=== PATIENT | female | born 1965 | race African-American/Black ===

== ENCOUNTER 2016-08-11 10:44 | Inpatient (IN) | payer OTHER ==
[~2016-08-11] VITALS: Ht 167.6 cm; Wt 139.3 kg
[2016-08-11] VITALS (28 sets, daily range): BP systolic 94–160; BP diastolic 53–87
[~2016-08-11 10:44] MED LIST: AMIT-188 PO; ANAS1TAB7 PO; ASPI-1035 PO; CLOP75TA33 PO; FLUO40CA8 PO; GABA-290 PO; HYDR12.54 PO; LOSA100T14 PO; METH-24 PO; ROSU10TA PO
[2016-08-11] MEDS ORDERED: ONDANSETRON HCL 4MG/2ML VIAL IV STA (11:34)
[2016-08-11] MEDS ORDERED: FENTANYL CITRATE/PF 50MCG/ML 2ML VIAL IV ONE (11:45)
[2016-08-11 11:53] LABS: BASOPHILS % 1.2 % (0.0-2.0); HEMATOCRIT. 42.8 % (36.0-48.0); HEMOGLOBIN. 13.9 g/dL (12.0-16.0); LYMPHOCYTES % 34.5 % (20.0-50.0); MEAN CORPUSCULAR HEMOGLOBIN 27.6 pg (28.0-32.0); MEAN CORPUSCULAR HGB CONC 32.6 g/dL (31.0-37.0); MEAN CORPUSCULAR VOLUME 84.6 fL (81.0-99.0); MEAN PLATELET VOLUME 8.6 fl (7.4-10.4); MONOCYTES % 9.1 % (2.0-8.0); NEUTROPHILS % 51.2 % (40.0-76.0); PLATELET 205 x1000/uL (130-400); RED BLOOD CELL COUNT 5.06 mill/uL (4.2-5.4); RED CELL DISTRIBUTION WIDTH 15.9 % (11.6-14.6); WHITE BLOOD COUNT 9.2 x1000/uL (4.5-11.0)
[2016-08-11 12:00] LABS: PROTHROMBIN TIME 10.7 sec
[2016-08-11 12:10] LABS: ALANINE AMINOTRANSFERASE 12 IU/L (13-61); ALBUMIN 3.3 g/dL (3.4-5.0); ANION GAP 13; CALCIUM 9.6 mg/dL (8.5-10.1); CARBON DIOXIDE 26 mEq/L (21-32); CHLORIDE 107 mEq/L (98-107); INDEX HEMOLYSI 1 (1-3); INDEX ICTERIC 1 (1-4); INDEX LIPEMIC 1 (1-3); NT PRO B-TYPE NATRIURETIC PEP 146 pg/mL (5-125); TROPONIN I < 0.02 ng/mL (0.00-0.04); UREA NITROGEN BLOOD 23 mg/dL (7-21); eGFR 25 mL/min (>60)
[2016-08-11] MEDS ORDERED: HYDROMORPHONE HCL/PF 2MG/ML (OR) ONE ×2 (14:30→15:08)
[2016-08-11] MEDS ORDERED: FENTANYL CITRATE/PF 50MCG/ML 2ML VIAL ONE (14:30)
[2016-08-11] MEDS ORDERED: MIDAZOLAM HCL 5 MG/5 ML VIAL ONE (14:31)
[2016-08-11] MEDS ORDERED: IODIXANOL 320MG/ML 100 ML BOTTLE IV ONE (14:31)
[2016-08-11] MEDS ORDERED: LIDOCAINE HCL 1% 20ML VIAL (Pyxis) INJ ONE (14:31)
[2016-08-11] MEDS ORDERED: IOVERSOL 240MG/ML 100ML BOTTLE IV ONE (15:01)
[2016-08-11] MEDS ORDERED: SODIUM BICARBONATE 8.4% 1 MEQ/ML 50ML SYR IV NR (15:15)
[2016-08-11] MEDS ORDERED: INSULIN REGULAR (HUMULIN R) 300UNITS/3ML IV NR (15:15)
[2016-08-11] MEDS ORDERED: DEXTROSE 50% WATER 50ML SYRINGE IV NR (15:15)
[2016-08-11] MEDS ORDERED: ACETAMINOPHEN 325MG TABLET PO PRN ×2 (15:30→21:45)
[2016-08-11] MEDS ORDERED: ATROPINE SULFATE 1MG/10ML SYR IV PRN (15:30)
[2016-08-11] MEDS ORDERED: ASPIRIN 325MG TABLET ONE (15:39)
[2016-08-11] MEDS ORDERED: CLOPIDOGREL 75MG TABLET ONE (15:39)
[2016-08-11] MEDS ORDERED: SODIUM CHLORIDE 0.9% 1,000 ML IV ONE (15:45)
[2016-08-11] MEDS: SODIUM CHLORIDE 0.45% 1,000 ML IV SCH (19:13)
[2016-08-11] MEDS ORDERED: IPRATROPIUM/ALBUTEROL 0.5-3(2.5)MG/3ML NEB INH PRN (21:45)
[2016-08-11] MEDS ORDERED: CLONIDINE 0.1MG TABLET PO PRN (21:45)
[2016-08-11] MEDS ORDERED: HYDROCODONE/ACETAMINOPHEN 5/325MG TABLET PO PRN (21:45)
[2016-08-11] MEDS ORDERED: MAGNESIUM/ALUMINUM HYDROXIDE/SIMETHICONE 30ML UDC PO PRN (21:45)
[2016-08-11] MEDS ORDERED: ONDANSETRON HCL 4MG/2ML VIAL IV PRN (21:45)
[2016-08-11] MEDS: BLOOD SUGAR DIAGNOSTIC STRIP TEST SCH (23:58)
[2016-08-11] MEDS: INSULIN LISPRO 100 UNITS/ML SUBCUT SCH (23:58)
[2016-08-12] VITALS (17 sets, daily range): BP systolic 101–143; BP diastolic 51–89
[2016-08-12] MEDS: HYDROMORPHONE HCL/PF 2MG/ML CPJ IV PRN ×2 (01:02→08:44)
[2016-08-12] MEDS ORDERED: DEXTROSE 50% WATER 50ML SYRINGE IV PRN (02:30)
[2016-08-12 02:51] LABS: CLARITY URINE CLEAR (CLEAR); COLOR URINE YELLOW (YELLOW); GLUCOSE URINE NEGATIVE (NEGATIVE); KETONES URINE NEGATIVE (NEGATIVE); LEUKOCYTE ESTERASE URINE NEGATIVE (NEGATIVE); NITRITE URINE NEGATIVE (NEGATIVE); OCCULT BLOOD URINE TRACE (NEGATIVE); PH URINE 6.5 (4.5-8.0); PROTEIN URINE 1+ (NEGATIVE); SPECIFIC GRAVITY URINE 1.012 (1.005-1.030); UROBILINOGEN URINE 0.2 E.U./dL (0.2-1.0)
[2016-08-12 03:01] LABS: *AMPHETAMINES SCREEN URINE NEGATIVE (NEGATIVE); *BARBITURATES SCREEN URINE NEGATIVE (NEGATIVE); *COCAINE SCREEN URINE NEGATIVE (NEGATIVE); CANNABINOID URINE SCREEN NEGATIVE (NEGATIVE); ECSTASY MDMA SCREEN URINE NEGATIVE (NEGATIVE); METHADONE URINE SCREEN NEGATIVE (NEGATIVE); PHENCYCLIDINE URINE SCREEN NEGATIVE (NEGATIVE)
[2016-08-12 03:19] LABS: BACTERIA URINE TRACE; RBC URINE 0-2 /hpf (0-2); SQUAMOUS EPITHELIAL CELL URINE RARE /lpf (RARE/1+); WBC URINE 0-2 /hpf (0-2)
[2016-08-12 03:42] LABS: *BENZODIAZEPINES SCREEN URINE PRESUMTIVE POSITIVE (NEGATIVE); OPIATES URINE SCREEN PRESUMTIVE POSITIVE (NEGATIVE)
[2016-08-12] MEDS: SODIUM CHLORIDE 0.45% 1,000 ML IV SCH (04:36)
[2016-08-12] MEDS: BLOOD SUGAR DIAGNOSTIC STRIP TEST SCH (06:02)
[2016-08-12 06:38] LABS: BASOPHILS % 0.6 % (0.0-2.0); EOSINOPHILS % 2.6 % (0.0-5.0); HEMATOCRIT. 38.8 % (36.0-48.0); HEMOGLOBIN. 12.8 g/dL (12.0-16.0); LYMPHOCYTES % 27.8 % (20.0-50.0); MEAN CORPUSCULAR HGB CONC 33.1 g/dL (31.0-37.0); MEAN CORPUSCULAR VOLUME 84.6 fL (81.0-99.0); MEAN PLATELET VOLUME 9.2 fl (7.4-10.4); MONOCYTES % 8.4 % (2.0-8.0); NEUTROPHILS % 60.6 % (40.0-76.0); PLATELET 183 x1000/uL (130-400); RED BLOOD CELL COUNT 4.58 mill/uL (4.2-5.4); RED CELL DISTRIBUTION WIDTH 15.7 % (11.6-14.6); WHITE BLOOD COUNT 8.9 x1000/uL (4.5-11.0)
[2016-08-12] MEDS: INSULIN LISPRO 100 UNITS/ML SUBCUT SCH (07:20)
[2016-08-12 08:13] LABS: CALCIUM 9.1 mg/dL (8.5-10.1)
[2016-08-12] MEDS ORDERED: ASPIRIN 81MG TABLET PO SCH (09:00)
[2016-08-12] MEDS ORDERED: CLOPIDOGREL 75MG TABLET PO SCH (09:00)
[2016-08-12] MEDS ORDERED: HEPARIN SODIUM 1,000 UNIT/1ML VIAL IV ONE (13:40)
== END 2016-08-12 12:48 | disposition home or self-care (01) | DRG 173 ==
LOC: ER 10:56 → 3WST 15:26
PROVIDERS: ADMIT Internal Medicine; ATTEND Internal Medicine
PROC: 047K3Z1 Dilation of Right Femoral Artery using Drug-Coated Balloon, Percutaneous Approach (ICD-10-PCS; principal; 2016-08-11)
PROC: B41F1ZZ Fluoroscopy of Right Lower Extremity Arteries using Low Osmolar Contrast (ICD-10-PCS; 2016-08-11)
DX: I70.201 Unspecified atherosclerosis of native arteries of extremities, right leg (principal); E11.22 Type 2 diabetes mellitus with diabetic chronic kidney disease; E11.51 Type 2 diabetes mellitus with diabetic peripheral angiopathy without gangrene; E87.5 Hyperkalemia; D63.8 Anemia in other chronic diseases classified elsewhere; E66.09 Other obesity due to excess calories; E78.5 Hyperlipidemia, unspecified; F17.210 Nicotine dependence, cigarettes, uncomplicated; F41.9 Anxiety disorder, unspecified; I25.10 Atherosclerotic heart disease of native coronary artery without angina pectoris; J45.909 Unspecified asthma, uncomplicated; I12.9 Hypertensive chronic kidney disease with stage 1 through stage 4 chronic kidney disease, or unspecified chronic kidney disease; I99.8 Other disorder of circulatory system; N18.9 Chronic kidney disease, unspecified; W19.XXXA Unspecified fall, initial encounter; Y92.009 Unspecified place in unspecified non-institutional (private) residence as the place of occurrence of the external cause; Z79.02 Long term (current) use of antithrombotics/antiplatelets; Z79.82 Long term (current) use of aspirin; Z85.3 Personal history of malignant neoplasm of breast; Z68.42 Body mass index [BMI] 45.0-49.9, adult; Z89.429 Acquired absence of other toe(s), unspecified side; Z92.3 Personal history of irradiation; Z99.3 Dependence on wheelchair; Z88.6 Allergy status to analgesic agent; Z88.2 Allergy status to sulfonamides
CPT/HCPCS: 36415; 37224; 75710; 80048; 80053; 80061; 80305; 81001; 82962; 83880; 84484; 85025; 85347; 85610; 85730; 93005; 93923; 93970; 96374; 96375; 99291; C1726; C1769; C1887; C1893; C1894; C2623; J1170; J1644; J2250; J2405; J3010; J3490; J7030; J7620; Q9967; A4315

== ENCOUNTER 2016-09-15 07:20 | Inpatient (IN) | payer OTHER ==
[~2016-09-15] VITALS: Ht 172.7 cm; Wt 136.1 kg
[2016-09-15] MEDS ORDERED: MORPHINE SULFATE 4 MG/ML CPJ (NOT FOR IM USE) IV STA (08:19)
[2016-09-15] MEDS ORDERED: SODIUM CHLORIDE 0.9% 1,000 ML IV ONE (08:19)
[2016-09-15] MEDS ORDERED: ONDANSETRON HCL 4MG/2ML VIAL IV STA (08:19)
[2016-09-15 08:37] LABS: BASOPHILS % 1.3 % (0.0-2.0); EOSINOPHILS % 3.1 % (0.0-5.0); HEMATOCRIT. 41.5 % (36.0-48.0); HEMOGLOBIN. 13.9 g/dL (12.0-16.0); LYMPHOCYTES % 29.1 % (20.0-50.0); MEAN CORPUSCULAR HEMOGLOBIN 27.9 pg (28.0-32.0); MEAN CORPUSCULAR VOLUME 83.5 fL (81.0-99.0); MEAN PLATELET VOLUME 8.6 fl (7.4-10.4); MONOCYTES % 8.6 % (2.0-8.0); NEUTROPHILS % 57.9 % (40.0-76.0); PLATELET 224 x1000/uL (130-400); RED BLOOD CELL COUNT 4.97 mill/uL (4.2-5.4); RED CELL DISTRIBUTION WIDTH 16.4 % (11.6-14.6)
[2016-09-15 08:40] LABS: CHLORIDE 106 mEq/L (98-107)
[2016-09-15 08:49] LABS: CARBON DIOXIDE 25 mEq/L (21-32)
[2016-09-15 08:53] LABS: HCG SCREEN NEGATIVE
[2016-09-15 11:28] LABS: CLARITY URINE CLEAR (CLEAR); COLOR URINE YELLOW (YELLOW); GLUCOSE URINE NEGATIVE (NEGATIVE); KETONES URINE NEGATIVE (NEGATIVE); LEUKOCYTE ESTERASE URINE NEGATIVE (NEGATIVE); NITRITE URINE NEGATIVE (NEGATIVE); OCCULT BLOOD URINE NEGATIVE (NEGATIVE); PH URINE 6.5 (4.5-8.0); PROTEIN URINE 3+ (NEGATIVE); SPECIFIC GRAVITY URINE 1.013 (1.005-1.030); UROBILINOGEN URINE 0.2 E.U./dL (0.2-1.0)
[2016-09-15] MEDS ORDERED: LEVOFLOXACIN 750MG PREMIX 150 ML IV ONE (12:00)
[2016-09-15] MEDS ORDERED: METRONIDAZOLE 500 MG PREMIX 100 ML IV ONE (12:00)
[2016-09-15] MEDS ORDERED: ACETAMINOPHEN 325MG TABLET PO PRN (12:15)
[2016-09-15] MEDS ORDERED: DOCUSATE SODIUM 100MG CAPSULE PO PRN (12:15)
[2016-09-15] MEDS ORDERED: DIPHENHYDRAMINE 50MG/ML VIAL IV PRN (12:15)
[2016-09-15] MEDS ORDERED: HYDROCODONE/ACETAMINOPHEN 5/325MG TABLET PO PRN (12:15)
[2016-09-15] MEDS ORDERED: IPRATROPIUM/ALBUTEROL 0.5-3(2.5)MG/3ML NEB INH PRN (12:15)
[2016-09-15] MEDS ORDERED: MAGNESIUM/ALUMINUM HYDROXIDE/SIMETHICONE 30ML UDC PO PRN (12:15)
[2016-09-15] MEDS ORDERED: ONDANSETRON HCL 4MG/2ML VIAL IV PRN (12:15)
[2016-09-15] MEDS ORDERED: NA PHOS,M-B/NA PHOS,DI-BA ENEMA 118ML PR PRN (12:15)
[2016-09-15] MEDS ORDERED: LORAZEPAM 2MG/ML CPJ IV PRN (12:15)
[2016-09-15] MEDS: METRONIDAZOLE 500 MG PREMIX 100 ML IV SCH ×2 (14:04→23:38)
[2016-09-15 16:00] VITALS: BP_SYST 136; BP_SYST 138; BP_DIAS 86
[2016-09-15] MEDS ORDERED: MUPI22OI2 TP (16:39)
[2016-09-15] MEDS ORDERED: LEVOFLOXACIN 500MG PREMIX 100 ML IV SCH ×2 (18:00→21:00)
[2016-09-15] MEDS ORDERED: METHOCARBAMOL 750MG TABLET PO PRN (18:30)
[2016-09-15] MEDS: HYDROMORPHONE HCL/PF 2MG/ML CPJ IV PRN (20:18)
[2016-09-15 21:00] VITALS: BP 110/78
[2016-09-15] MEDS ORDERED: AMITRIPTYLINE 50MG TABLET PO SCH (21:00)
[2016-09-15] MEDS ORDERED: FLUOXETINE HCL 20MG CAPSULE PO SCH (21:00)
[2016-09-15] MEDS ORDERED: ANASTROZOLE 1 MG TABLET PO SCH (21:00)
[2016-09-15] MEDS ORDERED: MEDICATION NOT ON FORMULARY EA (Fluoxetine Hcl (Prozac) 40 MG) PO SCH (21:00)
[2016-09-15] MEDS: ENOXAPARIN 40MG/0.4ML SYR SUBCUT SCH (21:44)
[2016-09-15] MEDS: SODIUM CHLORIDE 0.45% 1,000 ML IV SCH (23:42)
[2016-09-16] MEDS ORDERED: DEXTROSE 50% WATER 50ML SYRINGE IV PRN
[2016-09-16 00:39] VITALS: BP 108/66
[2016-09-16] MEDS: HYDROMORPHONE HCL/PF 2MG/ML CPJ IV PRN ×3 (02:58→13:17)
[2016-09-16 04:00] VITALS: BP 122/68
[2016-09-16] MEDS: METRONIDAZOLE 500 MG PREMIX 100 ML IV SCH ×2 (05:21→13:18)
[2016-09-16 06:25] LABS: CARBON DIOXIDE 27 mEq/L (21-32); CHLORIDE 104 mEq/L (98-107); LDL CHOLESTEROL 100 mg/dL (5-100)
[2016-09-16 06:28] LABS: HDL CHOLESTEROL 38 mg/dL (40-59)
[2016-09-16] MEDS: BLOOD SUGAR DIAGNOSTIC STRIP TEST SCH ×2 (07:01→12:55)
[2016-09-16 07:21] LABS: BASOPHILS % 1.1 % (0.0-2.0); EOSINOPHILS % 4.9 % (0.0-5.0); HEMOGLOBIN. 13.2 g/dL (12.0-16.0); LYMPHOCYTES % 29.7 % (20.0-50.0); MEAN CORPUSCULAR HEMOGLOBIN 28.1 pg (28.0-32.0); MEAN CORPUSCULAR VOLUME 85.6 fL (81.0-99.0); MEAN PLATELET VOLUME 9.6 fl (7.4-10.4); MONOCYTES % 10.9 % (2.0-8.0); NEUTROPHILS % 53.4 % (40.0-76.0); PLATELET 191 x1000/uL (130-400); RED BLOOD CELL COUNT 4.68 mill/uL (4.2-5.4); RED CELL DISTRIBUTION WIDTH 16.4 % (11.6-14.6)
[2016-09-16] MEDS: INSULIN LISPRO 100 UNITS/ML SUBCUT SCH ×2 (07:50→12:50)
[2016-09-16 08:30] VITALS: BP 133/59
[2016-09-16] MEDS: ENOXAPARIN 40MG/0.4ML SYR SUBCUT SCH (08:52)
[2016-09-16] MEDS ORDERED: GABAPENTIN 300MG CAPSULE PO SCH (09:00)
[2016-09-16] MEDS ORDERED: CLOPIDOGREL 75MG TABLET PO SCH (09:00)
[2016-09-16] MEDS ORDERED: MUPIROCIN 2% OINT 22GM TOP SCH (09:00)
[2016-09-16] MEDS ORDERED: ASPIRIN 81MG EC TABLET PO SCH (09:00)
[2016-09-16] MEDS ORDERED: MEDICATION NOT ON FORMULARY EA (Gabapentin 600 MG) PO SCH (09:00)
[2016-09-16] MEDS ORDERED: LOSARTAN POTASSIUM 100 MG TABLET PO SCH (09:00)
[2016-09-16] MEDS: SODIUM CHLORIDE 0.45% 1,000 ML IV SCH (13:11)
[2016-09-16 15:58] VITALS: BP 128/66
[2016-09-16] MEDS ORDERED: METRONIDAZOLE 500 MG PREMIX 100 ML IV SCH (22:00)
[2016-09-17] MEDS ORDERED: LEVOFLOXACIN 500MG TABLET PO SCH (11:00)
== END 2016-09-16 17:05 | disposition home or self-care (01) | DRG 244 ==
LOC: ER 07:25 → 6EST 12:09 → ENRESERV 12:17 → 6WST 20:58
PROVIDERS: ADMIT Internal Medicine; ATTEND Internal Medicine
DX: K57.32 Diverticulitis of large intestine without perforation or abscess without bleeding (principal); N17.9 Acute kidney failure, unspecified; I31.3 Pericardial effusion (noninflammatory); E11.22 Type 2 diabetes mellitus with diabetic chronic kidney disease; Z68.42 Body mass index [BMI] 45.0-49.9, adult; E11.51 Type 2 diabetes mellitus with diabetic peripheral angiopathy without gangrene; J43.9 Emphysema, unspecified; E86.0 Dehydration; E78.5 Hyperlipidemia, unspecified; T45.1X5A Adverse effect of antineoplastic and immunosuppressive drugs, initial encounter; I25.10 Atherosclerotic heart disease of native coronary artery without angina pectoris; J45.909 Unspecified asthma, uncomplicated; I12.9 Hypertensive chronic kidney disease with stage 1 through stage 4 chronic kidney disease, or unspecified chronic kidney disease; E66.01 Morbid (severe) obesity due to excess calories; C50.912 Malignant neoplasm of unspecified site of left female breast; E87.8 Other disorders of electrolyte and fluid balance, not elsewhere classified; N18.9 Chronic kidney disease, unspecified; Z82.49 Family history of ischemic heart disease and other diseases of the circulatory system; Z83.3 Family history of diabetes mellitus; Z95.5 Presence of coronary angioplasty implant and graft; Z88.6 Allergy status to analgesic agent; Z88.2 Allergy status to sulfonamides
CPT/HCPCS: 36415; 71010; 74176; 76770; 80048; 80053; 80061; 81001; 82962; 83690; 84703; 85025; 93005; 96374; 96375; 99285; C1893; J1170; J1650; J1956; J2270; J2405; J3490; J7030

== ENCOUNTER 2017-01-24 05:37 | Inpatient (IN) | payer OTHER ==
[~2017-01-24] VITALS: Ht 172.7 cm; Wt 135.6 kg
[~2017-01-24 05:37] MED LIST changes: -ASPI-1035 PO; +ASPI-1159 PO; -METH-24 PO; +METH-375 PO; +MUPI22OI2 TP
[2017-01-24] MEDS ORDERED: HYDROCODONE/ACETAMINOPHEN 10/325MG TABLET PO ONE (08:00)
[2017-01-24] MEDS ORDERED: LIDOCAINE HCL 1% 20ML VIAL (Pyxis) INJ INFIL ONE (11:00)
[2017-01-24] MEDS ORDERED: CLOPIDOGREL 75MG TABLET PO NR (12:15)
[2017-01-24] MEDS ORDERED: HYDROCODONE/ACETAMINOPHEN 5/325MG TABLET PO PRN (12:30)
[2017-01-24 12:56] LABS: BASOPHILS % 1.2 % (0.0-2.0); EOSINOPHILS % 3.1 % (0.0-5.0); HEMATOCRIT. 39.4 % (36.0-48.0); HEMOGLOBIN. 13.3 g/dL (12.0-16.0); LYMPHOCYTES % 36.6 % (20.0-50.0); MEAN PLATELET VOLUME 8.9 fl (7.4-10.4); MONOCYTES % 8.8 % (2.0-8.0); NEUTROPHILS % 50.3 % (40.0-76.0); PLATELET 187 x1000/uL (130-400); RED BLOOD CELL COUNT 4.58 mill/uL (4.2-5.4); RED CELL DISTRIBUTION WIDTH 15.7 % (11.6-14.6)
[2017-01-24 13:08] LABS: PARTIAL THROMBOPLASTIN TIME 26.4 sec (23.4-31.0); PROTHROMBIN TIME 10.7 sec (9.4-11.6)
[2017-01-24] MEDS: AMLODIPINE 5MG TABLET PO SCH ×2 (14:48→21:15)
[2017-01-24] MEDS ORDERED: DEXTROSE 50% WATER 50ML SYRINGE IV PRN (15:15)
[2017-01-24 17:00] VITALS: BP 145/83
[2017-01-24] MEDS: BLOOD SUGAR DIAGNOSTIC STRIP TEST SCH ×2 (17:00→22:18)
[2017-01-24] MEDS ORDERED: DIAZ10TA PO (17:37)
[2017-01-24] MEDS: INSULIN LISPRO 100 UNITS/ML SUBCUT SCH ×2 (17:50→22:19)
[2017-01-24] MEDS ORDERED: METHOCARBAMOL 750MG TABLET PO PRN (18:00)
[2017-01-24] MEDS ORDERED: NICOTINE 21MG PATCH TD NR (18:00)
[2017-01-24] MEDS: HYDROCODONE/ACETAMINOPHEN 10/325MG TABLET PO PRN (19:03)
[2017-01-24] MEDS: NITROGLYCERIN OINT 1GM/INCH UDPKT TD SCH ×2 (19:04→21:15)
[2017-01-24] MEDS: ENOXAPARIN 150MG/ML SYR SUBCUT SCH (19:33)
[2017-01-24 20:00] VITALS: BP 120/82
[2017-01-24] MEDS ORDERED: FLUOXETINE HCL 20MG CAPSULE PO SCH (21:00)
[2017-01-24] MEDS ORDERED: DIAZEPAM 5 MG TABLET PO SCH (21:00)
[2017-01-24] MEDS ORDERED: ANASTROZOLE 1 MG TABLET PO SCH (21:00)
[2017-01-25] MEDS: HYDROCODONE/ACETAMINOPHEN 10/325MG TABLET PO PRN ×4 (00:07→17:15)
[2017-01-25 00:36] VITALS: BP 108/55
[2017-01-25] MEDS: NITROGLYCERIN OINT 1GM/INCH UDPKT TD SCH ×5 (00:56→17:16)
[2017-01-25 04:00] VITALS: BP 131/81
[2017-01-25] MEDS: ENOXAPARIN 150MG/ML SYR SUBCUT SCH (06:23)
[2017-01-25] MEDS: BLOOD SUGAR DIAGNOSTIC STRIP TEST SCH ×3 (06:40→17:35)
[2017-01-25 06:47] LABS: BASOPHILS % 0.5 % (0.0-2.0); EOSINOPHILS % 2.7 % (0.0-5.0); HEMATOCRIT. 37.8 % (36.0-48.0); HEMOGLOBIN. 12.6 g/dL (12.0-16.0); LYMPHOCYTES % 38.5 % (20.0-50.0); MEAN CORPUSCULAR HEMOGLOBIN 28.7 pg (28.0-32.0); MEAN CORPUSCULAR VOLUME 85.8 fL (81.0-99.0); MEAN PLATELET VOLUME 9.1 fl (7.4-10.4); MONOCYTES % 8.9 % (2.0-8.0); NEUTROPHILS % 49.4 % (40.0-76.0); PLATELET 168 x1000/uL (130-400); RED BLOOD CELL COUNT 4.41 mill/uL (4.2-5.4); RED CELL DISTRIBUTION WIDTH 15.9 % (11.6-14.6)
[2017-01-25 07:38] VITALS: BP 123/70
[2017-01-25] MEDS: INSULIN LISPRO 100 UNITS/ML SUBCUT SCH ×2 (07:39→13:28)
[2017-01-25] MEDS: AMLODIPINE 5MG TABLET PO SCH (08:52)
[2017-01-25] MEDS: GABAPENTIN 300MG CAPSULE PO SCH ×3 (08:53→17:14)
[2017-01-25] MEDS ORDERED: AMITRIPTYLINE 50MG TABLET PO SCH (09:00)
[2017-01-25] MEDS ORDERED: MUPIROCIN 2% OINT 22GM TOP SCH (09:00)
[2017-01-25] MEDS ORDERED: NICOTINE 21MG PATCH TD SCH (09:00)
[2017-01-25] MEDS ORDERED: CLOPIDOGREL 75MG TABLET PO SCH (09:00)
[2017-01-25] MEDS ORDERED: ASPIRIN 81MG EC TABLET PO SCH (09:00)
[2017-01-25] MEDS ORDERED: SODIUM CHLORIDE 0.45% 1,000 ML IV SCH (11:15)
[2017-01-25] MEDS ORDERED: SODIUM POLYSTYRENE SULFONATE 15 G/60 ML BOT PO SCH (11:15)
[2017-01-25 12:17] VITALS: BP 109/62
[2017-01-25 17:19] VITALS: BP 112/61
[2017-01-25] MEDS ORDERED: ENOXAPARIN 80MG/0.8ML SYR SUBCUT SCH (18:00)
== END 2017-01-25 18:50 | disposition short-term general hospital (02) | DRG 197 ==
LOC: ER 05:37 → 6WST 11:54 → EDBEDREQSVC 13:41 → ENRESERV 14:22 → UNDODISIN 01-25 13:10
PROVIDERS: ADMIT Internal Medicine Critical Care Medicine; ATTEND Internal Medicine Critical Care Medicine
DX: I74.5 Embolism and thrombosis of iliac artery (principal); E11.22 Type 2 diabetes mellitus with diabetic chronic kidney disease; I13.10 Hypertensive heart and chronic kidney disease without heart failure, with stage 1 through stage 4 chronic kidney disease, or unspecified chronic kidney disease; E11.51 Type 2 diabetes mellitus with diabetic peripheral angiopathy without gangrene; K57.92 Diverticulitis of intestine, part unspecified, without perforation or abscess without bleeding; Z68.42 Body mass index [BMI] 45.0-49.9, adult; E66.9 Obesity, unspecified; E78.5 Hyperlipidemia, unspecified; F17.210 Nicotine dependence, cigarettes, uncomplicated; F32.9 Major depressive disorder, single episode, unspecified; F41.9 Anxiety disorder, unspecified; G89.4 Chronic pain syndrome; I25.10 Atherosclerotic heart disease of native coronary artery without angina pectoris; J45.909 Unspecified asthma, uncomplicated; I99.8 Other disorder of circulatory system; J44.9 Chronic obstructive pulmonary disease, unspecified; N18.9 Chronic kidney disease, unspecified; Z79.82 Long term (current) use of aspirin; Z79.84 Long term (current) use of oral hypoglycemic drugs; Z85.3 Personal history of malignant neoplasm of breast; Z88.2 Allergy status to sulfonamides; Z92.21 Personal history of antineoplastic chemotherapy; Z92.3 Personal history of irradiation; Z88.6 Allergy status to analgesic agent; Z79.899 Other long term (current) drug therapy; Z89.422 Acquired absence of other left toe(s); Z71.6 Tobacco abuse counseling
CPT/HCPCS: 36415; 73630; 80048; 82962; 83735; 85025; 85610; 85730; 93005; 93923; 93970; 99285; J1650; J1815; J3490; A4315

== ENCOUNTER 2017-02-05 18:21 | Inpatient (IN) | payer OTHER ==
[~2017-02-05] VITALS: Ht 172.7 cm; Wt 150.6 kg
[~2017-02-05 18:21] MED LIST changes: +DIAZ10TA PO
[2017-02-05] MEDS ORDERED: ONDANSETRON HCL 4MG/2ML VIAL IV STA (18:56)
[2017-02-05] MEDS ORDERED: MORPHINE SULFATE 4 MG/ML CPJ (NOT FOR IM USE) IV STA (18:56)
[2017-02-05 19:26] LABS: BASOPHILS % 1.2 % (0.0-2.0); EOSINOPHILS % 4.9 % (0.0-5.0); HEMATOCRIT. 26.4 % (36.0-48.0); HEMOGLOBIN. 8.7 g/dL (12.0-16.0); LYMPHOCYTES % 30.2 % (20.0-50.0); MEAN CORPUSCULAR HEMOGLOBIN 28.8 pg (28.0-32.0); MEAN CORPUSCULAR VOLUME 87.8 fL (81.0-99.0); MEAN PLATELET VOLUME 8.7 fl (7.4-10.4); MONOCYTES % 9.4 % (2.0-8.0); NEUTROPHILS % 54.3 % (40.0-76.0); PLATELET 289 x1000/uL (130-400); RED BLOOD CELL COUNT 3.01 mill/uL (4.2-5.4); RED CELL DISTRIBUTION WIDTH 15.9 % (11.6-14.6)
[2017-02-05 19:31] LABS: CHLORIDE 109 mEq/L (98-107); PROTHROMBIN TIME 10.7 sec (9.4-11.6)
[2017-02-05 19:37] LABS: CARBON DIOXIDE 24 mEq/L (21-32)
[2017-02-05 19:42] LABS: TROPONIN I < 0.02 ng/mL (0.00-0.04)
[2017-02-05] MEDS ORDERED: MORPHINE SULFATE 10 MG/ML CPJ IV SCH (19:46)
[2017-02-05] MEDS ORDERED: HEPARIN 25,000 UNITS PREMIX 500 ML IV ONE (20:15)
[2017-02-05] MEDS ORDERED: HEPARIN 5000 UNITS/ML VIAL IV ONE (20:15)
[2017-02-05 21:34] LABS: CLARITY URINE CLEAR (CLEAR); COLOR URINE YELLOW (YELLOW); GLUCOSE URINE NEGATIVE (NEGATIVE); KETONES URINE NEGATIVE (NEGATIVE); LEUKOCYTE ESTERASE URINE NEGATIVE (NEGATIVE); NITRITE URINE NEGATIVE (NEGATIVE); OCCULT BLOOD URINE NEGATIVE (NEGATIVE); PROTEIN URINE 2+ (NEGATIVE); SPECIFIC GRAVITY URINE 1.016 (1.005-1.030)
[2017-02-05 23:15] VITALS: BP 138/79
[2017-02-05 23:16] VITALS: BP 138/79
[2017-02-05 23:52] VITALS: BP 143/76
[2017-02-06] VITALS (9 sets, daily range): BP systolic 111–147; BP diastolic 56–83
[2017-02-06] MEDS: HYDROCODONE/ACETAMINOPHEN 5/325MG TABLET PO PRN ×4 (01:20→23:51)
[2017-02-06] MEDS ORDERED: DIATR MEGLU/DIATRIZOATE SOLN 30ML PO NR (03:45)
[2017-02-06] MEDS ORDERED: DEXTROSE 50% WATER 50ML SYRINGE IV PRN (06:30)
[2017-02-06 06:42] LABS: BASOPHILS % 0.8 % (0.0-2.0); EOSINOPHILS % 4.9 % (0.0-5.0); HEMATOCRIT. 26.1 % (36.0-48.0); HEMOGLOBIN. 8.6 g/dL (12.0-16.0); LYMPHOCYTES % 30.4 % (20.0-50.0); MEAN CORPUSCULAR HEMOGLOBIN 28.7 pg (28.0-32.0); MEAN CORPUSCULAR VOLUME 87.3 fL (81.0-99.0); MEAN PLATELET VOLUME 9.2 fl (7.4-10.4); NEUTROPHILS % 54.9 % (40.0-76.0); PLATELET 283 x1000/uL (130-400); RED BLOOD CELL COUNT 2.99 mill/uL (4.2-5.4); RED CELL DISTRIBUTION WIDTH 16.1 % (11.6-14.6)
[2017-02-06] MEDS ORDERED: HEPARIN 5000 UNITS/ML VIAL IV PRN ×3 (06:45→06:47)
[2017-02-06] MEDS ORDERED: HEPARIN 25,000 UNITS PREMIX 500 ML IV PRN (06:45)
[2017-02-06 06:54] LABS: CARBON DIOXIDE 25 mEq/L (21-32); CHLORIDE 110 mEq/L (98-107); TOTAL IRON BINDING CAPACITY 289 ug/dL (250-450); TROPONIN I < 0.02 ng/mL (0.00-0.04)
[2017-02-06] MEDS: INSULIN LISPRO 100 UNITS/ML SUBCUT SCH ×4 (06:57→21:00)
[2017-02-06] MEDS: BLOOD SUGAR DIAGNOSTIC STRIP TEST SCH ×4 (06:57→21:27)
[2017-02-06 07:14] LABS: VITAMIN B12 SERUM 186 pg/mL (211-911)
[2017-02-06] MEDS: ASPIRIN 81MG EC TABLET PO SCH (08:45)
[2017-02-06] MEDS: CLOPIDOGREL 75MG TABLET PO SCH (08:45)
[2017-02-06] MEDS ORDERED: BARIUM SULFATE 450ML ORAL SUSP PO SCH (10:00)
[2017-02-06] MEDS ORDERED: CYANOCOBALAMIN 1000MCG/ML VIAL IM NR (13:30)
[2017-02-06] MEDS ORDERED: HYDROMORPHONE HCL/PF 2MG/ML CPJ IM PRN (13:30)
[2017-02-06] MEDS ORDERED: SODIUM POLYSTYRENE SULFONATE 15 G/60 ML BOT PO NR (14:15)
[2017-02-06] MEDS: SODIUM CHLORIDE 0.9% 1,000 ML IV SCH (16:14)
[2017-02-06] MEDS: HEPARIN 5000 UNITS/ML VIAL IV PRN (20:07)
[2017-02-06] MEDS: AMLODIPINE 5MG TABLET PO SCH (21:00)
[2017-02-06] MEDS: HYDROMORPHONE HCL/PF 2MG/ML CPJ IV PRN (21:30)
[2017-02-07] VITALS (12 sets, daily range): BP systolic 103–167; BP diastolic 37–101
[2017-02-07] MEDS: HEPARIN 5000 UNITS/ML VIAL IV PRN (02:54)
[2017-02-07] MEDS: HYDROMORPHONE HCL/PF 2MG/ML CPJ IV PRN ×3 (03:22→17:54)
[2017-02-07] MEDS: ACETYLCYSTEINE 200MG/ML 20% VIAL 4ML PO SCH ×2 (05:12→15:43)
[2017-02-07] MEDS: HYDROCODONE/ACETAMINOPHEN 5/325MG TABLET PO PRN ×3 (05:24→21:09)
[2017-02-07 05:57] LABS: BASOPHILS % 1.3 % (0.0-2.0); HEMATOCRIT. 27.1 % (36.0-48.0); HEMOGLOBIN. 8.8 g/dL (12.0-16.0); LYMPHOCYTES % 30.7 % (20.0-50.0); MEAN CORPUSCULAR HEMOGLOBIN 28.7 pg (28.0-32.0); MEAN CORPUSCULAR VOLUME 88.1 fL (81.0-99.0); MONOCYTES % 9.9 % (2.0-8.0); NEUTROPHILS % 53.1 % (40.0-76.0); PLATELET 268 x1000/uL (130-400); RED BLOOD CELL COUNT 3.08 mill/uL (4.2-5.4); RED CELL DISTRIBUTION WIDTH 16.2 % (11.6-14.6)
[2017-02-07] MEDS: INSULIN LISPRO 100 UNITS/ML SUBCUT SCH ×4 (06:24→21:00)
[2017-02-07] MEDS: BLOOD SUGAR DIAGNOSTIC STRIP TEST SCH ×4 (06:24→21:08)
[2017-02-07] MEDS: SODIUM CHLORIDE 0.9% 1,000 ML IV SCH ×2 (06:30→16:24)
[2017-02-07 06:40] LABS: CARBON DIOXIDE 25 mEq/L (21-32); CHLORIDE 108 mEq/L (98-107)
[2017-02-07 06:55] LABS: CREATINE KINASE 1452 IU/L (26-192); TROPONIN I < 0.02 ng/mL (0.00-0.04)
[2017-02-07] MEDS ORDERED: SODIUM POLYSTYRENE SULFONATE 15 G/60 ML BOT PO SCH (08:30)
[2017-02-07] MEDS: AMLODIPINE 5MG TABLET PO SCH ×2 (09:00→21:00)
[2017-02-07] MEDS: ASPIRIN 81MG EC TABLET PO SCH (09:35)
[2017-02-07] MEDS: CLOPIDOGREL 75MG TABLET PO SCH (09:36)
[2017-02-07] MEDS ORDERED: HEPARIN 25,000 UNITS PREMIX 500 ML IV PRN (10:00)
[2017-02-07] MEDS ORDERED: MAGNESIUM 2 G PREMIX 50 ML IV SCH (10:00)
[2017-02-07] MEDS ORDERED: ENOXAPARIN 150MG/ML SYR SUBCUT SCH (15:30)
[2017-02-08] VITALS (9 sets, daily range): BP systolic 112–140; BP diastolic 39–79
[2017-02-08] MEDS: HYDROMORPHONE HCL/PF 2MG/ML CPJ IV PRN ×4 (00:10→21:16)
[2017-02-08] MEDS: SODIUM CHLORIDE 0.9% 1,000 ML IV SCH ×2 (03:50→19:25)
[2017-02-08 06:05] LABS: BASOPHILS % 0.7 % (0.0-2.0); EOSINOPHILS % 3.9 % (0.0-5.0); HEMATOCRIT. 26.2 % (36.0-48.0); HEMOGLOBIN. 8.6 g/dL (12.0-16.0); LYMPHOCYTES % 34.1 % (20.0-50.0); MEAN CORPUSCULAR HEMOGLOBIN 29.1 pg (28.0-32.0); MEAN CORPUSCULAR VOLUME 88.9 fL (81.0-99.0); MEAN PLATELET VOLUME 8.5 fl (7.4-10.4); NEUTROPHILS % 52.3 % (40.0-76.0); PLATELET 294 x1000/uL (130-400); RED BLOOD CELL COUNT 2.94 mill/uL (4.2-5.4); RED CELL DISTRIBUTION WIDTH 16.5 % (11.6-14.6)
[2017-02-08] MEDS: ACETYLCYSTEINE 200MG/ML 20% VIAL 4ML PO SCH (06:26)
[2017-02-08] MEDS: INSULIN LISPRO 100 UNITS/ML SUBCUT SCH ×4 (06:27→21:00)
[2017-02-08] MEDS: BLOOD SUGAR DIAGNOSTIC STRIP TEST SCH ×4 (06:27→21:19)
[2017-02-08 06:42] LABS: PHOSPHORUS 4.5 mg/dL (2.5-4.9)
[2017-02-08] MEDS: CLOPIDOGREL 75MG TABLET PO SCH (08:51)
[2017-02-08] MEDS: ASPIRIN 81MG EC TABLET PO SCH (08:51)
[2017-02-08] MEDS: AMLODIPINE 5MG TABLET PO SCH ×2 (08:52→21:15)
[2017-02-08] MEDS: ENOXAPARIN 120MG/0.8ML SYR SUBCUT SCH ×2 (08:53→21:18)
[2017-02-08 10:49] LABS: INR 1.1; PARTIAL THROMBOPLASTIN TIME 38.7 sec (23.4-31.0); PROTHROMBIN TIME 10.9 sec (9.4-11.6)
[2017-02-08] MEDS: HYDROCODONE/ACETAMINOPHEN 5/325MG TABLET PO PRN (11:17)
[2017-02-08] MEDS: NITROGLYCERIN OINT 1GM/INCH UDPKT TD SCH ×2 (17:55→21:16)
[2017-02-09] VITALS (15 sets, daily range): BP systolic 109–188; BP diastolic 50–90
[2017-02-09] MEDS: HYDROCODONE/ACETAMINOPHEN 5/325MG TABLET PO PRN ×3 (01:57→21:12)
[2017-02-09] MEDS: INSULIN LISPRO 100 UNITS/ML SUBCUT SCH ×4 (06:35→21:00)
[2017-02-09] MEDS: BLOOD SUGAR DIAGNOSTIC STRIP TEST SCH ×4 (06:35→21:13)
[2017-02-09] MEDS: SODIUM CHLORIDE 0.9% 1,000 ML IV SCH ×2 (06:35→23:27)
[2017-02-09 06:57] LABS: BASOPHILS % 1.1 % (0.0-2.0); EOSINOPHILS % 3.8 % (0.0-5.0); HEMATOCRIT. 25.1 % (36.0-48.0); HEMOGLOBIN. 8.4 g/dL (12.0-16.0); LYMPHOCYTES % 26.5 % (20.0-50.0); MEAN CORPUSCULAR HEMOGLOBIN 29.2 pg (28.0-32.0); MEAN CORPUSCULAR VOLUME 87.7 fL (81.0-99.0); MEAN PLATELET VOLUME 8.8 fl (7.4-10.4); MONOCYTES % 10.2 % (2.0-8.0); NEUTROPHILS % 58.4 % (40.0-76.0); PLATELET 283 x1000/uL (130-400); RED BLOOD CELL COUNT 2.87 mill/uL (4.2-5.4); RED CELL DISTRIBUTION WIDTH 16.1 % (11.6-14.6)
[2017-02-09 07:29] LABS: CARBON DIOXIDE 26 mEq/L (21-32); CHLORIDE 111 mEq/L (98-107); PHOSPHORUS 4.1 mg/dL (2.5-4.9)
[2017-02-09] MEDS: AMLODIPINE 5MG TABLET PO SCH ×2 (08:36→21:12)
[2017-02-09] MEDS: ASPIRIN 81MG EC TABLET PO SCH (08:54)
[2017-02-09] MEDS: ENOXAPARIN 120MG/0.8ML SYR SUBCUT SCH (08:54)
[2017-02-09] MEDS: CLOPIDOGREL 75MG TABLET PO SCH (08:54)
[2017-02-09] MEDS: NITROGLYCERIN OINT 1GM/INCH UDPKT TD SCH ×4 (08:55→21:13)
[2017-02-09] MEDS: HYDROMORPHONE HCL/PF 2MG/ML CPJ IV PRN ×2 (09:00→17:54)
[2017-02-10] VITALS (26 sets, daily range): BP systolic 114–194; BP diastolic 38–101
[2017-02-10] MEDS: HYDROMORPHONE HCL/PF 2MG/ML CPJ IV PRN ×2 (00:02→20:48)
[2017-02-10] MEDS: INSULIN LISPRO 100 UNITS/ML SUBCUT SCH ×4 (06:55→20:39)
[2017-02-10] MEDS: BLOOD SUGAR DIAGNOSTIC STRIP TEST SCH ×4 (06:55→20:38)
[2017-02-10 07:57] LABS: BASOPHILS % 1.3 % (0.0-2.0); EOSINOPHILS % 4.2 % (0.0-5.0); HEMOGLOBIN. 8.8 g/dL (12.0-16.0); LYMPHOCYTES % 30.1 % (20.0-50.0); MEAN CORPUSCULAR HEMOGLOBIN 28.6 pg (28.0-32.0); MEAN PLATELET VOLUME 9.1 fl (7.4-10.4); MONOCYTES % 10.7 % (2.0-8.0); NEUTROPHILS % 53.7 % (40.0-76.0); PLATELET 309 x1000/uL (130-400); RED BLOOD CELL COUNT 3.07 mill/uL (4.2-5.4); RED CELL DISTRIBUTION WIDTH 16.3 % (11.6-14.6)
[2017-02-10] MEDS ORDERED: IODIXANOL 320MG/ML 100 ML BOTTLE IV ONE ×2 (08:25→10:57)
[2017-02-10] MEDS ORDERED: LIDOCAINE HCL 1% 20ML VIAL (Pyxis) INJ ONE (08:26)
[2017-02-10] MEDS: ASPIRIN 81MG EC TABLET PO SCH (08:40)
[2017-02-10] MEDS: CLOPIDOGREL 75MG TABLET PO SCH (08:40)
[2017-02-10] MEDS: AMLODIPINE 5MG TABLET PO SCH ×2 (08:42→20:47)
[2017-02-10] MEDS: NITROGLYCERIN OINT 1GM/INCH UDPKT TD SCH ×4 (08:49→20:57)
[2017-02-10] MEDS ORDERED: FENTANYL CITRATE/PF 50MCG/ML 2ML VIAL ONE ×3 (09:32→11:41)
[2017-02-10] MEDS ORDERED: MIDAZOLAM HCL 5 MG/5 ML VIAL ONE (09:32)
[2017-02-10] MEDS ORDERED: HYDROMORPHONE HCL/PF 2MG/ML (OR) ONE (09:58)
[2017-02-10] MEDS ORDERED: IOVERSOL 240MG/ML 100ML BOTTLE IV ONE (10:28)
[2017-02-10] MEDS ORDERED: MIDAZOLAM HCL 2 MG/2 ML VIAL ONE (10:42)
[2017-02-10] MEDS ORDERED: CLOPIDOGREL 75MG TABLET ONE (11:25)
[2017-02-10] MEDS ORDERED: HEPARIN SODIUM 1,000 UNIT/1ML VIAL IV ONE (11:30)
[2017-02-10] MEDS ORDERED: ATROPINE SULFATE 1MG/10ML SYR IV PRN (11:45)
[2017-02-10] MEDS ORDERED: CLOPIDOGREL 75MG TABLET PO ONE (11:45)
[2017-02-10] MEDS: SODIUM CHLORIDE 0.45% 1,000 ML IV SCH ×2 (12:43→20:00)
[2017-02-10] MEDS ORDERED: ZOLPIDEM TARTRATE 5MG TABLET PO PRN (14:45)
[2017-02-11] VITALS (10 sets, daily range): BP systolic 135–165; BP diastolic 66–99
[2017-02-11] MEDS: INSULIN LISPRO 100 UNITS/ML SUBCUT SCH ×2 (05:53→11:59)
[2017-02-11] MEDS: BLOOD SUGAR DIAGNOSTIC STRIP TEST SCH ×2 (05:53→11:07)
[2017-02-11 06:55] LABS: BASOPHILS % 0.8 % (0.0-2.0); EOSINOPHILS % 3.8 % (0.0-5.0); HEMATOCRIT. 29.5 % (36.0-48.0); HEMOGLOBIN. 9.8 g/dL (12.0-16.0); LYMPHOCYTES % 26.1 % (20.0-50.0); MEAN CORPUSCULAR VOLUME 87.7 fL (81.0-99.0); MEAN PLATELET VOLUME 8.5 fl (7.4-10.4); MONOCYTES % 11.4 % (2.0-8.0); NEUTROPHILS % 57.9 % (40.0-76.0); PLATELET 297 x1000/uL (130-400); RED BLOOD CELL COUNT 3.36 mill/uL (4.2-5.4); RED CELL DISTRIBUTION WIDTH 16.5 % (11.6-14.6)
[2017-02-11] MEDS: AMLODIPINE 5MG TABLET PO SCH (08:10)
[2017-02-11] MEDS: NITROGLYCERIN OINT 1GM/INCH UDPKT TD SCH ×2 (08:10→11:59)
[2017-02-11] MEDS: CLOPIDOGREL 75MG TABLET PO SCH (08:10)
[2017-02-11] MEDS: ASPIRIN 81MG EC TABLET PO SCH (08:10)
[2017-02-11] MEDS: HYDROMORPHONE HCL/PF 2MG/ML CPJ IV PRN (08:34)
== END 2017-02-11 13:10 | disposition home or self-care (01) | DRG 181 ==
LOC: EDBEDREQ 18:50 → ER 19:15 → 3WST 20:28 → EDBEDREQSVC 20:30 → EDBEDREQTM 20:30 → EDBEDREQ 20:30 → ENRESERV 21:46 → 3WST 02-10 12:51
PROVIDERS: ADMIT Internal Medicine; ATTEND Internal Medicine
PROC: B548ZZA Ultrasonography of Superior Vena Cava, Guidance (ICD-10-PCS; 2017-02-08)
PROC: 02HV33Z Insertion of Infusion Device into Superior Vena Cava, Percutaneous Approach (ICD-10-PCS; 2017-02-08)
PROC: 047 Lower Arteries, Dilation (ICD-10-PCS; principal; 2017-02-10)
PROC: 047L3D1 Dilation of Left Femoral Artery with Intraluminal Device, using Drug-Coated Balloon, Percutaneous Approach (ICD-10-PCS; 2017-02-10)
PROC: B41G1ZZ Fluoroscopy of Left Lower Extremity Arteries using Low Osmolar Contrast (ICD-10-PCS; 2017-02-10)
DX: T82.856A Stenosis of peripheral vascular stent, initial encounter (principal); N17.0 Acute kidney failure with tubular necrosis; E43 Unspecified severe protein-calorie malnutrition; Z68.41 Body mass index [BMI] 40.0-44.9, adult; I31.3 Pericardial effusion (noninflammatory); E11.22 Type 2 diabetes mellitus with diabetic chronic kidney disease; E11.42 Type 2 diabetes mellitus with diabetic polyneuropathy; Z68.43 Body mass index [BMI] 50.0-59.9, adult; E87.5 Hyperkalemia; E11.51 Type 2 diabetes mellitus with diabetic peripheral angiopathy without gangrene; I13.10 Hypertensive heart and chronic kidney disease without heart failure, with stage 1 through stage 4 chronic kidney disease, or unspecified chronic kidney disease; N18.3 Chronic kidney disease, stage 3 (moderate); E66.01 Morbid (severe) obesity due to excess calories; K57.90 Diverticulosis of intestine, part unspecified, without perforation or abscess without bleeding; D63.8 Anemia in other chronic diseases classified elsewhere; G89.4 Chronic pain syndrome; E78.00 Pure hypercholesterolemia, unspecified; G47.33 Obstructive sleep apnea (adult) (pediatric); F17.200 Nicotine dependence, unspecified, uncomplicated; I25.10 Atherosclerotic heart disease of native coronary artery without angina pectoris; E78.5 Hyperlipidemia, unspecified; F32.9 Major depressive disorder, single episode, unspecified; F41.9 Anxiety disorder, unspecified; I70.8 Atherosclerosis of other arteries; J44.9 Chronic obstructive pulmonary disease, unspecified; Y83.8 Other surgical procedures as the cause of abnormal reaction of the patient, or of later complication, without mention of misadventure at the time of the procedure; S40.022A Contusion of left upper arm, initial encounter; Z79.82 Long term (current) use of aspirin; Z79.899 Other long term (current) drug therapy; Z85.3 Personal history of malignant neoplasm of breast; Z88.6 Allergy status to analgesic agent; Z88.2 Allergy status to sulfonamides
CPT/HCPCS: 36415; 36569; 37221; 51702; 71010; 73630; 74176; 75710; 76937; 80048; 80053; 81001; 82270; 82550; 82607; 82962; 83540; 83550; 83605; 83735; 83880; 84100; 84484; 85025; 85347; 85610; 85651; 85730; 86140; 86850; 86900; 87040; 93005; 93306; 93923; 93971; 96374; 96375; 99291; A6261; C1725; C1726; C1769; C1893; C1894; C2623; J1170; J1644; J1650; J2250; J2270; J2405; J3010; J3420; J3475; J3490; J7030; J7608; Q9963; Q9967; A4315

== ENCOUNTER 2017-09-25 18:41 | Inpatient (IN) | payer MEDICAID ==
[~2017-09-25] VITALS: Ht 172.7 cm; Wt 134.7 kg
[2017-09-25 11:25] VITALS: BP 112/67
[~2017-09-25 18:41] MED LIST changes: +ACET-2178 PO; -ANAS1TAB7 PO; +CYCL10TA7 PO; -FLUO40CA8 PO; -LOSA100T14 PO; -METH-375 PO; +SERT50TA PO
[2017-09-25 19:38] LABS: BASOPHILS % 1.1 % (0.0-2.0); EOSINOPHILS % 3.5 % (0.0-5.0); HEMATOCRIT. 34.1 % (36.0-48.0); HEMOGLOBIN. 10.8 g/dL (12.0-16.0); LYMPHOCYTES % 32.2 % (20.0-50.0); MEAN CORPUSCULAR HEMOGLOBIN 26.1 pg (28.0-32.0); MEAN CORPUSCULAR VOLUME 82.1 fL (81.0-99.0); MEAN PLATELET VOLUME 9.7 fl (7.4-10.4); MONOCYTES % 9.2 % (2.0-8.0); PLATELET 251 x1000/uL (130-400); RED BLOOD CELL COUNT 4.16 mill/uL (4.2-5.4); RED CELL DISTRIBUTION WIDTH 16.3 % (11.6-14.6)
[2017-09-25 19:41] LABS: CHLORIDE 110 mEq/L (98-107)
[2017-09-25 19:45] LABS: ETHANOL BLOOD < 10 mg/dL
[2017-09-25 19:47] LABS: C REACTIVE PROTEIN QUANT 9.3 mg/L (0.0-3.0)
[2017-09-25 19:50] LABS: AMMONIA 23 uMol/L (<32)
[2017-09-25] MEDS ORDERED: ACETAMINOPHEN 325MG TABLET PO ONE (20:15)
[2017-09-25] MEDS ORDERED: MORPHINE SULFATE 4 MG/ML CPJ (NOT FOR IM USE) IV STA (21:04)
[2017-09-25] MEDS ORDERED: ONDANSETRON HCL 4MG/2ML VIAL IV STA (21:04)
[2017-09-25 23:25] VITALS: BP 112/67
[2017-09-26] VITALS: BP 112/67
[2017-09-26] MEDS ORDERED: ACETAMINOPHEN 325MG TABLET PO PRN ×2 (00:45→02:30)
[2017-09-26] MEDS: HYDROCODONE/ACETAMINOPHEN 10/325MG TABLET PO PRN ×2 (02:36→08:45)
[2017-09-26 04:00] VITALS: BP_SYST 125; BP_SYST 126; BP_DIAS 72; BP_DIAS 75
[2017-09-26 08:00] VITALS: BP 123/65
[2017-09-26] MEDS: GABAPENTIN 300MG CAPSULE PO SCH ×3 (08:41→17:01)
[2017-09-26] MEDS: ASPIRIN 81MG EC TABLET PO SCH (08:42)
[2017-09-26] MEDS: CLOPIDOGREL 75MG TABLET PO SCH (08:42)
[2017-09-26] MEDS: HYDROCHLOROTHIAZIDE 12.5MG CAPSULE PO SCH (08:42)
[2017-09-26] MEDS: ALLOPURINOL 100 MG TABLET PO SCH (08:43)
[2017-09-26] MEDS: CYCLOBENZAPRINE 10MG TABLET PO SCH ×2 (08:43→17:01)
[2017-09-26] MEDS ORDERED: MEDICATION NOT ON FORMULARY EA (Gabapentin 600 MG) PO SCH (09:00)
[2017-09-26] MEDS ORDERED: NON FORMULARY PATIENT HOME MED EA XX SCH (09:00)
[2017-09-26] MEDS ORDERED: MEDICATION NOT ON FORMULARY EA (Hydrochlorothiazide 12.5 MG) PO SCH (09:00)
[2017-09-26] MEDS ORDERED: SODIUM POLYSTYRENE SULFONATE 15 G/60 ML BOT PO NR (10:30)
[2017-09-26] MEDS: MORPHINE SULFATE 4 MG/ML CPJ (NOT FOR IM USE) IV PRN ×3 (11:51→20:20)
[2017-09-26 16:00] VITALS: BP 110/57
[2017-09-26 20:00] VITALS: BP 111/61
[2017-09-26] MEDS ORDERED: SERTRALINE HCL 50MG TABLET PO SCH (21:00)
[2017-09-26] MEDS ORDERED: ATORVASTATIN CALCIUM 10MG TABLET PO SCH (21:00)
[2017-09-26] MEDS ORDERED: ENOXAPARIN 40MG/0.4ML SYR SUBCUT SCH (21:00)
[2017-09-27] VITALS: BP 103/61
[2017-09-27] MEDS: MORPHINE SULFATE 4 MG/ML CPJ (NOT FOR IM USE) IV PRN ×2 (01:53→06:41)
[2017-09-27 04:00] VITALS: BP 123/60
[2017-09-27 07:17] LABS: EOSINOPHILS % 5.5 % (0.0-5.0); HEMATOCRIT. 31.6 % (36.0-48.0); HEMOGLOBIN. 10.3 g/dL (12.0-16.0); LYMPHOCYTES % 35.9 % (20.0-50.0); MEAN CORPUSCULAR HEMOGLOBIN 26.9 pg (28.0-32.0); MEAN CORPUSCULAR VOLUME 82.6 fL (81.0-99.0); MEAN PLATELET VOLUME 9.4 fl (7.4-10.4); MONOCYTES % 12.2 % (2.0-8.0); NEUTROPHILS % 45.4 % (40.0-76.0); PLATELET 193 x1000/uL (130-400); RED BLOOD CELL COUNT 3.82 mill/uL (4.2-5.4); RED CELL DISTRIBUTION WIDTH 16.7 % (11.6-14.6)
[2017-09-27 08:00] VITALS: BP 126/62
[2017-09-27] MEDS: HYDROCHLOROTHIAZIDE 12.5MG CAPSULE PO SCH (09:10)
[2017-09-27] MEDS: GABAPENTIN 300MG CAPSULE PO SCH ×2 (09:10→13:04)
[2017-09-27] MEDS: CYCLOBENZAPRINE 10MG TABLET PO SCH (09:10)
[2017-09-27] MEDS: CLOPIDOGREL 75MG TABLET PO SCH (09:10)
[2017-09-27] MEDS: ALLOPURINOL 100 MG TABLET PO SCH (09:10)
[2017-09-27] MEDS: ASPIRIN 81MG EC TABLET PO SCH (09:10)
[2017-09-27 12:00] VITALS: BP 120/65
[2017-09-27 12:50] VITALS: BP 120/65
[2017-09-27 16:00] VITALS: BP 135/65
== END 2017-09-27 18:00 | disposition home or self-care (01) | DRG 469 ==
LOC: EDBEDREQ 20:11 → EDBEDREQTM 20:11 → ENRESERV 22:31 → ER 22:54 → 8WST 23:00
PROVIDERS: ADMIT Internal Medicine; ATTEND Internal Medicine
DX: N17.9 Acute kidney failure, unspecified (principal); G93.40 Encephalopathy, unspecified; I13.10 Hypertensive heart and chronic kidney disease without heart failure, with stage 1 through stage 4 chronic kidney disease, or unspecified chronic kidney disease; F03.90 Unspecified dementia, unspecified severity, without behavioral disturbance, psychotic disturbance, mood disturbance, and anxiety; E11.22 Type 2 diabetes mellitus with diabetic chronic kidney disease; E11.51 Type 2 diabetes mellitus with diabetic peripheral angiopathy without gangrene; N18.4 Chronic kidney disease, stage 4 (severe); M10.072 Idiopathic gout, left ankle and foot; E87.5 Hyperkalemia; E66.01 Morbid (severe) obesity due to excess calories; J44.9 Chronic obstructive pulmonary disease, unspecified; E44.1 Mild protein-calorie malnutrition; F32.9 Major depressive disorder, single episode, unspecified; F41.9 Anxiety disorder, unspecified; K57.90 Diverticulosis of intestine, part unspecified, without perforation or abscess without bleeding; D64.9 Anemia, unspecified; E86.0 Dehydration; E78.00 Pure hypercholesterolemia, unspecified; E78.5 Hyperlipidemia, unspecified; F17.210 Nicotine dependence, cigarettes, uncomplicated; G89.29 Other chronic pain; Z85.3 Personal history of malignant neoplasm of breast; Z98.84 Bariatric surgery status; Z88.2 Allergy status to sulfonamides; Z79.82 Long term (current) use of aspirin; Z79.899 Other long term (current) drug therapy; Z71.6 Tobacco abuse counseling; Z68.42 Body mass index [BMI] 45.0-49.9, adult; Z89.422 Acquired absence of other left toe(s); Z88.8 Allergy status to other drugs, medicaments and biological substances
CPT/HCPCS: 36415; 71045; 73630; 80048; 80053; 82140; 83605; 84484; 84550; 85025; 85651; 86140; 93005; 96374; 96375; 99285; G0482; J1650; J2270; J2405

== ENCOUNTER 2018-01-05 08:23 | Inpatient (IN) | payer OTHER ==
[~2018-01-05] VITALS: Ht 170.2 cm; Wt 138.1 kg
[2018-01-05] VITALS (7 sets, daily range): BP systolic 93–138; BP diastolic 45–89
[~2018-01-05 08:23] MED LIST changes: -HYDR12.54 PO
[2018-01-05] MEDS ORDERED: MORPHINE SULFATE 4 MG/ML CPJ (NOT FOR IM USE) IV STA (09:48)
[2018-01-05 10:27] LABS: BASOPHILS % 1.2 % (0.0-2.0); EOSINOPHILS % 3.7 % (0.0-5.0); HEMATOCRIT. 39.5 % (36.0-48.0); HEMOGLOBIN. 13.1 g/dL (12.0-16.0); LYMPHOCYTES % 38.4 % (20.0-50.0); MEAN CORPUSCULAR HEMOGLOBIN 29.2 pg (28.0-32.0); MEAN CORPUSCULAR VOLUME 88.3 fL (81.0-99.0); MEAN PLATELET VOLUME 8.5 fl (7.4-10.4); MONOCYTES % 11.7 % (2.0-8.0); PLATELET 203 x1000/uL (130-400); RED BLOOD CELL COUNT 4.47 mill/uL (4.2-5.4); RED CELL DISTRIBUTION WIDTH 25.2 % (11.6-14.6)
[2018-01-05 10:30] LABS: CHLORIDE 98 mEq/L (98-107)
[2018-01-05] MEDS ORDERED: MORPHINE SULFATE 2 MG/ML CPJ (NOT FOR IM USE) IV PRN ×2 (11:15→12:00)
[2018-01-05 11:20] LABS: PLATELET ESTIMATE NORMAL
[2018-01-05] MEDS ORDERED: DOCUSATE SODIUM 100MG CAPSULE PO PRN (12:00)
[2018-01-05] MEDS ORDERED: ACETAMINOPHEN 325MG TABLET PO PRN ×2 (12:00→14:45)
[2018-01-05] MEDS ORDERED: MAGNESIUM/ALUMINUM HYDROXIDE/SIMETHICONE 30ML UDC PO PRN (12:00)
[2018-01-05] MEDS ORDERED: ONDANSETRON HCL 4MG/2ML INJ IV PRN (12:00)
[2018-01-05] MEDS ORDERED: GUAIFENESIN 200MG/10ML SUGAR FREE UDC PO PRN (12:00)
[2018-01-05] MEDS ORDERED: LORAZEPAM 2MG/ML CPJ IV PRN (12:00)
[2018-01-05] MEDS ORDERED: HYDROCODONE/ACETAMINOPHEN 10/325MG TABLET PO PRN (12:00)
[2018-01-05] MEDS ORDERED: IPRATROPIUM/ALBUTEROL 0.5-3(2.5)MG/3ML NEB INH PRN (12:00)
[2018-01-05] MEDS ORDERED: NA PHOS,M-B/NA PHOS,DI-BA ENEMA 118ML PR PRN (12:00)
[2018-01-05] MEDS ORDERED: DIPHENHYDRAMINE 50MG/ML VIAL IV PRN (12:00)
[2018-01-05 12:53] LABS: PROTHROMBIN TIME 10.4 sec (9.1-11.1)
[2018-01-05] MEDS ORDERED: MIDAZOLAM HCL 2 MG/2 ML VIAL ONE ×2 (13:11→14:09)
[2018-01-05] MEDS ORDERED: IODIXANOL 320MG/ML 100 ML BOTTLE IV ONE (13:11)
[2018-01-05] MEDS ORDERED: FENTANYL CITRATE/PF 50MCG/ML 2ML VIAL ONE (13:11)
[2018-01-05] MEDS ORDERED: LIDOCAINE HCL 1% 10 MG/ML 10ML VIAL ONE (13:12)
[2018-01-05] MEDS: ASPIRIN 81MG EC TABLET PO SCH (13:30)
[2018-01-05] MEDS ORDERED: HEPARIN SODIUM 1,000 UNIT/1ML VIAL IV ONE ×2 (14:22→15:15)
[2018-01-05] MEDS ORDERED: CLOPIDOGREL 75MG TABLET ONE (14:30)
[2018-01-05] MEDS ORDERED: ASPIRIN 325MG TABLET ONE (14:30)
[2018-01-05] MEDS ORDERED: ATROPINE SULFATE 1MG/10ML SYR IV PRN (14:45)
[2018-01-05] MEDS: ASPIRIN 325MG TABLET PO SCH (15:00)
[2018-01-05] MEDS: CLOPIDOGREL 75MG TABLET PO SCH (15:00)
[2018-01-05 16:21] LABS: CHLORIDE 99 mEq/L (98-107)
[2018-01-06] VITALS (12 sets, daily range): BP systolic 100–135; BP diastolic 58–81
[2018-01-06] MEDS: MORPHINE SULFATE 4 MG/ML CPJ (NOT FOR IM USE) IV PRN ×4 (00:30→12:51)
[2018-01-06 06:45] LABS: BASOPHILS % 0.9 % (0.0-2.0); EOSINOPHILS % 4.4 % (0.0-5.0); HEMATOCRIT. 41.3 % (36.0-48.0); HEMOGLOBIN. 13.5 g/dL (12.0-16.0); LYMPHOCYTES % 30.6 % (20.0-50.0); MEAN CORPUSCULAR HEMOGLOBIN 29.4 pg (28.0-32.0); MEAN PLATELET VOLUME 8.8 fl (7.4-10.4); MONOCYTES % 10.8 % (2.0-8.0); NEUTROPHILS % 53.3 % (40.0-76.0); PLATELET 178 x1000/uL (130-400); RED BLOOD CELL COUNT 4.59 mill/uL (4.2-5.4); RED CELL DISTRIBUTION WIDTH 25.2 % (11.6-14.6)
[2018-01-06 07:06] LABS: CHLORIDE 99 mEq/L (98-107)
[2018-01-06 07:13] LABS: LDL CHOLESTEROL 138 mg/dL (5-100)
[2018-01-06 07:15] LABS: HDL CHOLESTEROL 46 mg/dL (40-59); T4 FREE 0.67 ng/dL (0.76-1.46)
[2018-01-06] MEDS: ASPIRIN 325MG TABLET PO SCH (08:23)
[2018-01-06] MEDS: ASPIRIN 81MG EC TABLET PO SCH (08:25)
[2018-01-06] MEDS: CLOPIDOGREL 75MG TABLET PO SCH (08:28)
[2018-01-06] MEDS ORDERED: NYSTATIN POWDER 15GM TOP SCH (17:00)
== END 2018-01-06 20:20 | disposition home or self-care (01) | DRG 181 ==
LOC: ER 08:31 → EDBEDREQ 11:26 → 3WST 11:32 → ENRESERV 12:11
PROVIDERS: ADMIT Internal Medicine; ATTEND Internal Medicine
PROC: 047D3ZZ Dilation of Left Common Iliac Artery, Percutaneous Approach (ICD-10-PCS; principal; 2018-01-05)
PROC: B41C1ZZ Fluoroscopy of Pelvic Arteries using Low Osmolar Contrast (ICD-10-PCS; 2018-01-05)
PROC: 5A1D70Z Performance of Urinary Filtration, Intermittent, Less than 6 Hours Per Day (ICD-10-PCS; 2018-01-06)
DX: T82.856A Stenosis of peripheral vascular stent, initial encounter (principal); I13.2 Hypertensive heart and chronic kidney disease with heart failure and with stage 5 chronic kidney disease, or end stage renal disease; E11.22 Type 2 diabetes mellitus with diabetic chronic kidney disease; E11.40 Type 2 diabetes mellitus with diabetic neuropathy, unspecified; D63.8 Anemia in other chronic diseases classified elsewhere; E11.51 Type 2 diabetes mellitus with diabetic peripheral angiopathy without gangrene; E27.8 Other specified disorders of adrenal gland; E66.9 Obesity, unspecified; E87.5 Hyperkalemia; N25.81 Secondary hyperparathyroidism of renal origin; L84 Corns and callosities; I25.10 Atherosclerotic heart disease of native coronary artery without angina pectoris; I50.9 Heart failure, unspecified; T81.89XA Other complications of procedures, not elsewhere classified, initial encounter; N18.6 End stage renal disease; Z82.49 Family history of ischemic heart disease and other diseases of the circulatory system; Z83.3 Family history of diabetes mellitus; Z87.442 Personal history of urinary calculi; Z98.84 Bariatric surgery status; Z99.2 Dependence on renal dialysis; Z95.820 Peripheral vascular angioplasty status with implants and grafts; Z68.42 Body mass index [BMI] 45.0-49.9, adult; Z92.3 Personal history of irradiation; Z92.21 Personal history of antineoplastic chemotherapy; Z89.422 Acquired absence of other left toe(s); Z87.891 Personal history of nicotine dependence; Z95.1 Presence of aortocoronary bypass graft; Z85.3 Personal history of malignant neoplasm of breast; Z88.2 Allergy status to sulfonamides; Z88.6 Allergy status to analgesic agent; Z79.82 Long term (current) use of aspirin; Z79.899 Other long term (current) drug therapy; Y83.8 Other surgical procedures as the cause of abnormal reaction of the patient, or of later complication, without mention of misadventure at the time of the procedure; Y92.89 Other specified places as the place of occurrence of the external cause
CPT/HCPCS: 36415; 37220; 71045; 80048; 80053; 80061; 83880; 84439; 84443; 84484; 85025; 85347; 85610; 93005; 96374; 96376; 99285; A6261; C1725; C1769; C1893; C1894; J1200; J1644; J2250; J2270; J2405; J3010; J3490; J7030; Q9967

== ENCOUNTER 2018-02-09 09:06 | Inpatient (IN) | payer MEDICAID, OTHER ==
[~2018-02-09] VITALS: Ht 172.7 cm; Wt 127.9 kg
[2018-02-09] MEDS ORDERED: SODIUM CHLORIDE 0.9% 1,000 ML IV ONE (09:23)
[2018-02-09 10:02] LABS: BASOPHILS % 0.9 % (0.0-2.0); EOSINOPHILS % 3.6 % (0.0-5.0); HEMATOCRIT. 39.7 % (36.0-48.0); HEMOGLOBIN. 13.5 g/dL (12.0-16.0); LYMPHOCYTES % 33.1 % (20.0-50.0); MEAN CORPUSCULAR HEMOGLOBIN 31.1 pg (28.0-32.0); MEAN CORPUSCULAR VOLUME 91.6 fL (81.0-99.0); MONOCYTES % 9.4 % (2.0-8.0); PLATELET 208 x1000/uL (130-400); RED BLOOD CELL COUNT 4.33 mill/uL (4.2-5.4); RED CELL DISTRIBUTION WIDTH 21.2 % (11.6-14.6)
[2018-02-09 10:14] LABS: CHLORIDE 95 mEq/L (98-107)
[2018-02-09] MEDS ORDERED: MORPHINE SULFATE 4 MG/ML CPJ (NOT FOR IM USE) IV ONE (10:15)
[2018-02-09] MEDS ORDERED: PIPERACILLIN/TAZ 3.375G PREMIX 50 ML IV ONE (11:45)
[2018-02-09] MEDS ORDERED: VANCOMYCIN 1 G PREMIX 200 ML IV ONE (11:45)
[2018-02-09] MEDS ORDERED: PIPERACILLIN/TAZ 3.375G PREMIX 50 ML IV SCH (13:15)
[2018-02-09] MEDS ORDERED: CLONIDINE 0.1MG TABLET PO PRN (13:15)
[2018-02-09] MEDS: MORPHINE SULFATE 4 MG/ML CPJ (NOT FOR IM USE) IV PRN (15:00)
[2018-02-09 16:00] VITALS: BP 125/63
[2018-02-09 16:07] VITALS: BP 119/69
[2018-02-09 16:43] LABS: CREATINE KINASE 120 IU/L (26-192)
[2018-02-09 18:00] VITALS: BP 96/57
[2018-02-09] MEDS ORDERED: ENOXAPARIN 30MG/0.3ML SYR SUBCUT SCH (18:30)
[2018-02-09] MEDS: PIPERACILLIN/TAZ 2.25G PREMIX 50 ML IV SCH (18:51)
[2018-02-09] MEDS ORDERED: VANCOMYCIN 2,000 MG in DEXT 5% WATER 500 ML IV NR (19:30)
[2018-02-09 20:00] VITALS: BP 130/63
[2018-02-09] MEDS ORDERED: ATORVASTATIN CALCIUM 40MG TABLET PO SCH (21:00)
[2018-02-09] MEDS: AMLODIPINE 5MG TABLET PO SCH (21:00)
[2018-02-09] MEDS: SERTRALINE HCL 50MG TABLET PO SCH (21:15)
[2018-02-09] MEDS: GABAPENTIN 300MG CAPSULE PO SCH (21:15)
[2018-02-09 22:00] VITALS: BP 102/54
[2018-02-10] VITALS (26 sets, daily range): BP systolic 96–147; BP diastolic 51–95
[2018-02-10] MEDS: PIPERACILLIN/TAZ 2.25G PREMIX 50 ML IV SCH ×2 (03:10→14:06)
[2018-02-10] MEDS: MORPHINE SULFATE 4 MG/ML CPJ (NOT FOR IM USE) IV PRN ×2 (03:10→23:41)
[2018-02-10] MEDS: GABAPENTIN 300MG CAPSULE PO SCH ×3 (07:00→21:26)
[2018-02-10 07:25] LABS: BASOPHILS % 0.8 % (0.0-2.0); EOSINOPHILS % 4.8 % (0.0-5.0); HEMATOCRIT. 40.6 % (36.0-48.0); HEMOGLOBIN. 13.5 g/dL (12.0-16.0); LYMPHOCYTES % 24.8 % (20.0-50.0); MEAN CORPUSCULAR HEMOGLOBIN 31.1 pg (28.0-32.0); MEAN CORPUSCULAR VOLUME 93.4 fL (81.0-99.0); MEAN PLATELET VOLUME 9.4 fl (7.4-10.4); MONOCYTES % 10.8 % (2.0-8.0); NEUTROPHILS % 58.8 % (40.0-76.0); PLATELET 176 x1000/uL (130-400); RED BLOOD CELL COUNT 4.35 mill/uL (4.2-5.4); RED CELL DISTRIBUTION WIDTH 20.7 % (11.6-14.6)
[2018-02-10] MEDS: ASPIRIN 81MG TABLET PO SCH (09:02)
[2018-02-10] MEDS: CLOPIDOGREL 75MG TABLET PO SCH (09:02)
[2018-02-10] MEDS: AMLODIPINE 5MG TABLET PO SCH ×2 (09:02→21:00)
[2018-02-10 09:36] LABS: PHOSPHORUS 6.9 mg/dL (2.5-4.9)
[2018-02-10] MEDS ORDERED: SODIUM BICARBONATE 4% (2.4MEQ) 5ML VIAL IV ONE (10:32)
[2018-02-10] MEDS ORDERED: LIDOCAINE HCL 1% 20ML VIAL (Pyxis) INJ ONE (10:33)
[2018-02-10] MEDS ORDERED: IPRATROPIUM/ALBUTEROL 0.5-3(2.5)MG/3ML NEB HHN PRN (10:45)
[2018-02-10] MEDS ORDERED: FENTANYL CITRATE/PF 50MCG/ML 2ML VIAL ONE (11:21)
[2018-02-10] MEDS ORDERED: FENTANYL CITRATE/PF 50MCG/ML 2ML VIAL IV NR (11:38)
[2018-02-10] MEDS ORDERED: HEPARIN 1000 UNITS/ML 10ML ONE (11:43)
[2018-02-10] MEDS ORDERED: HEPARIN SODIUM 1,000 UNIT/1ML VIAL IV NR (17:15)
[2018-02-10] MEDS: ENOXAPARIN 40MG/0.4ML SYR SUBCUT SCH (18:20)
[2018-02-10] MEDS: SERTRALINE HCL 50MG TABLET PO SCH (21:26)
[2018-02-10] MEDS: DIPHENHYDRAMINE 50MG CAPSULE PO PRN (21:26)
[2018-02-11] VITALS (14 sets, daily range): BP systolic 94–148; BP diastolic 29–82
[2018-02-11] MEDS: GABAPENTIN 300MG CAPSULE PO SCH ×3 (05:36→21:44)
[2018-02-11 06:27] LABS: BASOPHILS % 0.6 % (0.0-2.0); EOSINOPHILS % 4.5 % (0.0-5.0); HEMATOCRIT. 38.1 % (36.0-48.0); HEMOGLOBIN. 12.6 g/dL (12.0-16.0); MEAN CORPUSCULAR HEMOGLOBIN 30.5 pg (28.0-32.0); MEAN CORPUSCULAR VOLUME 92.6 fL (81.0-99.0); MEAN PLATELET VOLUME 9.2 fl (7.4-10.4); MONOCYTES % 11.6 % (2.0-8.0); NEUTROPHILS % 49.3 % (40.0-76.0); PLATELET 187 x1000/uL (130-400); RED BLOOD CELL COUNT 4.12 mill/uL (4.2-5.4); RED CELL DISTRIBUTION WIDTH 20.7 % (11.6-14.6)
[2018-02-11] MEDS: MORPHINE SULFATE 4 MG/ML CPJ (NOT FOR IM USE) IV PRN ×3 (07:26→21:45)
[2018-02-11 08:37] LABS: PHOSPHORUS 5.2 mg/dL (2.5-4.9)
[2018-02-11] MEDS: ASPIRIN 81MG TABLET PO SCH (08:53)
[2018-02-11] MEDS: CLOPIDOGREL 75MG TABLET PO SCH (08:53)
[2018-02-11] MEDS: AMLODIPINE 5MG TABLET PO SCH ×2 (08:53→21:00)
[2018-02-11] MEDS: DIPHENHYDRAMINE 50MG CAPSULE PO PRN ×2 (09:06→18:00)
[2018-02-11] MEDS: ENOXAPARIN 40MG/0.4ML SYR SUBCUT SCH (18:00)
[2018-02-11] MEDS ORDERED: SODIUM POLYSTYRENE SULFONATE 15 G/60 ML BOT PO SCH (18:45)
[2018-02-11] MEDS: SERTRALINE HCL 50MG TABLET PO SCH (21:44)
[2018-02-12] VITALS (7 sets, daily range): BP systolic 102–137; BP diastolic 45–85
[2018-02-12] MEDS: MORPHINE SULFATE 4 MG/ML CPJ (NOT FOR IM USE) IV PRN ×2 (04:21→09:32)
[2018-02-12] MEDS: GABAPENTIN 300MG CAPSULE PO SCH (05:42)
[2018-02-12 07:07] LABS: BASOPHILS % 0.8 % (0.0-2.0); EOSINOPHILS % 4.6 % (0.0-5.0); HEMATOCRIT. 42.4 % (36.0-48.0); HEMOGLOBIN. 13.7 g/dL (12.0-16.0); LYMPHOCYTES % 34.6 % (20.0-50.0); MEAN CORPUSCULAR HEMOGLOBIN 30.2 pg (28.0-32.0); MEAN CORPUSCULAR VOLUME 93.6 fL (81.0-99.0); MEAN PLATELET VOLUME 8.9 fl (7.4-10.4); MONOCYTES % 9.3 % (2.0-8.0); NEUTROPHILS % 50.7 % (40.0-76.0); PLATELET 191 x1000/uL (130-400); RED BLOOD CELL COUNT 4.54 mill/uL (4.2-5.4); RED CELL DISTRIBUTION WIDTH 21.3 % (11.6-14.6)
[2018-02-12] MEDS: CLOPIDOGREL 75MG TABLET PO SCH (09:22)
[2018-02-12] MEDS: AMLODIPINE 5MG TABLET PO SCH (09:22)
[2018-02-12] MEDS: ASPIRIN 81MG TABLET PO SCH (09:23)
== END 2018-02-12 12:45 | disposition home or self-care (01) | DRG 192 ==
LOC: ER 09:18 → 3WST 11:49 → EDBEDREQ 11:51 → EDBEDREQTM 11:51 → ENRESERV 14:13 → CANBEDREQ 16:11
PROVIDERS: ADMIT Internal Medicine; ATTEND Internal Medicine
PROC: 5A1D70Z Performance of Urinary Filtration, Intermittent, Less than 6 Hours Per Day (ICD-10-PCS; 2018-02-09)
PROC: 0JH63XZ Insertion of Tunneled Vascular Access Device into Chest Subcutaneous Tissue and Fascia, Percutaneous Approach (ICD-10-PCS; principal; 2018-02-10)
PROC: B2141ZZ Fluoroscopy of Right Heart using Low Osmolar Contrast (ICD-10-PCS; 2018-02-10)
PROC: 02H633Z Insertion of Infusion Device into Right Atrium, Percutaneous Approach (ICD-10-PCS; 2018-02-10)
DX: T82.848A Pain due to vascular prosthetic devices, implants and grafts, initial encounter (principal); E11.22 Type 2 diabetes mellitus with diabetic chronic kidney disease; E11.51 Type 2 diabetes mellitus with diabetic peripheral angiopathy without gangrene; I95.9 Hypotension, unspecified; E87.2 Acidosis; E66.01 Morbid (severe) obesity due to excess calories; I13.11 Hypertensive heart and chronic kidney disease without heart failure, with stage 5 chronic kidney disease, or end stage renal disease; E87.8 Other disorders of electrolyte and fluid balance, not elsewhere classified; N18.6 End stage renal disease; E78.5 Hyperlipidemia, unspecified; E87.1 Hypo-osmolality and hyponatremia; F32.9 Major depressive disorder, single episode, unspecified; I25.10 Atherosclerotic heart disease of native coronary artery without angina pectoris; Z99.2 Dependence on renal dialysis; J44.9 Chronic obstructive pulmonary disease, unspecified; M47.812 Spondylosis without myelopathy or radiculopathy, cervical region; F17.200 Nicotine dependence, unspecified, uncomplicated; E87.5 Hyperkalemia; Z85.3 Personal history of malignant neoplasm of breast; E78.00 Pure hypercholesterolemia, unspecified; F41.9 Anxiety disorder, unspecified; G89.29 Other chronic pain; L29.9 Pruritus, unspecified; Z82.49 Family history of ischemic heart disease and other diseases of the circulatory system; Z83.3 Family history of diabetes mellitus; Z88.2 Allergy status to sulfonamides; Z95.1 Presence of aortocoronary bypass graft; Z98.84 Bariatric surgery status; Z71.6 Tobacco abuse counseling; Z79.82 Long term (current) use of aspirin; Z79.899 Other long term (current) drug therapy; M20.62 Acquired deformities of toe(s), unspecified, left foot; Y83.2 Surgical operation with anastomosis, bypass or graft as the cause of abnormal reaction of the patient, or of later complication, without mention of misadventure at the time of the procedure; Y92.89 Other specified places as the place of occurrence of the external cause; Z68.41 Body mass index [BMI] 40.0-44.9, adult; R53.1 Weakness
CPT/HCPCS: 36415; 36558; 71045; 76937; 77001; 80048; 80202; 82550; 82962; 83605; 83735; 84100; 84134; 84145; 84484; 93005; 96365; 96375; 99152; 99153; 99285; A6261; C1750; C1769; C1893; J1642; J1644; J1650; J2270; J2543; J3010; J3370; J3490; J7030; J7050; J7060; Q0163

== ENCOUNTER 2018-02-17 14:12 | Emergency (ER) | payer OTHER ==
[~2018-02-17] VITALS: Ht 172.7 cm; Wt 136.5 kg
[2018-02-17] MEDS ORDERED: KETOROLAC 60MG/2ML VIAL IM ONE (15:15)
[2018-02-17 15:36] LABS: BASOPHILS % 1.3 % (0.0-2.0); EOSINOPHILS % 3.4 % (0.0-5.0); HEMATOCRIT. 36.6 % (36.0-48.0); HEMOGLOBIN. 12.4 g/dL (12.0-16.0); LYMPHOCYTES % 31.3 % (20.0-50.0); MEAN CORPUSCULAR HEMOGLOBIN 31.1 pg (28.0-32.0); MEAN CORPUSCULAR VOLUME 92.2 fL (81.0-99.0); PLATELET 214 x1000/uL (130-400); RED BLOOD CELL COUNT 3.97 mill/uL (4.2-5.4); RED CELL DISTRIBUTION WIDTH 19.7 % (11.6-14.6)
[2018-02-17 15:38] LABS: CHLORIDE 100 mEq/L (98-107); PROTHROMBIN TIME 10.2 sec (9.1-11.1)
[2018-02-17 20:53] VITALS: BP 140/76
== END 2018-02-17 20:56 | disposition home or self-care (01) ==
LOC: ER 14:12 → EDBEDREQ 18:49 → CANRESERV 20:11 → ENRESERV 20:11 → ER 20:56 → CANBEDREQ 21:15
DX: L89.90 Pressure ulcer of unspecified site, unspecified stage (principal); M79.605 Pain in left leg; M79.604 Pain in right leg; R51 Headache; E11.9 Type 2 diabetes mellitus without complications; I10 Essential (primary) hypertension; N28.9 Disorder of kidney and ureter, unspecified; J45.909 Unspecified asthma, uncomplicated; F17.200 Nicotine dependence, unspecified, uncomplicated; Z85.3 Personal history of malignant neoplasm of breast; Z88.6 Allergy status to analgesic agent; Z88.2 Allergy status to sulfonamides; Z79.82 Long term (current) use of aspirin; Z79.899 Other long term (current) drug therapy
CPT/HCPCS: 36415; 70450; 80053; 82962; 83605; 85025; 85610; 86140; 93971; 96372; 99285; J1885

== ENCOUNTER 2018-02-19 06:22 | Emergency (ER) | payer MEDICAID, OTHER ==
[~2018-02-19] VITALS: Ht 172.7 cm; Wt 136.0 kg
[2018-02-19 07:54] LABS: EOSINOPHILS % 4.5 % (0.0-5.0); HEMATOCRIT. 39.8 % (36.0-48.0); HEMOGLOBIN. 13.2 g/dL (12.0-16.0); LYMPHOCYTES % 27.1 % (20.0-50.0); MEAN CORPUSCULAR HEMOGLOBIN 30.5 pg (28.0-32.0); MEAN CORPUSCULAR VOLUME 91.9 fL (81.0-99.0); MEAN PLATELET VOLUME 8.9 fl (7.4-10.4); MONOCYTES % 9.7 % (2.0-8.0); NEUTROPHILS % 57.7 % (40.0-76.0); PLATELET 229 x1000/uL (130-400); RED BLOOD CELL COUNT 4.33 mill/uL (4.2-5.4); RED CELL DISTRIBUTION WIDTH 19.6 % (11.6-14.6)
[2018-02-19 09:51] VITALS: BP 128/67
== END 2018-02-19 09:58 | disposition home or self-care (01) ==
LOC: ER 06:42
DX: L98.418 Non-pressure chronic ulcer of buttock with other specified severity (principal); I12.9 Hypertensive chronic kidney disease with stage 1 through stage 4 chronic kidney disease, or unspecified chronic kidney disease; N18.9 Chronic kidney disease, unspecified; E11.9 Type 2 diabetes mellitus without complications; F17.200 Nicotine dependence, unspecified, uncomplicated; Z98.890 Other specified postprocedural states; Z88.2 Allergy status to sulfonamides; Z88.6 Allergy status to analgesic agent; Z79.82 Long term (current) use of aspirin; Z79.899 Other long term (current) drug therapy; Z99.2 Dependence on renal dialysis
CPT/HCPCS: 36415; 80048; 84145; 99284

== ENCOUNTER 2018-04-21 13:09 | Inpatient (IN) | payer MEDICAID ==
[2018-04-21] VITALS (11 sets, daily range): BP systolic 103–123; BP diastolic 55–68
[~2018-04-21] VITALS: Ht 350.5 cm; Wt 136.1 kg
[~2018-04-21 13:09] MED LIST changes: -MUPI22OI2 TP
[2018-04-21] MEDS ORDERED: ACETAMINOPHEN 325MG TABLET PO STA (14:04)
[2018-04-21] MEDS ORDERED: SODIUM BICARBONATE 4% (2.4MEQ) 5ML VIAL IV ONE (14:39)
[2018-04-21] MEDS ORDERED: LIDOCAINE HCL 1% 20ML VIAL (Pyxis) INJ ONE (14:39)
[2018-04-21] MEDS ORDERED: FENTANYL CITRATE/PF 50MCG/ML 2ML VIAL ONE (14:56)
[2018-04-21] MEDS ORDERED: CEFAZOLIN 1000MG PREMIX 50 ML IV ONE ×2 (14:56→15:00)
[2018-04-21] MEDS ORDERED: CEFAZOLIN 1000MG PREMIX 50 ML IV NR (15:15)
[2018-04-21] MEDS ORDERED: FENTANYL CITRATE/PF 50MCG/ML 2ML VIAL IV NR (15:15)
[2018-04-21 16:33] LABS: BASOPHILS % 1.5 % (0.0-2.0); EOSINOPHILS % 2.7 % (0.0-5.0); HEMATOCRIT. 34.4 % (36.0-48.0); HEMOGLOBIN. 11.6 g/dL (12.0-16.0); LYMPHOCYTES % 28.2 % (20.0-50.0); MEAN CORPUSCULAR HEMOGLOBIN 32.2 pg (28.0-32.0); MEAN CORPUSCULAR VOLUME 95.7 fL (81.0-99.0); MEAN PLATELET VOLUME 9.5 fl (7.4-10.4); MONOCYTES % 6.6 % (2.0-8.0); PLATELET 195 x1000/uL (130-400); RED CELL DISTRIBUTION WIDTH 15.9 % (11.6-14.6)
[2018-04-21 16:41] LABS: PROTHROMBIN TIME 10.2 sec (9.1-11.1)
[2018-04-21 17:05] LABS: PHOSPHORUS 8.3 mg/dL (2.5-4.9)
[2018-04-21] MEDS ORDERED: SODIUM POLYSTYRENE SULFONATE 15 G/60 ML BOT PO ONE (17:45)
[2018-04-22] VITALS: BP 92/54
[2018-04-22] MEDS ORDERED: CLONIDINE 0.1MG TABLET PO PRN
[2018-04-22] MEDS ORDERED: IPRATROPIUM/ALBUTEROL 0.5-3(2.5)MG/3ML NEB HHN PRN
[2018-04-22] MEDS ORDERED: DEXTROSE 50% WATER 50ML SYRINGE IV PRN
[2018-04-22] MEDS: HYDROCODONE/ACETAMINOPHEN 5/325MG TABLET PO PRN ×2 (00:57→09:26)
[2018-04-22 04:00] VITALS: BP 108/55
[2018-04-22] MEDS: INSULIN LISPRO 100 UNITS/ML SUBCUT SCH ×3 (06:07→16:42)
[2018-04-22] MEDS: BLOOD SUGAR DIAGNOSTIC STRIP TEST SCH ×3 (06:07→16:42)
[2018-04-22 08:00] VITALS: BP 93/48
[2018-04-22 08:03] LABS: BASOPHILS % 0.4 % (0.0-2.0); EOSINOPHILS % 3.5 % (0.0-5.0); HEMATOCRIT. 33.7 % (36.0-48.0); HEMOGLOBIN. 11.2 g/dL (12.0-16.0); MEAN CORPUSCULAR HEMOGLOBIN 32.3 pg (28.0-32.0); MONOCYTES % 8.8 % (2.0-8.0); NEUTROPHILS % 62.3 % (40.0-76.0); PLATELET 175 x1000/uL (130-400); RED BLOOD CELL COUNT 3.48 mill/uL (4.2-5.4); RED CELL DISTRIBUTION WIDTH 16.5 % (11.6-14.6)
[2018-04-22 08:37] LABS: PHOSPHORUS 6.7 mg/dL (2.5-4.9)
[2018-04-22 12:00] VITALS: BP 103/67
[2018-04-22] MEDS: HYDROCODONE/ACETAMINOPHEN 10/325MG TABLET PO PRN ×2 (12:04→15:34)
[2018-04-22] MEDS ORDERED: HEPARIN 5000 UNITS/ML VIAL SUBCUT SCH (12:30)
[2018-04-22 16:00] VITALS: BP 93/44
[2018-04-22 17:05] VITALS: BP 93/44
[2018-04-22] MEDS ORDERED: CALCIUM ACETATE 667MG CAPSULE PO SCH (17:40)
== END 2018-04-22 18:00 | disposition home or self-care (01) | DRG 466 ==
LOC: ER 13:09 → 8WST 17:39 → ENRESERV 21:53
PROVIDERS: ADMIT Internal Medicine; ATTEND Internal Medicine
PROC: B5181ZA Fluoroscopy of Superior Vena Cava using Low Osmolar Contrast, Guidance (ICD-10-PCS; principal; 2018-04-21)
PROC: 02HV33Z Insertion of Infusion Device into Superior Vena Cava, Percutaneous Approach (ICD-10-PCS; 2018-04-21)
PROC: B548ZZA Ultrasonography of Superior Vena Cava, Guidance (ICD-10-PCS; 2018-04-21)
PROC: 0JH63XZ Insertion of Tunneled Vascular Access Device into Chest Subcutaneous Tissue and Fascia, Percutaneous Approach (ICD-10-PCS; 2018-04-21)
DX: T82.41XA Breakdown (mechanical) of vascular dialysis catheter, initial encounter (principal); N18.6 End stage renal disease; I13.2 Hypertensive heart and chronic kidney disease with heart failure and with stage 5 chronic kidney disease, or end stage renal disease; E11.51 Type 2 diabetes mellitus with diabetic peripheral angiopathy without gangrene; E11.22 Type 2 diabetes mellitus with diabetic chronic kidney disease; Y71.2 Prosthetic and other implants, materials and accessory cardiovascular devices associated with adverse incidents; E87.5 Hyperkalemia; F17.200 Nicotine dependence, unspecified, uncomplicated; I25.10 Atherosclerotic heart disease of native coronary artery without angina pectoris; Y83.8 Other surgical procedures as the cause of abnormal reaction of the patient, or of later complication, without mention of misadventure at the time of the procedure; G89.29 Other chronic pain; I50.32 Chronic diastolic (congestive) heart failure; J44.9 Chronic obstructive pulmonary disease, unspecified; L29.9 Pruritus, unspecified; Z83.3 Family history of diabetes mellitus; Z92.21 Personal history of antineoplastic chemotherapy; Y92.89 Other specified places as the place of occurrence of the external cause; Z92.3 Personal history of irradiation; Z85.3 Personal history of malignant neoplasm of breast; Z98.84 Bariatric surgery status; Z99.2 Dependence on renal dialysis; Z82.49 Family history of ischemic heart disease and other diseases of the circulatory system; Z88.5 Allergy status to narcotic agent; Z88.2 Allergy status to sulfonamides; Z88.6 Allergy status to analgesic agent; Z79.1 Long term (current) use of non-steroidal anti-inflammatories (NSAID); Z79.899 Other long term (current) drug therapy; Z79.82 Long term (current) use of aspirin; E66.9 Obesity, unspecified
CPT/HCPCS: 36415; 36558; 71045; 76937; 77001; 80048; 82962; 83605; 83735; 84100; 93005; 96365; 96375; 97162; 99152; 99153; 99285; A6261; C1725; C1750; C1769; J0690; J1642; J1644; J3010; J3490; J7050; G0500

== ENCOUNTER 2018-05-16 13:29 | Emergency (ER) | payer MEDICAID ==
[~2018-05-16] VITALS: Ht 170.2 cm; Wt 109.0 kg
[2018-05-16] MEDS ORDERED: HYDROCODONE/ACETAMINOPHEN 5/325MG TABLET PO ONE (16:45)
[2018-05-16] MEDS ORDERED: MORPHINE SULFATE 10 MG/ML CPJ IM ONE (17:15)
[2018-05-16 20:26] VITALS: BP 115/72
== END 2018-05-16 21:02 | disposition home or self-care (01) ==
LOC: ER 13:46
DX: I73.9 Peripheral vascular disease, unspecified (principal); L97.529 Non-pressure chronic ulcer of other part of left foot with unspecified severity; G89.29 Other chronic pain; Z89.9 Acquired absence of limb, unspecified; E66.01 Morbid (severe) obesity due to excess calories; Z68.37 Body mass index [BMI] 37.0-37.9, adult; Z99.2 Dependence on renal dialysis; I13.10 Hypertensive heart and chronic kidney disease without heart failure, with stage 1 through stage 4 chronic kidney disease, or unspecified chronic kidney disease; E11.22 Type 2 diabetes mellitus with diabetic chronic kidney disease; N18.9 Chronic kidney disease, unspecified; Z88.2 Allergy status to sulfonamides; Z88.6 Allergy status to analgesic agent; Z79.899 Other long term (current) drug therapy
CPT/HCPCS: 96372; 99283; J2270; Z7610

== ENCOUNTER 2018-05-22 12:13 | Emergency (ER) | payer MEDICAID ==
[~2018-05-22] VITALS: Ht 172.7 cm; Wt 135.0 kg
[2018-05-22] MEDS ORDERED: TRAMADOL 50MG TABLET PO ONE (15:15)
[2018-05-22] MEDS ORDERED: DIPHENHYDRAMINE 25MG CAPSULE PO ONE (15:15)
[2018-05-22 16:53] VITALS: BP 112/61
== END 2018-05-22 16:53 | disposition home or self-care (01) ==
LOC: ER 12:25
DX: I73.9 Peripheral vascular disease, unspecified (principal); L29.9 Pruritus, unspecified; E11.22 Type 2 diabetes mellitus with diabetic chronic kidney disease; I12.0 Hypertensive chronic kidney disease with stage 5 chronic kidney disease or end stage renal disease; N18.6 End stage renal disease; Z79.82 Long term (current) use of aspirin; Z89.421 Acquired absence of other right toe(s); Z99.2 Dependence on renal dialysis; Z88.6 Allergy status to analgesic agent; Z88.5 Allergy status to narcotic agent; Z88.2 Allergy status to sulfonamides; Z98.62 Peripheral vascular angioplasty status; Z85.3 Personal history of malignant neoplasm of breast; T36.4X5A Adverse effect of tetracyclines, initial encounter; Y92.018 Other place in single-family (private) house as the place of occurrence of the external cause
CPT/HCPCS: 99283; Q0163

== ENCOUNTER 2018-06-08 15:32 | Inpatient (IN) | payer MEDICAID ==
[~2018-06-08] VITALS: Ht 172.7 cm; Wt 130.2 kg
[2018-06-08 18:02] LABS: BASOPHILS % 1.2 % (0.0-2.0); EOSINOPHILS % 6.5 % (0.0-5.0); HEMATOCRIT. 38.1 % (36.0-48.0); HEMOGLOBIN. 12.9 g/dL (12.0-16.0); LYMPHOCYTES % 33.6 % (20.0-50.0); MEAN CORPUSCULAR HEMOGLOBIN 34.3 pg (28.0-32.0); MEAN CORPUSCULAR VOLUME 101.4 fL (81.0-99.0); MEAN PLATELET VOLUME 9.7 fl (7.4-10.4); MONOCYTES % 9.5 % (2.0-8.0); NEUTROPHILS % 49.2 % (40.0-76.0); PLATELET 204 x1000/uL (130-400); RED BLOOD CELL COUNT 3.76 mill/uL (4.2-5.4); RED CELL DISTRIBUTION WIDTH 16.8 % (11.6-14.6)
[2018-06-08 18:08] LABS: CHLORIDE 98 mEq/L (98-107)
[2018-06-08 18:10] LABS: PROTHROMBIN TIME 9.6 sec (9.1-11.1)
[2018-06-08] MEDS ORDERED: MORPHINE SULFATE 4 MG/ML CPJ (NOT FOR IM USE) IV ONE (18:15)
[2018-06-08] MEDS ORDERED: ONDANSETRON HCL 4MG/2ML INJ IV ONE (18:15)
[2018-06-08] MEDS: DIPHENHYDRAMINE 50MG/ML VIAL IV PRN (20:13)
[2018-06-09] VITALS (17 sets, daily range): BP systolic 102–167; BP diastolic 53–83
[2018-06-09] MEDS: DIPHENHYDRAMINE 50MG/ML VIAL IV PRN (04:34)
[2018-06-09] MEDS ORDERED: ACETAMINOPHEN 325MG TABLET PO PRN (05:15)
[2018-06-09] MEDS: HYDROCODONE/ACETAMINOPHEN 10/325MG TABLET PO PRN ×2 (05:28→09:13)
[2018-06-09] MEDS ORDERED: DIAZEPAM 5 MG TABLET PO PRN (05:30)
[2018-06-09] MEDS ORDERED: CEFAZOLIN 1000MG PREMIX 50 ML IV ONE ×2 (07:00→07:27)
[2018-06-09] MEDS ORDERED: SODIUM BICARBONATE 4% (2.4MEQ) 5ML VIAL IV ONE (07:27)
[2018-06-09] MEDS ORDERED: LIDOCAINE HCL 1% 20ML VIAL (Pyxis) INJ ONE (07:27)
[2018-06-09] MEDS ORDERED: FENTANYL CITRATE/PF 50MCG/ML 2ML VIAL ONE (07:27)
[2018-06-09] MEDS ORDERED: FENTANYL CITRATE/PF 50MCG/ML 2ML VIAL IV ONE (08:15)
[2018-06-09] MEDS ORDERED: GABAPENTIN 100MG CAPSULE PO SCH (09:00)
[2018-06-09] MEDS ORDERED: ASPIRIN 81MG TABLET PO SCH (09:00)
[2018-06-09] MEDS ORDERED: CYCLOBENZAPRINE 10MG TABLET PO SCH (09:00)
[2018-06-09] MEDS ORDERED: CLOPIDOGREL 75MG TABLET PO SCH (09:00)
[2018-06-09] MEDS ORDERED: MEDICATION NOT ON FORMULARY EA (Gabapentin 600 MG) PO SCH (09:00)
[2018-06-09] MEDS ORDERED: FOLIC ACID/VITAMIN B COMP W-C TABLET PO SCH (09:00)
[2018-06-09] MEDS ORDERED: AMITRIPTYLINE 50MG TABLET PO SCH (09:00)
[2018-06-09] MEDS ORDERED: FENTANYL CITRATE/PF 50MCG/ML 2ML VIAL IV SCH (09:30)
[2018-06-09] MEDS ORDERED: DIPHENHYDRAMINE 50MG/ML VIAL IV PRN (09:30)
[2018-06-09 10:09] LABS: BASOPHILS % 0.8 % (0.0-2.0); EOSINOPHILS % 6.9 % (0.0-5.0); HEMATOCRIT. 37.6 % (36.0-48.0); HEMOGLOBIN. 12.5 g/dL (12.0-16.0); LYMPHOCYTES % 26.5 % (20.0-50.0); MEAN CORPUSCULAR VOLUME 101.9 fL (81.0-99.0); MEAN PLATELET VOLUME 9.7 fl (7.4-10.4); MONOCYTES % 10.6 % (2.0-8.0); NEUTROPHILS % 55.2 % (40.0-76.0); PLATELET 176 x1000/uL (130-400); RED BLOOD CELL COUNT 3.68 mill/uL (4.2-5.4)
[2018-06-09 10:24] LABS: PHOSPHORUS 6.7 mg/dL (2.5-4.9)
[2018-06-09] MEDS ORDERED: SEVELAMER CARBONATE 800 MG TABLET PO SCH (12:50)
[2018-06-09] MEDS ORDERED: CALCIUM ACETATE 667MG CAPSULE PO SCH (12:50)
[2018-06-09] MEDS ORDERED: HEPARIN SODIUM 1,000 UNIT/1ML VIAL IV NR (14:30)
[2018-06-09] MEDS ORDERED: MEDICATION NOT ON FORMULARY EA (Rosuvastatin Calcium (Crestor) 10 MG) PO SCH (21:00)
[2018-06-09] MEDS ORDERED: ATORVASTATIN CALCIUM 10MG TABLET PO SCH (21:00)
[2018-06-09] MEDS ORDERED: SERTRALINE HCL 50MG TABLET PO SCH (21:00)
== END 2018-06-09 16:38 | disposition home or self-care (01) | DRG 466 ==
LOC: ER 15:32 → 6WST 17:59 → ENRESERV 06-09 02:40
PROVIDERS: ADMIT Internal Medicine; ATTEND Internal Medicine
PROC: 5A1D70Z Performance of Urinary Filtration, Intermittent, Less than 6 Hours Per Day (ICD-10-PCS; 2018-06-08)
PROC: 0JH63XZ Insertion of Tunneled Vascular Access Device into Chest Subcutaneous Tissue and Fascia, Percutaneous Approach (ICD-10-PCS; principal; 2018-06-09)
PROC: 02HV33Z Insertion of Infusion Device into Superior Vena Cava, Percutaneous Approach (ICD-10-PCS; 2018-06-09)
PROC: B5181ZA Fluoroscopy of Superior Vena Cava using Low Osmolar Contrast, Guidance (ICD-10-PCS; 2018-06-09)
PROC: B548ZZA Ultrasonography of Superior Vena Cava, Guidance (ICD-10-PCS; 2018-06-09)
DX: T82.42XA Displacement of vascular dialysis catheter, initial encounter (principal); N18.6 End stage renal disease; I13.2 Hypertensive heart and chronic kidney disease with heart failure and with stage 5 chronic kidney disease, or end stage renal disease; E11.22 Type 2 diabetes mellitus with diabetic chronic kidney disease; E11.42 Type 2 diabetes mellitus with diabetic polyneuropathy; T82.41XA Breakdown (mechanical) of vascular dialysis catheter, initial encounter; Y71.2 Prosthetic and other implants, materials and accessory cardiovascular devices associated with adverse incidents; E11.51 Type 2 diabetes mellitus with diabetic peripheral angiopathy without gangrene; E78.5 Hyperlipidemia, unspecified; F17.200 Nicotine dependence, unspecified, uncomplicated; F32.9 Major depressive disorder, single episode, unspecified; G89.29 Other chronic pain; I25.10 Atherosclerotic heart disease of native coronary artery without angina pectoris; I50.32 Chronic diastolic (congestive) heart failure; Y84.1 Kidney dialysis as the cause of abnormal reaction of the patient, or of later complication, without mention of misadventure at the time of the procedure; J44.9 Chronic obstructive pulmonary disease, unspecified; Z82.49 Family history of ischemic heart disease and other diseases of the circulatory system; Z83.3 Family history of diabetes mellitus; Z85.3 Personal history of malignant neoplasm of breast; Z89.422 Acquired absence of other left toe(s); Z92.3 Personal history of irradiation; Z98.84 Bariatric surgery status; Z99.2 Dependence on renal dialysis; Y92.89 Other specified places as the place of occurrence of the external cause; Z88.2 Allergy status to sulfonamides; Z88.6 Allergy status to analgesic agent; Z88.8 Allergy status to other drugs, medicaments and biological substances; Z71.6 Tobacco abuse counseling
CPT/HCPCS: 36415; 36558; 76937; 77001; 80048; 82962; 84100; 96374; 96375; 99152; 99153; 99285; C1750; C1769; J0690; J1200; J1642; J1644; J2270; J2405; J3010; J3490; J7050; G0500

== ENCOUNTER 2018-06-15 10:13 | Inpatient (IN) | payer MEDICAID ==
[2018-06-15] VITALS (17 sets, daily range): BP systolic 93–139; BP diastolic 43–87
[~2018-06-15] VITALS: Ht 172.7 cm; Wt 132.4 kg
[2018-06-15] MEDS ORDERED: MORPHINE SULFATE 4 MG/ML CPJ (NOT FOR IM USE) IV STA (11:30)
[2018-06-15] MEDS ORDERED: ONDANSETRON HCL 4MG/2ML INJ IV STA (11:30)
[2018-06-15] MEDS ORDERED: IOHEXOL-300 100 ML BOTTLE ONE (12:30)
[2018-06-15] MEDS ORDERED: LIDOCAINE HCL 1% 20ML VIAL (Pyxis) INJ ONE (12:30)
[2018-06-15] MEDS ORDERED: IODIXANOL 320MG/ML 100 ML BOTTLE IV ONE (12:30)
[2018-06-15] MEDS ORDERED: MIDAZOLAM HCL 2 MG/2 ML VIAL ONE (12:37)
[2018-06-15] MEDS ORDERED: FENTANYL CITRATE/PF 50MCG/ML 2ML VIAL ONE (12:38)
[2018-06-15] MEDS ORDERED: ONDANSETRON HCL 4MG/2ML INJ IV PRN (13:45)
[2018-06-15] MEDS ORDERED: ATROPINE SULFATE 1MG/10ML SYR IV PRN (13:45)
[2018-06-15] MEDS ORDERED: ACETAMINOPHEN 325MG TABLET PO PRN (13:45)
[2018-06-15] MEDS ORDERED: HEPARIN SODIUM 1,000 UNIT/1ML VIAL IV ONE (14:33)
[2018-06-15] MEDS ORDERED: NITROGLYCERIN 50MCG/ML 10ML VIAL (CATH LAB) IV ONE (14:33)
[2018-06-15] MEDS ORDERED: NICARDIPINE 100MCG/ML 10ML VIAL (CATH LAB) IV ONE (14:33)
[2018-06-15] MEDS ORDERED: HYDROCODONE/ACETAMINOPHEN 10/325MG TABLET PO PRN (15:30)
[2018-06-15] MEDS: SEVELAMER CARBONATE 800 MG TABLET PO SCH (16:46)
[2018-06-15] MEDS: CALCIUM ACETATE 667MG CAPSULE PO SCH (16:46)
[2018-06-15 16:59] LABS: BASOPHILS % 0.6 % (0.0-2.0); EOSINOPHILS % 6.8 % (0.0-5.0); HEMATOCRIT. 32.2 % (36.0-48.0); HEMOGLOBIN. 10.8 g/dL (12.0-16.0); LYMPHOCYTES % 30.9 % (20.0-50.0); MEAN CORPUSCULAR HEMOGLOBIN 34.3 pg (28.0-32.0); MEAN CORPUSCULAR VOLUME 102.2 fL (81.0-99.0); MEAN PLATELET VOLUME 9.5 fl (7.4-10.4); MONOCYTES % 11.2 % (2.0-8.0); NEUTROPHILS % 50.5 % (40.0-76.0); PLATELET 150 x1000/uL (130-400); RED BLOOD CELL COUNT 3.16 mill/uL (4.2-5.4); RED CELL DISTRIBUTION WIDTH 16.5 % (11.6-14.6)
[2018-06-15] MEDS: MORPHINE SULFATE 4 MG/ML CPJ (NOT FOR IM USE) IV PRN ×2 (16:59→20:45)
[2018-06-15 17:06] LABS: CHLORIDE 104 mEq/L (98-107)
[2018-06-15] MEDS: DIPHENHYDRAMINE 50MG/ML VIAL IV PRN (18:05)
[2018-06-15] MEDS ORDERED: LORAZEPAM 1MG TABLET PO PRN (23:00)
[2018-06-16] VITALS (16 sets, daily range): BP systolic 74–153; BP diastolic 32–95
[2018-06-16] MEDS: ATORVASTATIN CALCIUM 20MG TABLET PO SCH ×2 (00:21→20:35)
[2018-06-16] MEDS: SERTRALINE HCL 50MG TABLET PO SCH ×2 (00:21→20:35)
[2018-06-16] MEDS: MORPHINE SULFATE 4 MG/ML CPJ (NOT FOR IM USE) IV PRN ×4 (01:38→22:50)
[2018-06-16] MEDS: DIPHENHYDRAMINE 50MG/ML VIAL IV PRN ×3 (04:58→22:04)
[2018-06-16] MEDS: GABAPENTIN 300MG CAPSULE PO SCH ×3 (05:01→22:03)
[2018-06-16 08:00] LABS: BASOPHILS % 0.6 % (0.0-2.0); EOSINOPHILS % 7.2 % (0.0-5.0); HEMATOCRIT. 32.6 % (36.0-48.0); HEMOGLOBIN. 10.8 g/dL (12.0-16.0); LYMPHOCYTES % 22.5 % (20.0-50.0); MEAN CORPUSCULAR HEMOGLOBIN 34.1 pg (28.0-32.0); MEAN PLATELET VOLUME 9.6 fl (7.4-10.4); MONOCYTES % 10.2 % (2.0-8.0); NEUTROPHILS % 59.5 % (40.0-76.0); PLATELET 158 x1000/uL (130-400); RED BLOOD CELL COUNT 3.16 mill/uL (4.2-5.4); RED CELL DISTRIBUTION WIDTH 16.6 % (11.6-14.6)
[2018-06-16 08:18] LABS: PHOSPHORUS 5.9 mg/dL (2.5-4.9)
[2018-06-16] MEDS: CLOPIDOGREL 75MG TABLET PO SCH (08:26)
[2018-06-16] MEDS: AMITRIPTYLINE 50MG TABLET PO SCH ×2 (08:27→17:05)
[2018-06-16] MEDS: ASPIRIN 325MG TABLET PO SCH (08:27)
[2018-06-16] MEDS: CALCIUM ACETATE 667MG CAPSULE PO SCH ×3 (08:27→17:05)
[2018-06-16] MEDS: FOLIC ACID/VITAMIN B COMP W-C TABLET PO SCH (08:27)
[2018-06-16] MEDS: SEVELAMER CARBONATE 800 MG TABLET PO SCH ×3 (08:32→17:05)
[2018-06-16] MEDS ORDERED: ENOXAPARIN 40MG/0.4ML SYR SUBCUT SCH (16:00)
[2018-06-17] VITALS (9 sets, daily range): BP systolic 93–118; BP diastolic 51–93
[2018-06-17] MEDS: MORPHINE SULFATE 4 MG/ML CPJ (NOT FOR IM USE) IV PRN ×2 (03:40→09:06)
[2018-06-17] MEDS: GABAPENTIN 300MG CAPSULE PO SCH (06:12)
[2018-06-17] MEDS: DIPHENHYDRAMINE 50MG/ML VIAL IV PRN (06:21)
[2018-06-17 06:51] LABS: BASOPHILS % 0.5 % (0.0-2.0); EOSINOPHILS % 5.4 % (0.0-5.0); HEMOGLOBIN. 10.1 g/dL (12.0-16.0); LYMPHOCYTES % 23.2 % (20.0-50.0); MEAN CORPUSCULAR HEMOGLOBIN 33.9 pg (28.0-32.0); MEAN CORPUSCULAR VOLUME 103.7 fL (81.0-99.0); MEAN PLATELET VOLUME 9.4 fl (7.4-10.4); MONOCYTES % 13.2 % (2.0-8.0); NEUTROPHILS % 57.7 % (40.0-76.0); PLATELET 131 x1000/uL (130-400); RED BLOOD CELL COUNT 2.98 mill/uL (4.2-5.4); RED CELL DISTRIBUTION WIDTH 16.5 % (11.6-14.6)
[2018-06-17] MEDS: SEVELAMER CARBONATE 800 MG TABLET PO SCH ×2 (08:17→12:20)
[2018-06-17] MEDS: ASPIRIN 325MG TABLET PO SCH (08:18)
[2018-06-17] MEDS: CLOPIDOGREL 75MG TABLET PO SCH (08:18)
[2018-06-17] MEDS: AMITRIPTYLINE 50MG TABLET PO SCH (08:18)
[2018-06-17] MEDS: FOLIC ACID/VITAMIN B COMP W-C TABLET PO SCH (08:18)
[2018-06-17] MEDS: CALCIUM ACETATE 667MG CAPSULE PO SCH ×2 (08:18→12:20)
== END 2018-06-17 13:00 | disposition home or self-care (01) | DRG 197 ==
LOC: ER 10:34 → ORIP 12:14 → EDBEDREQ 12:17 → 3WST 14:47
PROVIDERS: ADMIT Internal Medicine; ATTEND Internal Medicine
PROC: B41G1ZZ Fluoroscopy of Left Lower Extremity Arteries using Low Osmolar Contrast (ICD-10-PCS; principal; 2018-06-15)
PROC: 5A1D70Z Performance of Urinary Filtration, Intermittent, Less than 6 Hours Per Day (ICD-10-PCS; 2018-06-16)
DX: E11.51 Type 2 diabetes mellitus with diabetic peripheral angiopathy without gangrene (principal); I13.2 Hypertensive heart and chronic kidney disease with heart failure and with stage 5 chronic kidney disease, or end stage renal disease; E11.22 Type 2 diabetes mellitus with diabetic chronic kidney disease; E11.40 Type 2 diabetes mellitus with diabetic neuropathy, unspecified; E11.621 Type 2 diabetes mellitus with foot ulcer; D63.8 Anemia in other chronic diseases classified elsewhere; E03.9 Hypothyroidism, unspecified; E44.1 Mild protein-calorie malnutrition; E66.01 Morbid (severe) obesity due to excess calories; E78.5 Hyperlipidemia, unspecified; F17.200 Nicotine dependence, unspecified, uncomplicated; F41.8 Other specified anxiety disorders; I25.10 Atherosclerotic heart disease of native coronary artery without angina pectoris; I50.32 Chronic diastolic (congestive) heart failure; L97.529 Non-pressure chronic ulcer of other part of left foot with unspecified severity; J44.9 Chronic obstructive pulmonary disease, unspecified; L25.9 Unspecified contact dermatitis, unspecified cause; I99.8 Other disorder of circulatory system; N18.6 End stage renal disease; N25.81 Secondary hyperparathyroidism of renal origin; Z68.41 Body mass index [BMI] 40.0-44.9, adult; Z82.49 Family history of ischemic heart disease and other diseases of the circulatory system; Z83.3 Family history of diabetes mellitus; Z85.3 Personal history of malignant neoplasm of breast; Z89.422 Acquired absence of other left toe(s); Z91.5 Personal history of self-harm; Z92.3 Personal history of irradiation; Z98.84 Bariatric surgery status; Z99.2 Dependence on renal dialysis; Z88.2 Allergy status to sulfonamides; Z88.8 Allergy status to other drugs, medicaments and biological substances; Z79.82 Long term (current) use of aspirin; Z79.899 Other long term (current) drug therapy; Z71.3 Dietary counseling and surveillance; Z71.6 Tobacco abuse counseling
CPT/HCPCS: 36246; 36415; 75710; 80048; 84100; 96374; 96375; 99285; C1769; C1887; C1893; J1200; J1644; J2250; J2270; J2405; J3010; J3490; Q9967

== ENCOUNTER 2018-06-19 09:15 | Inpatient (IN) | payer MEDICAID ==
[~2018-06-19] VITALS: Ht 172.7 cm; Wt 133.4 kg
[2018-06-19 10:45] LABS: BASOPHILS % 0.5 % (0.0-2.0); CHLORIDE 102 mEq/L (98-107); EOSINOPHILS % 2.8 % (0.0-5.0); HEMATOCRIT. 29.1 % (36.0-48.0); HEMOGLOBIN. 9.8 g/dL (12.0-16.0); LYMPHOCYTES % 15.3 % (20.0-50.0); MEAN CORPUSCULAR HEMOGLOBIN 34.3 pg (28.0-32.0); MEAN CORPUSCULAR VOLUME 101.8 fL (81.0-99.0); MEAN PLATELET VOLUME 9.5 fl (7.4-10.4); MONOCYTES % 10.8 % (2.0-8.0); NEUTROPHILS % 70.6 % (40.0-76.0); PLATELET 153 x1000/uL (130-400); RED BLOOD CELL COUNT 2.86 mill/uL (4.2-5.4)
[2018-06-19] MEDS ORDERED: FUROSEMIDE 100MG/10ML VIAL IV STA (10:56)
[2018-06-19] MEDS ORDERED: SODIUM BICARBONATE 8.4% 1 MEQ/ML 50ML SYR IV ONE (11:00)
[2018-06-19] MEDS ORDERED: CALCIUM CHLORIDE 1GM/10ML SYR IV ONE (11:00)
[2018-06-19] MEDS ORDERED: ALBUTEROL (0.083%) 2.5MG/3ML NEB HHN ONE (11:00)
[2018-06-19] MEDS ORDERED: DEXTROSE 50% WATER 50ML SYRINGE IV ONE (11:00)
[2018-06-19] MEDS ORDERED: INSULIN REGULAR (HUMULIN R) 300UNITS/3ML IV ONE (11:00)
[2018-06-19] MEDS ORDERED: MORPHINE SULFATE 4 MG/ML CPJ (NOT FOR IM USE) IV ONE (11:15)
[2018-06-19] MEDS ORDERED: GUAIFENESIN 200MG/10ML SUGAR FREE UDC PO PRN (12:45)
[2018-06-19] MEDS ORDERED: LORAZEPAM 2MG/ML CPJ IV PRN (12:45)
[2018-06-19] MEDS ORDERED: DEXTROSE 50% WATER 50ML SYRINGE IV PRN (12:45)
[2018-06-19] MEDS ORDERED: IPRATROPIUM/ALBUTEROL 0.5-3(2.5)MG/3ML NEB INH PRN (12:45)
[2018-06-19] MEDS ORDERED: CLONIDINE 0.1MG TABLET PO PRN (12:45)
[2018-06-19] MEDS ORDERED: DOCUSATE SODIUM 100MG CAPSULE PO PRN (12:45)
[2018-06-19] MEDS ORDERED: MAGNESIUM/ALUMINUM HYDROXIDE/SIMETHICONE 30ML UDC PO PRN (12:45)
[2018-06-19] MEDS ORDERED: HYDRALAZINE 20MG/ML VIAL IV PRN (12:45)
[2018-06-19] MEDS ORDERED: DIPHENHYDRAMINE 50MG/ML VIAL IV PRN (12:45)
[2018-06-19] MEDS ORDERED: BLOOD SUGAR DIAGNOSTIC STRIP TEST SCH (13:00)
[2018-06-19 13:03] LABS: CLARITY URINE CLEAR (CLEAR); COLOR URINE YELLOW (YELLOW); KETONES URINE NEGATIVE (NEGATIVE); LEUKOCYTE ESTERASE URINE NEGATIVE (NEGATIVE); NITRITE URINE NEGATIVE (NEGATIVE); OCCULT BLOOD URINE 1+ (NEGATIVE); PROTEIN URINE 2+ (NEGATIVE); UROBILINOGEN URINE 0.2 E.U./dL (0.2-1.0)
[2018-06-19] MEDS ORDERED: INSULIN LISPRO 100 UNITS/ML SUBCUT SCH (13:20)
[2018-06-19 14:33] LABS: CREATINE KINASE 378 IU/L (26-192)
[2018-06-19 14:34] LABS: CREATINE KINASE MB FRACTION 2.8 ng/mL (0.5-3.6)
[2018-06-19] MEDS ORDERED: SODIUM CHLORIDE 0.9% 500 ML IV ONE (19:34)
[2018-06-19 22:20] VITALS: BP 87/36
[2018-06-19 23:00] VITALS: BP_SYST 86; BP_SYST 95; BP_DIAS 38; BP_DIAS 48
[2018-06-19 23:55] LABS: CREATINE KINASE 402 IU/L (26-192)
[2018-06-19 23:56] LABS: CREATINE KINASE MB FRACTION 1.3 ng/mL (0.5-3.6)
[2018-06-20] VITALS: BP 95/39
[2018-06-20] MEDS: ACETAMINOPHEN 325MG TABLET PO PRN ×2 (00:26→09:33)
[2018-06-20 04:00] VITALS: BP 108/49
[2018-06-20] MEDS: INSULIN LISPRO 100 UNITS/ML SUBCUT SCH ×4 (06:38→21:00)
[2018-06-20] MEDS: BLOOD SUGAR DIAGNOSTIC STRIP TEST SCH ×4 (06:38→21:00)
[2018-06-20] MEDS: SODIUM CHLORIDE 0.9% INJ 3ML FLUSH IVF SCH ×3 (06:38→21:36)
[2018-06-20 07:03] LABS: BASOPHILS % 0.4 % (0.0-2.0); EOSINOPHILS % 1.6 % (0.0-5.0); HEMATOCRIT. 29.9 % (36.0-48.0); HEMOGLOBIN. 9.9 g/dL (12.0-16.0); LYMPHOCYTES % 13.4 % (20.0-50.0); MEAN CORPUSCULAR VOLUME 102.1 fL (81.0-99.0); MEAN PLATELET VOLUME 9.9 fl (7.4-10.4); MONOCYTES % 6.9 % (2.0-8.0); NEUTROPHILS % 77.7 % (40.0-76.0); PLATELET 164 x1000/uL (130-400); RED BLOOD CELL COUNT 2.93 mill/uL (4.2-5.4); RED CELL DISTRIBUTION WIDTH 16.5 % (11.6-14.6)
[2018-06-20 07:28] LABS: CHLORIDE 102 mEq/L (98-107)
[2018-06-20 07:37] LABS: LDL CHOLESTEROL 60 mg/dL (5-100)
[2018-06-20 07:38] LABS: HDL CHOLESTEROL 52 mg/dL (40-59)
[2018-06-20 08:00] VITALS: BP 100/50
[2018-06-20] MEDS: ASPIRIN 81MG EC TABLET PO SCH (09:07)
[2018-06-20] MEDS: ENOXAPARIN 40MG/0.4ML SYR SUBCUT SCH (09:08)
[2018-06-20] MEDS ORDERED: PIPERACILLIN/TAZ 3.375G PREMIX 50 ML IV SCH (10:45)
[2018-06-20 12:00] VITALS: BP 100/50
[2018-06-20] MEDS: PIPERACILLIN/TAZ 2.25G PREMIX 50 ML IV SCH (14:13)
[2018-06-20] MEDS ORDERED: VANCOMYCIN 2,000 MG in DEXT 5% WATER 500 ML IV SCH (15:00)
[2018-06-20 16:00] VITALS: BP 96/45
[2018-06-20] MEDS ORDERED: SODIUM POLYSTYRENE SULFONATE 15 G/60 ML BOT PO NR (16:00)
[2018-06-20] MEDS ORDERED: METRONIDAZOLE 500 MG PREMIX 250 MG in BAG 0 EACH IV SCH (17:30)
[2018-06-20] MEDS ORDERED: GENTAMICIN SULFATE 140 MG in SODIUM CHLORIDE 0.9% 100 ML IV NR (19:00)
[2018-06-20 20:00] VITALS: BP 102/46
[2018-06-20] MEDS ORDERED: METRONIDAZOLE 500 MG PREMIX 100 ML IV SCH (20:00)
[2018-06-20] MEDS: NYSTATIN POWDER 15GM TOP SCH (21:36)
[2018-06-21] VITALS: BP 101/48
[2018-06-21] MEDS: PIPERACILLIN/TAZ 2.25G PREMIX 50 ML IV SCH ×2 (01:11→15:08)
[2018-06-21] MEDS: HYDROMORPHONE HCL/PF 2MG/ML CPJ IV PRN ×3 (01:11→12:10)
[2018-06-21] MEDS ORDERED: GENTAMICIN SULFATE 140 MG in SODIUM CHLORIDE 0.9% 100 ML IV NR (02:00)
[2018-06-21 04:00] VITALS: BP 96/44
[2018-06-21] MEDS: SODIUM CHLORIDE 0.9% INJ 3ML FLUSH IVF SCH ×3 (05:56→21:33)
[2018-06-21] MEDS: INSULIN LISPRO 100 UNITS/ML SUBCUT SCH ×3 (06:16→17:24)
[2018-06-21] MEDS: BLOOD SUGAR DIAGNOSTIC STRIP TEST SCH ×3 (06:16→17:24)
[2018-06-21 06:54] LABS: BASOPHILS % 0.3 % (0.0-2.0); EOSINOPHILS % 1.3 % (0.0-5.0); HEMATOCRIT. 27.1 % (36.0-48.0); HEMOGLOBIN. 9.2 g/dL (12.0-16.0); LYMPHOCYTES % 13.4 % (20.0-50.0); MEAN CORPUSCULAR HEMOGLOBIN 34.1 pg (28.0-32.0); MEAN CORPUSCULAR VOLUME 100.8 fL (81.0-99.0); MEAN PLATELET VOLUME 9.5 fl (7.4-10.4); MONOCYTES % 10.1 % (2.0-8.0); NEUTROPHILS % 74.9 % (40.0-76.0); PLATELET 168 x1000/uL (130-400); RED BLOOD CELL COUNT 2.69 mill/uL (4.2-5.4); RED CELL DISTRIBUTION WIDTH 16.1 % (11.6-14.6)
[2018-06-21 07:04] LABS: INR 1.1; PARTIAL THROMBOPLASTIN TIME 37.3 sec (23.4-31.0); PROTHROMBIN TIME 10.6 sec (9.1-11.1)
[2018-06-21 07:23] LABS: CHLORIDE 101 mEq/L (98-107)
[2018-06-21 07:38] LABS: PHOSPHORUS 4.4 mg/dL (2.5-4.9)
[2018-06-21 07:40] LABS: CREATINE KINASE 676 IU/L (26-192)
[2018-06-21 08:15] VITALS: BP 118/61
[2018-06-21] MEDS: ASPIRIN 81MG EC TABLET PO SCH (09:21)
[2018-06-21] MEDS: ENOXAPARIN 40MG/0.4ML SYR SUBCUT SCH (09:21)
[2018-06-21] MEDS: FOLIC ACID/VITAMIN B COMP W-C TABLET PO SCH (09:21)
[2018-06-21] MEDS: NYSTATIN POWDER 15GM TOP SCH ×3 (09:21→17:24)
[2018-06-21] MEDS ORDERED: METRONIDAZOLE 500 MG PREMIX 100 ML IV SCH (09:30)
[2018-06-21] MEDS: METRONIDAZOLE 500 MG PREMIX 100 ML IV SCH ×2 (10:49→20:46)
[2018-06-21 12:00] VITALS: BP_SYST 102; BP_SYST 95; BP_DIAS 51; BP_DIAS 57
[2018-06-21 15:23] LABS: GENTAMICIN RANDOM 4.7 ug/mL
[2018-06-21] MEDS: ONDANSETRON HCL 4MG/2ML INJ IV PRN (17:21)
[2018-06-21 20:00] VITALS: BP 91/47
[2018-06-21] MEDS: ACETAMINOPHEN 325MG TABLET PO PRN (20:47)
[2018-06-21] MEDS: EPOETIN ALFA 4000UNITS/ML VIAL SUBCUT SCH (21:34)
[2018-06-22] VITALS: BP 81/42
[2018-06-22] MEDS: BLOOD SUGAR DIAGNOSTIC STRIP TEST SCH ×4 (00:11→17:28)
[2018-06-22] MEDS: IPRATROPIUM/ALBUTEROL 0.5-3(2.5)MG/3ML NEB HHN SCH ×4 (01:17→22:18)
[2018-06-22] MEDS: PIPERACILLIN/TAZ 2.25G PREMIX 50 ML IV SCH ×2 (01:31→21:27)
[2018-06-22] MEDS: HYDROMORPHONE HCL/PF 2MG/ML CPJ IV PRN (03:36)
[2018-06-22 04:00] VITALS: BP 88/44
[2018-06-22] MEDS: SODIUM CHLORIDE 0.9% INJ 3ML FLUSH IVF SCH ×3 (05:17→21:27)
[2018-06-22] MEDS: INSULIN LISPRO 100 UNITS/ML SUBCUT SCH ×4 (05:18→17:28)
[2018-06-22 06:52] LABS: BASOPHILS % 0.2 % (0.0-2.0); HEMATOCRIT. 25.9 % (36.0-48.0); HEMOGLOBIN. 8.7 g/dL (12.0-16.0); LYMPHOCYTES % 7.7 % (20.0-50.0); MEAN CORPUSCULAR HEMOGLOBIN 33.8 pg (28.0-32.0); MEAN CORPUSCULAR VOLUME 101.2 fL (81.0-99.0); MEAN PLATELET VOLUME 9.4 fl (7.4-10.4); MONOCYTES % 9.5 % (2.0-8.0); NEUTROPHILS % 80.6 % (40.0-76.0); PLATELET 184 x1000/uL (130-400); RED BLOOD CELL COUNT 2.56 mill/uL (4.2-5.4); RED CELL DISTRIBUTION WIDTH 16.1 % (11.6-14.6)
[2018-06-22] MEDS: METOCLOPRAMIDE HCL 10MG/2ML VIAL IV PRN ×2 (07:38→13:58)
[2018-06-22 08:00] VITALS: BP 89/54
[2018-06-22] MEDS: FOLIC ACID/VITAMIN B COMP W-C TABLET PO SCH (09:00)
[2018-06-22] MEDS: ASPIRIN 81MG EC TABLET PO SCH (09:00)
[2018-06-22] MEDS ORDERED: LEVOFLOXACIN 250MG PREMIX 50 ML IV SCH (09:00)
[2018-06-22] MEDS: ENOXAPARIN 40MG/0.4ML SYR SUBCUT SCH (09:44)
[2018-06-22] MEDS: NYSTATIN POWDER 15GM TOP SCH ×3 (09:44→16:01)
[2018-06-22] MEDS: ONDANSETRON HCL 4MG/2ML INJ IV PRN ×3 (09:44→22:08)
[2018-06-22] MEDS: PANTOPRAZOLE SODIUM 40 MG/VIAL IV SCH (09:44)
[2018-06-22] MEDS: METRONIDAZOLE 500 MG PREMIX 100 ML IV SCH ×2 (09:45→22:09)
[2018-06-22] MEDS ORDERED: PIPERACILLIN/TAZ 2.25G PREMIX 50 ML IV SCH ×2 (11:00)
[2018-06-22] MEDS ORDERED: SODIUM CHLORIDE 0.9% 1000ML BAG (SEPSIS BOLUS) IV NR (11:15)
[2018-06-22] MEDS ORDERED: SODIUM CHLORIDE 0.9% 250ML IV SOLN IV NR (11:45)
[2018-06-22 12:00] VITALS: BP 85/49
[2018-06-22] MEDS: HYDROCODONE/ACETAMINOPHEN 10/325MG TABLET PO PRN (14:31)
[2018-06-22] MEDS ORDERED: VANCOMYCIN 750 MG PREMIX 150 ML IV SCH (15:00)
[2018-06-22 16:00] VITALS: BP 89/46
[2018-06-22] MEDS ORDERED: LIDOCAINE 5% PATCH TOP PRN ×2 (19:15→19:30)
[2018-06-22 20:00] VITALS: BP 93/54
[2018-06-22] MEDS ORDERED: EPOETIN ALFA 4000UNITS/ML VIAL SUBCUT SCH (21:00)
[2018-06-22] MEDS: ASCORBIC ACID 250 MG TABLET PO SCH (21:26)
[2018-06-23] VITALS (7 sets, daily range): BP systolic 79–123; BP diastolic 39–68
[2018-06-23] MEDS: BLOOD SUGAR DIAGNOSTIC STRIP TEST SCH ×5 (00:17→20:46)
[2018-06-23] MEDS: IPRATROPIUM/ALBUTEROL 0.5-3(2.5)MG/3ML NEB HHN SCH ×4 (01:36→22:21)
[2018-06-23] MEDS: METOCLOPRAMIDE HCL 10MG/2ML VIAL IV PRN (02:46)
[2018-06-23] MEDS: SODIUM CHLORIDE 0.9% INJ 3ML FLUSH IVF SCH ×3 (05:44→21:32)
[2018-06-23] MEDS: INSULIN LISPRO 100 UNITS/ML SUBCUT SCH ×5 (05:45→20:46)
[2018-06-23] MEDS: ONDANSETRON HCL 4MG/2ML INJ IV PRN (05:51)
[2018-06-23 06:27] LABS: BASOPHILS % 0.3 % (0.0-2.0); EOSINOPHILS % 2.5 % (0.0-5.0); HEMATOCRIT. 27.5 % (36.0-48.0); HEMOGLOBIN. 9.2 g/dL (12.0-16.0); MEAN CORPUSCULAR HEMOGLOBIN 33.7 pg (28.0-32.0); MEAN CORPUSCULAR VOLUME 101.3 fL (81.0-99.0); MEAN PLATELET VOLUME 9.2 fl (7.4-10.4); MONOCYTES % 11.4 % (2.0-8.0); NEUTROPHILS % 73.8 % (40.0-76.0); PLATELET 201 x1000/uL (130-400); RED BLOOD CELL COUNT 2.72 mill/uL (4.2-5.4); RED CELL DISTRIBUTION WIDTH 16.1 % (11.6-14.6)
[2018-06-23] MEDS: ASPIRIN 81MG EC TABLET PO SCH (09:00)
[2018-06-23] MEDS: ASCORBIC ACID 250 MG TABLET PO SCH (09:00)
[2018-06-23] MEDS: NYSTATIN POWDER 15GM TOP SCH ×3 (09:00→17:07)
[2018-06-23] MEDS: ZINC SULFATE 220 MG ( 50 ) CAPSULE PO SCH (09:00)
[2018-06-23] MEDS: METRONIDAZOLE 500 MG PREMIX 100 ML IV SCH ×2 (09:00→21:31)
[2018-06-23] MEDS: FOLIC ACID/VITAMIN B COMP W-C TABLET PO SCH (09:00)
[2018-06-23] MEDS: PANTOPRAZOLE SODIUM 40 MG/VIAL IV SCH (09:00)
[2018-06-23] MEDS: ENOXAPARIN 40MG/0.4ML SYR SUBCUT SCH (09:00)
[2018-06-23] MEDS: PIPERACILLIN/TAZ 2.25G PREMIX 50 ML IV SCH ×2 (09:00→20:16)
[2018-06-23 09:04] LABS: CREATINE KINASE 203 IU/L (26-192)
[2018-06-23] MEDS ORDERED: GABA-531 PO (12:04)
[2018-06-23] MEDS ORDERED: HYDROMORPHONE HCL 4MG TABLET PO SCH (12:15)
[2018-06-23] MEDS ORDERED: SODIUM CHLORIDE 0.9% 1,000 ML IV SCH (12:30)
[2018-06-23] MEDS ORDERED: GABAPENTIN 300MG CAPSULE PO SCH (14:00)
[2018-06-23] MEDS: HYDROMORPHONE HCL/PF 2MG/ML CPJ IV PRN ×3 (18:03→23:11)
[2018-06-23] MEDS ORDERED: METOCLOPRAMIDE HCL 10MG/2ML VIAL IV PRN (19:30)
[2018-06-23] MEDS: GABAPENTIN 300MG CAPSULE PO SCH (20:16)
[2018-06-23] MEDS: EPOETIN ALFA 4000UNITS/ML VIAL SUBCUT SCH (21:29)
[2018-06-24] VITALS (7 sets, daily range): BP systolic 85–124; BP diastolic 50–103
[2018-06-24] MEDS: IPRATROPIUM/ALBUTEROL 0.5-3(2.5)MG/3ML NEB HHN SCH ×4 (02:36→22:00)
[2018-06-24] MEDS: INSULIN LISPRO 100 UNITS/ML SUBCUT SCH ×4 (06:00→23:24)
[2018-06-24] MEDS: BLOOD SUGAR DIAGNOSTIC STRIP TEST SCH ×4 (06:34→23:24)
[2018-06-24] MEDS: SODIUM CHLORIDE 0.9% INJ 3ML FLUSH IVF SCH ×3 (06:34→22:09)
[2018-06-24] MEDS: HYDROMORPHONE HCL/PF 2MG/ML CPJ IV PRN ×3 (06:45→23:33)
[2018-06-24] MEDS: FOLIC ACID/VITAMIN B COMP W-C TABLET PO SCH (08:28)
[2018-06-24] MEDS: ZINC SULFATE 220 MG ( 50 ) CAPSULE PO SCH (08:28)
[2018-06-24] MEDS: ASPIRIN 81MG EC TABLET PO SCH (08:28)
[2018-06-24] MEDS: PANTOPRAZOLE SODIUM 40 MG/VIAL IV SCH (08:29)
[2018-06-24] MEDS: METRONIDAZOLE 500 MG PREMIX 100 ML IV SCH ×2 (08:29→20:47)
[2018-06-24] MEDS: NYSTATIN POWDER 15GM TOP SCH ×3 (08:30→16:41)
[2018-06-24] MEDS: ENOXAPARIN 40MG/0.4ML SYR SUBCUT SCH (08:30)
[2018-06-24] MEDS: PIPERACILLIN/TAZ 2.25G PREMIX 50 ML IV SCH ×2 (09:40→22:06)
[2018-06-24] MEDS: HYDROCODONE/ACETAMINOPHEN 10/325MG TABLET PO PRN ×2 (09:40→16:13)
[2018-06-24 12:48] LABS: PHOSPHORUS 4.3 mg/dL (2.5-4.9)
[2018-06-24] MEDS ORDERED: VANCOMYCIN 750 MG PREMIX 150 ML IV SCH (14:00)
[2018-06-24] MEDS: GABAPENTIN 300MG CAPSULE PO SCH (20:47)
[2018-06-25] VITALS (8 sets, daily range): BP systolic 95–160; BP diastolic 48–90
[2018-06-25] MEDS: IPRATROPIUM/ALBUTEROL 0.5-3(2.5)MG/3ML NEB HHN SCH ×5 (03:27→21:26)
[2018-06-25] MEDS: HYDROCODONE/ACETAMINOPHEN 10/325MG TABLET PO PRN ×3 (04:16→12:55)
[2018-06-25] MEDS: SODIUM CHLORIDE 0.9% INJ 3ML FLUSH IVF SCH ×3 (04:22→21:50)
[2018-06-25] MEDS: INSULIN LISPRO 100 UNITS/ML SUBCUT SCH ×3 (05:58→17:52)
[2018-06-25] MEDS: BLOOD SUGAR DIAGNOSTIC STRIP TEST SCH ×3 (05:58→17:50)
[2018-06-25 06:45] LABS: BASOPHILS % 0.7 % (0.0-2.0); HEMATOCRIT. 28.5 % (36.0-48.0); HEMOGLOBIN. 9.5 g/dL (12.0-16.0); LYMPHOCYTES % 17.2 % (20.0-50.0); MEAN CORPUSCULAR HEMOGLOBIN 33.7 pg (28.0-32.0); MEAN CORPUSCULAR VOLUME 101.7 fL (81.0-99.0); MEAN PLATELET VOLUME 9.4 fl (7.4-10.4); MONOCYTES % 14.1 % (2.0-8.0); PLATELET 238 x1000/uL (130-400); RED CELL DISTRIBUTION WIDTH 16.2 % (11.6-14.6)
[2018-06-25] MEDS: ZINC SULFATE 220 MG ( 50 ) CAPSULE PO SCH (09:00)
[2018-06-25] MEDS: NYSTATIN POWDER 15GM TOP SCH ×3 (09:00→17:48)
[2018-06-25] MEDS: ASPIRIN 81MG EC TABLET PO SCH (09:00)
[2018-06-25] MEDS: FOLIC ACID/VITAMIN B COMP W-C TABLET PO SCH (09:30)
[2018-06-25] MEDS: FAMOTIDINE 20MG/2ML VIAL IV SCH (09:30)
[2018-06-25] MEDS: ENOXAPARIN 40MG/0.4ML SYR SUBCUT SCH (09:30)
[2018-06-25] MEDS: METRONIDAZOLE 500 MG PREMIX 100 ML IV SCH ×2 (09:30→20:47)
[2018-06-25] MEDS: PIPERACILLIN/TAZ 2.25G PREMIX 50 ML IV SCH ×2 (10:00→21:50)
[2018-06-25] MEDS: HYDROMORPHONE HCL/PF 2MG/ML CPJ IV PRN ×3 (14:42→21:19)
[2018-06-25] MEDS: GABAPENTIN 300MG CAPSULE PO SCH (21:50)
[2018-06-26] VITALS: BP 105/53
[2018-06-26] MEDS: HYDROMORPHONE HCL/PF 2MG/ML CPJ IV PRN ×4 (03:23→18:55)
[2018-06-26 04:00] VITALS: BP 108/48
[2018-06-26] MEDS: INSULIN LISPRO 100 UNITS/ML SUBCUT SCH ×4 (05:47→18:00)
[2018-06-26] MEDS: BLOOD SUGAR DIAGNOSTIC STRIP TEST SCH ×4 (05:47→18:02)
[2018-06-26] MEDS: SODIUM CHLORIDE 0.9% INJ 3ML FLUSH IVF SCH ×2 (05:47→15:29)
[2018-06-26 06:24] LABS: BASOPHILS % 0.5 % (0.0-2.0); EOSINOPHILS % 4.8 % (0.0-5.0); HEMATOCRIT. 26.1 % (36.0-48.0); HEMOGLOBIN. 8.7 g/dL (12.0-16.0); MEAN CORPUSCULAR HEMOGLOBIN 33.4 pg (28.0-32.0); MEAN CORPUSCULAR VOLUME 100.4 fL (81.0-99.0); MEAN PLATELET VOLUME 9.2 fl (7.4-10.4); MONOCYTES % 12.8 % (2.0-8.0); NEUTROPHILS % 66.9 % (40.0-76.0); PLATELET 261 x1000/uL (130-400); RED CELL DISTRIBUTION WIDTH 16.3 % (11.6-14.6)
[2018-06-26 08:00] VITALS: BP 115/63
[2018-06-26] MEDS: IPRATROPIUM/ALBUTEROL 0.5-3(2.5)MG/3ML NEB HHN SCH ×2 (08:35→15:26)
[2018-06-26] MEDS: PIPERACILLIN/TAZ 2.25G PREMIX 50 ML IV SCH ×2 (09:00→10:17)
[2018-06-26] MEDS: ENOXAPARIN 40MG/0.4ML SYR SUBCUT SCH (10:14)
[2018-06-26] MEDS: FAMOTIDINE 20MG/2ML VIAL IV SCH (10:14)
[2018-06-26] MEDS: ZINC SULFATE 220 MG ( 50 ) CAPSULE PO SCH (10:15)
[2018-06-26] MEDS: FOLIC ACID/VITAMIN B COMP W-C TABLET PO SCH (10:15)
[2018-06-26] MEDS: NYSTATIN POWDER 15GM TOP SCH ×3 (10:15→18:00)
[2018-06-26] MEDS: ASPIRIN 81MG EC TABLET PO SCH (10:15)
[2018-06-26] MEDS: METRONIDAZOLE 500 MG PREMIX 100 ML IV SCH (10:17)
[2018-06-26 16:00] VITALS: BP 140/72
[2018-06-26 18:08] VITALS: BP 140/74
[2018-06-26] MEDS: HEPARIN SODIUM 1,000 UNIT/1ML VIAL IV NR ×2 (18:17→18:18)
[2018-06-26 20:00] VITALS: BP 128/66
[2018-06-26] MEDS ORDERED: VANCOMYCIN 750 MG PREMIX 150 ML IV NR (21:00)
== END 2018-06-26 20:45 | disposition home health service (06) | DRG 720 ==
LOC: ER 09:27 → 8WST 11:34 → EDBEDREQ 11:37 → ENRESERV 20:52
PROVIDERS: ADMIT Internal Medicine; ATTEND Internal Medicine
PROC: 5A1D70Z Performance of Urinary Filtration, Intermittent, Less than 6 Hours Per Day (ICD-10-PCS; 2018-06-20)
PROC: 5A09357 Assistance with Respiratory Ventilation, Less than 24 Consecutive Hours, Continuous Positive Airway Pressure (ICD-10-PCS; principal; 2018-06-21)
PROC: 5A1D70Z Performance of Urinary Filtration, Intermittent, Less than 6 Hours Per Day (ICD-10-PCS; 2018-06-22)
PROC: 5A1D70Z Performance of Urinary Filtration, Intermittent, Less than 6 Hours Per Day (ICD-10-PCS; 2018-06-23)
PROC: 5A1D70Z Performance of Urinary Filtration, Intermittent, Less than 6 Hours Per Day (ICD-10-PCS; 2018-06-24)
PROC: 5A1D70Z Performance of Urinary Filtration, Intermittent, Less than 6 Hours Per Day (ICD-10-PCS; 2018-06-26)
DX: A41.9 Sepsis, unspecified organism (principal); J96.01 Acute respiratory failure with hypoxia; I13.2 Hypertensive heart and chronic kidney disease with heart failure and with stage 5 chronic kidney disease, or end stage renal disease; E46 Unspecified protein-calorie malnutrition; E11.51 Type 2 diabetes mellitus with diabetic peripheral angiopathy without gangrene; E11.22 Type 2 diabetes mellitus with diabetic chronic kidney disease; E87.5 Hyperkalemia; K57.32 Diverticulitis of large intestine without perforation or abscess without bleeding; E87.70 Fluid overload, unspecified; N18.6 End stage renal disease; T82.41XA Breakdown (mechanical) of vascular dialysis catheter, initial encounter; F32.9 Major depressive disorder, single episode, unspecified; I50.32 Chronic diastolic (congestive) heart failure; J44.9 Chronic obstructive pulmonary disease, unspecified; F17.210 Nicotine dependence, cigarettes, uncomplicated; D64.9 Anemia, unspecified; N25.81 Secondary hyperparathyroidism of renal origin; E66.2 Morbid (severe) obesity with alveolar hypoventilation; E78.5 Hyperlipidemia, unspecified; K80.20 Calculus of gallbladder without cholecystitis without obstruction; Z60.2 Problems related to living alone; L97.529 Non-pressure chronic ulcer of other part of left foot with unspecified severity; E11.621 Type 2 diabetes mellitus with foot ulcer; Y84.1 Kidney dialysis as the cause of abnormal reaction of the patient, or of later complication, without mention of misadventure at the time of the procedure; K52.9 Noninfective gastroenteritis and colitis, unspecified; E03.9 Hypothyroidism, unspecified; G89.29 Other chronic pain; K42.9 Umbilical hernia without obstruction or gangrene; Z82.49 Family history of ischemic heart disease and other diseases of the circulatory system; Z83.3 Family history of diabetes mellitus; Z89.422 Acquired absence of other left toe(s); Z99.2 Dependence on renal dialysis; Z92.21 Personal history of antineoplastic chemotherapy; Y92.89 Other specified places as the place of occurrence of the external cause; Z92.3 Personal history of irradiation; Z85.3 Personal history of malignant neoplasm of breast; Z71.3 Dietary counseling and surveillance; Z98.84 Bariatric surgery status; Z68.41 Body mass index [BMI] 40.0-44.9, adult; Z88.2 Allergy status to sulfonamides; Z88.8 Allergy status to other drugs, medicaments and biological substances; Z79.82 Long term (current) use of aspirin; Z79.899 Other long term (current) drug therapy
CPT/HCPCS: 36415; 71045; 74018; 74176; 80048; 80061; 80170; 80202; 80355; 82550; 82553; 82962; 83605; 84100; 84132; 84134; 84439; 84443; 84484; 87076; 93005; 93306; 93970; 94640; 94660; 96374; 96375; 99285; C1893; C9113; J0885; J1170; J1200; J1580; J1644; J1650; J1815; J1940; J2060; J2270; J2405; J2543; J2765; J3370; J3490; J7030; J7040; J7050; J7060; J7611; J7620

== ENCOUNTER 2018-08-16 13:53 | Emergency (ER) | payer MEDICAID, OTHER ==
[~2018-08-16] VITALS: Ht 172.7 cm; Wt 118.0 kg
[~2018-08-16 13:53] MED LIST changes: -GABA-290 PO; +GABA-531 PO
[2018-08-16] MEDS ORDERED: HYDROCODONE/ACETAMINOPHEN 5/325MG TABLET PO STA (14:48)
[2018-08-16 14:59] LABS: BASOPHILS % 2.6 % (0.0-2.0); EOSINOPHILS % 5.3 % (0.0-5.0); HEMATOCRIT. 38.7 % (36.0-48.0); HEMOGLOBIN. 12.9 g/dL (12.0-16.0); LYMPHOCYTES % 40.8 % (20.0-50.0); MEAN CORPUSCULAR HEMOGLOBIN 31.8 pg (28.0-32.0); MEAN CORPUSCULAR VOLUME 95.6 fL (81.0-99.0); MEAN PLATELET VOLUME 9.8 fl (7.4-10.4); MONOCYTES % 8.9 % (2.0-8.0); NEUTROPHILS % 42.4 % (40.0-76.0); PLATELET 223 x1000/uL (130-400); RED BLOOD CELL COUNT 4.05 mill/uL (4.2-5.4)
[2018-08-16 15:08] LABS: CHLORIDE 101 mEq/L (98-107)
[2018-08-16] MEDS ORDERED: LIDOCAINE HCL 4% CREAM 76GM TUBE TP STA (17:33)
[2018-08-16] MEDS ORDERED: LIDOCAINE HCL 2% JELLY 5ML MM ONE (17:45)
[2018-08-16] MEDS ORDERED: VISCOUS LIDOCAINE 2% 15 ML UDC MM PRN (17:45)
[2018-08-16 18:37] VITALS: BP 141/88
== END 2018-08-16 19:24 | disposition home or self-care (01) ==
LOC: ER 13:53
DX: T87.89 Other complications of amputation stump (principal); N18.6 End stage renal disease; Z99.2 Dependence on renal dialysis; E11.9 Type 2 diabetes mellitus without complications; Z98.890 Other specified postprocedural states; Z88.2 Allergy status to sulfonamides; Z79.82 Long term (current) use of aspirin; Z79.899 Other long term (current) drug therapy
CPT/HCPCS: 36415; 80053; 83605; 85025; 87040; 99283; Z7610

== ENCOUNTER 2018-08-26 11:08 | Inpatient (IN) | payer MEDICAID, OTHER ==
[~2018-08-26] VITALS: Ht 172.7 cm; Wt 112.9 kg
[2018-08-26] MEDS ORDERED: MORPHINE SULFATE 4 MG/ML CPJ (NOT FOR IM USE) IV ONE ×2 (11:30→13:45)
[2018-08-26 11:51] LABS: BASOPHILS % 0.8 % (0.0-2.0); EOSINOPHILS % 1.9 % (0.0-5.0); HEMATOCRIT. 46.2 % (36.0-48.0); HEMOGLOBIN. 15.3 g/dL (12.0-16.0); MEAN CORPUSCULAR HEMOGLOBIN 31.3 pg (28.0-32.0); MEAN CORPUSCULAR VOLUME 94.1 fL (81.0-99.0); MEAN PLATELET VOLUME 9.5 fl (7.4-10.4); MONOCYTES % 10.2 % (2.0-8.0); NEUTROPHILS % 66.1 % (40.0-76.0); PLATELET 137 x1000/uL (130-400); RED BLOOD CELL COUNT 4.91 mill/uL (4.2-5.4); RED CELL DISTRIBUTION WIDTH 15.4 % (11.6-14.6)
[2018-08-26 11:56] LABS: CHLORIDE 100 mEq/L (98-107)
[2018-08-26] MEDS ORDERED: CLONIDINE 0.1MG TABLET PO PRN (15:00)
[2018-08-26] MEDS ORDERED: MORPHINE SULFATE 2 MG/ML CPJ (NOT FOR IM USE) IV PRN (15:00)
[2018-08-26] MEDS ORDERED: ACETAMINOPHEN 325MG TABLET PO PRN (15:00)
[2018-08-26] MEDS ORDERED: HYDROCODONE/ACETAMINOPHEN 5/325MG TABLET PO PRN (15:00)
[2018-08-26] MEDS ORDERED: ONDANSETRON HCL 4MG/2ML INJ IV PRN (15:00)
[2018-08-26 17:15] VITALS: BP 107/52
[2018-08-26] MEDS ORDERED: ENOXAPARIN 40MG/0.4ML SYR SUBCUT SCH (18:00)
[2018-08-26 19:30] VITALS: BP 91/47
[2018-08-26] MEDS ORDERED: ZOLPIDEM TARTRATE 5MG TABLET PO PRN (21:00)
[2018-08-26] MEDS ORDERED: SODIUM CHLORIDE 0.9% 1,000 ML IV NR (22:44)
[2018-08-27] MEDS ORDERED: CALC667C PO (00:31)
[2018-08-27] MEDS ORDERED: SERT25TA PO (00:31)
[2018-08-27] MEDS ORDERED: DIAZ10TA MT (00:31)
[2018-08-27] MEDS ORDERED: GABA800T97 PO (00:31)
[2018-08-27] MEDS ORDERED: ASPI-1159 PO (00:31)
[2018-08-27] MEDS ORDERED: AMIT-188 PO (00:31)
[2018-08-27 04:00] VITALS: BP 97/56
[2018-08-27 07:52] LABS: BASOPHILS % 0.8 % (0.0-2.0); EOSINOPHILS % 1.1 % (0.0-5.0); HEMATOCRIT. 40.3 % (36.0-48.0); HEMOGLOBIN. 13.2 g/dL (12.0-16.0); LYMPHOCYTES % 23.4 % (20.0-50.0); MEAN CORPUSCULAR HEMOGLOBIN 30.7 pg (28.0-32.0); MEAN CORPUSCULAR VOLUME 94.1 fL (81.0-99.0); MEAN PLATELET VOLUME 9.6 fl (7.4-10.4); MONOCYTES % 12.7 % (2.0-8.0); PLATELET 115 x1000/uL (130-400); RED BLOOD CELL COUNT 4.29 mill/uL (4.2-5.4); RED CELL DISTRIBUTION WIDTH 15.3 % (11.6-14.6)
[2018-08-27 08:00] VITALS: BP 93/48
[2018-08-27] MEDS ORDERED: FOLIC ACID/VITAMIN B COMP W-C TABLET PO SCH (11:15)
[2018-08-27 12:00] VITALS: BP 117/49
[2018-08-27] MEDS ORDERED: CALCIUM ACETATE 667MG CAPSULE PO SCH (12:50)
[2018-08-27] MEDS ORDERED: GABAPENTIN 100MG CAPSULE PO SCH (14:00)
== END 2018-08-27 16:04 | disposition home or self-care (01) | DRG 197 ==
LOC: ER 11:34 → 6WST 14:37 → EDBEDREQ 14:40 → ENRESERV 14:52
PROVIDERS: ADMIT Internal Medicine; ATTEND Internal Medicine
DX: I96 Gangrene, not elsewhere classified (principal); I13.2 Hypertensive heart and chronic kidney disease with heart failure and with stage 5 chronic kidney disease, or end stage renal disease; E11.22 Type 2 diabetes mellitus with diabetic chronic kidney disease; E11.42 Type 2 diabetes mellitus with diabetic polyneuropathy; N18.6 End stage renal disease; I50.32 Chronic diastolic (congestive) heart failure; E11.52 Type 2 diabetes mellitus with diabetic peripheral angiopathy with gangrene; E03.9 Hypothyroidism, unspecified; E66.01 Morbid (severe) obesity due to excess calories; E78.5 Hyperlipidemia, unspecified; F17.210 Nicotine dependence, cigarettes, uncomplicated; F32.9 Major depressive disorder, single episode, unspecified; M54.30 Sciatica, unspecified side; F41.9 Anxiety disorder, unspecified; J44.9 Chronic obstructive pulmonary disease, unspecified; M85.80 Other specified disorders of bone density and structure, unspecified site; N25.81 Secondary hyperparathyroidism of renal origin; Z82.49 Family history of ischemic heart disease and other diseases of the circulatory system; Z83.3 Family history of diabetes mellitus; Z85.3 Personal history of malignant neoplasm of breast; Z89.422 Acquired absence of other left toe(s); Z79.82 Long term (current) use of aspirin; Z92.3 Personal history of irradiation; Z98.84 Bariatric surgery status; Z99.2 Dependence on renal dialysis; Z68.37 Body mass index [BMI] 37.0-37.9, adult; Z88.2 Allergy status to sulfonamides; Z88.6 Allergy status to analgesic agent; Z88.8 Allergy status to other drugs, medicaments and biological substances; Z71.3 Dietary counseling and surveillance
CPT/HCPCS: 36415; 71045; 73620; 80048; 83880; 84484; 93005; 96372; 96374; 96376; 99285; J1650; J2270

== ENCOUNTER 2018-09-27 18:27 | Inpatient (IN) | payer MEDICAID ==
[~2018-09-27] VITALS: Ht 167.6 cm; Wt 99.8 kg
[~2018-09-27 18:27] MED LIST changes: -ASPI-1159 PO; +ASPI-1393 PO; +CALC667C PO; +CRES10 PO; +DIAZ10TA MT; -DIAZ10TA PO; -ROSU10TA PO
[2018-09-27] MEDS ORDERED: TRAMADOL 50MG TABLET PO ONE (21:15)
[2018-09-27] MEDS ORDERED: MORPHINE SULFATE 4 MG/ML CPJ (NOT FOR IM USE) IV STA (23:27)
[2018-09-28 00:16] LABS: CHLORIDE 100 mEq/L (98-107)
[2018-09-28 00:18] LABS: BASOPHILS % 0.8 % (0.0-2.0); EOSINOPHILS % 2.6 % (0.0-5.0); HEMATOCRIT. 32.6 % (36.0-48.0); HEMOGLOBIN. 11.1 g/dL (12.0-16.0); MEAN CORPUSCULAR HEMOGLOBIN 30.7 pg (28.0-32.0); MEAN CORPUSCULAR VOLUME 90.5 fL (81.0-99.0); MEAN PLATELET VOLUME 9.5 fl (7.4-10.4); MONOCYTES % 9.6 % (2.0-8.0); PLATELET 265 x1000/uL (130-400); RED CELL DISTRIBUTION WIDTH 15.5 % (11.6-14.6)
[2018-09-28 04:00] VITALS: BP 146/98
[2018-09-28 04:10] VITALS: BP 146/98
[2018-09-28] MEDS ORDERED: DEXTROSE 50% WATER 50ML SYRINGE IV PRN (06:30)
[2018-09-28] MEDS ORDERED: ACETAMINOPHEN 325MG TABLET PO PRN (06:30)
[2018-09-28] MEDS ORDERED: DIAZEPAM 5 MG TABLET PO PRN (06:30)
[2018-09-28] MEDS: INSULIN LISPRO 100 UNITS/ML SUBCUT SCH ×4 (07:13→20:43)
[2018-09-28 08:00] VITALS: BP 102/65
[2018-09-28] MEDS: BLOOD SUGAR DIAGNOSTIC STRIP TEST SCH ×4 (08:04→20:36)
[2018-09-28] MEDS: ASPIRIN 81MG TABLET PO SCH (09:08)
[2018-09-28] MEDS: CLOPIDOGREL 75MG TABLET PO SCH (09:08)
[2018-09-28] MEDS: CYCLOBENZAPRINE 10MG TABLET PO SCH ×2 (09:08→17:32)
[2018-09-28] MEDS: CALCIUM ACETATE 667MG CAPSULE PO SCH ×3 (09:08→17:32)
[2018-09-28] MEDS: HYDROCODONE/ACETAMINOPHEN 5/325MG TABLET PO PRN ×2 (09:57→21:11)
[2018-09-28 12:00] VITALS: BP 156/63
[2018-09-28] MEDS: GABAPENTIN 300MG CAPSULE PO SCH ×2 (13:25→23:29)
[2018-09-28] MEDS: MORPHINE SULFATE 2 MG/ML CPJ (NOT FOR IM USE) IV PRN ×2 (14:49→18:59)
[2018-09-28 16:00] VITALS: BP 137/78
[2018-09-28] MEDS: ENOXAPARIN 40MG/0.4ML SYR SUBCUT SCH (17:33)
[2018-09-28] MEDS: DEXT 5%/0.45% NACL 1000ML 1,000 ML IV SCH (18:10)
[2018-09-28 20:00] VITALS: BP 126/79
[2018-09-28] MEDS: SERTRALINE HCL 50MG TABLET PO SCH (20:36)
[2018-09-28] MEDS: ATORVASTATIN CALCIUM 40MG TABLET PO SCH (20:36)
[2018-09-28] MEDS: AMITRIPTYLINE 50MG TABLET PO SCH (20:36)
[2018-09-29] VITALS (7 sets, daily range): BP systolic 106–141; BP diastolic 73–81
[2018-09-29] MEDS: MORPHINE SULFATE 2 MG/ML CPJ (NOT FOR IM USE) IV PRN ×5 (00:38→21:53)
[2018-09-29] MEDS: BLOOD SUGAR DIAGNOSTIC STRIP TEST SCH ×4 (06:04→20:28)
[2018-09-29] MEDS: GABAPENTIN 300MG CAPSULE PO SCH ×3 (06:04→21:52)
[2018-09-29 06:36] LABS: BASOPHILS % 0.9 % (0.0-2.0); EOSINOPHILS % 2.6 % (0.0-5.0); HEMATOCRIT. 35.9 % (36.0-48.0); HEMOGLOBIN. 11.9 g/dL (12.0-16.0); LYMPHOCYTES % 28.4 % (20.0-50.0); MEAN CORPUSCULAR VOLUME 90.7 fL (81.0-99.0); MEAN PLATELET VOLUME 9.9 fl (7.4-10.4); MONOCYTES % 8.3 % (2.0-8.0); NEUTROPHILS % 59.8 % (40.0-76.0); PLATELET 301 x1000/uL (130-400); RED BLOOD CELL COUNT 3.96 mill/uL (4.2-5.4); RED CELL DISTRIBUTION WIDTH 15.8 % (11.6-14.6)
[2018-09-29] MEDS: INSULIN LISPRO 100 UNITS/ML SUBCUT SCH ×4 (07:50→21:00)
[2018-09-29] MEDS: CALCIUM ACETATE 667MG CAPSULE PO SCH ×3 (09:59→17:52)
[2018-09-29] MEDS: CLOPIDOGREL 75MG TABLET PO SCH (09:59)
[2018-09-29] MEDS: ASPIRIN 81MG TABLET PO SCH (09:59)
[2018-09-29] MEDS: CYCLOBENZAPRINE 10MG TABLET PO SCH ×2 (10:00→17:52)
[2018-09-29] MEDS: HYDROCODONE/ACETAMINOPHEN 5/325MG TABLET PO PRN (12:04)
[2018-09-29] MEDS: NYSTATIN POWDER 15GM TOP SCH ×3 (14:08→17:52)
[2018-09-29] MEDS: DEXT 5%/0.45% NACL 1000ML 1,000 ML IV SCH (17:53)
[2018-09-29] MEDS: ENOXAPARIN 40MG/0.4ML SYR SUBCUT SCH (17:53)
[2018-09-29] MEDS: ATORVASTATIN CALCIUM 40MG TABLET PO SCH (20:27)
[2018-09-29] MEDS: SERTRALINE HCL 50MG TABLET PO SCH (20:27)
[2018-09-29] MEDS: AMITRIPTYLINE 50MG TABLET PO SCH (20:27)
[2018-09-30] MEDS: HYDROCODONE/ACETAMINOPHEN 5/325MG TABLET PO PRN (00:36)
[2018-09-30] MEDS: MORPHINE SULFATE 2 MG/ML CPJ (NOT FOR IM USE) IV PRN ×5 (03:33→21:59)
[2018-09-30 04:07] VITALS: BP 128/86
[2018-09-30] MEDS: GABAPENTIN 300MG CAPSULE PO SCH ×3 (06:00→21:00)
[2018-09-30] MEDS: BLOOD SUGAR DIAGNOSTIC STRIP TEST SCH ×4 (07:48→20:26)
[2018-09-30] MEDS: INSULIN LISPRO 100 UNITS/ML SUBCUT SCH ×4 (07:48→20:30)
[2018-09-30 08:00] VITALS: BP 145/80
[2018-09-30] MEDS: NYSTATIN POWDER 15GM TOP SCH ×3 (08:13→17:22)
[2018-09-30] MEDS: CLOPIDOGREL 75MG TABLET PO SCH (08:13)
[2018-09-30] MEDS: ASPIRIN 81MG TABLET PO SCH (08:13)
[2018-09-30] MEDS: CYCLOBENZAPRINE 10MG TABLET PO SCH ×2 (08:13→17:20)
[2018-09-30] MEDS: CALCIUM ACETATE 667MG CAPSULE PO SCH ×3 (10:08→17:20)
[2018-09-30 16:00] VITALS: BP 147/88
[2018-09-30 17:00] LABS: HEMATOCRIT 36.5 % (36.0-48.0); HEMOGLOBIN 12.4 g/dL (12.0-16.0); MEAN CORPUSCULAR HEMOGLOBIN 30.6 pg (28.0-32.0); MEAN CORPUSCULAR VOLUME 90.1 fL (81.0-99.0); PLATELET 328 x1000/uL (130-400); RED BLOOD CELL COUNT 4.05 mill/uL (4.2-5.4); RED CELL DISTRIBUTION WIDTH 15.6 % (11.6-14.6)
[2018-09-30] MEDS: ENOXAPARIN 40MG/0.4ML SYR SUBCUT SCH (17:21)
[2018-09-30 17:46] LABS: CHLORIDE 100 mEq/L (98-107)
[2018-09-30 20:00] VITALS: BP 134/89
[2018-09-30] MEDS: SERTRALINE HCL 50MG TABLET PO SCH (20:25)
[2018-09-30] MEDS: ATORVASTATIN CALCIUM 40MG TABLET PO SCH (20:25)
[2018-09-30] MEDS: AMITRIPTYLINE 50MG TABLET PO SCH (20:26)
[2018-10-01] VITALS: BP 134/83
[2018-10-01 04:00] VITALS: BP 133/75
[2018-10-01] MEDS: GABAPENTIN 300MG CAPSULE PO SCH ×3 (05:39→22:37)
[2018-10-01] MEDS: BLOOD SUGAR DIAGNOSTIC STRIP TEST SCH ×2 (06:21→12:50)
[2018-10-01] MEDS: INSULIN LISPRO 100 UNITS/ML SUBCUT SCH ×4 (06:21→21:00)
[2018-10-01] MEDS: MORPHINE SULFATE 2 MG/ML CPJ (NOT FOR IM USE) IV PRN ×4 (06:30→20:51)
[2018-10-01 08:00] VITALS: BP 144/81
[2018-10-01] MEDS: CYCLOBENZAPRINE 10MG TABLET PO SCH ×2 (10:15→16:58)
[2018-10-01] MEDS: CALCIUM ACETATE 667MG CAPSULE PO SCH ×3 (10:15→16:58)
[2018-10-01] MEDS: NYSTATIN POWDER 15GM TOP SCH ×3 (10:15→17:01)
[2018-10-01] MEDS: ASPIRIN 81MG TABLET PO SCH (10:15)
[2018-10-01] MEDS: CLOPIDOGREL 75MG TABLET PO SCH (10:15)
[2018-10-01 11:42] VITALS: BP 128/98
[2018-10-01 16:00] VITALS: BP 151/97
[2018-10-01] MEDS: ENOXAPARIN 40MG/0.4ML SYR SUBCUT SCH (16:57)
[2018-10-01 20:00] VITALS: BP 132/61
[2018-10-01] MEDS: AMITRIPTYLINE 50MG TABLET PO SCH (20:50)
[2018-10-01] MEDS: ATORVASTATIN CALCIUM 40MG TABLET PO SCH (20:50)
[2018-10-01] MEDS: SERTRALINE HCL 50MG TABLET PO SCH (20:50)
[2018-10-02] VITALS: BP 135/70
[2018-10-02] MEDS: HYDROCODONE/ACETAMINOPHEN 5/325MG TABLET PO PRN ×3 (00:24→18:55)
[2018-10-02 04:00] VITALS: BP 145/91
[2018-10-02] MEDS: GABAPENTIN 300MG CAPSULE PO SCH ×2 (06:11→13:10)
[2018-10-02] MEDS: INSULIN LISPRO 100 UNITS/ML SUBCUT SCH ×4 (07:38→21:00)
[2018-10-02 08:00] VITALS: BP 123/70
[2018-10-02] MEDS: CYCLOBENZAPRINE 10MG TABLET PO SCH ×2 (08:27→17:00)
[2018-10-02] MEDS: CLOPIDOGREL 75MG TABLET PO SCH (08:27)
[2018-10-02] MEDS: ASPIRIN 81MG TABLET PO SCH (08:28)
[2018-10-02] MEDS: NYSTATIN POWDER 15GM TOP SCH ×3 (08:28→17:01)
[2018-10-02] MEDS: CALCIUM ACETATE 667MG CAPSULE PO SCH ×2 (09:34→13:10)
[2018-10-02 12:00] VITALS: BP 118/76
[2018-10-02 16:00] VITALS: BP 133/87
[2018-10-02] MEDS: ENOXAPARIN 40MG/0.4ML SYR SUBCUT SCH (17:01)
[2018-10-02 20:00] VITALS: BP 153/106
[2018-10-02] MEDS ORDERED: HEPARIN SODIUM 1,000 UNIT/1ML VIAL IV NR (20:15)
[2018-10-02] MEDS: MORPHINE SULFATE 2 MG/ML CPJ (NOT FOR IM USE) IV PRN (22:03)
[2018-10-02] MEDS: AMITRIPTYLINE 50MG TABLET PO SCH (22:04)
[2018-10-02] MEDS: GABAPENTIN 100MG CAPSULE PO SCH (22:04)
[2018-10-02] MEDS: ATORVASTATIN CALCIUM 40MG TABLET PO SCH (22:04)
[2018-10-02] MEDS: SERTRALINE HCL 50MG TABLET PO SCH (22:04)
[2018-10-03] VITALS: BP 102/71
[2018-10-03 04:00] VITALS: BP 130/68
[2018-10-03] MEDS: GABAPENTIN 100MG CAPSULE PO SCH ×3 (06:12→22:50)
[2018-10-03] MEDS: INSULIN LISPRO 100 UNITS/ML SUBCUT SCH ×4 (07:32→21:00)
[2018-10-03 07:56] VITALS: BP 119/76
[2018-10-03] MEDS: CLOPIDOGREL 75MG TABLET PO SCH (08:47)
[2018-10-03] MEDS: NYSTATIN POWDER 15GM TOP SCH ×3 (08:47→17:32)
[2018-10-03] MEDS: CYCLOBENZAPRINE 10MG TABLET PO SCH ×2 (08:47→17:31)
[2018-10-03] MEDS: ASPIRIN 81MG TABLET PO SCH (08:47)
[2018-10-03] MEDS: FOLIC ACID/VITAMIN B COMP W-C TABLET PO SCH (08:47)
[2018-10-03] MEDS: HYDROCODONE/ACETAMINOPHEN 5/325MG TABLET PO PRN (09:52)
[2018-10-03 12:00] VITALS: BP 114/70
[2018-10-03 16:00] VITALS: BP 114/71
[2018-10-03] MEDS: ENOXAPARIN 40MG/0.4ML SYR SUBCUT SCH (17:31)
[2018-10-03 20:00] VITALS: BP 117/62
[2018-10-03] MEDS: AMITRIPTYLINE 50MG TABLET PO SCH (22:50)
[2018-10-03] MEDS: ATORVASTATIN CALCIUM 40MG TABLET PO SCH (22:51)
[2018-10-03] MEDS: SERTRALINE HCL 50MG TABLET PO SCH (22:51)
[2018-10-04] VITALS: BP 119/55
[2018-10-04 04:00] VITALS: BP 105/66
[2018-10-04] MEDS: GABAPENTIN 100MG CAPSULE PO SCH ×2 (06:25→14:00)
[2018-10-04] MEDS ORDERED: HYDROCODONE/ACETAMINOPHEN 5/325MG TABLET PO PRN (07:15)
[2018-10-04] MEDS: INSULIN LISPRO 100 UNITS/ML SUBCUT SCH ×3 (07:50→17:50)
[2018-10-04 08:00] VITALS: BP 142/74
[2018-10-04] MEDS: NYSTATIN POWDER 15GM TOP SCH ×3 (09:00→17:00)
[2018-10-04 09:12] LABS: BASOPHILS % 0.4 % (0.0-2.0); EOSINOPHILS % 1.3 % (0.0-5.0); HEMATOCRIT. 30.9 % (36.0-48.0); MEAN CORPUSCULAR HEMOGLOBIN 29.3 pg (28.0-32.0); MEAN CORPUSCULAR VOLUME 90.7 fL (81.0-99.0); MONOCYTES % 8.4 % (2.0-8.0); NEUTROPHILS % 70.9 % (40.0-76.0); PLATELET 290 x1000/uL (130-400); RED BLOOD CELL COUNT 3.41 mill/uL (4.2-5.4); RED CELL DISTRIBUTION WIDTH 15.2 % (11.6-14.6)
[2018-10-04] MEDS ORDERED: HEPARIN SODIUM 1,000 UNIT/1ML VIAL IV NR (09:45)
[2018-10-04 12:00] VITALS: BP 128/52
[2018-10-04] MEDS: ASPIRIN 81MG TABLET PO SCH (12:07)
[2018-10-04] MEDS: CYCLOBENZAPRINE 10MG TABLET PO SCH ×2 (12:08→17:00)
[2018-10-04] MEDS: CLOPIDOGREL 75MG TABLET PO SCH (12:08)
[2018-10-04] MEDS: FOLIC ACID/VITAMIN B COMP W-C TABLET PO SCH (12:08)
[2018-10-04] MEDS: MORPHINE SULFATE 4 MG/ML CPJ (NOT FOR IM USE) IV PRN ×2 (13:41→15:48)
[2018-10-04 14:45] VITALS: BP 128/52
[2018-10-04 16:00] VITALS: BP 121/70
[2018-10-04] MEDS: ENOXAPARIN 40MG/0.4ML SYR SUBCUT SCH (17:00)
== END 2018-10-04 21:15 | disposition home or self-care (01) | DRG 197 ==
LOC: ER 18:27 → ENRESERV 09-28 02:28 → 6EST 09-28 03:57
PROVIDERS: ADMIT Internal Medicine; ATTEND Emergency Medicine
PROC: 5A1D70Z Performance of Urinary Filtration, Intermittent, Less than 6 Hours Per Day (ICD-10-PCS; 2018-09-28)
PROC: 5A1D70Z Performance of Urinary Filtration, Intermittent, Less than 6 Hours Per Day (ICD-10-PCS; 2018-10-02)
PROC: 5A1D70Z Performance of Urinary Filtration, Intermittent, Less than 6 Hours Per Day (ICD-10-PCS; principal; 2018-10-03)
DX: E11.51 Type 2 diabetes mellitus with diabetic peripheral angiopathy without gangrene (principal); E11.22 Type 2 diabetes mellitus with diabetic chronic kidney disease; E11.40 Type 2 diabetes mellitus with diabetic neuropathy, unspecified; M79.605 Pain in left leg; E11.649 Type 2 diabetes mellitus with hypoglycemia without coma; I12.0 Hypertensive chronic kidney disease with stage 5 chronic kidney disease or end stage renal disease; E44.1 Mild protein-calorie malnutrition; N18.6 End stage renal disease; E66.9 Obesity, unspecified; I25.10 Atherosclerotic heart disease of native coronary artery without angina pectoris; D63.8 Anemia in other chronic diseases classified elsewhere; E78.5 Hyperlipidemia, unspecified; L30.4 Erythema intertrigo; M54.30 Sciatica, unspecified side; W01.198A Fall on same level from slipping, tripping and stumbling with subsequent striking against other object, initial encounter; E03.9 Hypothyroidism, unspecified; E83.52 Hypercalcemia; F17.210 Nicotine dependence, cigarettes, uncomplicated; J44.9 Chronic obstructive pulmonary disease, unspecified; N25.81 Secondary hyperparathyroidism of renal origin; Z85.3 Personal history of malignant neoplasm of breast; Z98.84 Bariatric surgery status; Z68.35 Body mass index [BMI] 35.0-35.9, adult; Z88.2 Allergy status to sulfonamides; Z89.512 Acquired absence of left leg below knee; Z99.2 Dependence on renal dialysis; Z88.6 Allergy status to analgesic agent; Z79.84 Long term (current) use of oral hypoglycemic drugs; Z71.3 Dietary counseling and surveillance; Y93.89 Activity, other specified; Y92.89 Other specified places as the place of occurrence of the external cause; Y99.8 Other external cause status
CPT/HCPCS: 36415; 71045; 73590; 80048; 82962; 84134; 85027; 96374; 97162; 97530; 99285; A6261; J1644; J1650; J2270

== ENCOUNTER 2018-10-12 12:06 | Inpatient (IN) | payer MEDICAID ==
[~2018-10-12] VITALS: Ht 172.7 cm; Wt 110.2 kg
[2018-10-12] MEDS ORDERED: ONDANSETRON HCL 4MG/2ML INJ IV STA (12:51)
[2018-10-12] MEDS ORDERED: MORPHINE SULFATE 4 MG/ML CPJ (NOT FOR IM USE) IV STA (12:51)
[2018-10-12] MEDS ORDERED: VANCOMYCIN 1 G PREMIX 200 ML IV ONE (13:00)
[2018-10-12] MEDS ORDERED: SODIUM CHLORIDE 0.9% 1000ML BAG (SEPSIS BOLUS) IV ONE (13:00)
[2018-10-12] MEDS ORDERED: PIPERACILLIN/TAZ 3.375G PREMIX 50 ML IV ONE (13:00)
[2018-10-12 13:33] LABS: HEMATOCRIT. 30.6 % (36.0-48.0); HEMOGLOBIN. 10.2 g/dL (12.0-16.0); MEAN CORPUSCULAR VOLUME 89.8 fL (81.0-99.0); MEAN PLATELET VOLUME 9.2 fl (7.4-10.4); MONOCYTES % 9.2 % (2.0-8.0); NEUTROPHILS % 67.8 % (40.0-76.0); PLATELET 390 x1000/uL (130-400); RED BLOOD CELL COUNT 3.41 mill/uL (4.2-5.4); RED CELL DISTRIBUTION WIDTH 16.3 % (11.6-14.6)
[2018-10-12 14:11] LABS: CHLORIDE 101 mEq/L (98-107)
[2018-10-12 14:14] LABS: PARTIAL THROMBOPLASTIN TIME 30.1 sec (23.4-31.0); PROTHROMBIN TIME 10.3 sec (9.6-11.0)
[2018-10-12] MEDS ORDERED: MORPHINE SULFATE 4 MG/ML CPJ (NOT FOR IM USE) IV ONE (15:45)
[2018-10-12] MEDS ORDERED: DOCUSATE SODIUM 100MG CAPSULE PO PRN (16:00)
[2018-10-12] MEDS ORDERED: GUAIFENESIN 200MG/10ML SUGAR FREE UDC PO PRN (16:00)
[2018-10-12] MEDS ORDERED: HYDRALAZINE 20MG/ML VIAL IV PRN (16:00)
[2018-10-12] MEDS ORDERED: CLONIDINE 0.1MG TABLET PO PRN (16:00)
[2018-10-12] MEDS ORDERED: PIPERACILLIN/TAZ 3.375G PREMIX 50 ML IV SCH (16:00)
[2018-10-12] MEDS ORDERED: MAGNESIUM/ALUMINUM HYDROXIDE/SIMETHICONE 30ML UDC PO PRN (16:00)
[2018-10-12] MEDS ORDERED: IPRATROPIUM/ALBUTEROL 0.5-3(2.5)MG/3ML NEB INH PRN (16:00)
[2018-10-12] MEDS: HYDROCODONE/ACETAMINOPHEN 10/325MG TABLET PO PRN (19:58)
[2018-10-12 20:00] VITALS: BP_SYST 122; BP_DIAS 67; BP_DIAS 74
[2018-10-12] MEDS: BLOOD SUGAR DIAGNOSTIC STRIP TEST SCH (20:46)
[2018-10-12] MEDS: INSULIN LISPRO 100 UNITS/ML SUBCUT SCH (20:47)
[2018-10-12] MEDS ORDERED: VANCOMYCIN 500 MG PREMIX 100 ML IV SCH (21:00)
[2018-10-12] MEDS: DIPHENHYDRAMINE 50MG/ML VIAL IV PRN (21:22)
[2018-10-12] MEDS: SODIUM CHLORIDE 0.9% INJ 3ML FLUSH IVF SCH (21:22)
[2018-10-12] MEDS: HYDROMORPHONE HCL/PF 2MG/ML CPJ IV PRN (22:35)
[2018-10-12 23:54] LABS: CREATINE KINASE 239 IU/L (26-192)
[2018-10-13] VITALS (7 sets, daily range): BP systolic 102–147; BP diastolic 59–81
[2018-10-13] MEDS: PIPERACILLIN/TAZ 2.25G PREMIX 50 ML IV SCH ×2 (01:18→13:05)
[2018-10-13] MEDS: HYDROMORPHONE HCL/PF 2MG/ML CPJ IV PRN ×3 (01:18→13:04)
[2018-10-13] MEDS: DIPHENHYDRAMINE 50MG/ML VIAL IV PRN ×2 (01:18→22:00)
[2018-10-13] MEDS: SODIUM CHLORIDE 0.9% INJ 3ML FLUSH IVF SCH ×2 (05:36→21:29)
[2018-10-13] MEDS: BLOOD SUGAR DIAGNOSTIC STRIP TEST SCH ×4 (06:18→21:29)
[2018-10-13] MEDS: INSULIN LISPRO 100 UNITS/ML SUBCUT SCH ×4 (06:18→21:00)
[2018-10-13 06:35] LABS: BASOPHILS % 0.6 % (0.0-2.0); EOSINOPHILS % 1.6 % (0.0-5.0); HEMATOCRIT. 27.7 % (36.0-48.0); HEMOGLOBIN. 9.1 g/dL (12.0-16.0); LYMPHOCYTES % 18.8 % (20.0-50.0); MEAN CORPUSCULAR HEMOGLOBIN 29.6 pg (28.0-32.0); MEAN CORPUSCULAR VOLUME 90.5 fL (81.0-99.0); MONOCYTES % 10.2 % (2.0-8.0); NEUTROPHILS % 68.8 % (40.0-76.0); PLATELET 315 x1000/uL (130-400); RED BLOOD CELL COUNT 3.06 mill/uL (4.2-5.4)
[2018-10-13 07:11] LABS: CHLORIDE 103 mEq/L (98-107)
[2018-10-13 07:21] LABS: LDL CHOLESTEROL 53 mg/dL (5-100)
[2018-10-13 07:22] LABS: CREATINE KINASE 212 IU/L (26-192); CREATINE KINASE MB FRACTION 1.8 ng/mL (0.5-3.6); HDL CHOLESTEROL 48 mg/dL (40-59); PHOSPHORUS 5.4 mg/dL (2.5-4.9)
[2018-10-13] MEDS: FOLIC ACID/VITAMIN B COMP W-C TABLET PO SCH (08:08)
[2018-10-13] MEDS: ENOXAPARIN 40MG/0.4ML SYR SUBCUT SCH (08:09)
[2018-10-13] MEDS: HYDROCODONE/ACETAMINOPHEN 10/325MG TABLET PO PRN ×3 (09:41→21:52)
[2018-10-13] MEDS ORDERED: HEPARIN SODIUM 1,000 UNIT/1ML VIAL IV ONE (16:00)
[2018-10-13] MEDS: EPOETIN ALFA 10000UNITS/ML VIAL SUBCUT SCH (21:29)
[2018-10-14] VITALS: BP 110/64
[2018-10-14] MEDS: ACETAMINOPHEN 325MG TABLET PO PRN (01:20)
[2018-10-14] MEDS: PIPERACILLIN/TAZ 2.25G PREMIX 50 ML IV SCH ×2 (02:04→13:47)
[2018-10-14] MEDS: HYDROCODONE/ACETAMINOPHEN 10/325MG TABLET PO PRN ×5 (03:16→22:52)
[2018-10-14 04:00] VITALS: BP 123/80
[2018-10-14] MEDS: SODIUM CHLORIDE 0.9% INJ 3ML FLUSH IVF SCH ×2 (05:42→21:24)
[2018-10-14] MEDS: BLOOD SUGAR DIAGNOSTIC STRIP TEST SCH ×4 (05:42→21:25)
[2018-10-14] MEDS: INSULIN LISPRO 100 UNITS/ML SUBCUT SCH ×4 (05:46→21:00)
[2018-10-14 08:00] VITALS: BP 99/57
[2018-10-14] MEDS: FOLIC ACID/VITAMIN B COMP W-C TABLET PO SCH (08:55)
[2018-10-14] MEDS: ENOXAPARIN 40MG/0.4ML SYR SUBCUT SCH (08:57)
[2018-10-14] MEDS: LORAZEPAM 2MG/ML CPJ IV PRN (10:53)
[2018-10-14 12:00] VITALS: BP 120/70
[2018-10-14] MEDS ORDERED: VANCOMYCIN 1 G PREMIX 200 ML IV SCH (15:00)
[2018-10-14 16:00] VITALS: BP 107/62
[2018-10-14] MEDS: DIPHENHYDRAMINE 50MG/ML VIAL IV PRN (17:01)
[2018-10-14] MEDS: HYDROMORPHONE HCL/PF 2MG/ML CPJ IV PRN (19:57)
[2018-10-14 20:00] VITALS: BP 101/70
[2018-10-15] VITALS: BP 114/66
[2018-10-15] MEDS: HYDROMORPHONE HCL/PF 2MG/ML CPJ IV PRN ×4 (00:19→17:28)
[2018-10-15] MEDS: PIPERACILLIN/TAZ 2.25G PREMIX 50 ML IV SCH ×2 (02:08→13:25)
[2018-10-15 04:00] VITALS: BP 122/78
[2018-10-15] MEDS: SODIUM CHLORIDE 0.9% INJ 3ML FLUSH IVF SCH ×2 (06:24→22:00)
[2018-10-15 06:46] LABS: BASOPHILS % 0.4 % (0.0-2.0); EOSINOPHILS % 1.7 % (0.0-5.0); HEMOGLOBIN. 8.3 g/dL (12.0-16.0); LYMPHOCYTES % 17.9 % (20.0-50.0); MEAN CORPUSCULAR HEMOGLOBIN 29.5 pg (28.0-32.0); MEAN CORPUSCULAR VOLUME 92.4 fL (81.0-99.0); MEAN PLATELET VOLUME 9.1 fl (7.4-10.4); MONOCYTES % 10.2 % (2.0-8.0); NEUTROPHILS % 69.8 % (40.0-76.0); PLATELET 275 x1000/uL (130-400); RED BLOOD CELL COUNT 2.81 mill/uL (4.2-5.4); RED CELL DISTRIBUTION WIDTH 16.2 % (11.6-14.6)
[2018-10-15] MEDS: INSULIN LISPRO 100 UNITS/ML SUBCUT SCH ×4 (07:27→20:36)
[2018-10-15] MEDS: BLOOD SUGAR DIAGNOSTIC STRIP TEST SCH ×4 (07:27→20:36)
[2018-10-15 08:00] VITALS: BP 130/71
[2018-10-15] MEDS: ENOXAPARIN 40MG/0.4ML SYR SUBCUT SCH (08:33)
[2018-10-15] MEDS: FOLIC ACID/VITAMIN B COMP W-C TABLET PO SCH (08:33)
[2018-10-15 12:00] VITALS: BP 112/76
[2018-10-15] MEDS: DIPHENHYDRAMINE 50MG/ML VIAL IV PRN ×2 (15:22→20:35)
[2018-10-15 16:00] VITALS: BP 110/69
[2018-10-15 20:00] VITALS: BP 115/58
[2018-10-15] MEDS: LORAZEPAM 2MG/ML CPJ IV PRN (20:35)
[2018-10-16] VITALS (7 sets, daily range): BP systolic 110–154; BP diastolic 58–81
[2018-10-16] MEDS: PIPERACILLIN/TAZ 2.25G PREMIX 50 ML IV SCH ×2 (01:58→17:26)
[2018-10-16] MEDS: HYDROMORPHONE HCL/PF 2MG/ML CPJ IV PRN ×4 (03:21→20:46)
[2018-10-16] MEDS: SODIUM CHLORIDE 0.9% INJ 3ML FLUSH IVF SCH ×4 (06:00→20:50)
[2018-10-16] MEDS: BLOOD SUGAR DIAGNOSTIC STRIP TEST SCH ×4 (06:44→20:45)
[2018-10-16] MEDS: INSULIN LISPRO 100 UNITS/ML SUBCUT SCH ×4 (07:34→20:45)
[2018-10-16] MEDS: FOLIC ACID/VITAMIN B COMP W-C TABLET PO SCH (08:36)
[2018-10-16] MEDS: ENOXAPARIN 40MG/0.4ML SYR SUBCUT SCH (08:36)
[2018-10-16] MEDS: LORAZEPAM 2MG/ML CPJ IV PRN (08:40)
[2018-10-16] MEDS ORDERED: HYDROMORPHONE HCL/PF 2MG/ML CPJ IV NR (20:14)
[2018-10-16] MEDS: ACETAMINOPHEN 325MG TABLET PO PRN (20:49)
[2018-10-16] MEDS: EPOETIN ALFA 10000UNITS/ML VIAL SUBCUT SCH (20:50)
[2018-10-16 21:59] LABS: BASOPHILS % 0.4 % (0.0-2.0); EOSINOPHILS % 1.5 % (0.0-5.0); HEMATOCRIT. 26.3 % (36.0-48.0); HEMOGLOBIN. 8.5 g/dL (12.0-16.0); LYMPHOCYTES % 16.9 % (20.0-50.0); MEAN CORPUSCULAR HEMOGLOBIN 29.1 pg (28.0-32.0); MEAN PLATELET VOLUME 8.9 fl (7.4-10.4); MONOCYTES % 13.3 % (2.0-8.0); NEUTROPHILS % 67.9 % (40.0-76.0); PLATELET 277 x1000/uL (130-400); RED BLOOD CELL COUNT 2.93 mill/uL (4.2-5.4); RED CELL DISTRIBUTION WIDTH 15.9 % (11.6-14.6)
[2018-10-17] VITALS (14 sets, daily range): BP systolic 107–131; BP diastolic 57–94
[2018-10-17] MEDS: HYDROMORPHONE HCL/PF 2MG/ML CPJ IV PRN ×3 (00:37→12:05)
[2018-10-17] MEDS: PIPERACILLIN/TAZ 2.25G PREMIX 50 ML IV SCH ×2 (02:10→13:07)
[2018-10-17] MEDS: BLOOD SUGAR DIAGNOSTIC STRIP TEST SCH ×4 (05:23→21:00)
[2018-10-17] MEDS: SODIUM CHLORIDE 0.9% INJ 3ML FLUSH IVF SCH ×3 (05:23→21:06)
[2018-10-17] MEDS: SODIUM CHLORIDE 0.45% 1,000 ML IV SCH ×2 (07:03→19:40)
[2018-10-17] MEDS: DEXTROSE 50% WATER 50ML SYRINGE IV PRN (07:42)
[2018-10-17] MEDS: INSULIN LISPRO 100 UNITS/ML SUBCUT SCH ×4 (07:50→21:00)
[2018-10-17] MEDS: FOLIC ACID/VITAMIN B COMP W-C TABLET PO SCH (09:00)
[2018-10-17 09:34] LABS: BASOPHILS % 0.5 % (0.0-2.0); EOSINOPHILS % 1.2 % (0.0-5.0); HEMATOCRIT. 26.1 % (36.0-48.0); HEMOGLOBIN. 8.5 g/dL (12.0-16.0); LYMPHOCYTES % 12.1 % (20.0-50.0); MEAN CORPUSCULAR VOLUME 88.9 fL (81.0-99.0); MEAN PLATELET VOLUME 8.8 fl (7.4-10.4); MONOCYTES % 11.4 % (2.0-8.0); NEUTROPHILS % 74.8 % (40.0-76.0); PLATELET 292 x1000/uL (130-400); RED BLOOD CELL COUNT 2.94 mill/uL (4.2-5.4); RED CELL DISTRIBUTION WIDTH 16.1 % (11.6-14.6)
[2018-10-17 09:40] LABS: PARTIAL THROMBOPLASTIN TIME 34.8 sec (23.4-31.0); PROTHROMBIN TIME 10.7 sec (9.6-11.0)
[2018-10-17 09:51] LABS: PHOSPHORUS 5.8 mg/dL (2.5-4.9)
[2018-10-17] MEDS ORDERED: LIDOCAINE HCL 1% 20ML VIAL (Pyxis) INJ ONE ×2 (14:09→17:49)
[2018-10-17] MEDS ORDERED: SODIUM BICARBONATE 4% (2.4MEQ) 5ML VIAL IV ONE (14:09)
[2018-10-17] MEDS ORDERED: BUPIVACAINE HCL/PF 0.5% (5MG/ML) 10ML ONE (17:49)
[2018-10-17] MEDS ORDERED: BACITRACIN 50,000 UNITS/VIAL ONE (17:49)
[2018-10-17] MEDS: SEVELAMER CARBONATE 800 MG TABLET PO SCH (18:10)
[2018-10-17] MEDS ORDERED: ALBUMIN HUMAN 12.5G/250ML (5%) IV ONE (18:28)
[2018-10-17] MEDS ORDERED: MIDAZOLAM HCL 2 MG/2 ML VIAL ONE (19:05)
[2018-10-17] MEDS ORDERED: FENTANYL CITRATE/PF 50MCG/ML 2ML VIAL ONE ×2 (19:05→19:30)
[2018-10-17] MEDS ORDERED: PROPOFOL 200MG/20ML VIAL IV ONE (19:05)
[2018-10-17] MEDS ORDERED: SUCCINYLCHOLINE CHLORIDE 200MG/10ML IV ONE (19:05)
[2018-10-17] MEDS ORDERED: ONDANSETRON HCL 4MG/2ML INJ ONE (19:05)
[2018-10-17] MEDS ORDERED: CEFAZOLIN SODIUM 1000MG/VIAL ONE (19:05)
[2018-10-17] MEDS ORDERED: METOCLOPRAMIDE HCL 10MG/2ML VIAL ONE (19:05)
[2018-10-17] MEDS ORDERED: HYDROMORPHONE HCL/PF 2MG/ML (OR) ONE (19:49)
[2018-10-17] MEDS ORDERED: DOBUTAMINE 250MG PREMIX 250 ML IV SCH (20:15)
[2018-10-17] MEDS ORDERED: PHENYLEPHRINE 10 MG in DEXTROSE 5% WATER 250 ML IV PRN (20:45)
[2018-10-17] MEDS ORDERED: HYDROMORPHONE HCL/PF 2MG/ML CPJ IV PRN (21:00)
[2018-10-17] MEDS ORDERED: SODIUM CHLORIDE 0.9% 1,000 ML IV ONE (21:00)
[2018-10-17] MEDS ORDERED: MEPERIDINE HCL/PF 25MG/ML CPJ IV PRN (21:00)
[2018-10-17] MEDS ORDERED: ONDANSETRON HCL 4MG/2ML INJ IV PRN (21:00)
[2018-10-17 21:30] LABS: MEAN CORPUSCULAR HEMOGLOBIN 29.5 pg (28.0-32.0); MEAN CORPUSCULAR VOLUME 88.7 fL (81.0-99.0); PLATELET 239 x1000/uL (130-400); RED BLOOD CELL COUNT 2.32 mill/uL (4.2-5.4)
[2018-10-17 21:38] LABS: HEMATOCRIT 20.6 % (36.0-48.0); HEMOGLOBIN 6.9 g/dL (12.0-16.0)
[2018-10-18] VITALS (49 sets, daily range): BP systolic 74–155; BP diastolic 37–117
[2018-10-18] MEDS: HYDROMORPHONE HCL/PF 2MG/ML CPJ IV PRN ×6 (00:08→23:06)
[2018-10-18] MEDS: PIPERACILLIN/TAZ 2.25G PREMIX 50 ML IV SCH ×2 (01:06→15:45)
[2018-10-18 05:26] LABS: BASOPHILS % 0.5 % (0.0-2.0); EOSINOPHILS % 1.5 % (0.0-5.0); HEMATOCRIT. 25.8 % (36.0-48.0); HEMOGLOBIN. 8.6 g/dL (12.0-16.0); LYMPHOCYTES % 18.3 % (20.0-50.0); MEAN CORPUSCULAR HEMOGLOBIN 29.5 pg (28.0-32.0); MEAN CORPUSCULAR VOLUME 88.9 fL (81.0-99.0); MEAN PLATELET VOLUME 9.1 fl (7.4-10.4); MONOCYTES % 11.7 % (2.0-8.0); PLATELET 258 x1000/uL (130-400); RED CELL DISTRIBUTION WIDTH 15.4 % (11.6-14.6)
[2018-10-18] MEDS: SODIUM CHLORIDE 0.9% INJ 3ML FLUSH IVF SCH ×3 (05:34→21:30)
[2018-10-18] MEDS: BLOOD SUGAR DIAGNOSTIC STRIP TEST SCH ×4 (05:35→21:30)
[2018-10-18] MEDS: INSULIN LISPRO 100 UNITS/ML SUBCUT SCH ×4 (06:53→21:00)
[2018-10-18] MEDS: SEVELAMER CARBONATE 800 MG TABLET PO SCH ×3 (07:00→17:21)
[2018-10-18] MEDS: FOLIC ACID/VITAMIN B COMP W-C TABLET PO SCH (09:00)
[2018-10-18] MEDS ORDERED: HEPARIN SODIUM 1,000 UNIT/1ML VIAL IV NR (10:15)
[2018-10-18] MEDS: DEXTROSE 50% WATER 50ML SYRINGE IV PRN (18:05)
[2018-10-18] MEDS: HYDROCODONE/ACETAMINOPHEN 10/325MG TABLET PO PRN (19:55)
[2018-10-18] MEDS: EPOETIN ALFA 10000UNITS/ML VIAL SUBCUT SCH (21:34)
[2018-10-19] VITALS (17 sets, daily range): BP systolic 90–147; BP diastolic 50–101
[2018-10-19] MEDS: HYDROMORPHONE HCL/PF 2MG/ML CPJ IV PRN ×3 (02:20→16:26)
[2018-10-19] MEDS: PIPERACILLIN/TAZ 2.25G PREMIX 50 ML IV SCH ×2 (02:41→16:26)
[2018-10-19] MEDS: HYDROCODONE/ACETAMINOPHEN 10/325MG TABLET PO PRN ×3 (03:30→22:29)
[2018-10-19 05:41] LABS: BASOPHILS % 0.3 % (0.0-2.0); EOSINOPHILS % 1.2 % (0.0-5.0); HEMOGLOBIN. 7.9 g/dL (12.0-16.0); LYMPHOCYTES % 19.6 % (20.0-50.0); MEAN CORPUSCULAR HEMOGLOBIN 29.1 pg (28.0-32.0); MEAN CORPUSCULAR VOLUME 88.6 fL (81.0-99.0); MEAN PLATELET VOLUME 9.2 fl (7.4-10.4); MONOCYTES % 14.1 % (2.0-8.0); NEUTROPHILS % 64.8 % (40.0-76.0); PLATELET 246 x1000/uL (130-400); RED BLOOD CELL COUNT 2.71 mill/uL (4.2-5.4); RED CELL DISTRIBUTION WIDTH 15.8 % (11.6-14.6)
[2018-10-19] MEDS: SODIUM CHLORIDE 0.9% INJ 3ML FLUSH IVF SCH ×3 (06:38→20:46)
[2018-10-19] MEDS: BLOOD SUGAR DIAGNOSTIC STRIP TEST SCH ×4 (06:38→20:44)
[2018-10-19] MEDS: INSULIN LISPRO 100 UNITS/ML SUBCUT SCH ×5 (06:39→20:46)
[2018-10-19] MEDS: SEVELAMER CARBONATE 800 MG TABLET PO SCH ×4 (10:09→17:40)
[2018-10-19] MEDS: FOLIC ACID/VITAMIN B COMP W-C TABLET PO SCH (10:09)
[2018-10-19] MEDS ORDERED: VANCOMYCIN 500 MG PREMIX 100 ML IV SCH (12:30)
[2018-10-19] MEDS: ONDANSETRON HCL 4MG/2ML INJ IV PRN (22:08)
[2018-10-20] VITALS (9 sets, daily range): BP systolic 86–160; BP diastolic 46–86
[2018-10-20] MEDS: PIPERACILLIN/TAZ 2.25G PREMIX 50 ML IV SCH ×2 (02:42→13:28)
[2018-10-20] MEDS: SODIUM CHLORIDE 0.9% INJ 3ML FLUSH IVF SCH ×3 (06:00→21:10)
[2018-10-20] MEDS: BLOOD SUGAR DIAGNOSTIC STRIP TEST SCH ×4 (06:10→20:02)
[2018-10-20] MEDS: INSULIN LISPRO 100 UNITS/ML SUBCUT SCH ×4 (06:30→21:00)
[2018-10-20] MEDS: FOLIC ACID/VITAMIN B COMP W-C TABLET PO SCH (08:34)
[2018-10-20] MEDS: SEVELAMER CARBONATE 800 MG TABLET PO SCH ×3 (08:34→17:39)
[2018-10-20] MEDS: HYDROMORPHONE HCL/PF 2MG/ML CPJ IV PRN ×4 (08:34→22:19)
[2018-10-20] MEDS: ONDANSETRON HCL 4MG/2ML INJ IV PRN ×2 (08:34→14:54)
[2018-10-20 10:33] LABS: BASOPHILS % 0.3 % (0.0-2.0); EOSINOPHILS % 0.5 % (0.0-5.0); HEMATOCRIT. 23.4 % (36.0-48.0); HEMOGLOBIN. 7.9 g/dL (12.0-16.0); LYMPHOCYTES % 13.5 % (20.0-50.0); MEAN CORPUSCULAR HEMOGLOBIN 29.9 pg (28.0-32.0); MEAN CORPUSCULAR VOLUME 88.5 fL (81.0-99.0); MONOCYTES % 8.9 % (2.0-8.0); NEUTROPHILS % 76.8 % (40.0-76.0); PLATELET 243 x1000/uL (130-400); RED BLOOD CELL COUNT 2.65 mill/uL (4.2-5.4); RED CELL DISTRIBUTION WIDTH 15.6 % (11.6-14.6)
[2018-10-20] MEDS ORDERED: VANCOMYCIN 1500MG in DEXTROSE 5% WATER 250ML IV SCH (14:00)
[2018-10-20] MEDS: HYDROCODONE/ACETAMINOPHEN 10/325MG TABLET PO PRN (17:41)
[2018-10-20] MEDS ORDERED: GABAPENTIN 300MG CAPSULE PO SCH (21:00)
[2018-10-20] MEDS: EPOETIN ALFA 10000UNITS/ML VIAL SUBCUT SCH (21:09)
[2018-10-20] MEDS: EPOETIN ALFA 4000UNITS/ML VIAL SUBCUT SCH (21:10)
[2018-10-21] MEDS: PIPERACILLIN/TAZ 2.25G PREMIX 50 ML IV SCH ×2 (02:03→13:24)
[2018-10-21 04:00] VITALS: BP 104/53
[2018-10-21] MEDS: HYDROMORPHONE HCL/PF 2MG/ML CPJ IV PRN ×4 (05:49→20:37)
[2018-10-21] MEDS: SODIUM CHLORIDE 0.9% INJ 3ML FLUSH IVF SCH ×3 (06:00→22:00)
[2018-10-21] MEDS: BLOOD SUGAR DIAGNOSTIC STRIP TEST SCH ×4 (06:04→20:38)
[2018-10-21] MEDS: INSULIN LISPRO 100 UNITS/ML SUBCUT SCH ×4 (06:04→21:00)
[2018-10-21 08:00] VITALS: BP 128/77
[2018-10-21 08:34] LABS: BASOPHILS % 0.6 % (0.0-2.0); EOSINOPHILS % 2.4 % (0.0-5.0); LYMPHOCYTES % 22.5 % (20.0-50.0); MEAN CORPUSCULAR HEMOGLOBIN 29.4 pg (28.0-32.0); MEAN PLATELET VOLUME 9.3 fl (7.4-10.4); MONOCYTES % 10.3 % (2.0-8.0); NEUTROPHILS % 64.2 % (40.0-76.0); PLATELET 319 x1000/uL (130-400)
[2018-10-21] MEDS ORDERED: GABAPENTIN 300MG CAPSULE PO SCH (09:00)
[2018-10-21 09:03] LABS: HEMATOCRIT. 27.6 % (36.0-48.0); HEMOGLOBIN. 9.1 g/dL (12.0-16.0)
[2018-10-21] MEDS: FOLIC ACID/VITAMIN B COMP W-C TABLET PO SCH (09:37)
[2018-10-21] MEDS: SEVELAMER CARBONATE 800 MG TABLET PO SCH ×3 (09:38→18:29)
[2018-10-21] MEDS: ONDANSETRON HCL 4MG/2ML INJ IV PRN (09:39)
[2018-10-21 12:00] VITALS: BP 119/79
[2018-10-21 16:00] VITALS: BP 113/60
[2018-10-21] MEDS: DEXTROSE 50% WATER 50ML SYRINGE IV PRN (17:21)
[2018-10-21 20:30] VITALS: BP 114/76
[2018-10-21] MEDS: GABAPENTIN 400MG CAPSULE PO SCH (20:38)
[2018-10-22] VITALS (7 sets, daily range): BP systolic 99–132; BP diastolic 48–73
[2018-10-22] MEDS: HYDROMORPHONE HCL/PF 2MG/ML CPJ IV PRN ×5 (00:28→20:07)
[2018-10-22] MEDS: PIPERACILLIN/TAZ 2.25G PREMIX 50 ML IV SCH ×2 (04:22→13:38)
[2018-10-22] MEDS: INSULIN LISPRO 100 UNITS/ML SUBCUT SCH ×4 (05:46→19:58)
[2018-10-22] MEDS: BLOOD SUGAR DIAGNOSTIC STRIP TEST SCH ×4 (05:46→19:59)
[2018-10-22] MEDS: SODIUM CHLORIDE 0.9% INJ 3ML FLUSH IVF SCH ×3 (05:48→21:59)
[2018-10-22 05:59] LABS: BASOPHILS % 0.5 % (0.0-2.0); EOSINOPHILS % 3.5 % (0.0-5.0); HEMATOCRIT. 25.3 % (36.0-48.0); HEMOGLOBIN. 8.5 g/dL (12.0-16.0); LYMPHOCYTES % 24.7 % (20.0-50.0); MEAN CORPUSCULAR HEMOGLOBIN 29.5 pg (28.0-32.0); MONOCYTES % 10.8 % (2.0-8.0); NEUTROPHILS % 60.5 % (40.0-76.0); PLATELET 305 x1000/uL (130-400); RED BLOOD CELL COUNT 2.87 mill/uL (4.2-5.4); RED CELL DISTRIBUTION WIDTH 15.6 % (11.6-14.6)
[2018-10-22] MEDS ORDERED: GABAPENTIN 300MG CAPSULE PO SCH (06:00)
[2018-10-22] MEDS: SEVELAMER CARBONATE 800 MG TABLET PO SCH ×3 (09:21→18:20)
[2018-10-22] MEDS: FOLIC ACID/VITAMIN B COMP W-C TABLET PO SCH (09:21)
[2018-10-22] MEDS: GABAPENTIN 400MG CAPSULE PO SCH (20:07)
[2018-10-23] VITALS (22 sets, daily range): BP systolic 91–127; BP diastolic 47–106
[2018-10-23] MEDS ORDERED: HYDROMORPHONE HCL/PF 2MG/ML CPJ IV PRN (03:15)
[2018-10-23] MEDS: BLOOD SUGAR DIAGNOSTIC STRIP TEST SCH ×4 (06:12→21:24)
[2018-10-23] MEDS: SODIUM CHLORIDE 0.9% INJ 3ML FLUSH IVF SCH ×3 (06:13→22:42)
[2018-10-23] MEDS: INSULIN LISPRO 100 UNITS/ML SUBCUT SCH ×4 (06:21→21:00)
[2018-10-23] MEDS: SEVELAMER CARBONATE 800 MG TABLET PO SCH ×3 (07:20→17:35)
[2018-10-23] MEDS ORDERED: SODIUM BICARBONATE 4% (2.4MEQ) 5ML VIAL IV ONE (07:59)
[2018-10-23] MEDS ORDERED: LIDOCAINE HCL 1% 20ML VIAL (Pyxis) INJ ONE (07:59)
[2018-10-23] MEDS ORDERED: IOHEXOL-300 100 ML BOTTLE ONE (08:02)
[2018-10-23] MEDS: PIPERACILLIN/TAZ 2.25G PREMIX 50 ML IV SCH ×2 (08:48→21:32)
[2018-10-23] MEDS: FOLIC ACID/VITAMIN B COMP W-C TABLET PO SCH (08:48)
[2018-10-23 08:50] LABS: BASOPHILS % 0.6 % (0.0-2.0); EOSINOPHILS % 2.6 % (0.0-5.0); HEMATOCRIT. 24.6 % (36.0-48.0); HEMOGLOBIN. 8.3 g/dL (12.0-16.0); LYMPHOCYTES % 24.9 % (20.0-50.0); MEAN CORPUSCULAR HEMOGLOBIN 29.5 pg (28.0-32.0); MEAN CORPUSCULAR VOLUME 87.7 fL (81.0-99.0); MEAN PLATELET VOLUME 8.9 fl (7.4-10.4); MONOCYTES % 10.3 % (2.0-8.0); NEUTROPHILS % 61.6 % (40.0-76.0); PLATELET 298 x1000/uL (130-400); RED CELL DISTRIBUTION WIDTH 15.6 % (11.6-14.6)
[2018-10-23] MEDS ORDERED: FENTANYL CITRATE/PF 50MCG/ML 2ML VIAL ONE (08:51)
[2018-10-23] MEDS ORDERED: NITROGLYCERIN 50MG PREMIX 250 ML IV ONE ×2 (09:24→09:45)
[2018-10-23] MEDS ORDERED: FENTANYL CITRATE/PF 50MCG/ML 2ML VIAL IV ONE (09:45)
[2018-10-23] MEDS ORDERED: HYDROMORPHONE HCL/PF 2MG/ML CPJ IV NR (13:00)
[2018-10-23] MEDS ORDERED: VANCOMYCIN 1 G PREMIX 200 ML IV SCH (16:00)
[2018-10-23] MEDS: HYDROMORPHONE HCL/PF 2MG/ML CPJ IV PRN ×2 (18:37→22:41)
[2018-10-23] MEDS: EPOETIN ALFA 4000UNITS/ML VIAL SUBCUT SCH (21:30)
[2018-10-23] MEDS: EPOETIN ALFA 10000UNITS/ML VIAL SUBCUT SCH (21:30)
[2018-10-23] MEDS: GABAPENTIN 400MG CAPSULE PO SCH (21:32)
[2018-10-24] VITALS: BP 94/58
[2018-10-24] MEDS: DIPHENHYDRAMINE 50MG/ML VIAL IV PRN ×2 (00:57→17:43)
[2018-10-24 04:00] VITALS: BP 122/70
[2018-10-24] MEDS: HYDROMORPHONE HCL/PF 2MG/ML CPJ IV PRN ×5 (06:36→20:14)
[2018-10-24] MEDS: INSULIN LISPRO 100 UNITS/ML SUBCUT SCH ×4 (07:20→20:57)
[2018-10-24] MEDS: BLOOD SUGAR DIAGNOSTIC STRIP TEST SCH ×4 (07:20→20:15)
[2018-10-24] MEDS: SODIUM CHLORIDE 0.9% INJ 3ML FLUSH IVF SCH ×3 (07:43→20:15)
[2018-10-24] MEDS ORDERED: THROMBIN (BOVINE) 5000 UNITS/VIAL TOP ONE (08:04)
[2018-10-24] MEDS ORDERED: BACITRACIN 15GM TUBE TOP ONE (08:04)
[2018-10-24] MEDS ORDERED: NORMAL SALINE 0.9% 10 ML SYR ONE (08:04)
[2018-10-24] MEDS ORDERED: BUPIVACAINE HCL/PF 0.5% (5MG/ML) 10ML ONE (08:04)
[2018-10-24] MEDS ORDERED: HEPARIN SODIUM 1,000 UNIT/1ML VIAL IV ONE (08:04)
[2018-10-24] MEDS ORDERED: LIDOCAINE HCL 1% 20ML VIAL (Pyxis) INJ ONE (08:04)
[2018-10-24] MEDS ORDERED: BACITRACIN 50,000 UNITS/VIAL ONE (08:04)
[2018-10-24] MEDS ORDERED: PROPOFOL 200MG/20ML VIAL IV ONE (08:46)
[2018-10-24] MEDS ORDERED: FENTANYL CITRATE/PF 50MCG/ML 2ML VIAL ONE (08:47)
[2018-10-24] MEDS ORDERED: MIDAZOLAM HCL 2 MG/2 ML VIAL ONE (08:47)
[2018-10-24] MEDS ORDERED: SODIUM CHLORIDE 0.9% 1,000 ML IV NR (09:14)
[2018-10-24] MEDS ORDERED: ONDANSETRON HCL 4MG/2ML INJ IV PRN (09:15)
[2018-10-24] MEDS ORDERED: MORPHINE SULFATE 2 MG/ML CPJ (NOT FOR IM USE) IV PRN (09:15)
[2018-10-24] MEDS: DEXTROSE 50% WATER 50ML SYRINGE IV PRN (10:30)
[2018-10-24] MEDS: PIPERACILLIN/TAZ 2.25G PREMIX 50 ML IV SCH ×2 (11:51→20:15)
[2018-10-24] MEDS: FOLIC ACID/VITAMIN B COMP W-C TABLET PO SCH (11:51)
[2018-10-24 12:00] VITALS: BP 129/77
[2018-10-24] MEDS: SEVELAMER CARBONATE 800 MG TABLET PO SCH ×3 (12:54→16:54)
[2018-10-24 16:00] VITALS: BP 103/52
[2018-10-24 20:00] VITALS: BP 147/74
[2018-10-24] MEDS: GABAPENTIN 400MG CAPSULE PO SCH (20:14)
[2018-10-25] VITALS: BP 118/59
[2018-10-25 04:00] VITALS: BP_SYST 110; BP_SYST 118; BP_DIAS 62; BP_DIAS 63
[2018-10-25] MEDS: HYDROMORPHONE HCL/PF 2MG/ML CPJ IV PRN ×2 (04:20→08:48)
[2018-10-25 06:04] LABS: BASOPHILS % 0.5 % (0.0-2.0); EOSINOPHILS % 2.4 % (0.0-5.0); HEMATOCRIT. 25.1 % (36.0-48.0); HEMOGLOBIN. 8.4 g/dL (12.0-16.0); LYMPHOCYTES % 26.6 % (20.0-50.0); MEAN CORPUSCULAR HEMOGLOBIN 29.6 pg (28.0-32.0); MEAN CORPUSCULAR VOLUME 88.9 fL (81.0-99.0); MEAN PLATELET VOLUME 9.2 fl (7.4-10.4); MONOCYTES % 10.8 % (2.0-8.0); NEUTROPHILS % 59.7 % (40.0-76.0); PLATELET 253 x1000/uL (130-400); RED BLOOD CELL COUNT 2.82 mill/uL (4.2-5.4); RED CELL DISTRIBUTION WIDTH 16.1 % (11.6-14.6)
[2018-10-25] MEDS: BLOOD SUGAR DIAGNOSTIC STRIP TEST SCH (06:24)
[2018-10-25] MEDS: INSULIN LISPRO 100 UNITS/ML SUBCUT SCH (06:24)
[2018-10-25] MEDS: SEVELAMER CARBONATE 800 MG TABLET PO SCH (06:42)
[2018-10-25] MEDS: SODIUM CHLORIDE 0.9% INJ 3ML FLUSH IVF SCH (06:44)
[2018-10-25 07:30] VITALS: BP 101/50
[2018-10-25 08:48] VITALS: BP 101/50
[2018-10-25] MEDS: PIPERACILLIN/TAZ 2.25G PREMIX 50 ML IV SCH (08:48)
[2018-10-25] MEDS: FOLIC ACID/VITAMIN B COMP W-C TABLET PO SCH (08:48)
[2018-10-25] MEDS ORDERED: NYSTATIN POWDER 15GM TOP SCH (18:45)
== END 2018-10-25 12:05 | disposition home or self-care (01) | DRG 305 ==
LOC: ER 12:06 → 7WST 15:34 → EDBEDREQ 15:41 → ENRESERV 16:41 → MICUSO 10-17 22:25 → 8WST 10-19 11:35
PROVIDERS: ADMIT Internal Medicine; ATTEND Internal Medicine
PROC: 5A1D70Z Performance of Urinary Filtration, Intermittent, Less than 6 Hours Per Day (ICD-10-PCS; 2018-10-12)
PROC: 5A1D70Z Performance of Urinary Filtration, Intermittent, Less than 6 Hours Per Day (ICD-10-PCS; 2018-10-15)
PROC: 0Y6D0Z1 Detachment at Left Upper Leg, High, Open Approach (ICD-10-PCS; principal; 2018-10-17)
PROC: 02HV33Z Insertion of Infusion Device into Superior Vena Cava, Percutaneous Approach (ICD-10-PCS; 2018-10-17)
PROC: B5181ZA Fluoroscopy of Superior Vena Cava using Low Osmolar Contrast, Guidance (ICD-10-PCS; 2018-10-17)
PROC: B548ZZA Ultrasonography of Superior Vena Cava, Guidance (ICD-10-PCS; 2018-10-17)
PROC: 5A1D70Z Performance of Urinary Filtration, Intermittent, Less than 6 Hours Per Day (ICD-10-PCS; 2018-10-17)
PROC: 30233N1 Transfusion of Nonautologous Red Blood Cells into Peripheral Vein, Percutaneous Approach (ICD-10-PCS; 2018-10-17)
PROC: 5A1D70Z Performance of Urinary Filtration, Intermittent, Less than 6 Hours Per Day (ICD-10-PCS; 2018-10-19)
PROC: 5A1D70Z Performance of Urinary Filtration, Intermittent, Less than 6 Hours Per Day (ICD-10-PCS; 2018-10-22)
PROC: B31H1ZZ Fluoroscopy of Right Upper Extremity Arteries using Low Osmolar Contrast (ICD-10-PCS; 2018-10-23)
PROC: 05LF0ZZ Occlusion of Left Cephalic Vein, Open Approach (ICD-10-PCS; 2018-10-24)
PROC: 5A1D70Z Performance of Urinary Filtration, Intermittent, Less than 6 Hours Per Day (ICD-10-PCS; 2018-10-25)
DX: T87.44 Infection of amputation stump, left lower extremity (principal); A41.9 Sepsis, unspecified organism; I13.2 Hypertensive heart and chronic kidney disease with heart failure and with stage 5 chronic kidney disease, or end stage renal disease; E46 Unspecified protein-calorie malnutrition; E11.22 Type 2 diabetes mellitus with diabetic chronic kidney disease; E11.40 Type 2 diabetes mellitus with diabetic neuropathy, unspecified; T82.898A Other specified complication of vascular prosthetic devices, implants and grafts, initial encounter; E11.52 Type 2 diabetes mellitus with diabetic peripheral angiopathy with gangrene; N18.6 End stage renal disease; G54.6 Phantom limb syndrome with pain; D63.8 Anemia in other chronic diseases classified elsewhere; J44.9 Chronic obstructive pulmonary disease, unspecified; N25.81 Secondary hyperparathyroidism of renal origin; I50.32 Chronic diastolic (congestive) heart failure; E83.52 Hypercalcemia; F32.9 Major depressive disorder, single episode, unspecified; F41.9 Anxiety disorder, unspecified; Y83.2 Surgical operation with anastomosis, bypass or graft as the cause of abnormal reaction of the patient, or of later complication, without mention of misadventure at the time of the procedure; E03.9 Hypothyroidism, unspecified; L03.116 Cellulitis of left lower limb; Y83.5 Amputation of limb(s) as the cause of abnormal reaction of the patient, or of later complication, without mention of misadventure at the time of the procedure; M79.645 Pain in left finger(s); M54.30 Sciatica, unspecified side; E66.9 Obesity, unspecified; E78.5 Hyperlipidemia, unspecified; Z79.02 Long term (current) use of antithrombotics/antiplatelets; Z79.899 Other long term (current) drug therapy; Z82.49 Family history of ischemic heart disease and other diseases of the circulatory system; Z83.3 Family history of diabetes mellitus; Z98.84 Bariatric surgery status; Z99.2 Dependence on renal dialysis; Z68.36 Body mass index [BMI] 36.0-36.9, adult; Z89.512 Acquired absence of left leg below knee; Z88.2 Allergy status to sulfonamides; Z88.6 Allergy status to analgesic agent; Z88.8 Allergy status to other drugs, medicaments and biological substances; Y92.89 Other specified places as the place of occurrence of the external cause; Z85.3 Personal history of malignant neoplasm of breast; Z92.21 Personal history of antineoplastic chemotherapy; Z92.3 Personal history of irradiation; Z91.018 Allergy to other foods
CPT/HCPCS: 36415; 36573; 36901; 71045; 73130; 73560; 76937; 80048; 80061; 80202; 82550; 82553; 82962; 83605; 83880; 83970; 84100; 84145; 84484; 85027; 86850; 86900; 86920; 88307; 88311; 93005; 93970; 96365; 96375; 99152; 99153; 99285; A6261; C1725; C1769; C1887; C1893; J0330; J0690; J0885; J1170; J1200; J1250; J1644; J1650; J2060; J2250; J2270; J2405; J2543; J2704; J2765; J3010; J3370; J3490; J7030; J7040; J7050; J7060; P9016; P9041; Q9967; G0500

== ENCOUNTER 2018-10-31 12:10 | Inpatient (IN) | payer MEDICAID, OTHER ==
[~2018-10-31] VITALS: Ht 172.7 cm; Wt 98.9 kg
[2018-10-31] MEDS ORDERED: MORPHINE SULFATE 4 MG/ML CPJ (NOT FOR IM USE) IV STA (12:39)
[2018-10-31] MEDS ORDERED: METOCLOPRAMIDE HCL 10MG/2ML VIAL IV ONE (12:45)
[2018-10-31] MEDS ORDERED: CEFTRIAXONE 1 G PREMIX 50 ML IV ONE (12:45)
[2018-10-31] MEDS ORDERED: SODIUM CHLORIDE 0.9% 1000ML BAG (SEPSIS BOLUS) IV ONE (12:45)
[2018-10-31 15:20] LABS: BASOPHILS % 0.6 % (0.0-2.0); HEMATOCRIT. 29.8 % (36.0-48.0); HEMOGLOBIN. 9.7 g/dL (12.0-16.0); LYMPHOCYTES % 20.1 % (20.0-50.0); MEAN CORPUSCULAR HEMOGLOBIN 29.8 pg (28.0-32.0); MEAN CORPUSCULAR VOLUME 91.8 fL (81.0-99.0); MEAN PLATELET VOLUME 9.1 fl (7.4-10.4); MONOCYTES % 7.4 % (2.0-8.0); NEUTROPHILS % 70.9 % (40.0-76.0); PLATELET 369 x1000/uL (130-400); RED BLOOD CELL COUNT 3.24 mill/uL (4.2-5.4); RED CELL DISTRIBUTION WIDTH 17.8 % (11.6-14.6)
[2018-10-31 15:22] LABS: CHLORIDE 103 mEq/L (98-107)
[2018-10-31 15:28] LABS: PROTHROMBIN TIME 10.6 sec (9.6-11.0)
[2018-10-31] MEDS ORDERED: ONDANSETRON HCL 4MG/2ML INJ IV ONE (17:00)
[2018-10-31] MEDS ORDERED: MORPHINE SULFATE 4 MG/ML CPJ (NOT FOR IM USE) IV ONE (17:00)
[2018-10-31] MEDS ORDERED: METRONIDAZOLE 500 MG PREMIX 100 ML IV ONE ×2 (17:00→19:30)
[2018-10-31] MEDS ORDERED: CLONIDINE 0.1MG TABLET PO PRN (18:00)
[2018-10-31] MEDS ORDERED: HYDROCODONE/ACETAMINOPHEN 5/325MG TABLET PO PRN (18:00)
[2018-10-31] MEDS ORDERED: DOCUSATE SODIUM 100MG CAPSULE PO PRN (18:00)
[2018-10-31] MEDS ORDERED: GUAIFENESIN 200MG/10ML SUGAR FREE UDC PO PRN (18:00)
[2018-10-31] MEDS ORDERED: ACETAMINOPHEN 325MG TABLET PO PRN (18:00)
[2018-10-31] MEDS ORDERED: ONDANSETRON HCL 4MG/2ML INJ IV PRN (18:00)
[2018-10-31] MEDS ORDERED: MAGNESIUM/ALUMINUM HYDROXIDE/SIMETHICONE 30ML UDC PO PRN (18:00)
[2018-10-31] MEDS ORDERED: IPRATROPIUM/ALBUTEROL 0.5-3(2.5)MG/3ML NEB INH PRN (18:00)
[2018-10-31 18:47] LABS: PHOSPHORUS 2.2 mg/dL (2.5-4.9)
[2018-10-31] MEDS: DIPHENHYDRAMINE 50MG/ML VIAL IV PRN (18:54)
[2018-11-01 03:10] VITALS: BP 102/57
[2018-11-01 04:00] VITALS: BP 102/57
[2018-11-01] MEDS: MORPHINE SULFATE 2 MG/ML CPJ (NOT FOR IM USE) IV PRN ×4 (04:29→21:06)
[2018-11-01 07:38] LABS: CHLORIDE 110 mEq/L (98-107)
[2018-11-01 07:50] LABS: LDL CHOLESTEROL 74 mg/dL (5-100)
[2018-11-01 07:54] LABS: HDL CHOLESTEROL 32 mg/dL (40-59)
[2018-11-01 07:55] LABS: EOSINOPHILS % 2.7 % (0.0-5.0); HEMATOCRIT. 27.9 % (36.0-48.0); HEMOGLOBIN. 8.7 g/dL (12.0-16.0); LYMPHOCYTES % 30.8 % (20.0-50.0); MEAN CORPUSCULAR HEMOGLOBIN 29.2 pg (28.0-32.0); MEAN CORPUSCULAR VOLUME 93.3 fL (81.0-99.0); MEAN PLATELET VOLUME 9.6 fl (7.4-10.4); MONOCYTES % 11.1 % (2.0-8.0); NEUTROPHILS % 54.4 % (40.0-76.0); PLATELET 189 x1000/uL (130-400); RED BLOOD CELL COUNT 2.99 mill/uL (4.2-5.4); RED CELL DISTRIBUTION WIDTH 18.2 % (11.6-14.6)
[2018-11-01 11:58] VITALS: BP 110/57
[2018-11-01] MEDS ORDERED: SODIUM PHOS,M-BASIC-D-BASIC 10 MM in DEXT 5% WATER 246.6667 ML IV NR (12:00)
[2018-11-01] MEDS ORDERED: VANCOMYCIN 2,000 MG in DEXT 5% WATER 500 ML IV NR ×2 (13:00→20:00)
[2018-11-01] MEDS: FOLIC ACID/VITAMIN B COMP W-C TABLET PO SCH (14:52)
[2018-11-01 16:00] VITALS: BP 101/52
[2018-11-01 20:00] VITALS: BP 121/58
[2018-11-01] MEDS ORDERED: EPOETIN ALFA 10000UNITS/ML VIAL SUBCUT SCH (21:00)
[2018-11-01] MEDS: DIPHENHYDRAMINE 50MG/ML VIAL IV PRN (21:54)
[2018-11-02] VITALS: BP 100/58
[2018-11-02] MEDS: MORPHINE SULFATE 2 MG/ML CPJ (NOT FOR IM USE) IV PRN ×4 (04:36→21:46)
[2018-11-02 05:00] VITALS: BP 100/58
[2018-11-02 07:16] LABS: BASOPHILS % 0.8 % (0.0-2.0); HEMATOCRIT. 27.9 % (36.0-48.0); HEMOGLOBIN. 9.2 g/dL (12.0-16.0); LYMPHOCYTES % 29.6 % (20.0-50.0); MEAN CORPUSCULAR HEMOGLOBIN 29.5 pg (28.0-32.0); MEAN CORPUSCULAR VOLUME 89.9 fL (81.0-99.0); MEAN PLATELET VOLUME 8.7 fl (7.4-10.4); MONOCYTES % 12.3 % (2.0-8.0); NEUTROPHILS % 54.3 % (40.0-76.0); PLATELET 245 x1000/uL (130-400); RED BLOOD CELL COUNT 3.11 mill/uL (4.2-5.4); RED CELL DISTRIBUTION WIDTH 17.6 % (11.6-14.6)
[2018-11-02 08:00] VITALS: BP 136/38
[2018-11-02] MEDS: FOLIC ACID/VITAMIN B COMP W-C TABLET PO SCH (10:08)
[2018-11-02] MEDS: DIPHENHYDRAMINE 50MG/ML VIAL IV PRN ×2 (10:09→22:36)
[2018-11-02 12:00] VITALS: BP_SYST 109; BP_SYST 134; BP_DIAS 67; BP_DIAS 77
[2018-11-02 16:00] VITALS: BP 109/57
[2018-11-02 20:00] VITALS: BP 103/50
[2018-11-03] VITALS (7 sets, daily range): BP systolic 101–133; BP diastolic 55–83
[2018-11-03] MEDS: DIPHENHYDRAMINE 50MG/ML VIAL IV PRN ×3 (02:47→16:04)
[2018-11-03] MEDS: MORPHINE SULFATE 2 MG/ML CPJ (NOT FOR IM USE) IV PRN ×3 (07:03→17:09)
[2018-11-03 07:47] LABS: BASOPHILS % 0.6 % (0.0-2.0); EOSINOPHILS % 3.1 % (0.0-5.0); HEMATOCRIT. 25.8 % (36.0-48.0); HEMOGLOBIN. 8.6 g/dL (12.0-16.0); LYMPHOCYTES % 30.4 % (20.0-50.0); MEAN CORPUSCULAR HEMOGLOBIN 29.7 pg (28.0-32.0); MEAN CORPUSCULAR VOLUME 89.7 fL (81.0-99.0); MEAN PLATELET VOLUME 9.4 fl (7.4-10.4); MONOCYTES % 11.7 % (2.0-8.0); NEUTROPHILS % 54.2 % (40.0-76.0); PLATELET 225 x1000/uL (130-400); RED BLOOD CELL COUNT 2.88 mill/uL (4.2-5.4); RED CELL DISTRIBUTION WIDTH 16.4 % (11.6-14.6)
[2018-11-03] MEDS: FOLIC ACID/VITAMIN B COMP W-C TABLET PO SCH (09:23)
== END 2018-11-03 18:46 | disposition home or self-care (01) ==
LOC: ER 12:10 → 6EST 17:07 → EDBEDREQSVC 19:00 → EDBEDREQ 19:00 → ENRESERV 21:38 → CANBEDREQ 23:24 → 8WST 11-01 04:08
PROVIDERS: ADMIT Internal Medicine; ATTEND Internal Medicine
PROC: 5A1D70Z Performance of Urinary Filtration, Intermittent, Less than 6 Hours Per Day (ICD-10-PCS; 2018-11-01)
PROC: 5A1D70Z Performance of Urinary Filtration, Intermittent, Less than 6 Hours Per Day (ICD-10-PCS; principal; 2018-11-02)
DX: K80.00 Calculus of gallbladder with acute cholecystitis without obstruction (principal); I13.2 Hypertensive heart and chronic kidney disease with heart failure and with stage 5 chronic kidney disease, or end stage renal disease; E46 Unspecified protein-calorie malnutrition; E11.22 Type 2 diabetes mellitus with diabetic chronic kidney disease; E11.40 Type 2 diabetes mellitus with diabetic neuropathy, unspecified; E83.39 Other disorders of phosphorus metabolism; N18.6 End stage renal disease; E11.51 Type 2 diabetes mellitus with diabetic peripheral angiopathy without gangrene; R74.0 Nonspecific elevation of levels of transaminase and lactic acid dehydrogenase [LDH]; E66.9 Obesity, unspecified; D64.9 Anemia, unspecified; Z99.2 Dependence on renal dialysis; I50.32 Chronic diastolic (congestive) heart failure; J44.9 Chronic obstructive pulmonary disease, unspecified; N25.81 Secondary hyperparathyroidism of renal origin; F17.210 Nicotine dependence, cigarettes, uncomplicated; F32.9 Major depressive disorder, single episode, unspecified; E78.5 Hyperlipidemia, unspecified; F41.9 Anxiety disorder, unspecified; Z82.49 Family history of ischemic heart disease and other diseases of the circulatory system; Z85.3 Personal history of malignant neoplasm of breast; Z92.21 Personal history of antineoplastic chemotherapy; Z92.3 Personal history of irradiation; Z89.612 Acquired absence of left leg above knee; Z79.02 Long term (current) use of antithrombotics/antiplatelets; Z79.899 Other long term (current) drug therapy; Z83.3 Family history of diabetes mellitus; Z98.84 Bariatric surgery status; Z88.2 Allergy status to sulfonamides; Z88.6 Allergy status to analgesic agent; Z91.018 Allergy to other foods; Z79.82 Long term (current) use of aspirin; Z68.33 Body mass index [BMI] 33.0-33.9, adult
CPT/HCPCS: 36415; 71045; 74176; 80048; 80061; 80202; 83605; 83735; 83880; 84100; 84145; 84484; 93005; 93970; 96374; 96375; 99285; A6261; J0696; J0885; J1200; J2270; J2405; J2765; J3370; J3490; J7030; J7060

== ENCOUNTER 2018-11-05 09:59 | Inpatient (IN) | payer MEDICAID ==
[~2018-11-05] VITALS: Ht 172.7 cm; Wt 92.1 kg
[2018-11-05] MEDS ORDERED: MORPHINE SULFATE 4 MG/ML CPJ (NOT FOR IM USE) IV STA (10:47)
[2018-11-05] MEDS ORDERED: ONDANSETRON HCL 4MG/2ML INJ IV STA (10:47)
[2018-11-05] MEDS ORDERED: PIPERACILLIN/TAZ 2.25G PREMIX 50 ML IV ONE (11:00)
[2018-11-05 12:15] LABS: CHLORIDE 106 mEq/L (98-107)
[2018-11-05 12:16] LABS: INR 1.1
[2018-11-05 12:17] LABS: BASOPHILS % 0.9 % (0.0-2.0); EOSINOPHILS % 2.6 % (0.0-5.0); HEMATOCRIT. 31.9 % (36.0-48.0); HEMOGLOBIN. 10.6 g/dL (12.0-16.0); LYMPHOCYTES % 28.4 % (20.0-50.0); MEAN CORPUSCULAR HEMOGLOBIN 29.7 pg (28.0-32.0); MEAN CORPUSCULAR VOLUME 89.7 fL (81.0-99.0); MEAN PLATELET VOLUME 9.5 fl (7.4-10.4); MONOCYTES % 9.2 % (2.0-8.0); NEUTROPHILS % 58.9 % (40.0-76.0); PLATELET 241 x1000/uL (130-400); RED BLOOD CELL COUNT 3.55 mill/uL (4.2-5.4); RED CELL DISTRIBUTION WIDTH 17.2 % (11.6-14.6)
[2018-11-05] MEDS ORDERED: MORPHINE SULFATE 4 MG/ML CPJ (NOT FOR IM USE) IV ONE (13:15)
[2018-11-05 14:34] LABS: CLARITY URINE CLEAR (CLEAR); COLOR URINE YELLOW (YELLOW); KETONES URINE NEGATIVE (NEGATIVE); LEUKOCYTE ESTERASE URINE NEGATIVE (NEGATIVE); NITRITE URINE NEGATIVE (NEGATIVE); OCCULT BLOOD URINE NEGATIVE (NEGATIVE); PH URINE 8.5 (4.5-8.0); PROTEIN URINE 2+ (NEGATIVE); SPECIFIC GRAVITY URINE 1.012 (1.005-1.030); UROBILINOGEN URINE 0.2 E.U./dL (0.2-1.0)
[2018-11-05] MEDS ORDERED: DOCUSATE SODIUM 100MG CAPSULE PO PRN (15:45)
[2018-11-05] MEDS ORDERED: IPRATROPIUM/ALBUTEROL 0.5-3(2.5)MG/3ML NEB INH PRN (15:45)
[2018-11-05] MEDS ORDERED: HYDROCODONE/ACETAMINOPHEN 5/325MG TABLET PO PRN (15:45)
[2018-11-05] MEDS ORDERED: ACETAMINOPHEN 325MG TABLET PO PRN (15:45)
[2018-11-05 16:00] VITALS: BP 119/74
[2018-11-05] MEDS ORDERED: CYCLOBENZAPRINE 10MG TABLET PO PRN (16:16)
[2018-11-05] MEDS: SODIUM CHLORIDE 0.9% 1,000 ML IV SCH (16:30)
[2018-11-05] MEDS ORDERED: ASPI-1393 PO (16:32)
[2018-11-05] MEDS ORDERED: GABA-290 PO (16:32)
[2018-11-05] MEDS ORDERED: CLOP75TA4 PO (16:32)
[2018-11-05] MEDS: CALCIUM ACETATE 667MG CAPSULE PO SCH (18:15)
[2018-11-05] MEDS: MORPHINE SULFATE 2 MG/ML CPJ (NOT FOR IM USE) IV PRN ×2 (18:15→23:32)
[2018-11-05 20:00] VITALS: BP 125/63
[2018-11-05] MEDS ORDERED: DIAZEPAM 5 MG TABLET PO PRN (20:00)
[2018-11-05] MEDS: ATORVASTATIN CALCIUM 10MG TABLET PO SCH (20:58)
[2018-11-05] MEDS: AMITRIPTYLINE 25MG TABLET PO SCH (20:58)
[2018-11-05] MEDS: SERTRALINE HCL 50MG TABLET PO SCH (20:59)
[2018-11-05] MEDS: AMLODIPINE 2.5MG TABLET PO SCH (21:00)
[2018-11-06] VITALS: BP 133/89
[2018-11-06 04:00] VITALS: BP 143/77
[2018-11-06] MEDS: SODIUM CHLORIDE 0.9% 1,000 ML IV SCH ×2 (04:18→17:51)
[2018-11-06] MEDS: MORPHINE SULFATE 2 MG/ML CPJ (NOT FOR IM USE) IV PRN ×4 (05:52→23:44)
[2018-11-06] MEDS ORDERED: DEXTROSE 50% WATER 50ML SYRINGE IV PRN (06:15)
[2018-11-06 06:58] LABS: BASOPHILS % 0.9 % (0.0-2.0); EOSINOPHILS % 3.4 % (0.0-5.0); HEMATOCRIT. 31.7 % (36.0-48.0); HEMOGLOBIN. 10.5 g/dL (12.0-16.0); LYMPHOCYTES % 31.4 % (20.0-50.0); MEAN CORPUSCULAR HEMOGLOBIN 29.8 pg (28.0-32.0); MEAN CORPUSCULAR VOLUME 90.1 fL (81.0-99.0); MEAN PLATELET VOLUME 9.2 fl (7.4-10.4); MONOCYTES % 10.5 % (2.0-8.0); NEUTROPHILS % 53.8 % (40.0-76.0); PLATELET 238 x1000/uL (130-400); RED BLOOD CELL COUNT 3.52 mill/uL (4.2-5.4); RED CELL DISTRIBUTION WIDTH 17.3 % (11.6-14.6)
[2018-11-06] MEDS: BLOOD SUGAR DIAGNOSTIC STRIP TEST SCH ×4 (07:24→21:00)
[2018-11-06] MEDS: INSULIN LISPRO 100 UNITS/ML SUBCUT SCH ×4 (07:50→22:00)
[2018-11-06 08:00] VITALS: BP 141/71
[2018-11-06] MEDS: CALCIUM ACETATE 667MG CAPSULE PO SCH ×3 (08:25→17:17)
[2018-11-06] MEDS: AMLODIPINE 2.5MG TABLET PO SCH ×3 (08:29→22:11)
[2018-11-06] MEDS: ONDANSETRON HCL 4MG/2ML INJ IV PRN (08:33)
[2018-11-06 12:07] VITALS: BP 138/71
[2018-11-06 15:41] VITALS: BP 120/35
[2018-11-06] MEDS: DIPHENHYDRAMINE 50MG/ML VIAL IV PRN (15:51)
[2018-11-06] MEDS ORDERED: VANCOMYCIN 1 G PREMIX 200 ML IV SCH (18:00)
[2018-11-06] MEDS ORDERED: VANCOMYCIN 1,750 MG in DEXT 5% WATER 250 ML IV NR (18:00)
[2018-11-06 20:00] VITALS: BP 120/66
[2018-11-06] MEDS: EPOETIN ALFA 10000UNITS/ML VIAL SUBCUT SCH (21:00)
[2018-11-06] MEDS: AMITRIPTYLINE 25MG TABLET PO SCH (22:03)
[2018-11-06] MEDS: ATORVASTATIN CALCIUM 10MG TABLET PO SCH ×2 (22:03→22:10)
[2018-11-06] MEDS: SERTRALINE HCL 50MG TABLET PO SCH (22:05)
[2018-11-07] VITALS: BP 132/74
[2018-11-07] MEDS: DIPHENHYDRAMINE 50MG/ML VIAL IV PRN (00:19)
[2018-11-07 04:00] VITALS: BP_SYST 136; BP_SYST 138; BP_DIAS 69; BP_DIAS 77
[2018-11-07] MEDS: MORPHINE SULFATE 2 MG/ML CPJ (NOT FOR IM USE) IV PRN ×3 (05:15→23:30)
[2018-11-07] MEDS ORDERED: INDOCYANINE GREEN 25 MG VIAL IV ONE (06:03)
[2018-11-07] MEDS ORDERED: BUPIVACAINE HCL/PF 0.5% (5MG/ML) 10ML ONE (06:04)
[2018-11-07] MEDS ORDERED: NORMAL SALINE 0.9% 10 ML SYR ONE (06:04)
[2018-11-07] MEDS ORDERED: LIDOCAINE HCL 1% 20ML VIAL (Pyxis) INJ ONE ×2 (06:04→12:44)
[2018-11-07] MEDS ORDERED: SKIN ADHESIVE 0.7 GM EA TOP ONE (06:04)
[2018-11-07] MEDS ORDERED: BACITRACIN 50,000 UNITS/VIAL ONE (06:05)
[2018-11-07 07:01] LABS: BASOPHILS % 0.6 % (0.0-2.0); EOSINOPHILS % 3.2 % (0.0-5.0); HEMOGLOBIN. 9.8 g/dL (12.0-16.0); LYMPHOCYTES % 31.7 % (20.0-50.0); MEAN CORPUSCULAR HEMOGLOBIN 29.9 pg (28.0-32.0); MEAN CORPUSCULAR VOLUME 91.7 fL (81.0-99.0); MEAN PLATELET VOLUME 9.5 fl (7.4-10.4); MONOCYTES % 12.7 % (2.0-8.0); NEUTROPHILS % 51.8 % (40.0-76.0); PLATELET 216 x1000/uL (130-400); RED BLOOD CELL COUNT 3.27 mill/uL (4.2-5.4); RED CELL DISTRIBUTION WIDTH 17.1 % (11.6-14.6)
[2018-11-07] MEDS: INSULIN LISPRO 100 UNITS/ML SUBCUT SCH ×4 (07:02→20:48)
[2018-11-07] MEDS: BLOOD SUGAR DIAGNOSTIC STRIP TEST SCH ×4 (07:02→20:48)
[2018-11-07] MEDS: CALCIUM ACETATE 667MG CAPSULE PO SCH ×3 (07:02→17:31)
[2018-11-07] MEDS ORDERED: CEFOXITIN SODIUM 2 G in DEXT 5% WATER 100 ML IV NR (07:30)
[2018-11-07] MEDS ORDERED: PROPOFOL 200MG/20ML VIAL IV ONE (07:32)
[2018-11-07] MEDS ORDERED: SUCCINYLCHOLINE CHLORIDE 200MG/10ML IV ONE (07:32)
[2018-11-07] MEDS ORDERED: SODIUM CHLORIDE 0.9% 10ML VIAL ONE (07:32)
[2018-11-07] MEDS ORDERED: NEOSTIGMINE METHYLSULFATE 1MG/ML 10 ML VIAL ONE (07:32)
[2018-11-07] MEDS ORDERED: ROCURONIUM BROMIDE 10MG/ML VIAL 5ML IV ONE ×2 (07:32→08:25)
[2018-11-07] MEDS ORDERED: GLYCOPYRROLATE 0.2 MG/ML 2ML VIAL ONE (07:32)
[2018-11-07] MEDS ORDERED: LIDOCAINE HCL/PF 1% 10 MG/ML 5ML VIAL ONE (07:32)
[2018-11-07] MEDS ORDERED: MIDAZOLAM HCL 2 MG/2 ML VIAL ONE (07:32)
[2018-11-07] MEDS ORDERED: EPHEDRINE SULFATE 50MG/ML VIAL ONE (07:32)
[2018-11-07] MEDS ORDERED: FENTANYL CITRATE/PF 50MCG/ML 2ML VIAL ONE ×3 (07:32→09:36)
[2018-11-07] MEDS ORDERED: ONDANSETRON HCL 4MG/2ML INJ ONE (07:33)
[2018-11-07] MEDS ORDERED: METOCLOPRAMIDE HCL 10MG/2ML VIAL ONE (07:33)
[2018-11-07] MEDS ORDERED: PHENYLEPHRINE HCL 10 MG/ML 1ML (IV VIAL) IV ONE (07:33)
[2018-11-07] MEDS ORDERED: ETOMIDATE 2MG/ML 10ML VIAL IV ONE (07:44)
[2018-11-07] MEDS: FOLIC ACID/VITAMIN B COMP W-C TABLET PO SCH (08:16)
[2018-11-07] MEDS ORDERED: ALBUMIN HUMAN 12.5GM/50ML (25%) IV ONE (08:19)
[2018-11-07] MEDS ORDERED: ALBUMIN HUMAN 12.5G/250ML (5%) IV ONE (08:21)
[2018-11-07] MEDS ORDERED: SODIUM CHLORIDE 0.9% 1,000 ML IV ONE (10:01)
[2018-11-07] MEDS ORDERED: HYDROMORPHONE HCL/PF 2MG/ML CPJ IV PRN (10:15)
[2018-11-07] MEDS ORDERED: MEPERIDINE HCL/PF 25MG/ML CPJ IV PRN ×2 (10:15)
[2018-11-07] MEDS ORDERED: MORPHINE SULFATE 2 MG/ML CPJ (NOT FOR IM USE) IV PRN (10:15)
[2018-11-07] MEDS ORDERED: ONDANSETRON HCL 4MG/2ML INJ IV PRN (10:15)
[2018-11-07] MEDS ORDERED: SODIUM BICARBONATE 4% (2.4MEQ) 5ML VIAL IV ONE (12:44)
[2018-11-07 15:32] VITALS: BP 138/74
[2018-11-07] MEDS: ONDANSETRON HCL 4MG/2ML INJ IV PRN (17:24)
[2018-11-07 20:00] VITALS: BP 158/77
[2018-11-07] MEDS: SERTRALINE HCL 50MG TABLET PO SCH (20:24)
[2018-11-07] MEDS: AMITRIPTYLINE 25MG TABLET PO SCH (20:24)
[2018-11-07] MEDS: AMLODIPINE 2.5MG TABLET PO SCH (20:47)
[2018-11-07] MEDS: SODIUM CHLORIDE 0.9% 1,000 ML IV SCH (20:58)
[2018-11-08] VITALS: BP_SYST 114; BP_SYST 128; BP_DIAS 62; BP_DIAS 68
[2018-11-08] MEDS: ONDANSETRON HCL 4MG/2ML INJ IV PRN (00:08)
[2018-11-08] MEDS: DIPHENHYDRAMINE 50MG/ML VIAL IV PRN (02:17)
[2018-11-08 04:00] VITALS: BP 162/95
[2018-11-08] MEDS: MORPHINE SULFATE 2 MG/ML CPJ (NOT FOR IM USE) IV PRN (04:08)
[2018-11-08] MEDS ORDERED: HYDRALAZINE 20MG/ML VIAL IV PRN (05:15)
[2018-11-08] MEDS ORDERED: HYDRALAZINE 5 MG in SODIUM CHLORIDE 0.9% 50 ML IV PRN (05:30)
[2018-11-08] MEDS ORDERED: SODIUM CHLORIDE 0.9% 250 ML IV ONE (06:30)
[2018-11-08] MEDS ORDERED: HYDROMORPHONE HCL/PF 2MG/ML CPJ IV PRN (06:30)
[2018-11-08] MEDS ORDERED: METOCLOPRAMIDE HCL 10MG/2ML VIAL IV ONE (06:30)
[2018-11-08] MEDS ORDERED: METOCLOPRAMIDE HCL 10MG/2ML VIAL IV SCH (06:30)
[2018-11-08] MEDS ORDERED: METOCLOPRAMIDE HCL 10MG/2ML VIAL IV PRN (06:30)
[2018-11-08] MEDS: BLOOD SUGAR DIAGNOSTIC STRIP TEST SCH ×4 (06:54→21:00)
[2018-11-08] MEDS: HYDROMORPHONE HCL/PF 2MG/ML CPJ IV PRN ×4 (06:58→22:19)
[2018-11-08 07:39] LABS: BASOPHILS % 0.7 % (0.0-2.0); EOSINOPHILS % 0.1 % (0.0-5.0); HEMATOCRIT. 29.8 % (36.0-48.0); HEMOGLOBIN. 9.7 g/dL (12.0-16.0); MEAN CORPUSCULAR HEMOGLOBIN 29.2 pg (28.0-32.0); MEAN CORPUSCULAR VOLUME 89.4 fL (81.0-99.0); MEAN PLATELET VOLUME 10.2 fl (7.4-10.4); MONOCYTES % 12.9 % (2.0-8.0); NEUTROPHILS % 68.3 % (40.0-76.0); PLATELET 203 x1000/uL (130-400); RED BLOOD CELL COUNT 3.33 mill/uL (4.2-5.4); RED CELL DISTRIBUTION WIDTH 16.6 % (11.6-14.6)
[2018-11-08] MEDS: INSULIN LISPRO 100 UNITS/ML SUBCUT SCH ×4 (07:43→21:00)
[2018-11-08] MEDS: CALCIUM ACETATE 667MG CAPSULE PO SCH ×4 (07:50→16:39)
[2018-11-08 08:00] VITALS: BP 117/68
[2018-11-08] MEDS: FOLIC ACID/VITAMIN B COMP W-C TABLET PO SCH ×2 (08:39→08:47)
[2018-11-08] MEDS: AMLODIPINE 2.5MG TABLET PO SCH ×2 (08:39→08:47)
[2018-11-08] MEDS ORDERED: AMLODIPINE 5MG TABLET PO SCH (11:30)
[2018-11-08] MEDS ORDERED: LABETALOL 5MG/ML SYR 20 MG/4 ML SYRINGE IV PRN (11:45)
[2018-11-08] MEDS ORDERED: ONDANSETRON HCL 4MG/2ML INJ IV PRN (11:45)
[2018-11-08 12:00] VITALS: BP 147/77
[2018-11-08] MEDS: METOCLOPRAMIDE HCL 10MG/2ML VIAL IV SCH ×2 (12:30→17:32)
[2018-11-08 16:00] VITALS: BP 103/66
[2018-11-08 20:00] VITALS: BP 105/54
[2018-11-08] MEDS: ATORVASTATIN CALCIUM 10MG TABLET PO SCH (21:00)
[2018-11-08] MEDS: AMITRIPTYLINE 25MG TABLET PO SCH (21:20)
[2018-11-08] MEDS: SERTRALINE HCL 50MG TABLET PO SCH (21:21)
[2018-11-08] MEDS: EPOETIN ALFA 10000UNITS/ML VIAL SUBCUT SCH (21:23)
[2018-11-09] VITALS: BP 98/49
[2018-11-09] MEDS: METOCLOPRAMIDE HCL 10MG/2ML VIAL IV SCH ×4 (00:29→16:55)
[2018-11-09] MEDS: DIPHENHYDRAMINE 50MG/ML VIAL IV PRN (00:30)
[2018-11-09] MEDS: SODIUM CHLORIDE 0.9% 1,000 ML IV SCH ×2 (01:07→08:10)
[2018-11-09 04:00] VITALS: BP 122/74
[2018-11-09] MEDS: HYDROMORPHONE HCL/PF 2MG/ML CPJ IV PRN ×5 (04:35→23:40)
[2018-11-09] MEDS: BLOOD SUGAR DIAGNOSTIC STRIP TEST SCH ×4 (07:33→21:00)
[2018-11-09] MEDS: INSULIN LISPRO 100 UNITS/ML SUBCUT SCH ×4 (07:50→21:00)
[2018-11-09 08:00] VITALS: BP 106/62
[2018-11-09] MEDS: CALCIUM ACETATE 667MG CAPSULE PO SCH ×3 (08:09→16:35)
[2018-11-09] MEDS: FOLIC ACID/VITAMIN B COMP W-C TABLET PO SCH (08:09)
[2018-11-09 08:34] LABS: BASOPHILS % 0.6 % (0.0-2.0); EOSINOPHILS % 2.1 % (0.0-5.0); HEMATOCRIT. 24.5 % (36.0-48.0); MEAN CORPUSCULAR HEMOGLOBIN 29.6 pg (28.0-32.0); MEAN PLATELET VOLUME 9.3 fl (7.4-10.4); MONOCYTES % 12.4 % (2.0-8.0); NEUTROPHILS % 57.9 % (40.0-76.0); PLATELET 168 x1000/uL (130-400); RED CELL DISTRIBUTION WIDTH 16.8 % (11.6-14.6)
[2018-11-09 09:02] LABS: PHOSPHORUS 2.8 mg/dL (2.5-4.9)
[2018-11-09 12:00] VITALS: BP 114/57
[2018-11-09] MEDS ORDERED: VANCOMYCIN 1250MG in DEXTROSE 5% WATER 250ML IV NR (15:00)
[2018-11-09 16:00] VITALS: BP 125/66
[2018-11-09] MEDS ORDERED: LIDOCAINE HCL 1% 20ML VIAL (Pyxis) INJ ONE (16:08)
[2018-11-09] MEDS ORDERED: BUPIVACAINE HCL/PF 0.5% (5MG/ML) 10ML ONE (16:08)
[2018-11-09] MEDS ORDERED: BACITRACIN 50,000 UNITS/VIAL ONE (16:08)
[2018-11-09] MEDS ORDERED: NORMAL SALINE 0.9% 10 ML SYR ONE (16:08)
[2018-11-09] MEDS: PIPERACILLIN/TAZ 2.25G PREMIX 50 ML IV SCH (16:55)
[2018-11-09] MEDS ORDERED: MIDAZOLAM HCL 2 MG/2 ML VIAL ONE (18:03)
[2018-11-09] MEDS ORDERED: FENTANYL CITRATE/PF 50MCG/ML 2ML VIAL ONE (18:03)
[2018-11-09] MEDS ORDERED: LIDOCAINE HCL/PF 1% 10 MG/ML 5ML VIAL ONE (18:03)
[2018-11-09] MEDS ORDERED: PROPOFOL 200MG/20ML VIAL IV ONE ×2 (18:03→19:24)
[2018-11-09] MEDS ORDERED: CEFAZOLIN SODIUM 1000MG/VIAL ONE (19:04)
[2018-11-09] MEDS ORDERED: SODIUM CHLORIDE 0.9% 10ML VIAL ONE (19:17)
[2018-11-09] MEDS ORDERED: ONDANSETRON HCL 4MG/2ML INJ ONE (19:48)
[2018-11-09] MEDS ORDERED: HYDROMORPHONE HCL/PF 2MG/ML CPJ IV PRN (20:15)
[2018-11-09] MEDS ORDERED: FENTANYL CITRATE/PF 50MCG/ML 2ML VIAL IV PRN (20:15)
[2018-11-09] MEDS ORDERED: ONDANSETRON HCL 4MG/2ML INJ IV PRN (20:15)
[2018-11-09] MEDS: ATORVASTATIN CALCIUM 10MG TABLET PO SCH (21:00)
[2018-11-09] MEDS: AMITRIPTYLINE 25MG TABLET PO SCH (21:00)
[2018-11-09] MEDS: SERTRALINE HCL 50MG TABLET PO SCH (21:00)
[2018-11-09 21:45] VITALS: BP 121/61
[2018-11-10] VITALS: BP 126/57
[2018-11-10] MEDS: METOCLOPRAMIDE HCL 10MG/2ML VIAL IV SCH ×4 (00:54→17:35)
[2018-11-10] MEDS: PIPERACILLIN/TAZ 2.25G PREMIX 50 ML IV SCH ×3 (02:13→17:35)
[2018-11-10] MEDS: HYDROMORPHONE HCL/PF 2MG/ML CPJ IV PRN ×6 (02:49→21:06)
[2018-11-10 04:00] VITALS: BP 102/57
[2018-11-10 07:31] LABS: BASOPHILS % 0.5 % (0.0-2.0); EOSINOPHILS % 2.5 % (0.0-5.0); HEMATOCRIT. 26.6 % (36.0-48.0); HEMOGLOBIN. 8.7 g/dL (12.0-16.0); LYMPHOCYTES % 24.5 % (20.0-50.0); MEAN CORPUSCULAR HEMOGLOBIN 29.4 pg (28.0-32.0); MEAN CORPUSCULAR VOLUME 90.3 fL (81.0-99.0); MEAN PLATELET VOLUME 9.5 fl (7.4-10.4); MONOCYTES % 11.6 % (2.0-8.0); NEUTROPHILS % 60.9 % (40.0-76.0); PLATELET 181 x1000/uL (130-400); RED BLOOD CELL COUNT 2.95 mill/uL (4.2-5.4); RED CELL DISTRIBUTION WIDTH 16.6 % (11.6-14.6)
[2018-11-10] MEDS: INSULIN LISPRO 100 UNITS/ML SUBCUT SCH ×4 (07:45→21:00)
[2018-11-10] MEDS: BLOOD SUGAR DIAGNOSTIC STRIP TEST SCH ×4 (07:45→21:16)
[2018-11-10 08:00] VITALS: BP 98/53
[2018-11-10] MEDS: CALCIUM ACETATE 667MG CAPSULE PO SCH ×3 (08:35→17:35)
[2018-11-10] MEDS: FOLIC ACID/VITAMIN B COMP W-C TABLET PO SCH (08:35)
[2018-11-10] MEDS: SODIUM CHLORIDE 0.9% 1,000 ML IV SCH ×2 (09:00→21:31)
[2018-11-10 12:00] VITALS: BP 103/46
[2018-11-10] MEDS: NYSTATIN POWDER 15GM TOP SCH ×2 (14:10→21:31)
[2018-11-10 16:00] VITALS: BP 121/64
[2018-11-10 20:00] VITALS: BP 118/66
[2018-11-10] MEDS: ATORVASTATIN CALCIUM 10MG TABLET PO SCH (20:59)
[2018-11-10] MEDS: SERTRALINE HCL 50MG TABLET PO SCH (20:59)
[2018-11-10] MEDS: AMITRIPTYLINE 25MG TABLET PO SCH (20:59)
[2018-11-10] MEDS: EPOETIN ALFA 10000UNITS/ML VIAL SUBCUT SCH (21:31)
[2018-11-11] VITALS: BP 116/66
[2018-11-11] MEDS: METOCLOPRAMIDE HCL 10MG/2ML VIAL IV SCH ×5 (00:13→23:32)
[2018-11-11] MEDS: PIPERACILLIN/TAZ 2.25G PREMIX 50 ML IV SCH ×3 (02:13→17:23)
[2018-11-11] MEDS: HYDROMORPHONE HCL/PF 2MG/ML CPJ IV PRN ×5 (03:39→21:01)
[2018-11-11 04:00] VITALS: BP 115/69
[2018-11-11] MEDS: NYSTATIN POWDER 15GM TOP SCH ×3 (05:36→22:00)
[2018-11-11] MEDS: SODIUM CHLORIDE 0.9% 1,000 ML IV SCH ×2 (06:00→10:35)
[2018-11-11] MEDS: BLOOD SUGAR DIAGNOSTIC STRIP TEST SCH ×4 (06:31→23:00)
[2018-11-11] MEDS: INSULIN LISPRO 100 UNITS/ML SUBCUT SCH ×4 (06:32→23:00)
[2018-11-11 07:36] LABS: BASOPHILS % 0.8 % (0.0-2.0); EOSINOPHILS % 3.8 % (0.0-5.0); HEMATOCRIT. 25.9 % (36.0-48.0); HEMOGLOBIN. 8.6 g/dL (12.0-16.0); LYMPHOCYTES % 28.5 % (20.0-50.0); MEAN CORPUSCULAR HEMOGLOBIN 29.4 pg (28.0-32.0); MEAN CORPUSCULAR VOLUME 88.6 fL (81.0-99.0); MEAN PLATELET VOLUME 9.5 fl (7.4-10.4); MONOCYTES % 10.9 % (2.0-8.0); PLATELET 168 x1000/uL (130-400); RED BLOOD CELL COUNT 2.92 mill/uL (4.2-5.4); RED CELL DISTRIBUTION WIDTH 16.1 % (11.6-14.6)
[2018-11-11 08:00] VITALS: BP 127/73
[2018-11-11] MEDS: CALCIUM ACETATE 667MG CAPSULE PO SCH ×3 (08:19→18:12)
[2018-11-11] MEDS: FOLIC ACID/VITAMIN B COMP W-C TABLET PO SCH (08:19)
[2018-11-11] MEDS: DIPHENHYDRAMINE 50MG/ML VIAL IV PRN (10:40)
[2018-11-11 12:00] VITALS: BP 102/66
[2018-11-11 16:00] VITALS: BP 146/83
[2018-11-11 20:00] VITALS: BP 147/75
[2018-11-11] MEDS: ATORVASTATIN CALCIUM 10MG TABLET PO SCH ×2 (20:30→20:55)
[2018-11-11] MEDS: AMITRIPTYLINE 25MG TABLET PO SCH (20:55)
[2018-11-11] MEDS: SERTRALINE HCL 50MG TABLET PO SCH (20:55)
[2018-11-12] VITALS: BP 127/77
[2018-11-12] MEDS: PIPERACILLIN/TAZ 2.25G PREMIX 50 ML IV SCH ×3 (02:13→17:35)
[2018-11-12] MEDS: HYDROMORPHONE HCL/PF 2MG/ML CPJ IV PRN ×6 (02:22→20:30)
[2018-11-12 04:00] VITALS: BP 128/76
[2018-11-12] MEDS: METOCLOPRAMIDE HCL 10MG/2ML VIAL IV SCH ×3 (06:04→17:35)
[2018-11-12] MEDS: NYSTATIN POWDER 15GM TOP SCH ×3 (06:05→22:00)
[2018-11-12] MEDS: BLOOD SUGAR DIAGNOSTIC STRIP TEST SCH ×4 (07:20→21:31)
[2018-11-12] MEDS: INSULIN LISPRO 100 UNITS/ML SUBCUT SCH ×4 (07:50→21:00)
[2018-11-12 08:07] VITALS: BP 144/86
[2018-11-12] MEDS: FOLIC ACID/VITAMIN B COMP W-C TABLET PO SCH (08:24)
[2018-11-12] MEDS: CALCIUM ACETATE 667MG CAPSULE PO SCH ×3 (08:24→17:35)
[2018-11-12] MEDS: DIPHENHYDRAMINE 50MG/ML VIAL IV PRN ×2 (08:29→21:25)
[2018-11-12] MEDS: SODIUM CHLORIDE 0.9% 1,000 ML IV SCH ×2 (11:04→23:52)
[2018-11-12 11:44] LABS: BASOPHILS % 0.3 % (0.0-2.0); EOSINOPHILS % 3.6 % (0.0-5.0); HEMATOCRIT. 28.1 % (36.0-48.0); HEMOGLOBIN. 9.3 g/dL (12.0-16.0); LYMPHOCYTES % 26.5 % (20.0-50.0); MEAN CORPUSCULAR HEMOGLOBIN 29.2 pg (28.0-32.0); MEAN CORPUSCULAR VOLUME 87.9 fL (81.0-99.0); MEAN PLATELET VOLUME 9.2 fl (7.4-10.4); MONOCYTES % 11.9 % (2.0-8.0); NEUTROPHILS % 57.7 % (40.0-76.0); PLATELET 200 x1000/uL (130-400); RED CELL DISTRIBUTION WIDTH 16.4 % (11.6-14.6)
[2018-11-12 11:53] VITALS: BP 165/82
[2018-11-12] MEDS: CLONIDINE 0.1MG TABLET PO PRN (11:56)
[2018-11-12] MEDS ORDERED: VANCOMYCIN 1 G PREMIX 200 ML IV SCH (14:00)
[2018-11-12 16:03] VITALS: BP 140/71
[2018-11-12 20:00] VITALS: BP 140/82
[2018-11-12] MEDS: AMITRIPTYLINE 25MG TABLET PO SCH (20:32)
[2018-11-12] MEDS: SERTRALINE HCL 50MG TABLET PO SCH (20:32)
[2018-11-12] MEDS: ATORVASTATIN CALCIUM 10MG TABLET PO SCH (20:33)
[2018-11-12] MEDS: ONDANSETRON HCL 4MG/2ML INJ IV PRN (21:26)
[2018-11-13] VITALS: BP 136/77
[2018-11-13] MEDS: METOCLOPRAMIDE HCL 10MG/2ML VIAL IV SCH ×4 (01:07→18:31)
[2018-11-13] MEDS: PIPERACILLIN/TAZ 2.25G PREMIX 50 ML IV SCH ×3 (01:07→18:31)
[2018-11-13 04:00] VITALS: BP 178/90
[2018-11-13] MEDS: CLONIDINE 0.1MG TABLET PO PRN (04:36)
[2018-11-13] MEDS: HYDROMORPHONE HCL/PF 2MG/ML CPJ IV PRN ×4 (04:37→21:02)
[2018-11-13] MEDS: NYSTATIN POWDER 15GM TOP SCH ×2 (06:21→16:22)
[2018-11-13] MEDS: BLOOD SUGAR DIAGNOSTIC STRIP TEST SCH ×4 (06:21→21:00)
[2018-11-13] MEDS: DIPHENHYDRAMINE 50MG/ML VIAL IV PRN ×2 (06:21→13:00)
[2018-11-13] MEDS: INSULIN LISPRO 100 UNITS/ML SUBCUT SCH ×4 (06:22→21:00)
[2018-11-13 07:02] LABS: PHOSPHORUS 2.3 mg/dL (2.5-4.9)
[2018-11-13 07:18] LABS: BASOPHILS % 0.8 % (0.0-2.0); HEMATOCRIT. 28.6 % (36.0-48.0); HEMOGLOBIN. 9.4 g/dL (12.0-16.0); LYMPHOCYTES % 21.9 % (20.0-50.0); MEAN CORPUSCULAR HEMOGLOBIN 29.2 pg (28.0-32.0); MEAN CORPUSCULAR VOLUME 88.8 fL (81.0-99.0); MEAN PLATELET VOLUME 9.8 fl (7.4-10.4); MONOCYTES % 11.1 % (2.0-8.0); NEUTROPHILS % 62.2 % (40.0-76.0); PLATELET 200 x1000/uL (130-400); RED BLOOD CELL COUNT 3.21 mill/uL (4.2-5.4); RED CELL DISTRIBUTION WIDTH 16.6 % (11.6-14.6)
[2018-11-13 08:00] VITALS: BP 137/79
[2018-11-13] MEDS ORDERED: NALOXONE HCL 0.4 MG/ML 1ML VIAL IV PRN (09:30)
[2018-11-13] MEDS ORDERED: HYDROCODONE/ACETAMINOPHEN 5/325MG TABLET PO PRN (09:30)
[2018-11-13] MEDS: FOLIC ACID/VITAMIN B COMP W-C TABLET PO SCH (09:33)
[2018-11-13 12:00] VITALS: BP 131/71
[2018-11-13 16:00] VITALS: BP 132/77
[2018-11-13 20:00] VITALS: BP 147/77
[2018-11-13] MEDS: ATORVASTATIN CALCIUM 10MG TABLET PO SCH (20:42)
[2018-11-13] MEDS: SERTRALINE HCL 50MG TABLET PO SCH (20:43)
[2018-11-13] MEDS: AMITRIPTYLINE 25MG TABLET PO SCH (20:43)
[2018-11-13] MEDS: EPOETIN ALFA 10000UNITS/ML VIAL SUBCUT SCH (20:46)
[2018-11-13] MEDS ORDERED: VANCOMYCIN 1 G PREMIX 200 ML IV SCH (21:00)
[2018-11-13] MEDS: SODIUM CHLORIDE 0.9% 1,000 ML IV SCH (21:04)
[2018-11-14] VITALS: BP 115/68
[2018-11-14] MEDS: METOCLOPRAMIDE HCL 10MG/2ML VIAL IV SCH ×4 (00:17→17:31)
[2018-11-14] MEDS: NYSTATIN POWDER 15GM TOP SCH ×4 (00:25→21:49)
[2018-11-14] MEDS: DIPHENHYDRAMINE 50MG/ML VIAL IV PRN ×2 (00:44→21:45)
[2018-11-14] MEDS: PIPERACILLIN/TAZ 2.25G PREMIX 50 ML IV SCH ×2 (02:21→09:26)
[2018-11-14] MEDS: HYDROMORPHONE HCL/PF 2MG/ML CPJ IV PRN ×4 (03:05→19:24)
[2018-11-14 04:00] VITALS: BP 138/65
[2018-11-14] MEDS: BLOOD SUGAR DIAGNOSTIC STRIP TEST SCH ×4 (07:03→21:00)
[2018-11-14] MEDS: INSULIN LISPRO 100 UNITS/ML SUBCUT SCH ×4 (07:50→21:00)
[2018-11-14 08:00] VITALS: BP 144/75
[2018-11-14] MEDS: FOLIC ACID/VITAMIN B COMP W-C TABLET PO SCH (09:26)
[2018-11-14 16:00] VITALS: BP 160/78
[2018-11-14] MEDS: PIPERACILLIN/TAZOBACTAM 2.25 G in DEXTROSE 5% WATER 50 ML IV SCH (17:31)
[2018-11-14 20:00] VITALS: BP 115/67
[2018-11-14] MEDS: AMITRIPTYLINE 25MG TABLET PO SCH (21:44)
[2018-11-14] MEDS: SERTRALINE HCL 50MG TABLET PO SCH (21:44)
[2018-11-14] MEDS: ATORVASTATIN CALCIUM 10MG TABLET PO SCH (21:44)
[2018-11-15] VITALS: BP 141/88
[2018-11-15] MEDS: METOCLOPRAMIDE HCL 10MG/2ML VIAL IV SCH ×4 (01:26→17:47)
[2018-11-15] MEDS: PIPERACILLIN/TAZOBACTAM 2.25 G in DEXTROSE 5% WATER 50 ML IV SCH ×3 (01:26→20:03)
[2018-11-15] MEDS: HYDROMORPHONE HCL/PF 2MG/ML CPJ IV PRN ×6 (01:27→22:38)
[2018-11-15] MEDS: SODIUM CHLORIDE 0.9% 1,000 ML IV SCH (01:28)
[2018-11-15 04:00] VITALS: BP 158/79
[2018-11-15] MEDS: NYSTATIN POWDER 15GM TOP SCH ×3 (05:47→22:56)
[2018-11-15 06:27] LABS: BASOPHILS % 0.7 % (0.0-2.0); EOSINOPHILS % 3.7 % (0.0-5.0); HEMATOCRIT. 29.1 % (36.0-48.0); HEMOGLOBIN. 9.4 g/dL (12.0-16.0); MEAN CORPUSCULAR HEMOGLOBIN 28.7 pg (28.0-32.0); MEAN CORPUSCULAR VOLUME 88.5 fL (81.0-99.0); MEAN PLATELET VOLUME 9.3 fl (7.4-10.4); MONOCYTES % 11.9 % (2.0-8.0); NEUTROPHILS % 52.7 % (40.0-76.0); PLATELET 196 x1000/uL (130-400); RED BLOOD CELL COUNT 3.29 mill/uL (4.2-5.4); RED CELL DISTRIBUTION WIDTH 16.8 % (11.6-14.6)
[2018-11-15 07:16] LABS: PHOSPHORUS 2.7 mg/dL (2.5-4.9)
[2018-11-15] MEDS: BLOOD SUGAR DIAGNOSTIC STRIP TEST SCH ×4 (07:20→20:21)
[2018-11-15] MEDS: INSULIN LISPRO 100 UNITS/ML SUBCUT SCH ×4 (07:50→20:21)
[2018-11-15 08:00] VITALS: BP 159/86
[2018-11-15] MEDS: FOLIC ACID/VITAMIN B COMP W-C TABLET PO SCH (09:34)
[2018-11-15 11:59] VITALS: BP 150/75
[2018-11-15] MEDS: DIPHENHYDRAMINE 50MG/ML VIAL IV PRN (12:10)
[2018-11-15] MEDS ORDERED: AMLODIPINE 10MG TABLET PO NR (16:00)
[2018-11-15] MEDS ORDERED: AMLO10TA80 PO (16:35)
[2018-11-15] MEDS ORDERED: NEPVIT PO (16:35)
[2018-11-15] MEDS ORDERED: VANCOMYCIN 1 G PREMIX 200 ML IV SCH (17:00)
[2018-11-15 20:00] VITALS: BP 127/65
[2018-11-15] MEDS: SERTRALINE HCL 50MG TABLET PO SCH (20:26)
[2018-11-15] MEDS: AMITRIPTYLINE 25MG TABLET PO SCH (20:26)
[2018-11-15] MEDS: ATORVASTATIN CALCIUM 10MG TABLET PO SCH (20:30)
[2018-11-15] MEDS: EPOETIN ALFA 10000UNITS/ML VIAL SUBCUT SCH (22:52)
[2018-11-16] VITALS: BP 131/65
[2018-11-16] MEDS: METOCLOPRAMIDE HCL 10MG/2ML VIAL IV SCH ×2 (00:17→06:45)
[2018-11-16] MEDS: PIPERACILLIN/TAZOBACTAM 2.25 G in DEXTROSE 5% WATER 50 ML IV SCH ×2 (03:30→09:10)
[2018-11-16] MEDS: HYDROMORPHONE HCL/PF 2MG/ML CPJ IV PRN ×2 (03:31→09:11)
[2018-11-16 04:00] VITALS: BP 139/53
[2018-11-16] MEDS: DIPHENHYDRAMINE 50MG/ML VIAL IV PRN (06:42)
[2018-11-16] MEDS: NYSTATIN POWDER 15GM TOP SCH (06:45)
[2018-11-16] MEDS: BLOOD SUGAR DIAGNOSTIC STRIP TEST SCH (07:20)
[2018-11-16] MEDS: INSULIN LISPRO 100 UNITS/ML SUBCUT SCH (07:50)
[2018-11-16 08:00] VITALS: BP 157/78
[2018-11-16] MEDS ORDERED: AMLODIPINE 10MG TABLET PO SCH (09:00)
[2018-11-16] MEDS: FOLIC ACID/VITAMIN B COMP W-C TABLET PO SCH (09:10)
[2018-11-16 12:00] VITALS: BP 127/74
== END 2018-11-16 12:33 | DRG 317 ==
LOC: ER 09:59 → 6EST 13:53 → EDBEDREQ 14:07 → EDBEDREQSVC 14:07 → ENRESERV 15:16
PROVIDERS: ADMIT Internal Medicine; ATTEND Internal Medicine
PROC: 0WQF0ZZ Repair Abdominal Wall, Open Approach (ICD-10-PCS; 2018-11-07)
PROC: 0FT44ZZ Resection of Gallbladder, Percutaneous Endoscopic Approach (ICD-10-PCS; 2018-11-07)
PROC: 05HY33Z Insertion of Infusion Device into Upper Vein, Percutaneous Approach (ICD-10-PCS; 2018-11-07)
PROC: B54MZZA Ultrasonography of Right Upper Extremity Veins, Guidance (ICD-10-PCS; 2018-11-07)
PROC: 5A1D70Z Performance of Urinary Filtration, Intermittent, Less than 6 Hours Per Day (ICD-10-PCS; 2018-11-07)
PROC: 8E0W4CZ Robotic Assisted Procedure of Trunk Region, Percutaneous Endoscopic Approach (ICD-10-PCS; 2018-11-07)
PROC: 0KBT0ZZ Excision of Left Lower Leg Muscle, Open Approach (ICD-10-PCS; principal; 2018-11-09)
PROC: 5A1D70Z Performance of Urinary Filtration, Intermittent, Less than 6 Hours Per Day (ICD-10-PCS; 2018-11-09)
PROC: 5A1D70Z Performance of Urinary Filtration, Intermittent, Less than 6 Hours Per Day (ICD-10-PCS; 2018-11-13)
PROC: 5A1D70Z Performance of Urinary Filtration, Intermittent, Less than 6 Hours Per Day (ICD-10-PCS; 2018-11-14)
DX: T87.81 Dehiscence of amputation stump (principal); I13.2 Hypertensive heart and chronic kidney disease with heart failure and with stage 5 chronic kidney disease, or end stage renal disease; E11.22 Type 2 diabetes mellitus with diabetic chronic kidney disease; K80.00 Calculus of gallbladder with acute cholecystitis without obstruction; E46 Unspecified protein-calorie malnutrition; E11.40 Type 2 diabetes mellitus with diabetic neuropathy, unspecified; K42.0 Umbilical hernia with obstruction, without gangrene; E83.39 Other disorders of phosphorus metabolism; N25.81 Secondary hyperparathyroidism of renal origin; C50.919 Malignant neoplasm of unspecified site of unspecified female breast; D64.9 Anemia, unspecified; N18.6 End stage renal disease; N28.1 Cyst of kidney, acquired; N27.0 Small kidney, unilateral; E78.5 Hyperlipidemia, unspecified; J44.9 Chronic obstructive pulmonary disease, unspecified; I50.32 Chronic diastolic (congestive) heart failure; D72.821 Monocytosis (symptomatic); E11.51 Type 2 diabetes mellitus with diabetic peripheral angiopathy without gangrene; E11.69 Type 2 diabetes mellitus with other specified complication; E78.00 Pure hypercholesterolemia, unspecified; F32.9 Major depressive disorder, single episode, unspecified; F41.9 Anxiety disorder, unspecified; G54.6 Phantom limb syndrome with pain; G89.4 Chronic pain syndrome; L29.9 Pruritus, unspecified; Y83.8 Other surgical procedures as the cause of abnormal reaction of the patient, or of later complication, without mention of misadventure at the time of the procedure; M86.8X6 Other osteomyelitis, lower leg; R26.9 Unspecified abnormalities of gait and mobility; R29.6 Repeated falls; Z89.519 Acquired absence of unspecified leg below knee; Z79.02 Long term (current) use of antithrombotics/antiplatelets; Z88.1 Allergy status to other antibiotic agents; Z79.84 Long term (current) use of oral hypoglycemic drugs; Z99.2 Dependence on renal dialysis; Z88.2 Allergy status to sulfonamides; Z88.8 Allergy status to other drugs, medicaments and biological substances; Z79.899 Other long term (current) drug therapy; Z91.018 Allergy to other foods; Z68.30 Body mass index [BMI] 30.0-30.9, adult; Z79.82 Long term (current) use of aspirin; Z89.612 Acquired absence of left leg above knee; Z98.84 Bariatric surgery status; Y92.89 Other specified places as the place of occurrence of the external cause; Z87.81 Personal history of (healed) traumatic fracture
CPT/HCPCS: 36415; 71045; 76705; 76937; 80048; 80202; 82728; 82962; 83036; 83540; 83550; 83735; 84100; 84134; 86850; 86900; 88302; 88304; 93005; 96365; 96375; 97162; 97164; 97167; 97530; 97535; 99285; A6261; C1725; J0330; J0690; J0694; J0885; J1170; J1200; J1815; J2250; J2270; J2370; J2405; J2543; J2704; J2710; J2765; J3010; J3370; J3490; J7060; P9041; P9047; Q9957; A4315

== ENCOUNTER 2018-11-16 21:22 | Emergency (ER) | payer MEDICAID, OTHER ==
[~2018-11-16] VITALS: Ht 167.6 cm; Wt 81.0 kg
[~2018-11-16 21:22] MED LIST changes: +AMLO10TA80 PO; -ASPI-1393 PO; -GABA-531 PO; +NEPVIT PO
[2018-11-16 22:46] LABS: BASOPHILS % 1.4 % (0.0-2.0); EOSINOPHILS % 3.2 % (0.0-5.0); HEMATOCRIT. 31.4 % (36.0-48.0); HEMOGLOBIN. 10.6 g/dL (12.0-16.0); LYMPHOCYTES % 21.1 % (20.0-50.0); MEAN CORPUSCULAR HEMOGLOBIN 29.4 pg (28.0-32.0); MEAN CORPUSCULAR VOLUME 87.1 fL (81.0-99.0); MONOCYTES % 9.7 % (2.0-8.0); NEUTROPHILS % 64.6 % (40.0-76.0); PLATELET 223 x1000/uL (130-400); RED CELL DISTRIBUTION WIDTH 16.6 % (11.6-14.6)
[2018-11-16 22:52] LABS: CHLORIDE 107 mEq/L (98-107)
[2018-11-16 22:53] LABS: INR 1.1
[2018-11-16] MEDS: SODIUM CHLORIDE 0.9% 1,000 ML IV ONE (23:06)
[2018-11-16] MEDS: ONDANSETRON HCL 4MG/2ML INJ IV STA (23:06)
[2018-11-16] MEDS: MORPHINE SULFATE 4 MG/ML CPJ (NOT FOR IM USE) IV STA (23:06)
[2018-11-17] MEDS: METOCLOPRAMIDE HCL 10MG/2ML VIAL IV ONE (00:07)
[2018-11-17] MEDS: KETOROLAC 30MG/ML VIAL IV ONE (00:37)
[2018-11-17 07:55] VITALS: BP 144/74
== END 2018-11-17 08:05 | disposition home or self-care (01) ==
LOC: ER 21:22
DX: R10.9 Unspecified abdominal pain (principal); G89.18 Other acute postprocedural pain; E11.9 Type 2 diabetes mellitus without complications; N18.6 End stage renal disease; Z99.2 Dependence on renal dialysis; Z98.890 Other specified postprocedural states; Z90.49 Acquired absence of other specified parts of digestive tract; Z79.82 Long term (current) use of aspirin; Z79.899 Other long term (current) drug therapy; Z88.2 Allergy status to sulfonamides; Z88.6 Allergy status to analgesic agent; Z91.018 Allergy to other foods
CPT/HCPCS: 36415; 74176; 80053; 83690; 85025; 85610; 93005; 96374; 96375; 96376; 99284; J1885; J2270; J2405; J2765; J7030

== ENCOUNTER 2019-01-16 08:06 | Emergency (ER) | payer MEDICAID ==
[~2019-01-16] VITALS: Ht 165.1 cm; Wt 72.0 kg
[2019-01-16] VITALS (13 sets, daily range): BP systolic 93–118; BP diastolic 44–64
[~2019-01-16 08:06] MED LIST changes: -ACET-2178 PO; +TOPUD PO
[2019-01-16] MEDS ORDERED: MORPHINE SULFATE 4 MG/ML CPJ (NOT FOR IM USE) IV STA (08:22)
[2019-01-16 09:31] LABS: BASOPHILS % 1.3 % (0.0-2.0); CHLORIDE 102 mEq/L (98-107); EOSINOPHILS % 3.9 % (0.0-5.0); HEMATOCRIT. 37.3 % (36.0-48.0); HEMOGLOBIN. 12.5 g/dL (12.0-16.0); MEAN CORPUSCULAR HEMOGLOBIN 29.2 pg (28.0-32.0); MEAN CORPUSCULAR VOLUME 87.1 fL (81.0-99.0); MEAN PLATELET VOLUME 9.3 fl (7.4-10.4); MONOCYTES % 6.3 % (2.0-8.0); NEUTROPHILS % 63.5 % (40.0-76.0); PLATELET 179 x1000/uL (130-400); RED BLOOD CELL COUNT 4.28 mill/uL (4.2-5.4); RED CELL DISTRIBUTION WIDTH 18.9 % (11.6-14.6)
[2019-01-16] MEDS ORDERED: CEFAZOLIN 1000MG PREMIX 50 ML IV ONE ×2 (10:15→11:29)
[2019-01-16 10:35] LABS: INR 0.9; PROTHROMBIN TIME 9.7 sec (9.6-11.0)
[2019-01-16] MEDS ORDERED: FENTANYL CITRATE/PF 50MCG/ML 2ML VIAL ONE (11:29)
[2019-01-16] MEDS ORDERED: LIDOCAINE HCL 1% 20ML VIAL (Pyxis) INJ ONE (11:37)
[2019-01-16] MEDS ORDERED: SODIUM BICARBONATE 4% (2.4MEQ) 5ML VIAL IV ONE (11:37)
[2019-01-16] MEDS ORDERED: FENTANYL CITRATE/PF 50MCG/ML 2ML VIAL IV ONE (12:30)
== END 2019-01-16 15:16 | disposition home or self-care (01) ==
LOC: ER 08:31
DX: T82.41XA Breakdown (mechanical) of vascular dialysis catheter, initial encounter (principal); N28.9 Disorder of kidney and ureter, unspecified; E11.9 Type 2 diabetes mellitus without complications; E78.00 Pure hypercholesterolemia, unspecified; I10 Essential (primary) hypertension; Z90.49 Acquired absence of other specified parts of digestive tract; Z98.890 Other specified postprocedural states; Z99.2 Dependence on renal dialysis; Z89.612 Acquired absence of left leg above knee; Z79.899 Other long term (current) drug therapy; Z88.2 Allergy status to sulfonamides; Z88.6 Allergy status to analgesic agent; Z91.018 Allergy to other foods
CPT/HCPCS: 36415; 36558; 71045; 76937; 77001; 80053; 83880; 84484; 85025; 85610; 93005; 96365; 96375; 99284; C1750; C1769; J0690; J1642; J2270; J3010; J3490; Z7610; 99152; 99153; G0500

== ENCOUNTER 2019-05-29 19:06 | Emergency (ER) | payer MEDICAID ==
[~2019-05-29] VITALS: Ht 167.6 cm; Wt 82.0 kg
[~2019-05-29 19:06] MED LIST changes: +GABA-290 PO; +MELA3TAB71 PO
[2019-05-29 19:08] VITALS: BP 112/72
== END 2019-05-29 21:15 | disposition left against medical advice (07) ==
LOC: ER 19:06
DX: T83.028A Displacement of other urinary catheter, initial encounter (principal); Z53.21 Procedure and treatment not carried out due to patient leaving prior to being seen by health care provider
CPT/HCPCS: 99283

== ENCOUNTER 2019-06-29 14:31 | Emergency (ER) | payer MEDICAID, OTHER ==
[~2019-06-29] VITALS: Ht 162.6 cm; Wt 136.0 kg
[2019-06-29] MEDS ORDERED: HYDROCODONE/ACETAMINOPHEN 5/325MG TABLET PO STA (15:03)
[2019-06-29 17:34] LABS: BASOPHILS % 1.4 % (0.0-2.0); EOSINOPHILS % 4.8 % (0.0-5.0); HEMATOCRIT. 38.6 % (36.0-48.0); LYMPHOCYTES % 25.7 % (20.0-50.0); MEAN CORPUSCULAR HEMOGLOBIN 31.7 pg (28.0-32.0); MEAN CORPUSCULAR VOLUME 94.1 fL (81.0-99.0); MEAN PLATELET VOLUME 9.4 fl (7.4-10.4); MONOCYTES % 9.6 % (2.0-8.0); NEUTROPHILS % 58.5 % (40.0-76.0); PLATELET 201 x1000/uL (130-400); RED CELL DISTRIBUTION WIDTH 16.9 % (11.6-14.6)
[2019-06-29 17:40] LABS: CHLORIDE 98 mEq/L (98-107)
[2019-06-29] MEDS ORDERED: MORPHINE SULFATE 4 MG/ML CPJ (NOT FOR IM USE) IV STA (17:43)
[2019-06-29] MEDS ORDERED: ONDANSETRON HCL 4MG/2ML INJ IV STA (17:43)
[2019-06-29 17:53] VITALS: BP 141/83
== END 2019-06-29 19:13 | disposition home or self-care (01) ==
LOC: ER 14:31
DX: L89.151 Pressure ulcer of sacral region, stage 1 (principal); M86.9 Osteomyelitis, unspecified; I12.0 Hypertensive chronic kidney disease with stage 5 chronic kidney disease or end stage renal disease; E11.22 Type 2 diabetes mellitus with diabetic chronic kidney disease; N18.6 End stage renal disease; Z99.2 Dependence on renal dialysis; Z89.612 Acquired absence of left leg above knee; E78.00 Pure hypercholesterolemia, unspecified; Z90.49 Acquired absence of other specified parts of digestive tract; Z98.890 Other specified postprocedural states; Z85.3 Personal history of malignant neoplasm of breast; Z87.19 Personal history of other diseases of the digestive system; Z79.899 Other long term (current) drug therapy; Z88.2 Allergy status to sulfonamides; Z88.6 Allergy status to analgesic agent; Z91.018 Allergy to other foods
CPT/HCPCS: 36415; 73630; 80053; 82962; 85025; 87040; 87077; 93005; 96374; 96375; 99285; J2270; J2405

== ENCOUNTER 2019-10-26 12:07 | Inpatient (IN) | payer MEDICAID ==
[~2019-10-26] VITALS: Ht 170.2 cm; Wt 111.6 kg
[~2019-10-26 12:07] MED LIST changes: +QUET50TA MT; +RISP05 MT
[2019-10-26 13:03] LABS: BASOPHILS % 1.2 % (0.0-2.0); HEMOGLOBIN. 11.5 g/dL (12.0-16.0); LYMPHOCYTES % 17.1 % (20.0-50.0); MEAN CORPUSCULAR HEMOGLOBIN 32.2 pg (28.0-32.0); MEAN CORPUSCULAR VOLUME 95.4 fL (81.0-99.0); MEAN PLATELET VOLUME 9.1 fl (7.4-10.4); NEUTROPHILS % 69.7 % (40.0-76.0); PLATELET 192 x1000/uL (130-400); RED BLOOD CELL COUNT 3.56 mill/uL (4.2-5.4); RED CELL DISTRIBUTION WIDTH 17.4 % (11.6-14.6)
[2019-10-26 13:11] LABS: CHLORIDE 102 mEq/L (98-107)
[2019-10-26 13:15] LABS: ETHANOL BLOOD < 10 mg/dL
[2019-10-26 13:30] LABS: CLARITY URINE CLEAR (CLEAR); COLOR URINE YELLOW (YELLOW); KETONES URINE NEGATIVE (NEGATIVE); LEUKOCYTE ESTERASE URINE TRACE (NEGATIVE); NITRITE URINE NEGATIVE (NEGATIVE); OCCULT BLOOD URINE NEGATIVE (NEGATIVE); PROTEIN URINE 1+ (NEGATIVE); SPECIFIC GRAVITY URINE 1.007 (1.005-1.030); UROBILINOGEN URINE 0.2 E.U./dL (0.2-1.0)
[2019-10-26 13:49] LABS: OPIATES URINE SCREEN NEGATIVE (NEGATIVE); PHENCYCLIDINE URINE SCREEN NEGATIVE (NEGATIVE)
[2019-10-26 13:50] LABS: *AMPHETAMINES SCREEN URINE NEGATIVE (NEGATIVE); *BARBITURATES SCREEN URINE NEGATIVE (NEGATIVE); *BENZODIAZEPINES SCREEN URINE NEGATIVE (NEGATIVE); *COCAINE SCREEN URINE NEGATIVE (NEGATIVE); CANNABINOID URINE SCREEN NEGATIVE (NEGATIVE); METHADONE URINE SCREEN NEGATIVE (NEGATIVE)
[2019-10-26] MEDS ORDERED: MORPHINE SULFATE 2 MG/ML CPJ (NOT FOR IM USE) IV PRN (18:45)
[2019-10-26 21:30] VITALS: BP 110/57
[2019-10-26 22:00] VITALS: BP 110/57
[2019-10-26] MEDS ORDERED: MEDICATION NOT ON FORMULARY EA (Melatonin 3 MG) PO PRN (23:45)
[2019-10-26] MEDS ORDERED: ACETAMINOPHEN 325MG TABLET PO PRN (23:45)
[2019-10-27 00:26] VITALS: BP 87/48
[2019-10-27 00:30] VITALS: BP 95/62
[2019-10-27 04:00] VITALS: BP 92/51
[2019-10-27 06:00] VITALS: BP 106/63
[2019-10-27] MEDS: MORPHINE SULFATE 2 MG/ML CPJ (NOT FOR IM USE) IV PRN ×2 (06:27→10:39)
[2019-10-27 07:06] LABS: EOSINOPHILS % 3.5 % (0.0-5.0); HEMATOCRIT. 31.8 % (36.0-48.0); HEMOGLOBIN. 10.8 g/dL (12.0-16.0); LYMPHOCYTES % 25.9 % (20.0-50.0); MEAN CORPUSCULAR HEMOGLOBIN 32.4 pg (28.0-32.0); MEAN CORPUSCULAR VOLUME 94.9 fL (81.0-99.0); MEAN PLATELET VOLUME 9.1 fl (7.4-10.4); MONOCYTES % 9.9 % (2.0-8.0); NEUTROPHILS % 59.7 % (40.0-76.0); PLATELET 192 x1000/uL (130-400); RED BLOOD CELL COUNT 3.35 mill/uL (4.2-5.4); RED CELL DISTRIBUTION WIDTH 17.4 % (11.6-14.6)
[2019-10-27 07:17] LABS: CHLORIDE 105 mEq/L (98-107)
[2019-10-27 08:00] VITALS: BP 101/53
[2019-10-27] MEDS ORDERED: CALCIUM ACETATE 667MG CAPSULE PO SCH (08:20)
[2019-10-27] MEDS ORDERED: AMLODIPINE 10MG TABLET PO SCH (09:00)
[2019-10-27] MEDS ORDERED: CLOPIDOGREL 75MG TABLET PO SCH ×2 (09:00→09:15)
[2019-10-27] MEDS ORDERED: CYCLOBENZAPRINE 10MG TABLET PO PRN (09:00)
[2019-10-27] MEDS ORDERED: HEPARIN 5000 UNITS/ML VIAL SUBCUT SCH (09:00)
[2019-10-27 12:00] VITALS: BP 124/50
[2019-10-27] MEDS ORDERED: GABAPENTIN 300MG CAPSULE PO SCH (21:00)
[2019-10-27] MEDS ORDERED: RISPERIDONE 0.5MG TABLET PO SCH (21:00)
[2019-10-27] MEDS ORDERED: ATORVASTATIN CALCIUM 10MG TABLET PO SCH (21:00)
[2019-10-27] MEDS ORDERED: SERTRALINE HCL 50MG TABLET PO SCH (21:00)
[2019-10-27] MEDS ORDERED: AMITRIPTYLINE 25MG TABLET PO SCH (21:00)
== END 2019-10-27 14:40 | disposition left against medical advice (07) | DRG 52 ==
LOC: ER 12:16 → 6WST 14:53 → ENRESERV 19:37 → 6WST 21:05
PROVIDERS: ADMIT Internal Medicine; ATTEND Internal Medicine
DX: G92 Toxic encephalopathy (principal); E11.51 Type 2 diabetes mellitus with diabetic peripheral angiopathy without gangrene; N18.6 End stage renal disease; E11.22 Type 2 diabetes mellitus with diabetic chronic kidney disease; F32.9 Major depressive disorder, single episode, unspecified; E78.5 Hyperlipidemia, unspecified; E11.40 Type 2 diabetes mellitus with diabetic neuropathy, unspecified; I13.11 Hypertensive heart and chronic kidney disease without heart failure, with stage 5 chronic kidney disease, or end stage renal disease; K57.90 Diverticulosis of intestine, part unspecified, without perforation or abscess without bleeding; M10.9 Gout, unspecified; T42.6X5A Adverse effect of other antiepileptic and sedative-hypnotic drugs, initial encounter; T42.4X5A Adverse effect of benzodiazepines, initial encounter; G89.4 Chronic pain syndrome; Z99.2 Dependence on renal dialysis; Z88.6 Allergy status to analgesic agent; Z91.018 Allergy to other foods; Z79.02 Long term (current) use of antithrombotics/antiplatelets; Z88.2 Allergy status to sulfonamides; Z79.899 Other long term (current) drug therapy; Z90.49 Acquired absence of other specified parts of digestive tract; Z87.11 Personal history of peptic ulcer disease; Z85.3 Personal history of malignant neoplasm of breast; Z92.21 Personal history of antineoplastic chemotherapy; Y92.89 Other specified places as the place of occurrence of the external cause; Z92.3 Personal history of irradiation; Z89.612 Acquired absence of left leg above knee; Z87.891 Personal history of nicotine dependence; Z82.49 Family history of ischemic heart disease and other diseases of the circulatory system; Z79.4 Long term (current) use of insulin
CPT/HCPCS: 36415; 80048; 80053; 80305; 80320; 81003; 82962; 84484; 85025; 93005; 93306; 96374; 99285; J1644; J2270; G0480

== ENCOUNTER 2019-12-09 14:15 | Inpatient (IN) | payer MEDICAID ==
[~2019-12-09] VITALS: Ht 170.2 cm; Wt 123.4 kg
[~2019-12-09 14:15] MED LIST changes: -DIAZ10TA MT; -NEPVIT PO
[2019-12-09] MEDS ORDERED: MORPHINE SULFATE 4 MG/ML CPJ (NOT FOR IM USE) IV STA (15:14)
[2019-12-09] MEDS ORDERED: ONDANSETRON HCL 4MG/2ML INJ IV STA (15:14)
[2019-12-09] MEDS ORDERED: PIPERACILLIN/TAZ 3.375G PREMIX 50 ML IV ONE (15:15)
[2019-12-09] MEDS ORDERED: VANCOMYCIN 1 G PREMIX 200 ML IV ONE (15:15)
[2019-12-09] MEDS ORDERED: SODIUM CHLORIDE 0.9% 1,000 ML IV ONE (15:17)
[2019-12-09 15:55] LABS: CHLORIDE 107 mEq/L (98-107)
[2019-12-09 15:58] LABS: BASOPHILS % 1.1 % (0.0-2.0); EOSINOPHILS % 3.5 % (0.0-5.0); HEMATOCRIT. 31.8 % (36.0-48.0); HEMOGLOBIN. 10.5 g/dL (12.0-16.0); LYMPHOCYTES % 22.7 % (20.0-50.0); MEAN CORPUSCULAR VOLUME 99.8 fL (81.0-99.0); MEAN PLATELET VOLUME 9.8 fl (7.4-10.4); MONOCYTES % 7.8 % (2.0-8.0); NEUTROPHILS % 64.9 % (40.0-76.0); PLATELET 209 x1000/uL (130-400); RED BLOOD CELL COUNT 3.19 mill/uL (4.2-5.4); RED CELL DISTRIBUTION WIDTH 16.6 % (11.6-14.6)
[2019-12-09 16:04] LABS: PARTIAL THROMBOPLASTIN TIME 29.5 sec (23.4-31.0); PROTHROMBIN TIME 10.3 sec (9.6-11.0)
[2019-12-09] MEDS ORDERED: SODIUM POLYSTYRENE SULFONATE 15 G/60 ML BOT PO ONE (17:15)
[2019-12-09] MEDS ORDERED: SODIUM BICARBONATE 8.4% 1 MEQ/ML 50ML SYR IV ONE (17:15)
[2019-12-09 21:00] VITALS: BP 94/49
[2019-12-09 22:00] VITALS: BP 106/49
[2019-12-09] MEDS ORDERED: CLONIDINE 0.1MG TABLET PO PRN ×2 (22:30→22:45)
[2019-12-09] MEDS ORDERED: ACETAMINOPHEN 325MG TABLET PO PRN ×3 (22:30→22:45)
[2019-12-09] MEDS ORDERED: DEXTROSE 50% WATER 50ML SYRINGE IV PRN (22:30)
[2019-12-09] MEDS ORDERED: ONDANSETRON HCL 4MG/2ML INJ IV PRN ×2 (22:30→22:45)
[2019-12-09] MEDS ORDERED: IPRATROPIUM/ALBUTEROL 0.5-3(2.5)MG/3ML NEB HHN PRN (22:45)
[2019-12-09] MEDS ORDERED: LORAZEPAM 0.5MG TABLET PO PRN (22:45)
[2019-12-09] MEDS ORDERED: DOCUSATE SODIUM 100MG CAPSULE PO PRN (22:45)
[2019-12-09 23:00] VITALS: BP 106/49
[2019-12-10] VITALS: BP 112/52
[2019-12-10 04:00] VITALS: BP 131/69
[2019-12-10] MEDS: BLOOD SUGAR DIAGNOSTIC STRIP TEST SCH ×4 (06:38→20:25)
[2019-12-10 08:00] VITALS: BP 106/63
[2019-12-10] MEDS ORDERED: VANCOMYCIN 1 G PREMIX 200 ML IV NR (08:00)
[2019-12-10] MEDS: INSULIN LISPRO 100 UNITS/ML SUBCUT SCH ×4 (08:10→21:00)
[2019-12-10] MEDS: HEPARIN 5000 UNITS/ML VIAL SUBCUT SCH ×2 (08:39→20:34)
[2019-12-10] MEDS: HYDROCODONE/APAP 7.5/325MG 1 TAB TABLET PO PRN (08:41)
[2019-12-10 10:40] LABS: BASOPHILS % 0.8 % (0.0-2.0); EOSINOPHILS % 3.3 % (0.0-5.0); HEMATOCRIT. 31.1 % (36.0-48.0); HEMOGLOBIN. 10.1 g/dL (12.0-16.0); LYMPHOCYTES % 17.8 % (20.0-50.0); MEAN CORPUSCULAR HEMOGLOBIN 32.3 pg (28.0-32.0); MEAN CORPUSCULAR VOLUME 99.9 fL (81.0-99.0); MEAN PLATELET VOLUME 9.3 fl (7.4-10.4); MONOCYTES % 10.2 % (2.0-8.0); NEUTROPHILS % 67.9 % (40.0-76.0); PLATELET 197 x1000/uL (130-400); RED BLOOD CELL COUNT 3.11 mill/uL (4.2-5.4); RED CELL DISTRIBUTION WIDTH 17.2 % (11.6-14.6)
[2019-12-10 10:45] LABS: CHLORIDE 108 mEq/L (98-107)
[2019-12-10] MEDS ORDERED: MORPHINE SULFATE 2 MG/ML CPJ (NOT FOR IM USE) IV NR (10:45)
[2019-12-10 12:00] VITALS: BP 150/73
[2019-12-10 16:00] VITALS: BP 105/50
[2019-12-10] MEDS: MORPHINE SULFATE 2 MG/ML CPJ (NOT FOR IM USE) IV PRN ×2 (17:13→21:41)
[2019-12-10 20:00] VITALS: BP 132/68
[2019-12-10] MEDS: HYDROCODONE/ACETAMINOPHEN 5/325MG TABLET PO PRN (20:33)
[2019-12-11 00:23] VITALS: BP 165/73
[2019-12-11] MEDS: MORPHINE SULFATE 2 MG/ML CPJ (NOT FOR IM USE) IV PRN ×4 (03:08→18:56)
[2019-12-11 04:00] VITALS: BP 116/60
[2019-12-11] MEDS: BLOOD SUGAR DIAGNOSTIC STRIP TEST SCH ×4 (06:41→21:19)
[2019-12-11] MEDS: INSULIN LISPRO 100 UNITS/ML SUBCUT SCH ×4 (07:50→21:00)
[2019-12-11] MEDS ORDERED: ALTEPLASE 2MG/VIAL ITC SCH (08:00)
[2019-12-11 08:16] VITALS: BP 120/63
[2019-12-11] MEDS: HYDROCODONE/APAP 7.5/325MG 1 TAB TABLET PO PRN ×3 (11:12→21:58)
[2019-12-11] MEDS: HEPARIN 5000 UNITS/ML VIAL SUBCUT SCH ×2 (11:12→21:59)
[2019-12-11 12:11] VITALS: BP 124/67
[2019-12-11] MEDS ORDERED: ALPRAZOLAM 0.25 MG TABLET PO SCH (12:30)
[2019-12-11] MEDS: GABAPENTIN 300MG CAPSULE PO SCH ×2 (13:30→21:59)
[2019-12-11 15:10] LABS: BASOPHILS % 1.3 % (0.0-2.0); EOSINOPHILS % 3.9 % (0.0-5.0); HEMOGLOBIN. 10.6 g/dL (12.0-16.0); LYMPHOCYTES % 22.9 % (20.0-50.0); MEAN CORPUSCULAR HEMOGLOBIN 33.1 pg (28.0-32.0); MEAN CORPUSCULAR VOLUME 100.3 fL (81.0-99.0); MEAN PLATELET VOLUME 9.4 fl (7.4-10.4); MONOCYTES % 9.8 % (2.0-8.0); NEUTROPHILS % 62.1 % (40.0-76.0); PLATELET 193 x1000/uL (130-400); RED BLOOD CELL COUNT 3.19 mill/uL (4.2-5.4); RED CELL DISTRIBUTION WIDTH 16.6 % (11.6-14.6)
[2019-12-11 16:01] VITALS: BP 105/55
[2019-12-11 20:20] VITALS: BP 126/48
[2019-12-11] MEDS: AMITRIPTYLINE 25MG TABLET PO SCH (21:59)
[2019-12-12] VITALS (15 sets, daily range): BP systolic 111–174; BP diastolic 65–87
[2019-12-12] MEDS: MORPHINE SULFATE 2 MG/ML CPJ (NOT FOR IM USE) IV PRN ×5 (00:28→21:14)
[2019-12-12] MEDS: GABAPENTIN 300MG CAPSULE PO SCH ×3 (06:00→21:15)
[2019-12-12] MEDS: BLOOD SUGAR DIAGNOSTIC STRIP TEST SCH ×4 (06:19→21:16)
[2019-12-12] MEDS: INSULIN LISPRO 100 UNITS/ML SUBCUT SCH ×4 (07:36→21:00)
[2019-12-12] MEDS: CLOPIDOGREL 75MG TABLET PO SCH (07:37)
[2019-12-12] MEDS: HEPARIN 5000 UNITS/ML VIAL SUBCUT SCH (07:37)
[2019-12-12 07:46] LABS: BASOPHILS % 0.8 % (0.0-2.0); EOSINOPHILS % 3.7 % (0.0-5.0); HEMATOCRIT. 30.2 % (36.0-48.0); HEMOGLOBIN. 9.8 g/dL (12.0-16.0); LYMPHOCYTES % 29.8 % (20.0-50.0); MEAN CORPUSCULAR HEMOGLOBIN 32.6 pg (28.0-32.0); MEAN CORPUSCULAR VOLUME 100.1 fL (81.0-99.0); MEAN PLATELET VOLUME 9.9 fl (7.4-10.4); NEUTROPHILS % 52.7 % (40.0-76.0); PLATELET 175 x1000/uL (130-400); RED BLOOD CELL COUNT 3.02 mill/uL (4.2-5.4); RED CELL DISTRIBUTION WIDTH 16.6 % (11.6-14.6)
[2019-12-12] MEDS ORDERED: HEPARIN 1000 UNITS/ML 10ML ONE (08:29)
[2019-12-12] MEDS ORDERED: LIDOCAINE HCL 1% 20ML VIAL (Pyxis) INJ ONE (08:29)
[2019-12-12] MEDS ORDERED: SODIUM BICARBONATE 4% (2.4MEQ) 5ML VIAL IV ONE (08:31)
[2019-12-12] MEDS ORDERED: FENTANYL CITRATE/PF 50MCG/ML 2ML VIAL ONE (08:39)
[2019-12-12] MEDS ORDERED: FENTANYL CITRATE/PF 50MCG/ML 2ML VIAL IV NR (09:00)
[2019-12-12] MEDS ORDERED: IOHEXOL-350 100 ML BOTTLE ONE (09:51)
[2019-12-12] MEDS: HYDROCODONE/APAP 7.5/325MG 1 TAB TABLET PO PRN ×2 (13:15→18:00)
[2019-12-12] MEDS ORDERED: VANCOMYCIN 750 MG PREMIX 150 ML IV SCH (15:00)
[2019-12-12] MEDS ORDERED: EPOETIN ALFA 4000UNITS/ML VIAL SUBCUT SCH (21:00)
[2019-12-12] MEDS: AMITRIPTYLINE 25MG TABLET PO SCH (21:15)
[2019-12-12] MEDS: ALPRAZOLAM 0.25 MG TABLET PO PRN (23:01)
[2019-12-13] VITALS (16 sets, daily range): BP systolic 118–197; BP diastolic 55–95
[2019-12-13] MEDS: GABAPENTIN 300MG CAPSULE PO SCH ×3 (06:00→22:49)
[2019-12-13] MEDS: MORPHINE SULFATE 2 MG/ML CPJ (NOT FOR IM USE) IV PRN ×3 (06:04→20:21)
[2019-12-13] MEDS: BLOOD SUGAR DIAGNOSTIC STRIP TEST SCH ×3 (06:36→21:25)
[2019-12-13] MEDS: INSULIN LISPRO 100 UNITS/ML SUBCUT SCH ×4 (07:24→21:00)
[2019-12-13] MEDS ORDERED: FENTANYL CITRATE/PF 50MCG/ML 2ML VIAL ONE ×2 (07:38→09:54)
[2019-12-13] MEDS ORDERED: LIDOCAINE HCL 1% 20ML VIAL (Pyxis) INJ ONE (07:38)
[2019-12-13] MEDS ORDERED: MIDAZOLAM HCL 2 MG/2 ML VIAL ONE ×2 (07:38→09:59)
[2019-12-13] MEDS ORDERED: IOHEXOL-300 100 ML BOTTLE ONE (07:39)
[2019-12-13] MEDS ORDERED: IODIXANOL 320MG/ML 100 ML BOTTLE IV ONE (07:39)
[2019-12-13] MEDS: CLOPIDOGREL 75MG TABLET PO SCH (08:03)
[2019-12-13] MEDS ORDERED: HEPARIN SODIUM 1,000 UNIT/1ML VIAL IV ONE (10:01)
[2019-12-13] MEDS ORDERED: CLOPIDOGREL 75MG TABLET ONE (10:07)
[2019-12-13] MEDS ORDERED: ASPIRIN 325MG TABLET ONE (10:08)
[2019-12-13] MEDS ORDERED: ATROPINE SULFATE 1MG/10ML SYR IV PRN (10:30)
[2019-12-13] MEDS ORDERED: ONDANSETRON HCL 4MG/2ML INJ IV PRN (10:30)
[2019-12-13] MEDS ORDERED: ACETAMINOPHEN 325MG TABLET PO PRN (10:30)
[2019-12-13] MEDS ORDERED: AMLODIPINE 5MG TABLET PO NR (11:30)
[2019-12-13 19:28] LABS: BASOPHILS % 0.5 % (0.0-2.0); EOSINOPHILS % 4.1 % (0.0-5.0); HEMATOCRIT. 32.2 % (36.0-48.0); HEMOGLOBIN. 10.6 g/dL (12.0-16.0); LYMPHOCYTES % 22.3 % (20.0-50.0); MEAN CORPUSCULAR HEMOGLOBIN 33.2 pg (28.0-32.0); MEAN CORPUSCULAR VOLUME 100.6 fL (81.0-99.0); MEAN PLATELET VOLUME 9.8 fl (7.4-10.4); MONOCYTES % 11.7 % (2.0-8.0); NEUTROPHILS % 61.4 % (40.0-76.0); PLATELET 165 x1000/uL (130-400); RED CELL DISTRIBUTION WIDTH 16.7 % (11.6-14.6)
[2019-12-13] MEDS ORDERED: RISPERIDONE 0.5MG TABLET PO SCH (21:00)
[2019-12-13] MEDS ORDERED: ATORVASTATIN CALCIUM 10MG TABLET PO SCH (21:00)
[2019-12-13] MEDS: AMITRIPTYLINE 25MG TABLET PO SCH (21:36)
[2019-12-13] MEDS: AMLODIPINE 5MG TABLET PO SCH (21:37)
[2019-12-13] MEDS: LIDOCAINE/PRILOCAINE CREAM 5 GM TUBE TOP SCH (21:37)
[2019-12-13] MEDS: ALPRAZOLAM 0.25 MG TABLET PO PRN (22:49)
[2019-12-14] VITALS (7 sets, daily range): BP systolic 112–150; BP diastolic 65–88
[2019-12-14] MEDS: GABAPENTIN 300MG CAPSULE PO SCH (05:10)
[2019-12-14] MEDS: MORPHINE SULFATE 2 MG/ML CPJ (NOT FOR IM USE) IV PRN (05:11)
[2019-12-14] MEDS: BLOOD SUGAR DIAGNOSTIC STRIP TEST SCH (05:53)
[2019-12-14] MEDS: INSULIN LISPRO 100 UNITS/ML SUBCUT SCH (07:20)
[2019-12-14 07:34] LABS: BASOPHILS % 0.6 % (0.0-2.0); EOSINOPHILS % 3.6 % (0.0-5.0); HEMATOCRIT. 31.7 % (36.0-48.0); HEMOGLOBIN. 10.6 g/dL (12.0-16.0); LYMPHOCYTES % 21.2 % (20.0-50.0); MEAN CORPUSCULAR HEMOGLOBIN 33.5 pg (28.0-32.0); MEAN CORPUSCULAR VOLUME 99.8 fL (81.0-99.0); MEAN PLATELET VOLUME 9.4 fl (7.4-10.4); MONOCYTES % 11.4 % (2.0-8.0); NEUTROPHILS % 63.2 % (40.0-76.0); PLATELET 163 x1000/uL (130-400); RED BLOOD CELL COUNT 3.18 mill/uL (4.2-5.4); RED CELL DISTRIBUTION WIDTH 16.5 % (11.6-14.6)
[2019-12-14] MEDS: AMLODIPINE 5MG TABLET PO SCH (09:00)
[2019-12-14] MEDS ORDERED: QUETIAPINE FUMARATE 50MG TABLET PO SCH (09:00)
[2019-12-14] MEDS ORDERED: ASPIRIN 81MG EC TABLET PO SCH (09:00)
[2019-12-14] MEDS ORDERED: ASPIRIN 325MG TABLET PO SCH (09:00)
[2019-12-14] MEDS: LIDOCAINE/PRILOCAINE CREAM 5 GM TUBE TOP SCH (09:26)
[2019-12-14] MEDS: CLOPIDOGREL 75MG TABLET PO SCH (09:27)
[2019-12-14] MEDS: HYDROCODONE/ACETAMINOPHEN 5/325MG TABLET PO PRN (09:28)
== END 2019-12-14 10:20 | disposition home or self-care (01) | DRG 181 ==
LOC: ER 14:15 → 7WST 17:52 → ENRESERV 19:42 → 6WST 12-10 20:54 → 3WST 12-13 10:33
PROVIDERS: ADMIT Internal Medicine; ATTEND Internal Medicine
PROC: 5A1D70Z Performance of Urinary Filtration, Intermittent, Less than 6 Hours Per Day (ICD-10-PCS; 2019-12-10)
PROC: 047K3ZZ Dilation of Right Femoral Artery, Percutaneous Approach (ICD-10-PCS; principal; 2019-12-12)
PROC: 047L3ZZ Dilation of Left Femoral Artery, Percutaneous Approach (ICD-10-PCS; 2019-12-12)
PROC: 047M3ZZ Dilation of Right Popliteal Artery, Percutaneous Approach (ICD-10-PCS; 2019-12-12)
PROC: 0J2WXYZ Change Other Device in Lower Extremity Subcutaneous Tissue and Fascia, External Approach (ICD-10-PCS; 2019-12-12)
PROC: 5A1D70Z Performance of Urinary Filtration, Intermittent, Less than 6 Hours Per Day (ICD-10-PCS; 2019-12-12)
PROC: 5A1D70Z Performance of Urinary Filtration, Intermittent, Less than 6 Hours Per Day (ICD-10-PCS; 2019-12-13)
DX: T82.856A Stenosis of peripheral vascular stent, initial encounter (principal); E11.621 Type 2 diabetes mellitus with foot ulcer; L03.115 Cellulitis of right lower limb; D53.9 Nutritional anemia, unspecified; D63.8 Anemia in other chronic diseases classified elsewhere; N18.6 End stage renal disease; J18.9 Pneumonia, unspecified organism; E11.22 Type 2 diabetes mellitus with diabetic chronic kidney disease; I13.11 Hypertensive heart and chronic kidney disease without heart failure, with stage 5 chronic kidney disease, or end stage renal disease; E78.5 Hyperlipidemia, unspecified; I25.10 Atherosclerotic heart disease of native coronary artery without angina pectoris; M10.9 Gout, unspecified; K57.90 Diverticulosis of intestine, part unspecified, without perforation or abscess without bleeding; F32.9 Major depressive disorder, single episode, unspecified; F41.9 Anxiety disorder, unspecified; G47.33 Obstructive sleep apnea (adult) (pediatric); E87.5 Hyperkalemia; F17.210 Nicotine dependence, cigarettes, uncomplicated; Z20.828 Contact with and (suspected) exposure to other viral communicable diseases; E66.9 Obesity, unspecified; E11.51 Type 2 diabetes mellitus with diabetic peripheral angiopathy without gangrene; E78.00 Pure hypercholesterolemia, unspecified; G89.4 Chronic pain syndrome; E11.42 Type 2 diabetes mellitus with diabetic polyneuropathy; K29.70 Gastritis, unspecified, without bleeding; Y82.8 Other medical devices associated with adverse incidents; Y83.8 Other surgical procedures as the cause of abnormal reaction of the patient, or of later complication, without mention of misadventure at the time of the procedure; Z78.9 Other specified health status; Z92.21 Personal history of antineoplastic chemotherapy; Z85.3 Personal history of malignant neoplasm of breast; Z68.41 Body mass index [BMI] 40.0-44.9, adult; Z89.612 Acquired absence of left leg above knee; Z99.2 Dependence on renal dialysis; Z79.02 Long term (current) use of antithrombotics/antiplatelets; Z79.4 Long term (current) use of insulin; Z79.82 Long term (current) use of aspirin; Z79.899 Other long term (current) drug therapy; Z82.49 Family history of ischemic heart disease and other diseases of the circulatory system; Z86.14 Personal history of Methicillin resistant Staphylococcus aureus infection; Z90.49 Acquired absence of other specified parts of digestive tract; Z88.2 Allergy status to sulfonamides; Z91.018 Allergy to other foods; Z91.048 Other nonmedicinal substance allergy status; Y92.89 Other specified places as the place of occurrence of the external cause
CPT/HCPCS: 36415; 36581; 37224; 71045; 73620; 75635; 75710; 77001; 80048; 80053; 80202; 82962; 83605; 83880; 84145; 84484; 85025; 85347; 86140; 87635; 93005; 93922; 93971; 96365; 99152; 99153; 99285; C1750; C1769; C1893; C1894; C2623; J0885; J1644; J2250; J2270; J2405; J2543; J2997; J3010; J3370; J3490; J7030; Q9967; G0500; U0003-CS

== ENCOUNTER 2020-02-01 09:17 | Inpatient (IN) | payer MEDICAID, OTHER ==
[~2020-02-01] VITALS: Ht 172.7 cm; Wt 108.9 kg
[~2020-02-01 09:17] MED LIST changes: -AMLO10TA80 PO; +HYDR-4009 MT
[2020-02-01] MEDS ORDERED: ACETAMINOPHEN 325MG TABLET PO ONE (10:30)
[2020-02-01 10:49] LABS: CHLORIDE 102 mEq/L (98-107)
[2020-02-01 10:56] LABS: BASOPHILS % 0.5 % (0.0-2.0); HEMATOCRIT. 36.5 % (36.0-48.0); LYMPHOCYTES % 16.7 % (20.0-50.0); MEAN CORPUSCULAR HEMOGLOBIN 30.7 pg (28.0-32.0); MEAN CORPUSCULAR VOLUME 93.6 fL (81.0-99.0); MEAN PLATELET VOLUME 9.4 fl (7.4-10.4); MONOCYTES % 8.8 % (2.0-8.0); PLATELET 289 x1000/uL (130-400); RED CELL DISTRIBUTION WIDTH 15.2 % (11.6-14.6)
[2020-02-01] MEDS ORDERED: MORPHINE SULFATE 4 MG/ML CPJ (NOT FOR IM USE) IV ONE (11:00)
[2020-02-01] MEDS ORDERED: ONDANSETRON HCL 4MG/2ML INJ IV ONE (11:30)
[2020-02-01] MEDS ORDERED: ACETAMINOPHEN 325MG TABLET PO PRN (13:30)
[2020-02-01] MEDS ORDERED: CLONIDINE 0.1MG TABLET PO PRN (13:30)
[2020-02-01] MEDS ORDERED: IPRATROPIUM/ALBUTEROL 0.5-3(2.5)MG/3ML NEB HHN PRN (13:30)
[2020-02-01] MEDS ORDERED: DEXTROSE 50% WATER 50ML SYRINGE IV PRN (13:30)
[2020-02-01] MEDS: MORPHINE SULFATE 2 MG/ML CPJ (NOT FOR IM USE) IV PRN ×3 (13:40→22:20)
[2020-02-01] MEDS: ONDANSETRON HCL 4MG/2ML INJ IV PRN ×2 (13:41→17:50)
[2020-02-01 13:43] LABS: PHOSPHORUS 6.1 mg/dL (2.5-4.9)
[2020-02-01 14:24] LABS: CLARITY URINE CLEAR (CLEAR); COLOR URINE YELLOW (YELLOW); KETONES URINE NEGATIVE (NEGATIVE); LEUKOCYTE ESTERASE URINE NEGATIVE (NEGATIVE); NITRITE URINE NEGATIVE (NEGATIVE); OCCULT BLOOD URINE NEGATIVE (NEGATIVE); PH URINE 7.5 (4.5-8.0); PROTEIN URINE 2+ (NEGATIVE); SPECIFIC GRAVITY URINE 1.018 (1.005-1.030); UROBILINOGEN URINE 0.2 E.U./dL (0.2-1.0)
[2020-02-01 14:40] LABS: *AMPHETAMINES SCREEN URINE NEGATIVE (NEGATIVE); *BARBITURATES SCREEN URINE NEGATIVE (NEGATIVE); *BENZODIAZEPINES SCREEN URINE NEGATIVE (NEGATIVE); *COCAINE SCREEN URINE NEGATIVE (NEGATIVE); METHADONE URINE SCREEN NEGATIVE (NEGATIVE); OPIATES URINE SCREEN PRESUMTIVE POSITIVE (NEGATIVE)
[2020-02-01 14:41] LABS: CANNABINOID URINE SCREEN NEGATIVE (NEGATIVE); PHENCYCLIDINE URINE SCREEN NEGATIVE (NEGATIVE)
[2020-02-01 16:00] VITALS: BP_SYST 133; BP_SYST 139; BP_DIAS 79; BP_DIAS 80
[2020-02-01] MEDS: INSULIN LISPRO 100 UNITS/ML SUBCUT SCH ×2 (17:15→21:00)
[2020-02-01] MEDS: BLOOD SUGAR DIAGNOSTIC STRIP TEST SCH ×2 (17:22→21:04)
[2020-02-01 17:25] VITALS: BP 133/80
[2020-02-01 20:00] VITALS: BP 122/76
[2020-02-02] VITALS: BP 102/59
[2020-02-02 04:00] VITALS: BP 118/67
[2020-02-02] MEDS: MORPHINE SULFATE 2 MG/ML CPJ (NOT FOR IM USE) IV PRN ×5 (04:25→21:59)
[2020-02-02] MEDS: ONDANSETRON HCL 4MG/2ML INJ IV PRN (04:29)
[2020-02-02] MEDS: BLOOD SUGAR DIAGNOSTIC STRIP TEST SCH ×4 (05:58→21:00)
[2020-02-02] MEDS: INSULIN LISPRO 100 UNITS/ML SUBCUT SCH ×4 (06:27→21:00)
[2020-02-02 07:00] LABS: BASOPHILS % 0.6 % (0.0-2.0); EOSINOPHILS % 4.9 % (0.0-5.0); HEMATOCRIT. 32.3 % (36.0-48.0); HEMOGLOBIN. 10.7 g/dL (12.0-16.0); MEAN CORPUSCULAR HEMOGLOBIN 30.8 pg (28.0-32.0); MEAN CORPUSCULAR VOLUME 93.1 fL (81.0-99.0); MEAN PLATELET VOLUME 9.3 fl (7.4-10.4); MONOCYTES % 12.6 % (2.0-8.0); NEUTROPHILS % 51.9 % (40.0-76.0); PLATELET 226 x1000/uL (130-400); RED BLOOD CELL COUNT 3.47 mill/uL (4.2-5.4); RED CELL DISTRIBUTION WIDTH 15.3 % (11.6-14.6)
[2020-02-02 07:34] LABS: CHLORIDE 106 mEq/L (98-107)
[2020-02-02 07:41] LABS: LDL CHOLESTEROL 62 mg/dL (5-100)
[2020-02-02 07:43] LABS: HDL CHOLESTEROL 36 mg/dL (40-59)
[2020-02-02 08:00] VITALS: BP 103/64
[2020-02-02 12:00] VITALS: BP 102/58
[2020-02-02 16:00] VITALS: BP 100/64
[2020-02-02] MEDS: DOCUSATE SODIUM 100MG CAPSULE PO SCH (18:00)
[2020-02-02] MEDS: DIPHENHYDRAMINE 50MG/ML VIAL IV PRN (18:00)
[2020-02-02] MEDS ORDERED: VANCOMYCIN 1500MG in DEXTROSE 5% WATER 250ML IV SCH (20:00)
[2020-02-02 22:00] VITALS: BP 94/59
[2020-02-03] VITALS: BP 85/47
[2020-02-03 04:00] VITALS: BP 92/57
[2020-02-03] MEDS: MORPHINE SULFATE 2 MG/ML CPJ (NOT FOR IM USE) IV PRN ×4 (06:00→20:48)
[2020-02-03] MEDS: INSULIN LISPRO 100 UNITS/ML SUBCUT SCH ×4 (06:43→20:36)
[2020-02-03] MEDS: BLOOD SUGAR DIAGNOSTIC STRIP TEST SCH ×4 (06:43→20:36)
[2020-02-03 08:00] VITALS: BP 103/57
[2020-02-03] MEDS: DOCUSATE SODIUM 100MG CAPSULE PO SCH ×2 (09:43→18:33)
[2020-02-03 12:00] VITALS: BP 95/65
[2020-02-03 16:00] VITALS: BP 110/61
[2020-02-03 20:00] VITALS: BP 99/58
[2020-02-04] VITALS: BP 91/49
[2020-02-04 04:00] VITALS: BP 94/53
[2020-02-04] MEDS: MORPHINE SULFATE 2 MG/ML CPJ (NOT FOR IM USE) IV PRN ×4 (04:32→19:54)
[2020-02-04] MEDS: INSULIN LISPRO 100 UNITS/ML SUBCUT SCH (06:14)
[2020-02-04] MEDS: BLOOD SUGAR DIAGNOSTIC STRIP TEST SCH (06:14)
[2020-02-04 06:38] LABS: BASOPHILS % 0.7 % (0.0-2.0); EOSINOPHILS % 4.1 % (0.0-5.0); HEMATOCRIT. 30.6 % (36.0-48.0); HEMOGLOBIN. 10.1 g/dL (12.0-16.0); LYMPHOCYTES % 26.9 % (20.0-50.0); MEAN CORPUSCULAR HEMOGLOBIN 30.4 pg (28.0-32.0); MEAN CORPUSCULAR VOLUME 92.3 fL (81.0-99.0); MEAN PLATELET VOLUME 9.2 fl (7.4-10.4); MONOCYTES % 10.3 % (2.0-8.0); PLATELET 229 x1000/uL (130-400); RED BLOOD CELL COUNT 3.31 mill/uL (4.2-5.4); RED CELL DISTRIBUTION WIDTH 15.3 % (11.6-14.6)
[2020-02-04 08:00] VITALS: BP 91/55
[2020-02-04] MEDS: DOCUSATE SODIUM 100MG CAPSULE PO SCH ×2 (09:00→17:00)
[2020-02-04 12:00] VITALS: BP 82/44
[2020-02-04] MEDS: DIPHENHYDRAMINE 50MG/ML VIAL IV PRN (12:44)
[2020-02-04] MEDS ORDERED: HEPARIN SODIUM 1,000 UNIT/1ML VIAL IV NR (15:15)
[2020-02-04 16:00] VITALS: BP 95/43
[2020-02-04] MEDS ORDERED: ALTEPLASE 2MG/VIAL ITC ONE (17:30)
[2020-02-04 20:00] VITALS: BP 103/46
[2020-02-04] MEDS: LORAZEPAM 2MG/ML CPJ IV PRN (22:35)
[2020-02-05] VITALS (7 sets, daily range): BP systolic 90–110; BP diastolic 39–60
[2020-02-05] MEDS: MORPHINE SULFATE 2 MG/ML CPJ (NOT FOR IM USE) IV PRN ×4 (01:01→17:54)
[2020-02-05] MEDS: DOCUSATE SODIUM 100MG CAPSULE PO SCH ×2 (09:00→17:53)
[2020-02-05] MEDS: LORAZEPAM 2MG/ML CPJ IV PRN ×3 (09:11→21:24)
[2020-02-05] MEDS ORDERED: VANCOMYCIN 1 G PREMIX 200 ML IV NR (18:00)
[2020-02-06] VITALS: BP 121/68
[2020-02-06 03:56] VITALS: BP 121/67
[2020-02-06] MEDS: MORPHINE SULFATE 2 MG/ML CPJ (NOT FOR IM USE) IV PRN ×4 (04:15→20:40)
[2020-02-06 08:00] VITALS: BP 112/70
[2020-02-06] MEDS: DOCUSATE SODIUM 100MG CAPSULE PO SCH ×2 (08:32→15:53)
[2020-02-06 12:00] VITALS: BP 114/68
[2020-02-06 16:00] VITALS: BP 120/56
[2020-02-06] MEDS: LORAZEPAM 2MG/ML CPJ IV PRN (17:48)
[2020-02-06] MEDS: DIPHENHYDRAMINE 50MG/ML VIAL IV PRN (18:51)
[2020-02-06 20:00] VITALS: BP 111/63
[2020-02-06] MEDS ORDERED: OXYCODONE HCL 10MG TABLET SR 12HR PO SCH (22:00)
[2020-02-07] VITALS: BP 101/52
[2020-02-07] MEDS ORDERED: OXYCODONE HCL 10MG TABLET SR 12HR PO SCH
[2020-02-07] MEDS: OXYCODONE HCL 5MG TABLET PO SCH ×2 (00:07→08:55)
[2020-02-07] MEDS: MORPHINE SULFATE 2 MG/ML CPJ (NOT FOR IM USE) IV PRN ×6 (00:38→22:06)
[2020-02-07 04:00] VITALS: BP 98/62
[2020-02-07 08:00] VITALS: BP 116/72
[2020-02-07] MEDS: DOCUSATE SODIUM 100MG CAPSULE PO SCH ×2 (08:54→17:30)
[2020-02-07 12:00] VITALS: BP 112/65
[2020-02-07 16:00] VITALS: BP 116/62
[2020-02-07] MEDS: CYCLOBENZAPRINE 10MG TABLET PO PRN (17:30)
[2020-02-07] MEDS: ONDANSETRON HCL 4MG/2ML INJ IV PRN (17:30)
[2020-02-07 20:00] VITALS: BP 108/59
[2020-02-07] MEDS: OXYCODONE HCL 10MG TABLET SR 12HR PO SCH (21:00)
[2020-02-07] MEDS: LORAZEPAM 2MG/ML CPJ IV PRN (23:15)
[2020-02-08] VITALS: BP 101/53
[2020-02-08] MEDS: MORPHINE SULFATE 2 MG/ML CPJ (NOT FOR IM USE) IV PRN ×4 (03:57→20:27)
[2020-02-08 06:24] LABS: BASOPHILS % 0.7 % (0.0-2.0); EOSINOPHILS % 2.8 % (0.0-5.0); HEMATOCRIT. 28.8 % (36.0-48.0); HEMOGLOBIN. 9.5 g/dL (12.0-16.0); LYMPHOCYTES % 30.5 % (20.0-50.0); MEAN CORPUSCULAR HEMOGLOBIN 30.7 pg (28.0-32.0); MEAN CORPUSCULAR VOLUME 92.7 fL (81.0-99.0); MEAN PLATELET VOLUME 8.9 fl (7.4-10.4); MONOCYTES % 11.9 % (2.0-8.0); NEUTROPHILS % 54.1 % (40.0-76.0); PLATELET 192 x1000/uL (130-400); RED BLOOD CELL COUNT 3.11 mill/uL (4.2-5.4); RED CELL DISTRIBUTION WIDTH 14.4 % (11.6-14.6)
[2020-02-08 08:00] VITALS: BP 95/63
[2020-02-08] MEDS: OXYCODONE HCL 10MG TABLET SR 12HR PO SCH ×3 (08:40→23:38)
[2020-02-08] MEDS: DOCUSATE SODIUM 100MG CAPSULE PO SCH ×2 (08:40→17:00)
[2020-02-08] MEDS: CYCLOBENZAPRINE 10MG TABLET PO PRN (11:20)
[2020-02-08 12:00] VITALS: BP 117/66
[2020-02-08] MEDS ORDERED: VANCOMYCIN 750 MG PREMIX 150 ML IV SCH (15:00)
[2020-02-08 16:00] VITALS: BP 89/45
[2020-02-08 19:00] VITALS: BP 125/67
[2020-02-08] MEDS: DIPHENHYDRAMINE 50MG/ML VIAL IV PRN (20:27)
[2020-02-08] MEDS: MIRTAZAPINE 15MG TABLET PO SCH (20:27)
[2020-02-08] MEDS ORDERED: TOPUD MT (23:24)
[2020-02-09] VITALS: BP 98/59
[2020-02-09] MEDS: MORPHINE SULFATE 2 MG/ML CPJ (NOT FOR IM USE) IV PRN ×4 (01:33→20:13)
[2020-02-09 04:00] VITALS: BP 98/52
[2020-02-09 08:00] VITALS: BP 94/52
[2020-02-09] MEDS: DOCUSATE SODIUM 100MG CAPSULE PO SCH ×2 (08:07→17:00)
[2020-02-09] MEDS: OXYCODONE HCL 10MG TABLET SR 12HR PO SCH (08:08)
[2020-02-09] MEDS: ONDANSETRON HCL 4MG/2ML INJ IV PRN (10:29)
[2020-02-09 12:00] VITALS: BP 100/54
[2020-02-09 16:00] VITALS: BP 100/62
[2020-02-09 20:00] VITALS: BP 91/56
[2020-02-09] MEDS ORDERED: LEVOFLOXACIN 250MG TABLET PO NR (21:00)
[2020-02-09] MEDS: MIRTAZAPINE 15MG TABLET PO SCH (21:05)
[2020-02-10] VITALS (7 sets, daily range): BP systolic 108–144; BP diastolic 61–86
[2020-02-10] MEDS: MORPHINE SULFATE 2 MG/ML CPJ (NOT FOR IM USE) IV PRN ×5 (00:31→20:11)
[2020-02-10] MEDS: DOCUSATE SODIUM 100MG CAPSULE PO SCH ×2 (08:37→16:25)
[2020-02-10] MEDS: DIPHENHYDRAMINE 50MG/ML VIAL IV PRN (11:05)
[2020-02-10] MEDS: MIRTAZAPINE 15MG TABLET PO SCH (20:11)
[2020-02-10] MEDS: LIDOCAINE 5% PATCH TOP SCH (20:11)
[2020-02-10] MEDS: HYDROCODONE/ACETAMINOPHEN 10/325MG TABLET PO PRN (21:57)
[2020-02-11] VITALS: BP 114/70
[2020-02-11] MEDS: MORPHINE SULFATE 2 MG/ML CPJ (NOT FOR IM USE) IV PRN ×6 (01:06→22:23)
[2020-02-11 04:00] VITALS: BP 103/52
[2020-02-11 08:00] VITALS: BP 99/59
[2020-02-11 08:08] LABS: BASOPHILS % 0.7 % (0.0-2.0); EOSINOPHILS % 2.7 % (0.0-5.0); HEMATOCRIT. 29.6 % (36.0-48.0); HEMOGLOBIN. 9.8 g/dL (12.0-16.0); LYMPHOCYTES % 25.3 % (20.0-50.0); MEAN CORPUSCULAR HEMOGLOBIN 30.6 pg (28.0-32.0); MEAN PLATELET VOLUME 9.1 fl (7.4-10.4); MONOCYTES % 10.5 % (2.0-8.0); NEUTROPHILS % 60.8 % (40.0-76.0); PLATELET 187 x1000/uL (130-400); RED BLOOD CELL COUNT 3.21 mill/uL (4.2-5.4); RED CELL DISTRIBUTION WIDTH 14.7 % (11.6-14.6)
[2020-02-11] MEDS: DOCUSATE SODIUM 100MG CAPSULE PO SCH ×2 (08:49→17:00)
[2020-02-11] MEDS: LIDOCAINE 5% PATCH TOP SCH (08:51)
[2020-02-11] MEDS: DIPHENHYDRAMINE 50MG/ML VIAL IV PRN ×2 (09:04→22:59)
[2020-02-11] MEDS: HYDROCODONE/ACETAMINOPHEN 10/325MG TABLET PO PRN (11:40)
[2020-02-11 12:00] VITALS: BP 106/93
[2020-02-11] MEDS ORDERED: ALTEPLASE 2MG/VIAL ITC NR (12:00)
[2020-02-11] MEDS ORDERED: VANCOMYCIN 500 MG PREMIX 100 ML IV SCH (13:00)
[2020-02-11 16:00] VITALS: BP 111/63
[2020-02-11 20:00] VITALS: BP 98/56
[2020-02-11] MEDS ORDERED: EPOETIN ALFA-EPBX 4,000 UNIT/ML VIAL SUBCUT SCH (21:00)
[2020-02-11] MEDS: LEVOFLOXACIN 500MG TABLET PO SCH (22:21)
[2020-02-11] MEDS: MIRTAZAPINE 15MG TABLET PO SCH (22:22)
[2020-02-12] VITALS: BP 110/65
[2020-02-12 04:00] VITALS: BP 142/68
[2020-02-12] MEDS: MORPHINE SULFATE 2 MG/ML CPJ (NOT FOR IM USE) IV PRN ×4 (05:29→22:54)
[2020-02-12] MEDS: DIPHENHYDRAMINE 50MG/ML VIAL IV PRN ×3 (06:56→22:54)
[2020-02-12 08:00] VITALS: BP 90/56
[2020-02-12] MEDS: DOCUSATE SODIUM 100MG CAPSULE PO SCH (08:57)
[2020-02-12] MEDS: LIDOCAINE 5% PATCH TOP SCH (08:58)
[2020-02-12] MEDS: HYDROCODONE/ACETAMINOPHEN 10/325MG TABLET PO PRN (10:38)
[2020-02-12 12:00] VITALS: BP 125/70
[2020-02-12] MEDS ORDERED: LORAZEPAM 2MG/ML CPJ IV NR (15:00)
[2020-02-12 16:00] VITALS: BP 127/76
[2020-02-12 20:00] VITALS: BP 120/79
[2020-02-12] MEDS: MIRTAZAPINE 15MG TABLET PO SCH (22:07)
[2020-02-13] VITALS (47 sets, daily range): BP systolic 99–137; BP diastolic 59–94
[2020-02-13] MEDS: MORPHINE SULFATE 2 MG/ML CPJ (NOT FOR IM USE) IV PRN ×3 (03:09→10:23)
[2020-02-13] MEDS: DIPHENHYDRAMINE 50MG/ML VIAL IV PRN (03:58)
[2020-02-13 06:40] LABS: BASOPHILS % 0.8 % (0.0-2.0); EOSINOPHILS % 3.3 % (0.0-5.0); HEMATOCRIT. 24.7 % (36.0-48.0); HEMOGLOBIN. 8.4 g/dL (12.0-16.0); LYMPHOCYTES % 29.6 % (20.0-50.0); MEAN CORPUSCULAR HEMOGLOBIN 30.9 pg (28.0-32.0); MEAN CORPUSCULAR VOLUME 90.8 fL (81.0-99.0); MONOCYTES % 12.8 % (2.0-8.0); NEUTROPHILS % 53.5 % (40.0-76.0); PLATELET 168 x1000/uL (130-400); RED BLOOD CELL COUNT 2.71 mill/uL (4.2-5.4); RED CELL DISTRIBUTION WIDTH 14.5 % (11.6-14.6)
[2020-02-13] MEDS: LIDOCAINE 5% PATCH TOP SCH (09:00)
[2020-02-13] MEDS: DOCUSATE SODIUM 100MG CAPSULE PO SCH ×2 (09:00→16:37)
[2020-02-13] MEDS ORDERED: THROMBIN (BOVINE) 5000 UNITS/VIAL TOP ONE (09:12)
[2020-02-13] MEDS ORDERED: BACITRACIN 50,000 UNITS/VIAL ONE ×2 (09:13→09:18)
[2020-02-13] MEDS ORDERED: ACETAMINOPHEN 500MG TABLET ONE (09:48)
[2020-02-13] MEDS ORDERED: FENTANYL CITRATE/PF 50MCG/ML 2ML VIAL ONE (10:42)
[2020-02-13] MEDS ORDERED: ETOMIDATE 2MG/ML 10ML VIAL IV ONE (10:43)
[2020-02-13] MEDS ORDERED: CEFAZOLIN SODIUM 1000MG/VIAL ONE ×2 (10:43→10:49)
[2020-02-13] MEDS ORDERED: MIDAZOLAM HCL 2 MG/2 ML VIAL ONE (10:43)
[2020-02-13] MEDS ORDERED: PROPOFOL 200MG/20ML VIAL IV ONE (10:43)
[2020-02-13] MEDS ORDERED: VECURONIUM BROMIDE 10 MG/VIAL IV ONE (10:43)
[2020-02-13] MEDS ORDERED: METOCLOPRAMIDE HCL 10MG/2ML VIAL ONE (10:48)
[2020-02-13] MEDS ORDERED: ONDANSETRON HCL 4MG/2ML INJ ONE (10:48)
[2020-02-13] MEDS ORDERED: SUCCINYLCHOLINE CHLORIDE 200MG/10ML IV ONE (10:48)
[2020-02-13] MEDS ORDERED: NICARDIPINE 100 MG in SODIUM CHLORIDE 0.9% 60 ML IV PRN (11:00)
[2020-02-13] MEDS ORDERED: SODIUM CHLORIDE 0.9% 1,000 ML IV SCH (11:00)
[2020-02-13] MEDS ORDERED: ESMOLOL HCL 10MG/ML 10ML VIAL IV ONE ×2 (11:02→13:28)
[2020-02-13] MEDS ORDERED: SODIUM CHLORIDE 0.9% 10ML VIAL ONE (11:12)
[2020-02-13] MEDS ORDERED: HYDROMORPHONE HCL/PF 2MG/ML (OR) ONE (11:35)
[2020-02-13] MEDS ORDERED: CALCIUM CHLORIDE 1GM/10ML SYR IV ONE (12:19)
[2020-02-13] MEDS ORDERED: NEOSTIGMINE METHYLSULFATE 1MG/ML 10 ML VIAL ONE (12:19)
[2020-02-13] MEDS ORDERED: GLYCOPYRROLATE 0.2 MG/ML 2ML VIAL ONE (12:19)
[2020-02-13] MEDS ORDERED: INSULIN REGULAR (HUMULIN R) 300UNITS/3ML VIAL ONE (12:24)
[2020-02-13] MEDS ORDERED: DEXTROSE 50% WATER 50ML SYRINGE IV ONE (12:25)
[2020-02-13] MEDS ORDERED: DIPHENHYDRAMINE 50MG/ML VIAL IV PRN (12:30)
[2020-02-13] MEDS ORDERED: FENTANYL CITRATE/PF 50MCG/ML 2ML VIAL IV PRN (12:30)
[2020-02-13] MEDS ORDERED: HYDROMORPHONE HCL/PF 2MG/ML CPJ IV PRN (12:30)
[2020-02-13] MEDS: MORPHINE SULFATE 4 MG/ML CPJ (NOT FOR IM USE) IV PRN ×5 (13:54→23:15)
[2020-02-13] MEDS ORDERED: DEXTROSE 50% WATER 50ML SYRINGE IV PRN ×2 (14:45)
[2020-02-13] MEDS ORDERED: VANCOMYCIN 500 MG PREMIX 100 ML IV SCH (16:00)
[2020-02-13] MEDS: BLOOD SUGAR DIAGNOSTIC STRIP TEST SCH ×2 (16:31→20:50)
[2020-02-13] MEDS: INSULIN LISPRO 100 UNITS/ML SUBCUT SCH ×2 (16:37→20:50)
[2020-02-13 17:50] LABS: HEMATOCRIT. 31.1 % (36.0-48.0); HEMOGLOBIN. 10.2 g/dL (12.0-16.0); MEAN CORPUSCULAR HEMOGLOBIN 30.3 pg (28.0-32.0); MEAN PLATELET VOLUME 9.5 fl (7.4-10.4); PLATELET 177 x1000/uL (130-400); RED BLOOD CELL COUNT 3.35 mill/uL (4.2-5.4); RED CELL DISTRIBUTION WIDTH 14.2 % (11.6-14.6)
[2020-02-13 18:56] LABS: PLATELET ESTIMATE NORMAL
[2020-02-13] MEDS: LEVOFLOXACIN 500MG TABLET PO SCH (20:28)
[2020-02-13] MEDS: MIRTAZAPINE 15MG TABLET PO SCH (20:29)
[2020-02-14] VITALS (77 sets, daily range): BP systolic 84–134; BP diastolic 46–87
[2020-02-14] MEDS: MORPHINE SULFATE 4 MG/ML CPJ (NOT FOR IM USE) IV PRN ×7 (01:22→22:06)
[2020-02-14 05:32] LABS: BASOPHILS % 0.4 % (0.0-2.0); EOSINOPHILS % 0.1 % (0.0-5.0); HEMATOCRIT. 27.6 % (36.0-48.0); LYMPHOCYTES % 15.1 % (20.0-50.0); MEAN CORPUSCULAR HEMOGLOBIN 30.4 pg (28.0-32.0); MEAN CORPUSCULAR VOLUME 92.8 fL (81.0-99.0); MEAN PLATELET VOLUME 9.8 fl (7.4-10.4); MONOCYTES % 9.2 % (2.0-8.0); NEUTROPHILS % 75.2 % (40.0-76.0); PLATELET 191 x1000/uL (130-400); RED BLOOD CELL COUNT 2.98 mill/uL (4.2-5.4); RED CELL DISTRIBUTION WIDTH 14.9 % (11.6-14.6)
[2020-02-14] MEDS: BLOOD SUGAR DIAGNOSTIC STRIP TEST SCH ×4 (06:30→20:52)
[2020-02-14] MEDS: INSULIN LISPRO 100 UNITS/ML SUBCUT SCH ×4 (06:31→20:52)
[2020-02-14] MEDS ORDERED: DIAZEPAM 5 MG/ML 2ML CPJ IV NR (08:00)
[2020-02-14] MEDS: DIPHENHYDRAMINE 50MG/ML VIAL IV PRN (08:40)
[2020-02-14] MEDS: DOCUSATE SODIUM 100MG CAPSULE PO SCH ×2 (08:46→18:07)
[2020-02-14] MEDS ORDERED: DIAZEPAM 2 MG TABLET PO NR (09:08)
[2020-02-14] MEDS ORDERED: ALTEPLASE 2MG/VIAL ITC NR (10:00)
[2020-02-14] MEDS: LIDOCAINE 5% PATCH TOP SCH (10:08)
[2020-02-14] MEDS ORDERED: VANCOMYCIN 500 MG PREMIX 100 ML IV SCH (17:00)
[2020-02-14] MEDS: MIRTAZAPINE 15MG TABLET PO SCH (20:52)
[2020-02-15] VITALS (32 sets, daily range): BP systolic 91–135; BP diastolic 50–89
[2020-02-15] MEDS: MORPHINE SULFATE 4 MG/ML CPJ (NOT FOR IM USE) IV PRN ×7 (01:43→21:07)
[2020-02-15 05:05] LABS: BASOPHILS % 0.5 % (0.0-2.0); EOSINOPHILS % 1.4 % (0.0-5.0); HEMATOCRIT. 22.4 % (36.0-48.0); HEMOGLOBIN. 7.5 g/dL (12.0-16.0); LYMPHOCYTES % 26.3 % (20.0-50.0); MEAN CORPUSCULAR HEMOGLOBIN 31.1 pg (28.0-32.0); MEAN CORPUSCULAR VOLUME 92.9 fL (81.0-99.0); MONOCYTES % 12.2 % (2.0-8.0); NEUTROPHILS % 59.6 % (40.0-76.0); PLATELET 151 x1000/uL (130-400); RED BLOOD CELL COUNT 2.41 mill/uL (4.2-5.4); RED CELL DISTRIBUTION WIDTH 14.9 % (11.6-14.6)
[2020-02-15] MEDS: BLOOD SUGAR DIAGNOSTIC STRIP TEST SCH ×4 (06:53→20:51)
[2020-02-15] MEDS: INSULIN LISPRO 100 UNITS/ML SUBCUT SCH ×4 (07:00→20:51)
[2020-02-15] MEDS: DOCUSATE SODIUM 100MG CAPSULE PO SCH ×2 (08:40→16:36)
[2020-02-15] MEDS: LIDOCAINE 5% PATCH TOP SCH (08:42)
[2020-02-15] MEDS: MIRTAZAPINE 15MG TABLET PO SCH (21:06)
[2020-02-15] MEDS: EPOETIN ALFA-EPBX 10,000 UNIT/ML VIAL SUBCUT SCH (21:06)
[2020-02-16] VITALS (11 sets, daily range): BP systolic 90–133; BP diastolic 50–72
[2020-02-16] MEDS: MORPHINE SULFATE 4 MG/ML CPJ (NOT FOR IM USE) IV PRN ×6 (02:10→22:41)
[2020-02-16 06:23] LABS: BASOPHILS % 0.4 % (0.0-2.0); EOSINOPHILS % 2.4 % (0.0-5.0); MEAN CORPUSCULAR VOLUME 91.3 fL (81.0-99.0); MEAN PLATELET VOLUME 9.3 fl (7.4-10.4); MONOCYTES % 13.4 % (2.0-8.0); NEUTROPHILS % 53.8 % (40.0-76.0); PLATELET 145 x1000/uL (130-400); RED BLOOD CELL COUNT 2.26 mill/uL (4.2-5.4); RED CELL DISTRIBUTION WIDTH 14.3 % (11.6-14.6)
[2020-02-16] MEDS: BLOOD SUGAR DIAGNOSTIC STRIP TEST SCH ×4 (07:58→20:58)
[2020-02-16] MEDS ORDERED: HYDROCODONE/ACETAMINOPHEN 5/325MG TABLET PO PRN (08:00)
[2020-02-16] MEDS ORDERED: OXYCODONE HCL 5MG TABLET PO PRN (08:00)
[2020-02-16] MEDS ORDERED: NALOXONE HCL 0.4 MG/ML 1ML VIAL IV PRN (08:00)
[2020-02-16] MEDS: INSULIN LISPRO 100 UNITS/ML SUBCUT SCH ×4 (08:00→20:58)
[2020-02-16 08:38] LABS: HEMATOCRIT. 20.6 % (36.0-48.0)
[2020-02-16] MEDS: DOCUSATE SODIUM 100MG CAPSULE PO SCH ×2 (09:30→16:57)
[2020-02-16] MEDS: LIDOCAINE 5% PATCH TOP SCH (09:30)
[2020-02-16] MEDS ORDERED: HEPARIN 1000 UNITS/ML 10ML ONE (10:31)
[2020-02-16] MEDS: DIPHENHYDRAMINE 50MG/ML VIAL IV PRN (14:15)
[2020-02-16] MEDS ORDERED: ALTEPLASE 2MG/VIAL ITC NR (16:00)
[2020-02-16] MEDS: FAMOTIDINE 20MG TABLET PO SCH (18:29)
[2020-02-16] MEDS: MIRTAZAPINE 15MG TABLET PO SCH (20:41)
[2020-02-17] VITALS (12 sets, daily range): BP systolic 91–135; BP diastolic 44–89
[2020-02-17] MEDS: MORPHINE SULFATE 4 MG/ML CPJ (NOT FOR IM USE) IV PRN ×3 (04:52→20:39)
[2020-02-17 06:42] LABS: HEMATOCRIT 25.7 % (36.0-48.0)
[2020-02-17 07:08] LABS: HEMOGLOBIN 8.8 g/dL (12.0-16.0)
[2020-02-17] MEDS: BLOOD SUGAR DIAGNOSTIC STRIP TEST SCH ×4 (07:30→20:49)
[2020-02-17] MEDS: INSULIN LISPRO 100 UNITS/ML SUBCUT SCH ×4 (08:00→20:49)
[2020-02-17] MEDS: DOCUSATE SODIUM 100MG CAPSULE PO SCH ×2 (09:00→17:00)
[2020-02-17] MEDS: FAMOTIDINE 20MG TABLET PO SCH (09:36)
[2020-02-17] MEDS: LIDOCAINE 5% PATCH TOP SCH (09:39)
[2020-02-17] MEDS ORDERED: HYDROMORPHONE HCL 2MG TABLET PO PRN (11:00)
[2020-02-17] MEDS: DIPHENHYDRAMINE 50MG/ML VIAL IV PRN (13:55)
[2020-02-17] MEDS ORDERED: VANCOMYCIN 1 G PREMIX 200 ML IV SCH (14:00)
[2020-02-17] MEDS ORDERED: SODIUM CHLORIDE 3% FOR INH 4ML UD NEB INH SCH (16:00)
[2020-02-17] MEDS: MIRTAZAPINE 15MG TABLET PO SCH (20:39)
[2020-02-18] VITALS (11 sets, daily range): BP systolic 88–123; BP diastolic 47–82
[2020-02-18] MEDS: MORPHINE SULFATE 4 MG/ML CPJ (NOT FOR IM USE) IV PRN ×5 (00:06→21:39)
[2020-02-18 07:16] LABS: BASOPHILS % 0.6 % (0.0-2.0); EOSINOPHILS % 3.5 % (0.0-5.0); HEMATOCRIT. 24.7 % (36.0-48.0); HEMOGLOBIN. 8.3 g/dL (12.0-16.0); LYMPHOCYTES % 28.6 % (20.0-50.0); MEAN CORPUSCULAR HEMOGLOBIN 30.7 pg (28.0-32.0); MEAN CORPUSCULAR VOLUME 91.1 fL (81.0-99.0); MEAN PLATELET VOLUME 9.8 fl (7.4-10.4); MONOCYTES % 12.2 % (2.0-8.0); NEUTROPHILS % 55.1 % (40.0-76.0); PLATELET 179 x1000/uL (130-400); RED BLOOD CELL COUNT 2.72 mill/uL (4.2-5.4); RED CELL DISTRIBUTION WIDTH 14.6 % (11.6-14.6)
[2020-02-18] MEDS: BLOOD SUGAR DIAGNOSTIC STRIP TEST SCH ×4 (07:30→21:00)
[2020-02-18] MEDS: INSULIN LISPRO 100 UNITS/ML SUBCUT SCH ×4 (08:00→21:00)
[2020-02-18] MEDS: DOCUSATE SODIUM 100MG CAPSULE PO SCH ×2 (08:42→17:00)
[2020-02-18] MEDS: FAMOTIDINE 20MG TABLET PO SCH (09:40)
[2020-02-18] MEDS: LIDOCAINE 5% PATCH TOP SCH (09:40)
[2020-02-18] MEDS: MIRTAZAPINE 15MG TABLET PO SCH (21:36)
[2020-02-18] MEDS: EPOETIN ALFA-EPBX 10,000 UNIT/ML VIAL SUBCUT SCH (21:40)
[2020-02-19] VITALS (12 sets, daily range): BP systolic 96–148; BP diastolic 50–84
[2020-02-19] MEDS: MORPHINE SULFATE 4 MG/ML CPJ (NOT FOR IM USE) IV PRN ×6 (01:32→20:43)
[2020-02-19 07:04] LABS: BASOPHILS % 1.1 % (0.0-2.0); EOSINOPHILS % 3.8 % (0.0-5.0); HEMATOCRIT. 25.8 % (36.0-48.0); HEMOGLOBIN. 8.6 g/dL (12.0-16.0); LYMPHOCYTES % 23.8 % (20.0-50.0); MEAN CORPUSCULAR HEMOGLOBIN 30.6 pg (28.0-32.0); MEAN CORPUSCULAR VOLUME 91.5 fL (81.0-99.0); MEAN PLATELET VOLUME 9.8 fl (7.4-10.4); MONOCYTES % 11.6 % (2.0-8.0); NEUTROPHILS % 59.7 % (40.0-76.0); PLATELET 205 x1000/uL (130-400); RED BLOOD CELL COUNT 2.82 mill/uL (4.2-5.4); RED CELL DISTRIBUTION WIDTH 14.2 % (11.6-14.6)
[2020-02-19] MEDS: BLOOD SUGAR DIAGNOSTIC STRIP TEST SCH ×4 (07:30→20:27)
[2020-02-19] MEDS: INSULIN LISPRO 100 UNITS/ML SUBCUT SCH ×4 (08:00→20:27)
[2020-02-19] MEDS: DOCUSATE SODIUM 100MG CAPSULE PO SCH ×2 (08:23→17:29)
[2020-02-19] MEDS: FAMOTIDINE 20MG TABLET PO SCH (08:23)
[2020-02-19] MEDS: LIDOCAINE 5% PATCH TOP SCH (08:51)
[2020-02-19] MEDS: ONDANSETRON HCL 4MG/2ML INJ IV PRN (13:21)
[2020-02-19] MEDS ORDERED: VANCOMYCIN 500 MG PREMIX 100 ML IV NR (15:00)
[2020-02-19] MEDS ORDERED: HYDROCODONE/ACETAMINOPHEN 10/325MG TABLET PO PRN (15:30)
[2020-02-19] MEDS: DIPHENHYDRAMINE 50MG/ML VIAL IV PRN (17:14)
[2020-02-19] MEDS: MIRTAZAPINE 15MG TABLET PO SCH (20:40)
[2020-02-20] VITALS (12 sets, daily range): BP systolic 100–142; BP diastolic 55–79
[2020-02-20] MEDS: IPRATROPIUM/ALBUTEROL 0.5-3(2.5)MG/3ML NEB HHN SCH ×6 (00:08→20:18)
[2020-02-20] MEDS: ACETYLCYSTEINE 100MG/ML 10% VIAL 4ML INH SCH ×2 (00:10→08:45)
[2020-02-20] MEDS: MORPHINE SULFATE 4 MG/ML CPJ (NOT FOR IM USE) IV PRN ×6 (00:12→20:29)
[2020-02-20] MEDS: DIPHENHYDRAMINE 50MG/ML VIAL IV PRN ×2 (06:01→18:34)
[2020-02-20 06:39] LABS: BASOPHILS % 0.7 % (0.0-2.0); EOSINOPHILS % 3.9 % (0.0-5.0); HEMATOCRIT. 24.3 % (36.0-48.0); HEMOGLOBIN. 8.1 g/dL (12.0-16.0); LYMPHOCYTES % 28.2 % (20.0-50.0); MEAN CORPUSCULAR HEMOGLOBIN 30.6 pg (28.0-32.0); MEAN CORPUSCULAR VOLUME 91.9 fL (81.0-99.0); MEAN PLATELET VOLUME 10.4 fl (7.4-10.4); MONOCYTES % 12.9 % (2.0-8.0); NEUTROPHILS % 54.3 % (40.0-76.0); PLATELET 196 x1000/uL (130-400); RED BLOOD CELL COUNT 2.64 mill/uL (4.2-5.4); RED CELL DISTRIBUTION WIDTH 14.7 % (11.6-14.6)
[2020-02-20] MEDS: BLOOD SUGAR DIAGNOSTIC STRIP TEST SCH ×4 (07:30→20:13)
[2020-02-20] MEDS: INSULIN LISPRO 100 UNITS/ML SUBCUT SCH ×4 (08:00→20:14)
[2020-02-20] MEDS: DOCUSATE SODIUM 100MG CAPSULE PO SCH ×2 (08:51→18:17)
[2020-02-20] MEDS: FAMOTIDINE 20MG TABLET PO SCH (08:51)
[2020-02-20] MEDS: LIDOCAINE 5% PATCH TOP SCH (08:59)
[2020-02-20] MEDS ORDERED: VANCOMYCIN 750 MG PREMIX 150 ML IV NR (17:00)
[2020-02-20] MEDS: MIRTAZAPINE 15MG TABLET PO SCH (20:21)
[2020-02-20] MEDS: EPOETIN ALFA-EPBX 10,000 UNIT/ML VIAL SUBCUT SCH (20:29)
[2020-02-21] VITALS (10 sets, daily range): BP systolic 95–121; BP diastolic 42–69
[2020-02-21] MEDS: IPRATROPIUM/ALBUTEROL 0.5-3(2.5)MG/3ML NEB HHN SCH ×4 (00:07→12:35)
[2020-02-21] MEDS: DIPHENHYDRAMINE 50MG/ML VIAL IV PRN ×2 (00:32→05:20)
[2020-02-21] MEDS: MORPHINE SULFATE 4 MG/ML CPJ (NOT FOR IM USE) IV PRN ×2 (00:35→05:20)
[2020-02-21] MEDS: BLOOD SUGAR DIAGNOSTIC STRIP TEST SCH ×2 (07:30→12:08)
[2020-02-21] MEDS: INSULIN LISPRO 100 UNITS/ML SUBCUT SCH ×2 (07:59→12:08)
[2020-02-21] MEDS: DOCUSATE SODIUM 100MG CAPSULE PO SCH (08:57)
[2020-02-21] MEDS: FAMOTIDINE 20MG TABLET PO SCH (08:58)
[2020-02-21] MEDS: LIDOCAINE 5% PATCH TOP SCH (08:58)
[2020-02-21] MEDS: ACETYLCYSTEINE 100MG/ML 10% VIAL 4ML INH SCH (09:15)
[2020-02-21] MEDS ORDERED: OXYCODONE HCL 5MG TABLET PO PRN (09:45)
[2020-02-21] MEDS ORDERED: HYDR-4009 PO (12:07)
[2020-02-21] MEDS ORDERED: OXYC-579 PO (12:07)
[2020-02-22] MEDS ORDERED: EPOETIN ALFA-EPBX 4,000 UNIT/ML VIAL SUBCUT SCH (21:00)
[2020-02-22] MEDS ORDERED: EPOETIN ALFA-EPBX 10,000 UNIT/ML VIAL SUBCUT SCH (21:00)
== END 2020-02-21 18:48 | disposition home or self-care (01) | DRG 710 ==
LOC: ER 09:28 → 5WST 12:39 → ENRESERV 13:14 → 6EST 02-06 12:52 → MICUNO 02-13 11:35 → 5EST 02-15 18:59
PROVIDERS: ADMIT Internal Medicine; ATTEND Internal Medicine
PROC: 5A1D70Z Performance of Urinary Filtration, Intermittent, Less than 6 Hours Per Day (ICD-10-PCS; 2020-02-02)
PROC: 5A1D70Z Performance of Urinary Filtration, Intermittent, Less than 6 Hours Per Day (ICD-10-PCS; 2020-02-03)
PROC: 5A1D70Z Performance of Urinary Filtration, Intermittent, Less than 6 Hours Per Day (ICD-10-PCS; 2020-02-05)
PROC: 5A1D70Z Performance of Urinary Filtration, Intermittent, Less than 6 Hours Per Day (ICD-10-PCS; 2020-02-07)
PROC: 5A1D70Z Performance of Urinary Filtration, Intermittent, Less than 6 Hours Per Day (ICD-10-PCS; 2020-02-10)
PROC: 5A1D70Z Performance of Urinary Filtration, Intermittent, Less than 6 Hours Per Day (ICD-10-PCS; 2020-02-12)
PROC: 0RB90ZZ Excision of Thoracic Vertebral Disc, Open Approach (ICD-10-PCS; principal; 2020-02-13)
PROC: 0RG6071 Fusion of Thoracic Vertebral Joint with Autologous Tissue Substitute, Posterior Approach, Posterior Column, Open Approach (ICD-10-PCS; 2020-02-13)
PROC: 0RB90ZZ Excision of Thoracic Vertebral Disc, Open Approach (ICD-10-PCS; 2020-02-13)
PROC: 5A1D70Z Performance of Urinary Filtration, Intermittent, Less than 6 Hours Per Day (ICD-10-PCS; 2020-02-14)
PROC: 5A1D70Z Performance of Urinary Filtration, Intermittent, Less than 6 Hours Per Day (ICD-10-PCS; 2020-02-15)
PROC: 02HV33Z Insertion of Infusion Device into Superior Vena Cava, Percutaneous Approach (ICD-10-PCS; 2020-02-16)
PROC: B548ZZA Ultrasonography of Superior Vena Cava, Guidance (ICD-10-PCS; 2020-02-16)
PROC: 30233N1 Transfusion of Nonautologous Red Blood Cells into Peripheral Vein, Percutaneous Approach (ICD-10-PCS; 2020-02-16)
PROC: 5A1D70Z Performance of Urinary Filtration, Intermittent, Less than 6 Hours Per Day (ICD-10-PCS; 2020-02-16)
PROC: 5A1D70Z Performance of Urinary Filtration, Intermittent, Less than 6 Hours Per Day (ICD-10-PCS; 2020-02-19)
PROC: 5A1D70Z Performance of Urinary Filtration, Intermittent, Less than 6 Hours Per Day (ICD-10-PCS; 2020-02-21)
DX: A41.02 Sepsis due to Methicillin resistant Staphylococcus aureus (principal); M46.24 Osteomyelitis of vertebra, thoracic region; E11.22 Type 2 diabetes mellitus with diabetic chronic kidney disease; E11.52 Type 2 diabetes mellitus with diabetic peripheral angiopathy with gangrene; E11.40 Type 2 diabetes mellitus with diabetic neuropathy, unspecified; E87.1 Hypo-osmolality and hyponatremia; E87.8 Other disorders of electrolyte and fluid balance, not elsewhere classified; E88.09 Other disorders of plasma-protein metabolism, not elsewhere classified; I25.10 Atherosclerotic heart disease of native coronary artery without angina pectoris; I99.8 Other disorder of circulatory system; K27.9 Peptic ulcer, site unspecified, unspecified as acute or chronic, without hemorrhage or perforation; K29.70 Gastritis, unspecified, without bleeding; K57.90 Diverticulosis of intestine, part unspecified, without perforation or abscess without bleeding; M10.9 Gout, unspecified; N18.6 End stage renal disease; Z85.3 Personal history of malignant neoplasm of breast; E46 Unspecified protein-calorie malnutrition; E66.01 Morbid (severe) obesity due to excess calories; G82.20 Paraplegia, unspecified; C50.919 Malignant neoplasm of unspecified site of unspecified female breast; D63.1 Anemia in chronic kidney disease; E11.42 Type 2 diabetes mellitus with diabetic polyneuropathy; E11.621 Type 2 diabetes mellitus with foot ulcer; E11.69 Type 2 diabetes mellitus with other specified complication; E78.5 Hyperlipidemia, unspecified; F17.210 Nicotine dependence, cigarettes, uncomplicated; G47.33 Obstructive sleep apnea (adult) (pediatric); I13.2 Hypertensive heart and chronic kidney disease with heart failure and with stage 5 chronic kidney disease, or end stage renal disease; I27.29 Other secondary pulmonary hypertension; I85.00 Esophageal varices without bleeding; I50.9 Heart failure, unspecified; J44.9 Chronic obstructive pulmonary disease, unspecified; K76.6 Portal hypertension; J96.00 Acute respiratory failure, unspecified whether with hypoxia or hypercapnia; L97.519 Non-pressure chronic ulcer of other part of right foot with unspecified severity; M46.26 Osteomyelitis of vertebra, lumbar region; F32.9 Major depressive disorder, single episode, unspecified; F41.9 Anxiety disorder, unspecified; G47.00 Insomnia, unspecified; L89.153 Pressure ulcer of sacral region, stage 3; Y84.1 Kidney dialysis as the cause of abnormal reaction of the patient, or of later complication, without mention of misadventure at the time of the procedure; T17.590A Other foreign object in bronchus causing asphyxiation, initial encounter; T85.618A Breakdown (mechanical) of other specified internal prosthetic devices, implants and grafts, initial encounter; K21.9 Gastro-esophageal reflux disease without esophagitis; K59.00 Constipation, unspecified; R26.2 Difficulty in walking, not elsewhere classified; M47.817 Spondylosis without myelopathy or radiculopathy, lumbosacral region; M46.49 Discitis, unspecified, multiple sites in spine; Z79.4 Long term (current) use of insulin; Z88.2 Allergy status to sulfonamides; Z86.14 Personal history of Methicillin resistant Staphylococcus aureus infection; Z89.512 Acquired absence of left leg below knee; Z99.2 Dependence on renal dialysis; Z89.612 Acquired absence of left leg above knee; Z90.49 Acquired absence of other specified parts of digestive tract; Z91.81 History of falling; Z92.21 Personal history of antineoplastic chemotherapy; Z92.3 Personal history of irradiation; Z95.5 Presence of coronary angioplasty implant and graft; Z88.6 Allergy status to analgesic agent; Z98.84 Bariatric surgery status; Z88.8 Allergy status to other drugs, medicaments and biological substances; Z20.828 Contact with and (suspected) exposure to other viral communicable diseases; Z79.1 Long term (current) use of non-steroidal anti-inflammatories (NSAID); Z79.899 Other long term (current) drug therapy; Y92.89 Other specified places as the place of occurrence of the external cause; Z68.36 Body mass index [BMI] 36.0-36.9, adult
CPT/HCPCS: 36415; 36580; 71045; 72070; 72100; 72146; 72148; 74018; 76000; 80048; 80053; 80061; 80202; 80305; 81003; 82040; 82962; 83036; 83735; 83880; 84100; 84134; 84145; 84443; 84484; 85014; 85018; 85025; 85651; 86141; 86850; 86900; 86920; 87070; 87075; 87077; 87426; 88304; 93005; 93970; 94640; 95863; 95925; 95926; 95928; 95929; 95940; 97163; 99285; C1713; C1752; C1769; C1893; J0330; J0690; J0885; J1170; J1200; J1644; J1815; J2060; J2250; J2270; J2405; J2704; J2710; J2765; J2997; J3010; J3370; J3490; J7030; J7040; J7050; J7060; J7608; P9016

== ENCOUNTER 2020-04-02 13:19 | Emergency (ER) | payer OTHER ==
[~2020-04-02] VITALS: Ht 172.7 cm; Wt 102.0 kg
[~2020-04-02 13:19] MED LIST changes: +HYDR-4009 PO; -MELA3TAB71 PO; +OXYC-579 PO; -TOPUD PO
[2020-04-02 13:27] VITALS: BP 136/70
== END 2020-04-02 15:36 | disposition left against medical advice (07) ==
LOC: ER 13:27 → CANBEDREQ 21:26
DX: M54.5 Low back pain (principal); R11.2 Nausea with vomiting, unspecified; E11.22 Type 2 diabetes mellitus with diabetic chronic kidney disease; I12.0 Hypertensive chronic kidney disease with stage 5 chronic kidney disease or end stage renal disease; N18.6 End stage renal disease; I73.9 Peripheral vascular disease, unspecified; Z87.891 Personal history of nicotine dependence; Z99.2 Dependence on renal dialysis; Z91.018 Allergy to other foods; Z98.1 Arthrodesis status; Z88.6 Allergy status to analgesic agent; Z88.2 Allergy status to sulfonamides
CPT/HCPCS: 93005; 99283

== ENCOUNTER 2020-06-20 18:19 | Inpatient (IN) | payer MEDICAID ==
[~2020-06-20] VITALS: Ht 172.7 cm; Wt 96.8 kg
[~2020-06-20 18:19] MED LIST changes: -HYDR-4009 MT; -HYDR-4009 PO; +OXYC-485 PO; -OXYC-579 PO; +OXYC1TAB12 MT
[2020-06-20] MEDS ORDERED: SODIUM CHLORIDE 0.9% 1000ML BAG (SEPSIS BOLUS) IV ONE (20:00)
[2020-06-20] MEDS ORDERED: VANCOMYCIN 1 G PREMIX 200 ML IV ONE (20:00)
[2020-06-20] MEDS ORDERED: PIPERACILLIN/TAZ 3.375G PREMIX 50 ML IV ONE (20:00)
[2020-06-20 20:20] LABS: BASOPHILS % 0.7 % (0.0-2.0); EOSINOPHILS % 1.9 % (0.0-5.0); HEMATOCRIT. 27.5 % (36.0-48.0); HEMOGLOBIN. 9.5 g/dL (12.0-16.0); LYMPHOCYTES % 20.5 % (20.0-50.0); MEAN CORPUSCULAR HEMOGLOBIN 30.6 pg (28.0-32.0); MEAN CORPUSCULAR VOLUME 88.6 fL (81.0-99.0); MEAN PLATELET VOLUME 9.5 fl (7.4-10.4); MONOCYTES % 9.7 % (2.0-8.0); NEUTROPHILS % 67.2 % (40.0-76.0); PLATELET 204 x1000/uL (130-400); RED BLOOD CELL COUNT 3.11 mill/uL (4.2-5.4); RED CELL DISTRIBUTION WIDTH 17.3 % (11.6-14.6)
[2020-06-20 20:33] LABS: PROTHROMBIN TIME 10.9 sec (9.6-11.0)
[2020-06-20 20:45] LABS: CHLORIDE 95 mEq/L (98-107)
[2020-06-21 01:15] VITALS: BP 112/70
[2020-06-21] MEDS ORDERED: DEXTROSE 50% WATER 50ML SYRINGE IV PRN (03:15)
[2020-06-21] MEDS: OXYCODONE HCL 5MG TABLET PO PRN ×4 (03:37→21:20)
[2020-06-21 04:00] VITALS: BP 116/94
[2020-06-21] MEDS: BLOOD SUGAR DIAGNOSTIC STRIP TEST SCH ×2 (05:25→11:45)
[2020-06-21] MEDS: INSULIN LISPRO 100 UNITS/ML SUBCUT SCH ×2 (05:25→12:15)
[2020-06-21] MEDS ORDERED: VANCOMYCIN 500 MG PREMIX 100 ML IV NR (06:00)
[2020-06-21] MEDS ORDERED: PIPERACILLIN/TAZOBACTAM 3.375 G in DEXT 5% WATER 100 ML IV SCH (06:00)
[2020-06-21 08:00] VITALS: BP 113/68
[2020-06-21] MEDS: PIPERACILLIN/TAZOBACTAM 2.25 G in DEXTROSE 5% WATER 50 ML IV SCH ×2 (08:29→21:21)
[2020-06-21 12:00] VITALS: BP 125/52
[2020-06-21 16:00] VITALS: BP 103/52
[2020-06-21] MEDS: ENOXAPARIN 40MG/0.4ML SYR SUBCUT SCH (18:32)
[2020-06-21 20:00] VITALS: BP 92/57
[2020-06-21] MEDS: MIRTAZAPINE 15MG TABLET PO SCH (21:18)
[2020-06-22] VITALS: BP 93/45
[2020-06-22] MEDS: OXYCODONE HCL 5MG TABLET PO PRN (01:48)
[2020-06-22 04:00] VITALS: BP 90/47
[2020-06-22] MEDS ORDERED: FENTANYL CITRATE/PF 50MCG/ML 2ML VIAL ONE ×3 (07:48→08:57)
[2020-06-22] MEDS ORDERED: SUCCINYLCHOLINE CHLORIDE 200MG/10ML IV ONE (07:48)
[2020-06-22] MEDS ORDERED: GLYCOPYRROLATE 0.2 MG/ML 2ML VIAL ONE (07:48)
[2020-06-22] MEDS ORDERED: MIDAZOLAM HCL 2 MG/2 ML VIAL ONE (07:48)
[2020-06-22] MEDS ORDERED: METOCLOPRAMIDE HCL 10MG/2ML VIAL ONE (07:48)
[2020-06-22] MEDS ORDERED: ONDANSETRON HCL 4MG/2ML INJ ONE (07:48)
[2020-06-22] MEDS ORDERED: PROPOFOL 200MG/20ML VIAL IV ONE (07:48)
[2020-06-22] MEDS: PIPERACILLIN/TAZOBACTAM 2.25 G in DEXTROSE 5% WATER 50 ML IV SCH (09:00)
[2020-06-22] MEDS ORDERED: ONDANSETRON HCL 4MG/2ML INJ IV PRN (09:30)
[2020-06-22] MEDS ORDERED: HYDROMORPHONE HCL/PF 2MG/ML CPJ IV PRN (09:30)
[2020-06-22] MEDS ORDERED: MEPERIDINE HCL/PF 25MG/ML CPJ IV PRN (09:30)
[2020-06-22] MEDS ORDERED: SODIUM CHLORIDE 0.9% 1,000 ML IV ONE (09:30)
[2020-06-22] MEDS ORDERED: MORPHINE SULFATE 2 MG/ML CPJ (NOT FOR IM USE) IV PRN (09:30)
[2020-06-22] MEDS ORDERED: ONDANSETRON INJ IV PRN (10:00)
[2020-06-22] MEDS ORDERED: HYDROMORPHONE PCA 10MG/50ML IV PRN (10:00)
[2020-06-22] MEDS ORDERED: NALOXONE INJ IV PRN (10:00)
[2020-06-22] MEDS ORDERED: DIPHENHYDRAMINE INJ IV PRN (10:00)
[2020-06-22 12:00] VITALS: BP 94/64
[2020-06-22 16:00] VITALS: BP 101/61
[2020-06-22 20:00] VITALS: BP 110/59
[2020-06-22] MEDS: MIRTAZAPINE 15MG TABLET PO SCH (21:05)
[2020-06-22] MEDS: NYSTATIN POWDER 15GM TOP SCH (21:06)
[2020-06-22 21:33] LABS: BASOPHILS % 0.5 % (0.0-2.0); EOSINOPHILS % 1.1 % (0.0-5.0); HEMOGLOBIN. 9.2 g/dL (12.0-16.0); LYMPHOCYTES % 14.1 % (20.0-50.0); MEAN CORPUSCULAR HEMOGLOBIN 29.3 pg (28.0-32.0); MEAN CORPUSCULAR VOLUME 89.4 fL (81.0-99.0); MEAN PLATELET VOLUME 9.1 fl (7.4-10.4); NEUTROPHILS % 72.3 % (40.0-76.0); PLATELET 222 x1000/uL (130-400); RED BLOOD CELL COUNT 3.13 mill/uL (4.2-5.4); RED CELL DISTRIBUTION WIDTH 17.2 % (11.6-14.6)
[2020-06-23] VITALS: BP 135/79
[2020-06-23 04:00] VITALS: BP 124/77
[2020-06-23 08:00] VITALS: BP 136/82
[2020-06-23] MEDS: NYSTATIN POWDER 15GM TOP SCH ×2 (09:30→20:57)
[2020-06-23 12:00] VITALS: BP 122/78
[2020-06-23] MEDS ORDERED: HEPARIN SODIUM 1,000 UNIT/1ML VIAL IV SCH (14:45)
[2020-06-23 16:00] VITALS: BP 120/69
[2020-06-23 20:00] VITALS: BP 105/65
[2020-06-23] MEDS: MIRTAZAPINE 15MG TABLET PO SCH (20:55)
[2020-06-24] VITALS: BP 109/67
[2020-06-24 04:00] VITALS: BP 101/64
[2020-06-24 08:00] VITALS: BP 104/71
[2020-06-24] MEDS: ZINC SULFATE 220 MG ( 50 ) CAPSULE PO SCH (08:25)
[2020-06-24] MEDS: ASCORBIC ACID 500 MG TABLET PO SCH (08:25)
[2020-06-24] MEDS: NYSTATIN POWDER 15GM TOP SCH ×2 (08:26→21:51)
[2020-06-24 12:00] VITALS: BP 126/63
[2020-06-24 16:00] VITALS: BP 122/73
[2020-06-24] MEDS: OXYCODONE HCL 5MG TABLET PO PRN (16:04)
[2020-06-24] MEDS: ENOXAPARIN 40MG/0.4ML SYR SUBCUT SCH (18:11)
[2020-06-24] MEDS: HYDROMORPHONE HCL/PF 2MG/ML CPJ IV PRN (18:12)
[2020-06-24 20:00] VITALS: BP 119/65
[2020-06-24] MEDS: MIRTAZAPINE 15MG TABLET PO SCH (21:50)
[2020-06-25] VITALS: BP 141/77
[2020-06-25 04:00] VITALS: BP 120/73
[2020-06-25 07:21] LABS: BASOPHILS % 0.8 % (0.0-2.0); EOSINOPHILS % 1.5 % (0.0-5.0); HEMOGLOBIN. 9.5 g/dL (12.0-16.0); LYMPHOCYTES % 19.3 % (20.0-50.0); MEAN CORPUSCULAR HEMOGLOBIN 30.4 pg (28.0-32.0); MEAN CORPUSCULAR VOLUME 89.5 fL (81.0-99.0); MONOCYTES % 12.6 % (2.0-8.0); NEUTROPHILS % 65.8 % (40.0-76.0); PLATELET 219 x1000/uL (130-400); RED BLOOD CELL COUNT 3.13 mill/uL (4.2-5.4)
[2020-06-25 08:00] VITALS: BP 108/65
[2020-06-25] MEDS: HYDROMORPHONE HCL/PF 2MG/ML CPJ IV PRN (08:09)
[2020-06-25] MEDS: ASCORBIC ACID 500 MG TABLET PO SCH (08:09)
[2020-06-25] MEDS: ZINC SULFATE 220 MG ( 50 ) CAPSULE PO SCH (08:09)
[2020-06-25] MEDS: NYSTATIN POWDER 15GM TOP SCH ×2 (08:09→19:28)
[2020-06-25] MEDS ORDERED: LORAZEPAM 0.5MG TABLET PO PRN (09:45)
[2020-06-25] MEDS ORDERED: LORAZEPAM 0.5MG TABLET PO NR (09:45)
[2020-06-25] MEDS: QUETIAPINE FUMARATE 50MG TABLET PO SCH ×2 (10:16→19:29)
[2020-06-25] MEDS: GABAPENTIN 300MG CAPSULE PO SCH ×3 (10:16→19:28)
[2020-06-25 12:00] VITALS: BP 98/64
[2020-06-25] MEDS: OXYCODONE HCL 5MG TABLET PO PRN ×2 (13:49→19:29)
[2020-06-25 16:00] VITALS: BP 102/68
[2020-06-25] MEDS: ENOXAPARIN 40MG/0.4ML SYR SUBCUT SCH (18:19)
[2020-06-25] MEDS: ATORVASTATIN CALCIUM 10MG TABLET PO SCH (19:27)
[2020-06-25] MEDS: MIRTAZAPINE 15MG TABLET PO SCH (19:28)
[2020-06-25] MEDS: AMITRIPTYLINE 25MG TABLET PO SCH (19:28)
[2020-06-25 20:24] VITALS: BP 90/50
[2020-06-26 00:49] VITALS: BP 92/61
[2020-06-26 04:00] VITALS: BP 90/60
[2020-06-26] MEDS: GABAPENTIN 300MG CAPSULE PO SCH ×3 (06:39→22:33)
[2020-06-26] MEDS: OXYCODONE HCL 5MG TABLET PO PRN ×2 (06:39→12:22)
[2020-06-26 08:00] VITALS: BP 99/55
[2020-06-26] MEDS: QUETIAPINE FUMARATE 50MG TABLET PO SCH ×2 (08:09→22:33)
[2020-06-26] MEDS: ZINC SULFATE 220 MG ( 50 ) CAPSULE PO SCH (08:09)
[2020-06-26] MEDS: NYSTATIN POWDER 15GM TOP SCH ×2 (08:09→22:36)
[2020-06-26] MEDS: ASPIRIN 81MG EC TABLET PO SCH (08:09)
[2020-06-26] MEDS: ASCORBIC ACID 500 MG TABLET PO SCH (08:09)
[2020-06-26] MEDS: HYDROMORPHONE HCL/PF 2MG/ML CPJ IV PRN ×2 (08:10→18:44)
[2020-06-26 12:00] VITALS: BP 98/56
[2020-06-26 16:00] VITALS: BP 88/55
[2020-06-26] MEDS ORDERED: OXYCODONE HCL 5MG TABLET PO PRN (16:48)
[2020-06-26] MEDS: ENOXAPARIN 40MG/0.4ML SYR SUBCUT SCH (18:44)
[2020-06-26 20:00] VITALS: BP 93/60
[2020-06-26] MEDS: ATORVASTATIN CALCIUM 10MG TABLET PO SCH (22:33)
[2020-06-26] MEDS: AMITRIPTYLINE 25MG TABLET PO SCH (22:33)
[2020-06-26] MEDS: MIRTAZAPINE 15MG TABLET PO SCH (22:34)
[2020-06-27] VITALS: BP 96/62
[2020-06-27 04:00] VITALS: BP 124/78
[2020-06-27] MEDS: HYDROMORPHONE HCL/PF 2MG/ML CPJ IV PRN ×2 (04:57→11:16)
[2020-06-27 08:00] VITALS: BP 102/59
[2020-06-27] MEDS: ASCORBIC ACID 500 MG TABLET PO SCH (09:30)
[2020-06-27] MEDS: QUETIAPINE FUMARATE 50MG TABLET PO SCH ×2 (09:30→20:01)
[2020-06-27] MEDS: ASPIRIN 81MG EC TABLET PO SCH (09:30)
[2020-06-27] MEDS: ZINC SULFATE 220 MG ( 50 ) CAPSULE PO SCH (09:30)
[2020-06-27] MEDS: NYSTATIN POWDER 15GM TOP SCH ×2 (09:31→20:01)
[2020-06-27] MEDS: GABAPENTIN 300MG CAPSULE PO SCH ×2 (10:00→20:00)
[2020-06-27 12:00] VITALS: BP 89/64
[2020-06-27] MEDS: OXYCODONE HCL 5MG TABLET PO PRN ×2 (15:03→20:00)
[2020-06-27 16:00] VITALS: BP 101/70
[2020-06-27] MEDS ORDERED: ALTEPLASE 2MG/VIAL ITC NR (16:30)
[2020-06-27 17:54] LABS: BASOPHILS % 0.5 % (0.0-2.0); EOSINOPHILS % 2.3 % (0.0-5.0); HEMATOCRIT. 31.7 % (36.0-48.0); HEMOGLOBIN. 10.4 g/dL (12.0-16.0); LYMPHOCYTES % 22.8 % (20.0-50.0); MEAN CORPUSCULAR HEMOGLOBIN 29.7 pg (28.0-32.0); MEAN CORPUSCULAR VOLUME 90.4 fL (81.0-99.0); MEAN PLATELET VOLUME 9.6 fl (7.4-10.4); MONOCYTES % 10.8 % (2.0-8.0); NEUTROPHILS % 63.6 % (40.0-76.0); PLATELET 223 x1000/uL (130-400); RED BLOOD CELL COUNT 3.51 mill/uL (4.2-5.4); RED CELL DISTRIBUTION WIDTH 17.2 % (11.6-14.6)
[2020-06-27] MEDS: ENOXAPARIN 40MG/0.4ML SYR SUBCUT SCH (18:38)
[2020-06-27 20:00] VITALS: BP 122/66
[2020-06-27] MEDS: ATORVASTATIN CALCIUM 10MG TABLET PO SCH (20:00)
[2020-06-27] MEDS: MIRTAZAPINE 15MG TABLET PO SCH (20:01)
[2020-06-27] MEDS ORDERED: EPOETIN ALFA-EPBX 4,000 UNIT/ML VIAL SUBCUT SCH (21:00)
[2020-06-28] VITALS: BP 91/71
[2020-06-28 04:00] VITALS: BP 93/71
[2020-06-28] MEDS: HYDROMORPHONE HCL/PF 2MG/ML CPJ IV PRN ×2 (05:54→15:05)
[2020-06-28 06:06] LABS: BASOPHILS % 0.5 % (0.0-2.0); EOSINOPHILS % 2.8 % (0.0-5.0); HEMATOCRIT. 27.6 % (36.0-48.0); HEMOGLOBIN. 9.1 g/dL (12.0-16.0); LYMPHOCYTES % 33.4 % (20.0-50.0); MEAN CORPUSCULAR HEMOGLOBIN 29.9 pg (28.0-32.0); MEAN CORPUSCULAR VOLUME 90.7 fL (81.0-99.0); MEAN PLATELET VOLUME 10.2 fl (7.4-10.4); MONOCYTES % 11.8 % (2.0-8.0); NEUTROPHILS % 51.5 % (40.0-76.0); PLATELET 211 x1000/uL (130-400); RED BLOOD CELL COUNT 3.04 mill/uL (4.2-5.4)
[2020-06-28 08:00] VITALS: BP 102/62
[2020-06-28] MEDS: QUETIAPINE FUMARATE 50MG TABLET PO SCH ×2 (08:39→21:08)
[2020-06-28] MEDS: ASPIRIN 81MG EC TABLET PO SCH (08:39)
[2020-06-28] MEDS: ASCORBIC ACID 500 MG TABLET PO SCH (08:39)
[2020-06-28] MEDS: ZINC SULFATE 220 MG ( 50 ) CAPSULE PO SCH (08:39)
[2020-06-28] MEDS: GABAPENTIN 300MG CAPSULE PO SCH ×2 (08:40→21:05)
[2020-06-28] MEDS: NYSTATIN POWDER 15GM TOP SCH ×2 (08:40→21:09)
[2020-06-28 12:01] VITALS: BP 95/62
[2020-06-28 16:00] VITALS: BP 91/51
[2020-06-28] MEDS: ENOXAPARIN 40MG/0.4ML SYR SUBCUT SCH (19:01)
[2020-06-28 20:00] VITALS: BP 104/62
[2020-06-28] MEDS: ATORVASTATIN CALCIUM 10MG TABLET PO SCH (21:04)
[2020-06-28] MEDS: MIRTAZAPINE 15MG TABLET PO SCH (21:05)
[2020-06-29] VITALS: BP 100/58
[2020-06-29 04:00] VITALS: BP 107/65
[2020-06-29 08:00] VITALS: BP 95/61
[2020-06-29] MEDS: HYDROMORPHONE HCL/PF 2MG/ML CPJ IV PRN ×2 (08:04→14:49)
[2020-06-29] MEDS: QUETIAPINE FUMARATE 50MG TABLET PO SCH (08:13)
[2020-06-29] MEDS: GABAPENTIN 300MG CAPSULE PO SCH ×2 (08:14→21:00)
[2020-06-29] MEDS: NYSTATIN POWDER 15GM TOP SCH ×2 (08:14→21:00)
[2020-06-29] MEDS: ZINC SULFATE 220 MG ( 50 ) CAPSULE PO SCH (08:14)
[2020-06-29] MEDS: ASPIRIN 81MG EC TABLET PO SCH (08:14)
[2020-06-29] MEDS: ASCORBIC ACID 500 MG TABLET PO SCH (08:14)
[2020-06-29] MEDS ORDERED: DIPHENHYDRAMINE 50MG/ML VIAL IV PRN (10:30)
[2020-06-29] MEDS ORDERED: HEPARIN SODIUM 1,000 UNIT/1ML VIAL IV NR (11:15)
[2020-06-29 12:00] VITALS: BP 92/66
[2020-06-29 16:00] VITALS: BP 82/55
[2020-06-29] MEDS: ENOXAPARIN 40MG/0.4ML SYR SUBCUT SCH (18:25)
[2020-06-29 20:34] VITALS: BP 89/48
[2020-06-29] MEDS: MIRTAZAPINE 15MG TABLET PO SCH (21:00)
[2020-06-29] MEDS: ATORVASTATIN CALCIUM 10MG TABLET PO SCH (21:00)
[2020-06-30] VITALS: BP 98/63
[2020-06-30] MEDS: QUETIAPINE FUMARATE 50MG TABLET PO SCH ×2 (00:43→09:10)
[2020-06-30] MEDS: HYDROMORPHONE HCL/PF 2MG/ML CPJ IV PRN ×3 (00:50→13:55)
[2020-06-30 04:00] VITALS: BP 101/67
[2020-06-30 08:00] VITALS: BP 103/63
[2020-06-30] MEDS ORDERED: DIPHENHYDRAMINE 50MG CAPSULE PO PRN (08:45)
[2020-06-30] MEDS: ZINC SULFATE 220 MG ( 50 ) CAPSULE PO SCH (09:10)
[2020-06-30] MEDS: ASCORBIC ACID 500 MG TABLET PO SCH (09:10)
[2020-06-30] MEDS: ASPIRIN 81MG EC TABLET PO SCH (09:10)
[2020-06-30] MEDS: GABAPENTIN 300MG CAPSULE PO SCH (09:10)
[2020-06-30] MEDS: NYSTATIN POWDER 15GM TOP SCH (09:11)
[2020-06-30 12:00] VITALS: BP 105/63
[2020-06-30 13:17] VITALS: BP 105/63
[2020-06-30 16:00] VITALS: BP 98/58
== END 2020-06-30 16:00 | disposition home or self-care (01) | DRG 305 ==
LOC: ER 18:19 → 5WST 23:01 → EDBEDREQTM 23:09 → EDBEDREQ 23:09 → EDBEDREQSVC 23:09 → ENRESERV 23:57
PROVIDERS: ADMIT Internal Medicine; ATTEND Internal Medicine
PROC: 0Y6C0Z3 Detachment at Right Upper Leg, Low, Open Approach (ICD-10-PCS; principal; 2020-06-22)
PROC: 5A1D70Z Performance of Urinary Filtration, Intermittent, Less than 6 Hours Per Day (ICD-10-PCS; 2020-06-23)
PROC: 5A1D70Z Performance of Urinary Filtration, Intermittent, Less than 6 Hours Per Day (ICD-10-PCS; 2020-06-25)
PROC: 5A1D70Z Performance of Urinary Filtration, Intermittent, Less than 6 Hours Per Day (ICD-10-PCS; 2020-06-27)
PROC: 5A1D70Z Performance of Urinary Filtration, Intermittent, Less than 6 Hours Per Day (ICD-10-PCS; 2020-06-28)
PROC: 5A1D70Z Performance of Urinary Filtration, Intermittent, Less than 6 Hours Per Day (ICD-10-PCS; 2020-06-29)
DX: T87.43 Infection of amputation stump, right lower extremity (principal); T87.81 Dehiscence of amputation stump; E43 Unspecified severe protein-calorie malnutrition; N18.6 End stage renal disease; E11.22 Type 2 diabetes mellitus with diabetic chronic kidney disease; E66.9 Obesity, unspecified; G93.89 Other specified disorders of brain; E87.1 Hypo-osmolality and hyponatremia; E87.8 Other disorders of electrolyte and fluid balance, not elsewhere classified; I25.10 Atherosclerotic heart disease of native coronary artery without angina pectoris; Y83.5 Amputation of limb(s) as the cause of abnormal reaction of the patient, or of later complication, without mention of misadventure at the time of the procedure; Z20.822 Contact with and (suspected) exposure to COVID-19; E11.40 Type 2 diabetes mellitus with diabetic neuropathy, unspecified; M10.9 Gout, unspecified; K57.90 Diverticulosis of intestine, part unspecified, without perforation or abscess without bleeding; F41.9 Anxiety disorder, unspecified; G89.4 Chronic pain syndrome; E78.5 Hyperlipidemia, unspecified; F32.9 Major depressive disorder, single episode, unspecified; F17.210 Nicotine dependence, cigarettes, uncomplicated; E11.52 Type 2 diabetes mellitus with diabetic peripheral angiopathy with gangrene; T87.53 Necrosis of amputation stump, right lower extremity; I13.11 Hypertensive heart and chronic kidney disease without heart failure, with stage 5 chronic kidney disease, or end stage renal disease; D63.8 Anemia in other chronic diseases classified elsewhere; I96 Gangrene, not elsewhere classified; Z79.02 Long term (current) use of antithrombotics/antiplatelets; Z79.899 Other long term (current) drug therapy; Z82.49 Family history of ischemic heart disease and other diseases of the circulatory system; Z83.3 Family history of diabetes mellitus; Z89.611 Acquired absence of right leg above knee; Z90.49 Acquired absence of other specified parts of digestive tract; Z85.3 Personal history of malignant neoplasm of breast; Z89.612 Acquired absence of left leg above knee; Z88.6 Allergy status to analgesic agent; Z88.2 Allergy status to sulfonamides; Z88.8 Allergy status to other drugs, medicaments and biological substances; Z91.018 Allergy to other foods; Z79.891 Long term (current) use of opiate analgesic; Z99.2 Dependence on renal dialysis; Z68.32 Body mass index [BMI] 32.0-32.9, adult; Y92.89 Other specified places as the place of occurrence of the external cause; Z79.4 Long term (current) use of insulin; Z92.21 Personal history of antineoplastic chemotherapy
CPT/HCPCS: 36415; 71045; 80048; 80053; 80202; 82962; 83036; 83605; 84145; 84484; 85025; 86850; 86900; 87426; 88307; 88311; 93005; 99291; A6261; C1893; J0330; J1170; J1200; J1644; J1650; J2175; J2250; J2405; J2543; J2704; J2765; J2997; J3010; J3370; J3490; J7030; J7040; J7060

== ENCOUNTER 2020-09-30 21:28 | Emergency (ER) | payer OTHER ==
[~2020-09-30] VITALS: Ht 121.9 cm; Wt 104.0 kg
[~2020-09-30 21:28] MED LIST changes: +KEPP500 PO; +MIDO5TAB4 PO
[2020-09-30] MEDS ORDERED: ONDANSETRON HCL 4MG/2ML INJ IV STA (22:54)
[2020-09-30] MEDS ORDERED: MORPHINE SULFATE 4 MG/ML CPJ (NOT FOR IM USE) IV STA (22:54)
[2020-10-01 00:04] LABS: BASOPHILS % 1.1 % (0.0-2.0); HEMATOCRIT. 33.4 % (36.0-48.0); HEMOGLOBIN. 11.1 g/dL (12.0-16.0); LYMPHOCYTES % 32.5 % (20.0-50.0); MEAN CORPUSCULAR HEMOGLOBIN 30.2 pg (28.0-32.0); MEAN CORPUSCULAR VOLUME 90.3 fL (81.0-99.0); MEAN PLATELET VOLUME 9.3 fl (7.4-10.4); MONOCYTES % 10.6 % (2.0-8.0); NEUTROPHILS % 52.8 % (40.0-76.0); PLATELET 284 x1000/uL (130-400); RED BLOOD CELL COUNT 3.69 mill/uL (4.2-5.4); RED CELL DISTRIBUTION WIDTH 16.7 % (11.6-14.6)
[2020-10-01 00:09] LABS: CHLORIDE 103 mEq/L (98-107)
[2020-10-01 01:25] LABS: CLARITY URINE TURBID (CLEAR); COLOR URINE YELLOW (YELLOW); KETONES URINE NEGATIVE (NEGATIVE); LEUKOCYTE ESTERASE URINE 3+ (NEGATIVE); NITRITE URINE NEGATIVE (NEGATIVE); OCCULT BLOOD URINE 2+ (NEGATIVE); PROTEIN URINE 3+ (NEGATIVE); SPECIFIC GRAVITY URINE 1.015 (1.005-1.030); UROBILINOGEN URINE 0.2 E.U./dL (0.2-1.0)
[2020-10-01] MEDS ORDERED: CEPH500T MT (03:41)
[2020-10-01] MEDS ORDERED: CEFTRIAXONE 1 G PREMIX 50 ML IV ONE (03:45)
[2020-10-01 05:33] VITALS: BP 125/75
== END 2020-10-01 05:34 | disposition home or self-care (01) ==
LOC: ER 21:28
DX: N39.0 Urinary tract infection, site not specified (principal); R10.9 Unspecified abdominal pain; E11.9 Type 2 diabetes mellitus without complications; I12.0 Hypertensive chronic kidney disease with stage 5 chronic kidney disease or end stage renal disease; N18.6 End stage renal disease; Z99.2 Dependence on renal dialysis; Z90.49 Acquired absence of other specified parts of digestive tract; Z89.611 Acquired absence of right leg above knee; Z89.612 Acquired absence of left leg above knee; Z96.653 Presence of artificial knee joint, bilateral
CPT/HCPCS: 36415; 71045; 74176; 80053; 81003; 83605; 83690; 85025; 87077; 87086; 87186; 93005; 96365; 96375; 99285; J0696; J2270; J2405

== ENCOUNTER 2020-10-16 15:44 | Inpatient (IN) | payer OTHER ==
[~2020-10-16] VITALS: Ht 167.6 cm; Wt 79.4 kg
[2020-10-16] VITALS (8 sets, daily range): BP systolic 95–123; BP diastolic 65–78
[~2020-10-16 15:44] MED LIST changes: +CEPH500T MT
[2020-10-16] MEDS ORDERED: VANCOMYCIN 1 G PREMIX 200 ML IV ONE (16:00)
[2020-10-16] MEDS ORDERED: SODIUM CHLORIDE 0.9% 1000ML BAG (SEPSIS BOLUS) IV ONE (16:00)
[2020-10-16] MEDS ORDERED: PIPERACILLIN/TAZ 3.375G PREMIX 50 ML IV ONE (16:00)
[2020-10-16 16:14] LABS: BASOPHILS % 1.8 % (0.0-2.0); EOSINOPHILS % 2.4 % (0.0-5.0); HEMATOCRIT. 31.2 % (36.0-48.0); HEMOGLOBIN. 10.8 g/dL (12.0-16.0); MEAN CORPUSCULAR HEMOGLOBIN 31.3 pg (28.0-32.0); MEAN CORPUSCULAR VOLUME 90.2 fL (81.0-99.0); MEAN PLATELET VOLUME 8.9 fl (7.4-10.4); MONOCYTES % 10.5 % (2.0-8.0); NEUTROPHILS % 54.3 % (40.0-76.0); PLATELET 228 x1000/uL (130-400); RED BLOOD CELL COUNT 3.46 mill/uL (4.2-5.4); RED CELL DISTRIBUTION WIDTH 17.7 % (11.6-14.6)
[2020-10-16] MEDS ORDERED: MORPHINE SULFATE 4 MG/ML CPJ (NOT FOR IM USE) IV STA ×2 (16:14→18:15)
[2020-10-16] MEDS ORDERED: ONDANSETRON HCL 4MG/2ML INJ IV STA ×2 (16:14→18:15)
[2020-10-16 17:00] LABS: CHLORIDE 103 mEq/L (98-107)
[2020-10-16] MEDS ORDERED: NOREPINEPHRINE 8MG/250ML PMX 250 ML IV ONE (19:15)
[2020-10-16 20:40] LABS: CLARITY URINE TURBID (CLEAR); COLOR URINE YELLOW (YELLOW); KETONES URINE NEGATIVE (NEGATIVE); LEUKOCYTE ESTERASE URINE 3+ (NEGATIVE); NITRITE URINE NEGATIVE (NEGATIVE); OCCULT BLOOD URINE 3+ (NEGATIVE); PROTEIN URINE 3+ (NEGATIVE); SPECIFIC GRAVITY URINE 1.017 (1.005-1.030); UROBILINOGEN URINE 0.2 E.U./dL (0.2-1.0)
[2020-10-17] VITALS (97 sets, daily range): BP systolic 86–170; BP diastolic 48–93
[2020-10-17] MEDS: PIPERACILLIN/TAZOBACTAM 2.25 G in DEXTROSE 5% WATER 50 ML IV SCH ×3 (03:12→19:05)
[2020-10-17] MEDS: NOREPINEPHRINE 8 MG in SODIUM CHLORIDE 0.9% 242 ML IV PRN (03:28)
[2020-10-17 04:46] LABS: BASOPHILS % 1.6 % (0.0-2.0); EOSINOPHILS % 3.3 % (0.0-5.0); HEMATOCRIT. 28.1 % (36.0-48.0); HEMOGLOBIN. 9.4 g/dL (12.0-16.0); LYMPHOCYTES % 14.6 % (20.0-50.0); MEAN CORPUSCULAR HEMOGLOBIN 30.6 pg (28.0-32.0); MEAN CORPUSCULAR VOLUME 90.9 fL (81.0-99.0); MEAN PLATELET VOLUME 8.8 fl (7.4-10.4); MONOCYTES % 7.9 % (2.0-8.0); NEUTROPHILS % 72.6 % (40.0-76.0); PLATELET 155 x1000/uL (130-400); RED BLOOD CELL COUNT 3.09 mill/uL (4.2-5.4); RED CELL DISTRIBUTION WIDTH 17.9 % (11.6-14.6)
[2020-10-17] MEDS: INSULIN LISPRO 100 UNITS/ML SUBCUT SCH ×4 (06:29→21:00)
[2020-10-17] MEDS: BLOOD SUGAR DIAGNOSTIC STRIP TEST SCH ×4 (06:30→21:00)
[2020-10-17] MEDS: PANTOPRAZOLE SODIUM 40 MG/VIAL IV SCH (08:38)
[2020-10-17] MEDS: LEVETIRACETAM 500MG PREMIX 100 ML IV SCH (08:38)
[2020-10-17] MEDS: MORPHINE SULFATE 2 MG/ML CPJ (NOT FOR IM USE) IV PRN ×2 (09:08→13:16)
[2020-10-17] MEDS ORDERED: VANCOMYCIN 500 MG PREMIX 100 ML IV NR (10:00)
[2020-10-17] MEDS: NYSTATIN POWDER 15GM TOP SCH ×2 (13:48→22:16)
[2020-10-17] MEDS ORDERED: LORAZEPAM 2MG/ML CPJ IV SCH (14:15)
[2020-10-17 17:47] LABS: HEPATITIS B SURFACE ANTIGEN NEGATIVE
[2020-10-17 18:16] LABS: HEPATITIS A AB IGM NEGATIVE (NEGATIVE)
[2020-10-17] MEDS: ATORVASTATIN CALCIUM 20MG TABLET PO SCH (22:15)
[2020-10-18] VITALS (95 sets, daily range): BP systolic 100–176; BP diastolic 49–133
[2020-10-18] MEDS: DIPHENHYDRAMINE 50MG/ML VIAL IM PRN ×2 (02:35→16:36)
[2020-10-18] MEDS: MORPHINE SULFATE 2 MG/ML CPJ (NOT FOR IM USE) IV PRN ×3 (02:35→19:17)
[2020-10-18] MEDS: PIPERACILLIN/TAZOBACTAM 2.25 G in DEXTROSE 5% WATER 50 ML IV SCH ×3 (03:05→19:00)
[2020-10-18] MEDS: NOREPINEPHRINE 8 MG in SODIUM CHLORIDE 0.9% 242 ML IV PRN (03:53)
[2020-10-18 06:03] LABS: CHLORIDE 107 mEq/L (98-107)
[2020-10-18 06:04] LABS: EOSINOPHILS % 4.6 % (0.0-5.0); HEMATOCRIT. 30.5 % (36.0-48.0); HEMOGLOBIN. 10.2 g/dL (12.0-16.0); LYMPHOCYTES % 22.9 % (20.0-50.0); MEAN CORPUSCULAR HEMOGLOBIN 30.3 pg (28.0-32.0); MEAN CORPUSCULAR VOLUME 90.7 fL (81.0-99.0); MONOCYTES % 10.2 % (2.0-8.0); NEUTROPHILS % 61.3 % (40.0-76.0); PLATELET 172 x1000/uL (130-400); RED BLOOD CELL COUNT 3.36 mill/uL (4.2-5.4); RED CELL DISTRIBUTION WIDTH 17.9 % (11.6-14.6)
[2020-10-18] MEDS: INSULIN LISPRO 100 UNITS/ML SUBCUT SCH ×4 (07:50→20:42)
[2020-10-18] MEDS: BLOOD SUGAR DIAGNOSTIC STRIP TEST SCH ×4 (08:16→20:42)
[2020-10-18] MEDS: NYSTATIN POWDER 15GM TOP SCH ×3 (08:17→20:42)
[2020-10-18] MEDS: DEXTROSE 50% WATER 50ML SYRINGE IV PRN ×3 (08:28→17:34)
[2020-10-18] MEDS: LEVETIRACETAM 500MG PREMIX 100 ML IV SCH (09:51)
[2020-10-18] MEDS: PANTOPRAZOLE SODIUM 40 MG/VIAL IV SCH (09:51)
[2020-10-18] MEDS: DEXT 5%/0.45% NACL 1000ML 1,000 ML IV SCH (13:32)
[2020-10-18] MEDS ORDERED: VANCOMYCIN 1 G PREMIX 200 ML IV SCH (16:00)
[2020-10-18] MEDS: ATORVASTATIN CALCIUM 20MG TABLET PO SCH (20:42)
[2020-10-18] MEDS: HYDROCODONE/ACETAMINOPHEN 10/325MG TABLET PO PRN (20:43)
[2020-10-19] VITALS (12 sets, daily range): BP systolic 116–154; BP diastolic 71–99
[2020-10-19] MEDS: MORPHINE SULFATE 2 MG/ML CPJ (NOT FOR IM USE) IV PRN ×4 (00:35→22:02)
[2020-10-19] MEDS: PIPERACILLIN/TAZOBACTAM 2.25 G in DEXTROSE 5% WATER 50 ML IV SCH ×3 (02:43→18:53)
[2020-10-19] MEDS: NYSTATIN POWDER 15GM TOP SCH ×3 (06:42→21:38)
[2020-10-19] MEDS: INSULIN LISPRO 100 UNITS/ML SUBCUT SCH ×4 (07:30→21:00)
[2020-10-19] MEDS: BLOOD SUGAR DIAGNOSTIC STRIP TEST SCH ×4 (08:00→21:37)
[2020-10-19] MEDS: LEVETIRACETAM 500MG PREMIX 100 ML IV SCH ×2 (09:30→20:38)
[2020-10-19] MEDS: PANTOPRAZOLE SODIUM 40 MG/VIAL IV SCH (09:30)
[2020-10-19] MEDS: DEXT 5%/0.45% NACL 1000ML 1,000 ML IV SCH (13:28)
[2020-10-19] MEDS: LIDOCAINE 5% PATCH TOP SCH (17:26)
[2020-10-19] MEDS: DEXTROSE 50% WATER 50ML SYRINGE IV PRN ×2 (17:27→21:38)
[2020-10-19] MEDS: DIPHENHYDRAMINE 50MG/ML VIAL IM PRN (18:53)
[2020-10-19] MEDS: ATORVASTATIN CALCIUM 20MG TABLET PO SCH (20:38)
[2020-10-20] VITALS (13 sets, daily range): BP systolic 100–153; BP diastolic 69–97
[2020-10-20] MEDS: PIPERACILLIN/TAZOBACTAM 2.25 G in DEXTROSE 5% WATER 50 ML IV SCH ×3 (02:32→20:33)
[2020-10-20] MEDS: MORPHINE SULFATE 2 MG/ML CPJ (NOT FOR IM USE) IV PRN ×2 (05:03→09:24)
[2020-10-20] MEDS: NYSTATIN POWDER 15GM TOP SCH ×3 (05:04→22:03)
[2020-10-20] MEDS: INSULIN LISPRO 100 UNITS/ML SUBCUT SCH (07:30)
[2020-10-20] MEDS: BLOOD SUGAR DIAGNOSTIC STRIP TEST SCH ×4 (07:30→21:00)
[2020-10-20] MEDS: LIDOCAINE 5% PATCH TOP SCH (09:22)
[2020-10-20] MEDS: FAMOTIDINE 20MG/2ML VIAL IV SCH (09:23)
[2020-10-20] MEDS: LEVETIRACETAM 500MG PREMIX 100 ML IV SCH ×2 (09:23→21:48)
[2020-10-20] MEDS: DEXT 5%/0.45% NACL 1000ML 1,000 ML IV SCH (13:39)
[2020-10-20] MEDS: HYDROCODONE/ACETAMINOPHEN 10/325MG TABLET PO PRN ×2 (15:36→20:56)
[2020-10-20] MEDS: DIPHENHYDRAMINE 50MG CAPSULE PO NR ×2 (17:07→17:09)
[2020-10-20] MEDS: DOCUSATE SODIUM 100MG CAPSULE PO SCH (17:07)
[2020-10-20] MEDS: DIPHENHYDRAMINE 50MG/ML VIAL IM PRN ×2 (17:14→22:00)
[2020-10-20] MEDS: DEXTROSE 50% WATER 50ML SYRINGE IV PRN (17:22)
[2020-10-20] MEDS: ATORVASTATIN CALCIUM 20MG TABLET PO SCH (21:48)
[2020-10-20] MEDS: MIRTAZAPINE 15MG TABLET PO SCH (21:50)
[2020-10-21] VITALS (10 sets, daily range): BP systolic 90–159; BP diastolic 63–93
[2020-10-21] MEDS: PIPERACILLIN/TAZOBACTAM 2.25 G in DEXTROSE 5% WATER 50 ML IV SCH ×3 (04:10→20:33)
[2020-10-21] MEDS: HYDROCODONE/ACETAMINOPHEN 10/325MG TABLET PO PRN (04:44)
[2020-10-21] MEDS: BLOOD SUGAR DIAGNOSTIC STRIP TEST SCH ×4 (06:33→20:39)
[2020-10-21] MEDS: DEXTROSE 50% WATER 50ML SYRINGE IV PRN ×2 (06:36→11:39)
[2020-10-21] MEDS: NYSTATIN POWDER 15GM TOP SCH (06:37)
[2020-10-21] MEDS: LEVETIRACETAM 500MG PREMIX 100 ML IV SCH ×2 (08:26→20:33)
[2020-10-21] MEDS: DOCUSATE SODIUM 100MG CAPSULE PO SCH ×2 (08:27→17:27)
[2020-10-21] MEDS: FAMOTIDINE 20MG/2ML VIAL IV SCH (08:27)
[2020-10-21] MEDS: MORPHINE SULFATE 2 MG/ML CPJ (NOT FOR IM USE) IV PRN ×3 (08:29→20:34)
[2020-10-21] MEDS ORDERED: LIDOCAINE/PRILOCAINE CREAM 5 GM TUBE TOP NR (09:00)
[2020-10-21] MEDS: LIDOCAINE 5% PATCH TOP SCH (09:11)
[2020-10-21] MEDS ORDERED: LEVOFLOXACIN 500MG TABLET PO SCH (11:00)
[2020-10-21] MEDS ORDERED: AMITRIPTYLINE 50MG TABLET PO SCH (12:00)
[2020-10-21] MEDS: DIPHENHYDRAMINE 50MG/ML VIAL IM PRN (12:11)
[2020-10-21] MEDS: QUETIAPINE FUMARATE 50MG TABLET PO SCH (12:13)
[2020-10-21] MEDS ORDERED: LIDOCAINE HCL 4% (40MG/ML) SOLN 50ML TOP SCH (12:30)
[2020-10-21] MEDS ORDERED: LIDOCAINE HCL 4% CREAM 76GM TUBE TP SCH (12:30)
[2020-10-21 13:10] LABS: HAV IGM ANTIBODY Negative (Negative); HBSAG SCREEN Negative (Negative); HEPATITIS B CORE IGM AB Negative (Negative); HEPATITIS C AB <0.1 s/co ratio (0.0-0.9)
[2020-10-21] MEDS: DEXT 5%/0.45% NACL 1000ML 1,000 ML IV SCH (14:00)
[2020-10-21] MEDS ORDERED: LORAZEPAM 2MG/ML CPJ IV NR (14:00)
[2020-10-21] MEDS: [UNRECOGNIZED DRUG - OTHER] TOP SCH (15:29)
[2020-10-21] MEDS: NYSTATIN/TRIAMCIN CREAM 15GM TOP SCH ×2 (17:26→17:28)
[2020-10-21] MEDS: ATORVASTATIN CALCIUM 20MG TABLET PO SCH (20:34)
[2020-10-21] MEDS: MIRTAZAPINE 15MG TABLET PO SCH (20:34)
[2020-10-22] VITALS (9 sets, daily range): BP systolic 99–134; BP diastolic 69–106
[2020-10-22] MEDS: HYDROCODONE/ACETAMINOPHEN 10/325MG TABLET PO PRN (05:55)
[2020-10-22] MEDS: DIPHENHYDRAMINE 50MG/ML VIAL IM PRN ×2 (06:21→12:06)
[2020-10-22] MEDS: BLOOD SUGAR DIAGNOSTIC STRIP TEST SCH (07:30)
[2020-10-22] MEDS: [UNRECOGNIZED DRUG - OTHER] TOP SCH (09:00)
[2020-10-22] MEDS ORDERED: AMITRIPTYLINE 10MG TABLET PO SCH (09:00)
[2020-10-22] MEDS: FAMOTIDINE 20MG/2ML VIAL IV SCH (09:44)
[2020-10-22] MEDS: DOCUSATE SODIUM 100MG CAPSULE PO SCH (09:45)
[2020-10-22] MEDS: QUETIAPINE FUMARATE 50MG TABLET PO SCH (09:46)
[2020-10-22] MEDS: NYSTATIN/TRIAMCIN CREAM 15GM TOP SCH (09:47)
[2020-10-22] MEDS: LIDOCAINE 5% PATCH TOP SCH (09:49)
[2020-10-22] MEDS: LEVETIRACETAM 500MG PREMIX 100 ML IV SCH (09:50)
[2020-10-22] MEDS: DEXT 5%/0.45% NACL 1000ML 1,000 ML IV SCH (13:15)
[2020-10-22] MEDS ORDERED: HEPARIN SODIUM 1,000 UNIT/1ML VIAL IV NR (14:00)
== END 2020-10-22 17:30 | disposition home health service (06) | DRG 720 ==
LOC: ER 15:44 → EDBEDREQSVC 19:36 → EDBEDREQTM 19:36 → EDBEDREQ 19:36 → ENRESERV 20:17 → CVICU 20:19 → EDBEDREQ 20:22 → 5EST 10-18 23:45
PROVIDERS: ADMIT Internal Medicine; ATTEND Internal Medicine
PROC: 02HV33Z Insertion of Infusion Device into Superior Vena Cava, Percutaneous Approach (ICD-10-PCS; principal; 2020-10-16)
PROC: B548ZZA Ultrasonography of Superior Vena Cava, Guidance (ICD-10-PCS; 2020-10-16)
PROC: 5A1D70Z Performance of Urinary Filtration, Intermittent, Less than 6 Hours Per Day (ICD-10-PCS; 2020-10-17)
PROC: 5A1D70Z Performance of Urinary Filtration, Intermittent, Less than 6 Hours Per Day (ICD-10-PCS; 2020-10-19)
PROC: 5A1D70Z Performance of Urinary Filtration, Intermittent, Less than 6 Hours Per Day (ICD-10-PCS; 2020-10-21)
DX: A41.9 Sepsis, unspecified organism (principal); R65.21 Severe sepsis with septic shock; E43 Unspecified severe protein-calorie malnutrition; L89.216 Pressure-induced deep tissue damage of right hip; E11.22 Type 2 diabetes mellitus with diabetic chronic kidney disease; L89.316 Pressure-induced deep tissue damage of right buttock; I12.0 Hypertensive chronic kidney disease with stage 5 chronic kidney disease or end stage renal disease; N18.6 End stage renal disease; N39.0 Urinary tract infection, site not specified; E78.5 Hyperlipidemia, unspecified; J44.9 Chronic obstructive pulmonary disease, unspecified; G40.909 Epilepsy, unspecified, not intractable, without status epilepticus; D63.8 Anemia in other chronic diseases classified elsewhere; F41.8 Other specified anxiety disorders; E11.42 Type 2 diabetes mellitus with diabetic polyneuropathy; G89.4 Chronic pain syndrome; R53.81 Other malaise; M10.9 Gout, unspecified; T87.81 Dehiscence of amputation stump; Y83.5 Amputation of limb(s) as the cause of abnormal reaction of the patient, or of later complication, without mention of misadventure at the time of the procedure; E11.51 Type 2 diabetes mellitus with diabetic peripheral angiopathy without gangrene; G54.6 Phantom limb syndrome with pain; K27.9 Peptic ulcer, site unspecified, unspecified as acute or chronic, without hemorrhage or perforation; K29.70 Gastritis, unspecified, without bleeding; Z85.3 Personal history of malignant neoplasm of breast; Z99.2 Dependence on renal dialysis; Z89.612 Acquired absence of left leg above knee; Z89.611 Acquired absence of right leg above knee; Z87.891 Personal history of nicotine dependence; Z79.4 Long term (current) use of insulin; Z82.49 Family history of ischemic heart disease and other diseases of the circulatory system; Z83.3 Family history of diabetes mellitus; Z68.28 Body mass index [BMI] 28.0-28.9, adult
CPT/HCPCS: 36415; 71045; 74176; 80048; 80053; 80074; 80202; 81003; 82040; 82962; 83036; 83605; 83880; 84134; 84145; 84484; 85025; 86705; 86709; 86803; 87340; 93005; 93306; 99291; A6261; C9113; J1200; J1644; J1953; J2060; J2270; J2405; J2543; J3370; J3490; J7030; J7040; J7050; J7060; Q0163; A4315

== ENCOUNTER 2020-11-05 15:11 | Inpatient (IN) | payer OTHER ==
[~2020-11-05] VITALS: Ht 152.4 cm; Wt 81.7 kg
[2020-11-05] MEDS ORDERED: CEFTRIAXONE 1 G PREMIX 50 ML IV ONE (15:30)
[2020-11-05] MEDS ORDERED: CLINDAMYCIN 300 MG in DEXTROSE 5% WATER 50 ML IV ONE (15:30)
[2020-11-05] MEDS ORDERED: SODIUM CHLORIDE 0.9% 1,000 ML IV ONE (15:30)
[2020-11-05] MEDS ORDERED: VANCOMYCIN 1 G PREMIX 200 ML IV SCH (15:30)
[2020-11-05 18:24] LABS: BASOPHILS % 0.7 % (0.0-2.0); EOSINOPHILS % 2.9 % (0.0-5.0); HEMOGLOBIN. 8.5 g/dL (12.0-16.0); LYMPHOCYTES % 33.6 % (20.0-50.0); MEAN CORPUSCULAR HEMOGLOBIN 30.5 pg (28.0-32.0); MEAN CORPUSCULAR VOLUME 89.5 fL (81.0-99.0); MEAN PLATELET VOLUME 9.1 fl (7.4-10.4); MONOCYTES % 12.5 % (2.0-8.0); NEUTROPHILS % 50.3 % (40.0-76.0); PLATELET 197 x1000/uL (130-400)
[2020-11-05 18:31] LABS: CHLORIDE 103 mEq/L (98-107)
[2020-11-05] MEDS ORDERED: MORPHINE SULFATE 4 MG/ML CPJ (NOT FOR IM USE) IV STA (18:43)
[2020-11-05] MEDS ORDERED: ONDANSETRON HCL 4MG/2ML INJ IV STA (18:43)
[2020-11-06] MEDS ORDERED: SODIUM CHLORIDE 0.9% 1,000 ML IV ONE (00:45)
[2020-11-06] MEDS ORDERED: NALOXONE HCL 0.4MG/ML VIAL IV PRN (00:45)
[2020-11-06 01:03] LABS: CLARITY URINE CLEAR (CLEAR); COLOR URINE YELLOW (YELLOW); KETONES URINE NEGATIVE (NEGATIVE); LEUKOCYTE ESTERASE URINE 2+ (NEGATIVE); NITRITE URINE NEGATIVE (NEGATIVE); OCCULT BLOOD URINE TRACE (NEGATIVE); PH URINE >=9.0 (4.5-8.0); PROTEIN URINE 2+ (NEGATIVE); SPECIFIC GRAVITY URINE 1.009 (1.005-1.030); UROBILINOGEN URINE 0.2 E.U./dL (0.2-1.0)
[2020-11-06] MEDS: MORPHINE SULFATE 2 MG/ML CPJ (NOT FOR IM USE) IV PRN ×5 (01:08→18:45)
[2020-11-06 04:00] VITALS: BP_SYST 107; BP_SYST 109; BP_DIAS 73; BP_DIAS 93
[2020-11-06] MEDS ORDERED: POTASSIUM CHLORIDE 20MEQ TABLET SR PO SCH (07:00)
[2020-11-06] MEDS ORDERED: PIPERACILLIN/TAZOBACTAM 3.375 G in DEXTROSE 5% WATER 50 ML IV SCH (07:00)
[2020-11-06 08:05] VITALS: BP 105/67
[2020-11-06] MEDS: PIPERACILLIN/TAZOBACTAM 2.25G in DEXTROSE 5% WATER 50ML IV SCH ×2 (09:45→16:57)
[2020-11-06 12:29] VITALS: BP 108/70
[2020-11-06 16:08] VITALS: BP 120/86
[2020-11-06 20:00] VITALS: BP 84/57
[2020-11-06] MEDS: BLOOD SUGAR DIAGNOSTIC STRIP TEST SCH (20:37)
[2020-11-06] MEDS ORDERED: ZOLPIDEM TARTRATE 5MG TABLET PO PRN ×2 (23:00→23:45)
[2020-11-06 23:54] LABS: HEPATITIS B SURFACE ANTIGEN NEGATIVE
[2020-11-07] VITALS: BP 125/56
[2020-11-07 00:24] LABS: HEPATITIS A AB IGM NEGATIVE (NEGATIVE)
[2020-11-07] MEDS: MORPHINE SULFATE 2 MG/ML CPJ (NOT FOR IM USE) IV PRN ×3 (01:50→16:23)
[2020-11-07] MEDS: PIPERACILLIN/TAZOBACTAM 2.25G in DEXTROSE 5% WATER 50ML IV SCH ×3 (01:50→16:23)
[2020-11-07 04:00] VITALS: BP_SYST 107; BP_SYST 111; BP_DIAS 62; BP_DIAS 70
[2020-11-07] MEDS: DEXTROSE 50% WATER 50ML SYRINGE IV PRN (06:40)
[2020-11-07] MEDS: BLOOD SUGAR DIAGNOSTIC STRIP TEST SCH ×4 (06:56→20:43)
[2020-11-07 08:00] VITALS: BP 91/62
[2020-11-07] MEDS ORDERED: HYDROCORTISONE 1% CREAM 30GM TOP PRN (11:00)
[2020-11-07 12:00] VITALS: BP 117/66
[2020-11-07 16:00] VITALS: BP 104/63
[2020-11-07 20:00] VITALS: BP 100/50
[2020-11-07] MEDS ORDERED: VANCOMYCIN 1 G PREMIX 200 ML IV NR (21:00)
[2020-11-07] MEDS: EPOETIN ALFA-EPBX 10,000 UNIT/ML VIAL SUBCUT SCH (21:13)
[2020-11-07] MEDS: DIPHENHYDRAMINE 50MG/ML VIAL IV PRN (23:27)
[2020-11-08] VITALS: BP 130/80
[2020-11-08] MEDS: PIPERACILLIN/TAZOBACTAM 2.25G in DEXTROSE 5% WATER 50ML IV SCH ×3 (01:44→17:16)
[2020-11-08] MEDS: MORPHINE SULFATE 2 MG/ML CPJ (NOT FOR IM USE) IV PRN ×2 (02:14→10:10)
[2020-11-08 04:00] VITALS: BP 119/67
[2020-11-08] MEDS: BLOOD SUGAR DIAGNOSTIC STRIP TEST SCH ×4 (07:10→21:32)
[2020-11-08 08:00] VITALS: BP 112/69
[2020-11-08] MEDS ORDERED: IOHEXOL-350 100 ML BOTTLE ONE (10:33)
[2020-11-08 12:00] VITALS: BP 116/56
[2020-11-08] MEDS: DIPHENHYDRAMINE 50MG/ML VIAL IV PRN ×2 (12:07→18:18)
[2020-11-08 16:00] VITALS: BP 130/80
[2020-11-08 20:00] VITALS: BP 109/71
[2020-11-09] VITALS: BP 109/59
[2020-11-09] MEDS: MORPHINE SULFATE 2 MG/ML CPJ (NOT FOR IM USE) IV PRN ×4 (00:21→19:32)
[2020-11-09] MEDS: PIPERACILLIN/TAZOBACTAM 2.25G in DEXTROSE 5% WATER 50ML IV SCH ×3 (00:21→17:20)
[2020-11-09 04:00] VITALS: BP 118/64
[2020-11-09] MEDS: DEXTROSE 50% WATER 50ML SYRINGE IV PRN (06:16)
[2020-11-09] MEDS: BLOOD SUGAR DIAGNOSTIC STRIP TEST SCH ×4 (06:30→21:17)
[2020-11-09] MEDS ORDERED: CEPHALEXIN 250MG CAPSULE PO SCH (16:00)
[2020-11-09] MEDS: MIDODRINE HCL 5MG TABLET PO SCH (17:17)
[2020-11-09] MEDS: SERTRALINE HCL 50MG TABLET PO SCH (17:18)
[2020-11-09 20:00] VITALS: BP 94/52
[2020-11-09] MEDS: DIPHENHYDRAMINE 50MG/ML VIAL IV PRN (20:22)
[2020-11-09] MEDS: AMITRIPTYLINE 25MG TABLET PO SCH (21:17)
[2020-11-09] MEDS: GABAPENTIN 300MG CAPSULE PO SCH (21:18)
[2020-11-09] MEDS: QUETIAPINE FUMARATE 50MG TABLET PO SCH (21:18)
[2020-11-09 22:24] LABS: HEPATITIS B SURFACE ANTIGEN NEGATIVE
[2020-11-09 22:53] LABS: HEPATITIS A AB IGM NEGATIVE (NEGATIVE)
[2020-11-10] VITALS: BP 95/52
[2020-11-10] MEDS: PIPERACILLIN/TAZOBACTAM 2.25G in DEXTROSE 5% WATER 50ML IV SCH ×3 (01:25→17:40)
[2020-11-10] MEDS: MORPHINE SULFATE 2 MG/ML CPJ (NOT FOR IM USE) IV PRN ×4 (01:37→22:26)
[2020-11-10 04:00] VITALS: BP 94/51
[2020-11-10] MEDS: GABAPENTIN 300MG CAPSULE PO SCH ×3 (06:54→22:25)
[2020-11-10] MEDS: BLOOD SUGAR DIAGNOSTIC STRIP TEST SCH ×4 (06:54→21:00)
[2020-11-10] MEDS: DEXTROSE 50% WATER 50ML SYRINGE IV PRN (06:59)
[2020-11-10 08:00] VITALS: BP 100/65
[2020-11-10] MEDS: SERTRALINE HCL 50MG TABLET PO SCH (09:13)
[2020-11-10] MEDS: MIDODRINE HCL 5MG TABLET PO SCH ×3 (09:13→17:40)
[2020-11-10 09:32] LABS: HEMATOCRIT. 22.1 % (36.0-48.0); HEMOGLOBIN. 7.5 g/dL (12.0-16.0); MEAN CORPUSCULAR HEMOGLOBIN 31.7 pg (28.0-32.0); MEAN CORPUSCULAR VOLUME 93.1 fL (81.0-99.0); PLATELET 162 x1000/uL (130-400); RED BLOOD CELL COUNT 2.38 mill/uL (4.2-5.4); RED CELL DISTRIBUTION WIDTH 18.1 % (11.6-14.6)
[2020-11-10 12:00] VITALS: BP 84/55
[2020-11-10] MEDS: DIPHENHYDRAMINE 50MG/ML VIAL IV PRN (13:54)
[2020-11-10 16:00] VITALS: BP 89/55
[2020-11-10] MEDS ORDERED: VANCOMYCIN 1 G PREMIX 200 ML IV NR (18:00)
[2020-11-10 20:00] VITALS: BP 121/82
[2020-11-10 20:58] LABS: PLATELET ESTIMATE NORMAL
[2020-11-10] MEDS: AMITRIPTYLINE 25MG TABLET PO SCH (22:25)
[2020-11-10] MEDS: QUETIAPINE FUMARATE 50MG TABLET PO SCH (22:25)
[2020-11-10] MEDS: EPOETIN ALFA-EPBX 10,000 UNIT/ML VIAL SUBCUT SCH (22:25)
[2020-11-11] MEDS: PIPERACILLIN/TAZOBACTAM 2.25G in DEXTROSE 5% WATER 50ML IV SCH ×2 (00:23→09:13)
[2020-11-11 00:25] VITALS: BP 117/80
[2020-11-11 04:00] VITALS: BP 125/86
[2020-11-11] MEDS: GABAPENTIN 300MG CAPSULE PO SCH ×4 (05:44→22:32)
[2020-11-11] MEDS: BLOOD SUGAR DIAGNOSTIC STRIP TEST SCH ×4 (06:24→21:39)
[2020-11-11] MEDS: DEXTROSE 50% WATER 50ML SYRINGE IV PRN ×2 (06:31→12:41)
[2020-11-11 08:00] VITALS: BP 101/72
[2020-11-11] MEDS: SERTRALINE HCL 50MG TABLET PO SCH (09:00)
[2020-11-11] MEDS: MIDODRINE HCL 5MG TABLET PO SCH ×3 (09:00→16:42)
[2020-11-11] MEDS: MORPHINE SULFATE 2 MG/ML CPJ (NOT FOR IM USE) IV PRN ×4 (10:20→22:33)
[2020-11-11 12:00] VITALS: BP 116/81
[2020-11-11] MEDS ORDERED: MIDAZOLAM HCL 5 MG/5 ML VIAL ONE (13:39)
[2020-11-11] MEDS ORDERED: FENTANYL CITRATE/PF 50MCG/ML 5ML VIAL ONE (13:40)
[2020-11-11] MEDS ORDERED: TRAMADOL 50MG TABLET PO PRN (14:30)
[2020-11-11] MEDS ORDERED: DIPHENHYDRAMINE 50MG/ML VIAL IV PRN (15:00)
[2020-11-11 16:00] VITALS: BP 107/67
[2020-11-11 16:37] LABS: HEPATITIS B SURFACE ANTIGEN NEGATIVE
[2020-11-11 17:06] LABS: HEPATITIS A AB IGM NEGATIVE (NEGATIVE)
[2020-11-11 20:00] VITALS: BP 113/66
[2020-11-11] MEDS: QUETIAPINE FUMARATE 50MG TABLET PO SCH (22:32)
[2020-11-11] MEDS: AMITRIPTYLINE 25MG TABLET PO SCH (22:37)
[2020-11-12] VITALS (10 sets, daily range): BP systolic 82–141; BP diastolic 54–88
[2020-11-12] MEDS: MORPHINE SULFATE 2 MG/ML CPJ (NOT FOR IM USE) IV PRN ×3 (04:17→21:24)
[2020-11-12] MEDS: GABAPENTIN 300MG CAPSULE PO SCH ×3 (06:00→21:23)
[2020-11-12] MEDS: BLOOD SUGAR DIAGNOSTIC STRIP TEST SCH ×4 (06:27→21:25)
[2020-11-12] MEDS: DEXTROSE 50% WATER 50ML SYRINGE IV PRN ×2 (06:28→17:18)
[2020-11-12 07:35] LABS: HEMATOCRIT. 22.6 % (36.0-48.0); HEMOGLOBIN. 7.5 g/dL (12.0-16.0); MEAN CORPUSCULAR HEMOGLOBIN 30.9 pg (28.0-32.0); MEAN CORPUSCULAR VOLUME 92.6 fL (81.0-99.0); MEAN PLATELET VOLUME 9.9 fl (7.4-10.4); PLATELET 159 x1000/uL (130-400); RED BLOOD CELL COUNT 2.44 mill/uL (4.2-5.4); RED CELL DISTRIBUTION WIDTH 17.8 % (11.6-14.6)
[2020-11-12] MEDS: SERTRALINE HCL 50MG TABLET PO SCH (09:16)
[2020-11-12] MEDS: MIDODRINE HCL 5MG TABLET PO SCH ×3 (09:16→16:49)
[2020-11-12] MEDS ORDERED: HEPARIN SODIUM 1,000 UNIT/1ML VIAL IV ONE (11:00)
[2020-11-12] MEDS ORDERED: MIDAZOLAM HCL 2 MG/2 ML VIAL ONE (11:55)
[2020-11-12] MEDS ORDERED: ATROPINE SULFATE 0.1MG/ML 10ML DISP.SYRIN ONE (11:56)
[2020-11-12] MEDS ORDERED: FENTANYL CITRATE/PF 50MCG/ML 2ML VIAL ONE (11:56)
[2020-11-12] MEDS ORDERED: LIDOCAINE HCL 1% 20ML VIAL (Pyxis) INJ ONE (11:56)
[2020-11-12] MEDS ORDERED: IODIXANOL 320MG/ML 200ML BOTTLE ONE (11:57)
[2020-11-12] MEDS ORDERED: NALOXONE HCL 0.4 MG/ML 1ML VIAL ONE (12:57)
[2020-11-12] MEDS ORDERED: FLUMAZENIL 0.1 MG/ML 5ML VIAL IV ONE (12:57)
[2020-11-12] MEDS ORDERED: IOHEXOL-300 100 ML BOTTLE ONE (13:17)
[2020-11-12] MEDS ORDERED: CLOPIDOGREL 75MG TABLET ONE (13:44)
[2020-11-12] MEDS ORDERED: ASPIRIN 325MG TABLET ONE (13:44)
[2020-11-12] MEDS ORDERED: PANTOPRAZOLE SODIUM 40 MG/VIAL IV NR (13:45)
[2020-11-12] MEDS ORDERED: ATROPINE SULFATE 1MG/10ML SYR IV PRN (13:45)
[2020-11-12] MEDS ORDERED: ACETAMINOPHEN 325MG TABLET PO PRN (13:45)
[2020-11-12 19:31] LABS: PLATELET ESTIMATE NORMAL
[2020-11-12] MEDS: AMITRIPTYLINE 25MG TABLET PO SCH (21:00)
[2020-11-12] MEDS: EPOETIN ALFA-EPBX 10,000 UNIT/ML VIAL SUBCUT SCH (21:23)
[2020-11-12] MEDS: QUETIAPINE FUMARATE 50MG TABLET PO SCH (21:23)
[2020-11-13] VITALS (9 sets, daily range): BP systolic 89–124; BP diastolic 40–75
[2020-11-13] MEDS: DEXTROSE 50% WATER 50ML SYRINGE IV PRN
[2020-11-13] MEDS ORDERED: SODIUM CHLORIDE 0.9% 250 ML IV ONE (00:30)
[2020-11-13] MEDS: BLOOD SUGAR DIAGNOSTIC STRIP TEST SCH ×4 (06:34→21:07)
[2020-11-13] MEDS: GABAPENTIN 100MG CAPSULE PO SCH ×3 (06:35→22:09)
[2020-11-13 07:28] LABS: BASOPHILS % 0.5 % (0.0-2.0); EOSINOPHILS % 4.8 % (0.0-5.0); HEMATOCRIT. 22.8 % (36.0-48.0); HEMOGLOBIN. 7.6 g/dL (12.0-16.0); LYMPHOCYTES % 26.4 % (20.0-50.0); MEAN CORPUSCULAR HEMOGLOBIN 30.7 pg (28.0-32.0); MEAN CORPUSCULAR VOLUME 92.4 fL (81.0-99.0); MEAN PLATELET VOLUME 10.4 fl (7.4-10.4); MONOCYTES % 12.2 % (2.0-8.0); NEUTROPHILS % 56.1 % (40.0-76.0); PLATELET 173 x1000/uL (130-400); RED BLOOD CELL COUNT 2.47 mill/uL (4.2-5.4); RED CELL DISTRIBUTION WIDTH 17.5 % (11.6-14.6)
[2020-11-13] MEDS ORDERED: PANTOPRAZOLE SODIUM 40 MG/VIAL IV SCH (09:00)
[2020-11-13] MEDS: ASPIRIN 81MG EC TABLET PO SCH (10:09)
[2020-11-13] MEDS: MIDODRINE HCL 5MG TABLET PO SCH ×3 (10:09→17:52)
[2020-11-13] MEDS: SERTRALINE HCL 50MG TABLET PO SCH (10:09)
[2020-11-13] MEDS: CLOPIDOGREL 75MG TABLET PO SCH (10:09)
[2020-11-13] MEDS: MORPHINE SULFATE 2 MG/ML CPJ (NOT FOR IM USE) IV PRN ×3 (10:18→21:07)
[2020-11-13] MEDS: QUETIAPINE FUMARATE 50MG TABLET PO SCH (22:08)
[2020-11-13] MEDS: AMITRIPTYLINE 25MG TABLET PO SCH (22:08)
[2020-11-14] VITALS (7 sets, daily range): BP systolic 98–141; BP diastolic 53–68
[2020-11-14] MEDS: MORPHINE SULFATE 2 MG/ML CPJ (NOT FOR IM USE) IV PRN ×2 (04:57→11:46)
[2020-11-14] MEDS: GABAPENTIN 100MG CAPSULE PO SCH ×2 (05:01→13:32)
[2020-11-14] MEDS: BLOOD SUGAR DIAGNOSTIC STRIP TEST SCH ×3 (06:36→17:49)
[2020-11-14] MEDS ORDERED: PANTOPRAZOLE 40MG DR TABLET PO SCH (06:50)
[2020-11-14] MEDS: MIDODRINE HCL 5MG TABLET PO SCH ×3 (09:27→17:44)
[2020-11-14] MEDS: ASPIRIN 81MG EC TABLET PO SCH (09:27)
[2020-11-14] MEDS: CLOPIDOGREL 75MG TABLET PO SCH (09:27)
[2020-11-14] MEDS: SERTRALINE HCL 50MG TABLET PO SCH (09:27)
[2020-11-14] MEDS ORDERED: MORPHINE SULFATE 2 MG/ML CPJ (NOT FOR IM USE) IV PRN (15:00)
[2020-11-14 15:55] LABS: HEMATOCRIT. 23.1 % (36.0-48.0); HEMOGLOBIN. 8.1 g/dL (12.0-16.0); MEAN CORPUSCULAR HEMOGLOBIN 32.8 pg (28.0-32.0); MEAN CORPUSCULAR VOLUME 92.7 fL (81.0-99.0); MEAN PLATELET VOLUME 9.3 fl (7.4-10.4); PLATELET 217 x1000/uL (130-400); RED BLOOD CELL COUNT 2.49 mill/uL (4.2-5.4); RED CELL DISTRIBUTION WIDTH 18.3 % (11.6-14.6)
[2020-11-14 19:32] LABS: HEPATITIS B SURFACE ANTIGEN NEGATIVE
[2020-11-14 20:02] LABS: HEPATITIS A AB IGM NEGATIVE (NEGATIVE)
[2020-11-14] MEDS ORDERED: EPOETIN ALFA-EPBX 10,000 UNIT/ML VIAL SUBCUT SCH ×2 (21:00)
[2020-11-14] MEDS ORDERED: EPOETIN ALFA-EPBX 4,000 UNIT/ML VIAL SUBCUT SCH (21:00)
[2020-11-14 21:15] LABS: PLATELET ESTIMATE NORMAL
== END 2020-11-14 22:00 | disposition home health service (06) | DRG 181 ==
LOC: ER 15:11 → 8WST 23:57 → ENRESERV 11-06 01:47 → CANRESERV 11-06 01:47 → ENRESERV 11-06 01:48 → 6EST 11-09 09:08 → 3WST 11-12 15:11 → 6EST 11-13 15:07
PROVIDERS: ADMIT Internal Medicine; ATTEND Internal Medicine
PROC: 5A1D70Z Performance of Urinary Filtration, Intermittent, Less than 6 Hours Per Day (ICD-10-PCS; 2020-11-07)
PROC: 5A1D70Z Performance of Urinary Filtration, Intermittent, Less than 6 Hours Per Day (ICD-10-PCS; 2020-11-10)
PROC: 047H3ZZ Dilation of Right External Iliac Artery, Percutaneous Approach (ICD-10-PCS; principal; 2020-11-12)
PROC: B41FYZZ Fluoroscopy of Right Lower Extremity Arteries using Other Contrast (ICD-10-PCS; 2020-11-12)
PROC: 047K3DZ Dilation of Right Femoral Artery with Intraluminal Device, Percutaneous Approach (ICD-10-PCS; 2020-11-12)
PROC: 5A1D70Z Performance of Urinary Filtration, Intermittent, Less than 6 Hours Per Day (ICD-10-PCS; 2020-11-12)
PROC: 5A1D70Z Performance of Urinary Filtration, Intermittent, Less than 6 Hours Per Day (ICD-10-PCS; 2020-11-14)
DX: I74.5 Embolism and thrombosis of iliac artery (principal); E43 Unspecified severe protein-calorie malnutrition; L89.213 Pressure ulcer of right hip, stage 3; E11.22 Type 2 diabetes mellitus with diabetic chronic kidney disease; I70.221 Atherosclerosis of native arteries of extremities with rest pain, right leg; T87.43 Infection of amputation stump, right lower extremity; E11.51 Type 2 diabetes mellitus with diabetic peripheral angiopathy without gangrene; I12.0 Hypertensive chronic kidney disease with stage 5 chronic kidney disease or end stage renal disease; N18.6 End stage renal disease; G89.4 Chronic pain syndrome; D64.9 Anemia, unspecified; E66.09 Other obesity due to excess calories; E78.5 Hyperlipidemia, unspecified; G47.33 Obstructive sleep apnea (adult) (pediatric); Y83.8 Other surgical procedures as the cause of abnormal reaction of the patient, or of later complication, without mention of misadventure at the time of the procedure; G40.909 Epilepsy, unspecified, not intractable, without status epilepticus; Z20.822 Contact with and (suspected) exposure to COVID-19; F31.9 Bipolar disorder, unspecified; F41.9 Anxiety disorder, unspecified; Z87.891 Personal history of nicotine dependence; Z89.611 Acquired absence of right leg above knee; Z89.612 Acquired absence of left leg above knee; Z99.2 Dependence on renal dialysis; Z88.6 Allergy status to analgesic agent; Z88.2 Allergy status to sulfonamides; Z88.8 Allergy status to other drugs, medicaments and biological substances; Z79.899 Other long term (current) drug therapy; Z79.2 Long term (current) use of antibiotics; Z79.891 Long term (current) use of opiate analgesic; Z83.3 Family history of diabetes mellitus; Z82.49 Family history of ischemic heart disease and other diseases of the circulatory system; Z68.35 Body mass index [BMI] 35.0-35.9, adult; Y92.89 Other specified places as the place of occurrence of the external cause; Z79.02 Long term (current) use of antithrombotics/antiplatelets; Z79.82 Long term (current) use of aspirin; Z96.0 Presence of urogenital implants
CPT/HCPCS: 36415; 37226; 75635; 75710; 80048; 80053; 80202; 81003; 82040; 82962; 83036; 83605; 84134; 85025; 85347; 86705; 86709; 86803; 87340; 87426; 99285; C1726; C1769; C1893; C1894; C9113; J0461; J0696; J0885; J1200; J1644; J2250; J2270; J2310; J2405; J2543; J3010; J3370; J3490; J7030; J7040; J7060; Q9967

== ENCOUNTER 2020-12-20 23:44 | Emergency (ER) | payer OTHER ==
[~2020-12-20] VITALS: Ht 104.1 cm; Wt 57.0 kg
[~2020-12-20 23:44] MED LIST changes: -CEPH500T MT; -MIDO5TAB4 PO; -OXYC-485 PO; -OXYC1TAB12 MT
[2020-12-21] MEDS ORDERED: MORPHINE SULFATE 4 MG/ML CPJ (NOT FOR IM USE) IV STA (00:02)
[2020-12-21] MEDS ORDERED: ONDANSETRON HCL 4MG/2ML INJ IV STA (00:02)
[2020-12-21] MEDS ORDERED: CEFTRIAXONE 1 G PREMIX 50 ML IV ONE (00:15)
[2020-12-21 00:49] LABS: BASOPHILS % 1.1 % (0.0-2.0); EOSINOPHILS % 2.4 % (0.0-5.0); HEMATOCRIT. 30.9 % (36.0-48.0); HEMOGLOBIN. 10.6 g/dL (12.0-16.0); LYMPHOCYTES % 23.6 % (20.0-50.0); MEAN CORPUSCULAR HEMOGLOBIN 32.7 pg (28.0-32.0); MEAN CORPUSCULAR VOLUME 95.3 fL (81.0-99.0); MEAN PLATELET VOLUME 8.9 fl (7.4-10.4); MONOCYTES % 7.3 % (2.0-8.0); NEUTROPHILS % 65.6 % (40.0-76.0); PLATELET 342 x1000/uL (130-400); RED BLOOD CELL COUNT 3.24 mill/uL (4.2-5.4); RED CELL DISTRIBUTION WIDTH 17.5 % (11.6-14.6)
[2020-12-21 01:00] LABS: CHLORIDE 107 mEq/L (98-107)
[2020-12-21 01:17] LABS: CLARITY URINE TURBID (CLEAR); COLOR URINE YELLOW (YELLOW); KETONES URINE NEGATIVE (NEGATIVE); LEUKOCYTE ESTERASE URINE 3+ (NEGATIVE); NITRITE URINE NEGATIVE (NEGATIVE); OCCULT BLOOD URINE 1+ (NEGATIVE); PROTEIN URINE 2+ (NEGATIVE); UROBILINOGEN URINE 0.2 E.U./dL (0.2-1.0)
[2020-12-21] MEDS ORDERED: MORPHINE SULFATE 4 MG/ML CPJ (NOT FOR IM USE) IV ONE (14:00)
[2020-12-21 14:45] VITALS: BP 146/90
== END 2020-12-21 14:57 | disposition short-term general hospital (02) ==
LOC: ER 23:49
DX: N39.0 Urinary tract infection, site not specified (principal); R00.0 Tachycardia, unspecified; I12.0 Hypertensive chronic kidney disease with stage 5 chronic kidney disease or end stage renal disease; N18.6 End stage renal disease; Z89.612 Acquired absence of left leg above knee; Z89.611 Acquired absence of right leg above knee; Z79.899 Other long term (current) drug therapy; Z88.2 Allergy status to sulfonamides; Z91.018 Allergy to other foods; Z88.8 Allergy status to other drugs, medicaments and biological substances; Z99.2 Dependence on renal dialysis
CPT/HCPCS: 36415; 71045; 80053; 81003; 81025; 82962; 83605; 84145; 85025; 87040; 87086; 93005; 96365; 96375; 96376; 99285; J0696; J2270; J2405

== ENCOUNTER 2020-12-28 21:54 | Emergency (ER) | payer OTHER ==
[~2020-12-28] VITALS: Ht 165.1 cm; Wt 109.0 kg
[2020-12-28] MEDS ORDERED: ONDANSETRON HCL 4MG/2ML INJ IV STA (23:40)
[2020-12-28] MEDS ORDERED: MORPHINE SULFATE 4 MG/ML CPJ (NOT FOR IM USE) IV STA (23:40)
[2020-12-28] MEDS ORDERED: ASPIRIN 81MG TABLET PO ONE (23:45)
[2020-12-28] MEDS ORDERED: NITROGLYCERIN OINT 1GM/INCH UDPKT TD ONE (23:45)
[2020-12-29 00:26] LABS: BASOPHILS % 1.3 % (0.0-2.0); HEMATOCRIT. 26.8 % (36.0-48.0); HEMOGLOBIN. 9.2 g/dL (12.0-16.0); LYMPHOCYTES % 16.5 % (20.0-50.0); MEAN CORPUSCULAR HEMOGLOBIN 31.7 pg (28.0-32.0); MEAN CORPUSCULAR VOLUME 92.9 fL (81.0-99.0); MEAN PLATELET VOLUME 9.3 fl (7.4-10.4); MONOCYTES % 9.8 % (2.0-8.0); NEUTROPHILS % 70.4 % (40.0-76.0); PLATELET 279 x1000/uL (130-400); RED BLOOD CELL COUNT 2.89 mill/uL (4.2-5.4)
[2020-12-29 00:37] LABS: PARTIAL THROMBOPLASTIN TIME 32.1 sec (23.4-31.0); PROTHROMBIN TIME 10.8 sec (9.6-11.0)
[2020-12-29 00:41] LABS: CHLORIDE 107 mEq/L (98-107)
[2020-12-29] MEDS ORDERED: ALBUTEROL (0.083%) 2.5MG/3ML NEB HHN ONE (01:15)
[2020-12-29] MEDS ORDERED: SODIUM BICARBONATE 8.4% 1 MEQ/ML 50ML SYR IV ONE (01:15)
[2020-12-29] MEDS: SODIUM POLYSTYRENE SULFONATE 15 G/60 ML BOT PO ONE ×2 (01:31→02:10)
[2020-12-29 04:30] VITALS: BP 100/75
== END 2020-12-29 05:03 | disposition short-term general hospital (02) ==
LOC: ER 21:54
DX: I13.2 Hypertensive heart and chronic kidney disease with heart failure and with stage 5 chronic kidney disease, or end stage renal disease (principal); E11.22 Type 2 diabetes mellitus with diabetic chronic kidney disease; N18.6 End stage renal disease; R07.89 Other chest pain; I50.9 Heart failure, unspecified; E87.5 Hyperkalemia; Z99.2 Dependence on renal dialysis; Z87.19 Personal history of other diseases of the digestive system; Z88.6 Allergy status to analgesic agent; Z91.018 Allergy to other foods; Z88.2 Allergy status to sulfonamides
CPT/HCPCS: 36415; 71045; 80053; 83880; 84484; 85025; 85610; 85730; 93005; 94644; 96374; 96375; 99285; J2270; J2405; J3490; Z7610

== ENCOUNTER 2021-01-07 18:15 | Emergency (ER) | payer OTHER ==
[~2021-01-07] VITALS: Ht 167.6 cm; Wt 77.2 kg
[2021-01-07] MEDS: ACETAMINOPHEN 325MG TABLET PO STA ×2 (21:20→21:52)
[2021-01-07 21:49] LABS: BASOPHILS % 0.7 % (0.0-2.0); EOSINOPHILS % 3.1 % (0.0-5.0); HEMATOCRIT. 28.8 % (36.0-48.0); HEMOGLOBIN. 9.7 g/dL (12.0-16.0); LYMPHOCYTES % 25.1 % (20.0-50.0); MEAN CORPUSCULAR HEMOGLOBIN 31.1 pg (28.0-32.0); MEAN CORPUSCULAR VOLUME 92.4 fL (81.0-99.0); MEAN PLATELET VOLUME 8.5 fl (7.4-10.4); MONOCYTES % 8.2 % (2.0-8.0); NEUTROPHILS % 62.9 % (40.0-76.0); PLATELET 430 x1000/uL (130-400); RED BLOOD CELL COUNT 3.11 mill/uL (4.2-5.4); RED CELL DISTRIBUTION WIDTH 16.3 % (11.6-14.6)
[2021-01-07 21:52] LABS: CHLORIDE 107 mEq/L (98-107)
[2021-01-07 21:55] LABS: PROTHROMBIN TIME 11.2 sec (9.6-11.0)
[2021-01-07] MEDS ORDERED: LEVETIRACETAM 500MG PREMIX 100 ML IV ONE (22:00)
[2021-01-07] MEDS ORDERED: MORPHINE SULFATE 2 MG/ML CPJ (NOT FOR IM USE) IV ONE (23:00)
[2021-01-07] MEDS ORDERED: CEFEPIME HCL 1000MG/VIAL INJ IM ONE (23:45)
[2021-01-07] MEDS ORDERED: VANCOMYCIN 1 G PREMIX 200 ML IV SCH (23:45)
[2021-01-08] MEDS ORDERED: CEFEPIME 1,000 MG in DEXTROSE 5% WATER 50 ML IV SCH
[2021-01-08 00:44] LABS: CLARITY URINE CLEAR (CLEAR); COLOR URINE YELLOW (YELLOW); KETONES URINE NEGATIVE (NEGATIVE); LEUKOCYTE ESTERASE URINE TRACE (NEGATIVE); NITRITE URINE NEGATIVE (NEGATIVE); OCCULT BLOOD URINE 1+ (NEGATIVE); PH URINE 8.5 (4.5-8.0); PROTEIN URINE 1+ (NEGATIVE); UROBILINOGEN URINE 0.2 E.U./dL (0.2-1.0)
[2021-01-08 01:39] VITALS: BP 112/72
== END 2021-01-08 02:23 | disposition short-term general hospital (02) ==
LOC: ER 18:15
DX: M86.9 Osteomyelitis, unspecified (principal); E11.9 Type 2 diabetes mellitus without complications; I10 Essential (primary) hypertension; Z88.2 Allergy status to sulfonamides; Z88.6 Allergy status to analgesic agent; Z89.611 Acquired absence of right leg above knee; Z89.612 Acquired absence of left leg above knee; Z91.018 Allergy to other foods; Z20.822 Contact with and (suspected) exposure to COVID-19
CPT/HCPCS: 36415; 71045; 73560; 80053; 81003; 84484; 85025; 85610; 85651; 86140; 87426; 96365; 96367; 96375; 99285; J0692; J1953; J2270; J3370; J7060

== ENCOUNTER 2021-01-14 21:59 | Emergency (ER) | payer OTHER ==
[~2021-01-14] VITALS: Ht 129.5 cm; Wt 73.0 kg
[2021-01-14] MEDS ORDERED: PIPERACILLIN/TAZ 3.375G PREMIX 50 ML IV ONE (23:30)
[2021-01-14] MEDS ORDERED: VANCOMYCIN 1 G PREMIX 200 ML IV ONE (23:30)
[2021-01-14] MEDS ORDERED: SODIUM CHLORIDE 0.9% 1000ML BAG (SEPSIS BOLUS) IV ONE (23:30)
[2021-01-14 23:35] LABS: BASOPHILS % 0.6 % (0.0-2.0); EOSINOPHILS % 1.5 % (0.0-5.0); HEMATOCRIT. 33.1 % (36.0-48.0); LYMPHOCYTES % 15.4 % (20.0-50.0); MEAN CORPUSCULAR VOLUME 93.9 fL (81.0-99.0); MEAN PLATELET VOLUME 9.3 fl (7.4-10.4); MONOCYTES % 11.5 % (2.0-8.0); PLATELET 337 x1000/uL (130-400); RED BLOOD CELL COUNT 3.53 mill/uL (4.2-5.4); RED CELL DISTRIBUTION WIDTH 16.3 % (11.6-14.6)
[2021-01-14 23:42] LABS: CHLORIDE 100 mEq/L (98-107)
[2021-01-15 04:23] VITALS: BP 134/67
== END 2021-01-15 04:23 | disposition short-term general hospital (02) ==
LOC: ER 21:59
DX: J96.91 Respiratory failure, unspecified with hypoxia (principal); I12.9 Hypertensive chronic kidney disease with stage 1 through stage 4 chronic kidney disease, or unspecified chronic kidney disease; N18.9 Chronic kidney disease, unspecified; E11.9 Type 2 diabetes mellitus without complications; R56.9 Unspecified convulsions; F32.9 Major depressive disorder, single episode, unspecified; Z88.2 Allergy status to sulfonamides; Z88.6 Allergy status to analgesic agent; Z89.611 Acquired absence of right leg above knee; Z89.612 Acquired absence of left leg above knee; Z91.018 Allergy to other foods
CPT/HCPCS: 36415; 71045; 80053; 83605; 83690; 83880; 84484; 85025; 87040; 87077; 87086; 87186; 93005; 96365; 96366; 96368; 99285; J2543; J3370; J7030

== ENCOUNTER 2021-02-03 19:04 | Emergency (ER) | payer OTHER, MEDICAID ==
[~2021-02-03] VITALS: Ht 157.5 cm; Wt 69.0 kg
[2021-02-03] MEDS ORDERED: MORPHINE SULFATE 4 MG/ML CPJ (NOT FOR IM USE) IV ONE (20:45)
[2021-02-03 20:48] LABS: BASOPHILS % 0.6 % (0.0-2.0); EOSINOPHILS % 4.9 % (0.0-5.0); HEMATOCRIT. 25.7 % (36.0-48.0); HEMOGLOBIN. 8.4 g/dL (12.0-16.0); LYMPHOCYTES % 26.9 % (20.0-50.0); MEAN CORPUSCULAR HEMOGLOBIN 31.5 pg (28.0-32.0); MEAN CORPUSCULAR VOLUME 96.2 fL (81.0-99.0); MEAN PLATELET VOLUME 8.7 fl (7.4-10.4); MONOCYTES % 9.8 % (2.0-8.0); NEUTROPHILS % 57.8 % (40.0-76.0); PLATELET 280 x1000/uL (130-400); RED BLOOD CELL COUNT 2.67 mill/uL (4.2-5.4); RED CELL DISTRIBUTION WIDTH 18.8 % (11.6-14.6)
[2021-02-03 20:54] LABS: CHLORIDE 110 mEq/L (98-107)
[2021-02-03 20:57] LABS: CLARITY URINE CLEAR (CLEAR); COLOR URINE YELLOW (YELLOW); KETONES URINE NEGATIVE (NEGATIVE); LEUKOCYTE ESTERASE URINE 3+ (NEGATIVE); NITRITE URINE NEGATIVE (NEGATIVE); OCCULT BLOOD URINE NEGATIVE (NEGATIVE); PH URINE 8.5 (4.5-8.0); PROTEIN URINE 1+ (NEGATIVE); UROBILINOGEN URINE 0.2 E.U./dL (0.2-1.0)
[2021-02-03 20:58] LABS: PROTHROMBIN TIME 10.7 sec (9.6-11.0)
[2021-02-03] MEDS ORDERED: MORPHINE SULFATE 2 MG/ML CPJ (NOT FOR IM USE) IV NR (21:10)
[2021-02-04 00:16] VITALS: BP 107/71
== END 2021-02-04 00:06 | disposition short-term general hospital (02) ==
LOC: ER 19:04
DX: E87.5 Hyperkalemia (principal); D64.9 Anemia, unspecified; I12.0 Hypertensive chronic kidney disease with stage 5 chronic kidney disease or end stage renal disease; E11.22 Type 2 diabetes mellitus with diabetic chronic kidney disease; N18.6 End stage renal disease; Z99.2 Dependence on renal dialysis; R56.9 Unspecified convulsions; R07.9 Chest pain, unspecified; E87.70 Fluid overload, unspecified; Z88.2 Allergy status to sulfonamides; Z88.6 Allergy status to analgesic agent; Z89.611 Acquired absence of right leg above knee; Z89.612 Acquired absence of left leg above knee; Z91.018 Allergy to other foods
CPT/HCPCS: 36415; 71045; 80053; 81003; 83605; 83880; 84145; 84484; 85025; 85610; 87040; 87077; 87086; 87186; 93005; 96374; 99285; J2270

== ENCOUNTER 2021-02-15 11:05 | Inpatient (IN) | payer OTHER ==
[~2021-02-15] VITALS: Ht 167.6 cm; Wt 52.2 kg
[2021-02-15] MEDS ORDERED: CEFEPIME HCL 1000MG/VIAL INJ IM ONE (11:30)
[2021-02-15] MEDS ORDERED: DEXAMETHASONE 10 MG/ML VIAL IV ONE (11:30)
[2021-02-15] MEDS ORDERED: VANCOMYCIN 1 G PREMIX 200 ML IV ONE (11:30)
[2021-02-15] MEDS ORDERED: SODIUM CHLORIDE 0.9% 250 ML IV ONE (12:00)
[2021-02-15 12:53] LABS: BASOPHILS % 0.6 % (0.0-2.0); EOSINOPHILS % 0.3 % (0.0-5.0); HEMATOCRIT. 26.5 % (36.0-48.0); HEMOGLOBIN. 8.7 g/dL (12.0-16.0); LYMPHOCYTES % 27.4 % (20.0-50.0); MEAN CORPUSCULAR HEMOGLOBIN 30.7 pg (28.0-32.0); MEAN CORPUSCULAR VOLUME 93.1 fL (81.0-99.0); MEAN PLATELET VOLUME 9.6 fl (7.4-10.4); MONOCYTES % 12.8 % (2.0-8.0); NEUTROPHILS % 58.9 % (40.0-76.0); PLATELET 256 x1000/uL (130-400); RED BLOOD CELL COUNT 2.84 mill/uL (4.2-5.4); RED CELL DISTRIBUTION WIDTH 17.5 % (11.6-14.6)
[2021-02-15] MEDS ORDERED: CEFEPIME 1,000 MG in DEXTROSE 5% WATER 50 ML IV SCH (13:00)
[2021-02-15 14:50] LABS: CHLORIDE 107 mEq/L (98-107)
[2021-02-15] MEDS ORDERED: INSULIN REGULAR (HUMULIN R) 300UNITS/3ML VIAL IV ONE (15:15)
[2021-02-15] MEDS ORDERED: DEXTROSE 50% WATER 50ML SYRINGE IV ONE (15:15)
[2021-02-15] MEDS ORDERED: ONDANSETRON HCL 4MG/2ML INJ IV PRN (16:00)
[2021-02-15] MEDS ORDERED: CLONIDINE 0.1MG TABLET PO PRN (16:00)
[2021-02-15] MEDS ORDERED: DIPHENHYDRAMINE 50MG/ML VIAL IV PRN (16:00)
[2021-02-15] MEDS ORDERED: CEFTRIAXONE 1 G PREMIX 50 ML IV SCH (17:00)
[2021-02-15] MEDS ORDERED: AZITHROMYCIN 500MG/250ML 250 ML IV ONE (17:00)
[2021-02-15 21:08] LABS: HEPATITIS B SURFACE ANTIGEN NEGATIVE
[2021-02-16 06:57] VITALS: BP 140/83
[2021-02-16 08:00] VITALS: BP 126/74
[2021-02-16] MEDS ORDERED: AZITHROMYCIN 500 MG in DEXT 5% WATER 250 ML IV SCH (09:00)
[2021-02-16 12:00] VITALS: BP 111/67
[2021-02-16 13:35] LABS: BG CARBOXYHEMOGLOBIN 0.3 % (0.5-1.5); BG DEOXYHEMOGLOBIN 4.9 % (0.0-5.0); BG FRACTION INSPIRED OXYGEN 28; BG HCO3 ACT 20.7 mmol/L (22.0-26.0); BG METHEMOGLOBIN 0.4 % (0.0-1.5); BG OXYGEN SATURATION 95.1 % (92.0-98.5); BG OXYHEMOGLOBIN 94.4 % (94.0-97.0); BG PCO2 36.3 mmHg (35.0-45.0); BG PH 7.374 (7.350-7.450); BG PO2 86.3 mmHg (75.0-100.0); BG SAMPLE SITE RIGHT BRACHIAL; BG VENT MODE NASAL CANNULA
[2021-02-16] MEDS: DEXAMETHASONE 10 MG/ML VIAL IV SCH (13:36)
[2021-02-16] MEDS: AZITHROMYCIN 500 MG in DEXT 5% WATER 250 ML IV SCH (14:50)
[2021-02-16] MEDS ORDERED: MIDO5TAB4 PO (15:43)
[2021-02-16] MEDS ORDERED: DOCU-138 PO (15:43)
[2021-02-16] MEDS ORDERED: ASCO-339 PO (15:43)
[2021-02-16 16:00] VITALS: BP 113/66
[2021-02-16] MEDS: CEFTRIAXONE 1,000 MG in DEXTROSE 5% WATER 50 ML IV SCH (16:21)
[2021-02-16] MEDS: MIDODRINE HCL 5MG TABLET PO SCH (16:22)
[2021-02-16] MEDS: LEVETIRACETAM 500MG TABLET PO SCH (16:22)
[2021-02-16] MEDS: CLOPIDOGREL 75MG TABLET PO SCH (16:22)
[2021-02-16] MEDS: ASCORBIC ACID 500 MG TABLET PO SCH (16:22)
[2021-02-16 16:49] VITALS: BP_SYST 126; BP_SYST 90; BP_DIAS 74
[2021-02-16] MEDS: CALCIUM ACETATE 667MG CAPSULE PO SCH (18:06)
[2021-02-16 20:00] VITALS: BP 97/52
[2021-02-16] MEDS ORDERED: SERTRALINE HCL 50MG TABLET PO SCH (21:00)
[2021-02-16] MEDS ORDERED: QUETIAPINE FUMARATE 50MG TABLET PO SCH (21:00)
[2021-02-16] MEDS ORDERED: EPOETIN ALFA-EPBX 10,000 UNIT/ML VIAL SUBCUT SCH (21:00)
[2021-02-16] MEDS ORDERED: RISPERIDONE 0.5MG TABLET PO SCH (21:00)
[2021-02-16] MEDS ORDERED: AMITRIPTYLINE 25MG TABLET PO SCH (21:00)
[2021-02-16 21:14] LABS: BASOPHILS % 0.2 % (0.0-2.0); HEMATOCRIT. 25.1 % (36.0-48.0); HEMOGLOBIN. 8.3 g/dL (12.0-16.0); LYMPHOCYTES % 15.6 % (20.0-50.0); MEAN CORPUSCULAR VOLUME 94.3 fL (81.0-99.0); MEAN PLATELET VOLUME 8.9 fl (7.4-10.4); MONOCYTES % 6.5 % (2.0-8.0); NEUTROPHILS % 77.7 % (40.0-76.0); PLATELET 189 x1000/uL (130-400); RED BLOOD CELL COUNT 2.66 mill/uL (4.2-5.4); RED CELL DISTRIBUTION WIDTH 16.9 % (11.6-14.6)
[2021-02-16 21:35] LABS: PROTHROMBIN TIME 10.3 sec (9.6-11.0)
[2021-02-16 21:41] LABS: CHLORIDE 110 mEq/L (98-107)
[2021-02-16 21:48] LABS: LDL CHOLESTEROL 114 mg/dL (5-100)
[2021-02-16 21:49] LABS: HDL CHOLESTEROL 35 mg/dL (40-59)
[2021-02-16] MEDS: GABAPENTIN 300MG CAPSULE PO SCH (22:27)
[2021-02-16] MEDS ORDERED: ENOXAPARIN 60MG/0.6ML SYR SUBCUT SCH (23:00)
[2021-02-17] VITALS: BP 102/60
[2021-02-17 04:00] VITALS: BP 116/70
[2021-02-17] MEDS: GABAPENTIN 300MG CAPSULE PO SCH ×2 (06:07→14:06)
[2021-02-17 08:00] VITALS: BP 121/72
[2021-02-17] MEDS: CALCIUM ACETATE 667MG CAPSULE PO SCH ×2 (08:55→18:03)
[2021-02-17] MEDS: LEVETIRACETAM 500MG TABLET PO SCH ×2 (08:56→18:03)
[2021-02-17] MEDS: MIDODRINE HCL 5MG TABLET PO SCH ×2 (08:56→18:03)
[2021-02-17] MEDS: ASCORBIC ACID 500 MG TABLET PO SCH (08:56)
[2021-02-17] MEDS: DEXAMETHASONE 10 MG/ML VIAL IV SCH (08:56)
[2021-02-17] MEDS: CLOPIDOGREL 75MG TABLET PO SCH (08:56)
[2021-02-17 09:34] LABS: BASOPHILS % 0.3 % (0.0-2.0); EOSINOPHILS % 0.2 % (0.0-5.0); HEMATOCRIT. 30.2 % (36.0-48.0); HEMOGLOBIN. 9.6 g/dL (12.0-16.0); LYMPHOCYTES % 29.4 % (20.0-50.0); MEAN CORPUSCULAR HEMOGLOBIN 31.5 pg (28.0-32.0); MEAN CORPUSCULAR VOLUME 99.2 fL (81.0-99.0); MEAN PLATELET VOLUME 9.1 fl (7.4-10.4); MONOCYTES % 8.5 % (2.0-8.0); NEUTROPHILS % 61.6 % (40.0-76.0); PLATELET 224 x1000/uL (130-400); RED BLOOD CELL COUNT 3.04 mill/uL (4.2-5.4); RED CELL DISTRIBUTION WIDTH 17.5 % (11.6-14.6)
[2021-02-17 12:00] VITALS: BP 134/82
[2021-02-17] MEDS ORDERED: HYDROCODONE/ACETAMINOPHEN 5/325MG TABLET PO PRN (13:45)
[2021-02-17] MEDS: AZITHROMYCIN 500 MG in DEXT 5% WATER 250 ML IV SCH (14:09)
[2021-02-17 16:00] VITALS: BP 135/81
[2021-02-17] MEDS: CEFTRIAXONE 1,000 MG in DEXTROSE 5% WATER 50 ML IV SCH (18:03)
[2021-02-17 18:38] VITALS: BP 135/81
== END 2021-02-17 20:00 | disposition short-term general hospital (02) | DRG 720 ==
LOC: ER 11:05 → EDBEDREQTM 14:30 → EDBEDREQ 14:30 → EDBEDREQSVC 14:30 → ENRESERV 02-16 05:39 → 7WST 02-16 06:49
PROVIDERS: ADMIT Internal Medicine; ATTEND Internal Medicine
PROC: B54MZZA Ultrasonography of Right Upper Extremity Veins, Guidance (ICD-10-PCS; principal; 2021-02-17)
PROC: 05HY33Z Insertion of Infusion Device into Upper Vein, Percutaneous Approach (ICD-10-PCS; 2021-02-17)
DX: A41.89 Other specified sepsis (principal); J96.01 Acute respiratory failure with hypoxia; J12.82 Pneumonia due to coronavirus disease 2019; I82.411 Acute embolism and thrombosis of right femoral vein; U07.1 COVID-19; I12.0 Hypertensive chronic kidney disease with stage 5 chronic kidney disease or end stage renal disease; N18.6 End stage renal disease; J15.9 Unspecified bacterial pneumonia; E11.22 Type 2 diabetes mellitus with diabetic chronic kidney disease; D63.8 Anemia in other chronic diseases classified elsewhere; E11.40 Type 2 diabetes mellitus with diabetic neuropathy, unspecified; G40.909 Epilepsy, unspecified, not intractable, without status epilepticus; E87.5 Hyperkalemia; F32.A Depression, unspecified; F41.9 Anxiety disorder, unspecified; I25.10 Atherosclerotic heart disease of native coronary artery without angina pectoris; K57.90 Diverticulosis of intestine, part unspecified, without perforation or abscess without bleeding; E11.51 Type 2 diabetes mellitus with diabetic peripheral angiopathy without gangrene; E66.9 Obesity, unspecified; M10.9 Gout, unspecified; G89.4 Chronic pain syndrome; Z68.24 Body mass index [BMI] 24.0-24.9, adult; Z99.2 Dependence on renal dialysis; Z82.49 Family history of ischemic heart disease and other diseases of the circulatory system; Z83.3 Family history of diabetes mellitus; Z85.3 Personal history of malignant neoplasm of breast; Z89.611 Acquired absence of right leg above knee; Z89.612 Acquired absence of left leg above knee; Z95.5 Presence of coronary angioplasty implant and graft; Z79.84 Long term (current) use of oral hypoglycemic drugs; Z88.2 Allergy status to sulfonamides; Z88.8 Allergy status to other drugs, medicaments and biological substances; Z91.018 Allergy to other foods; Z79.899 Other long term (current) drug therapy; Z87.440 Personal history of urinary (tract) infections
CPT/HCPCS: 36415; 36600; 71045; 76937; 80048; 80053; 80061; 82375; 82728; 82805; 83605; 83615; 83880; 84145; 84443; 85025; 86141; 86705; 86709; 86803; 87340; 87426; 93005; 93970; 99291; A4565; A6261; C1725; C1893; J0456; J0692; J0696; J0885; J1100; J1650; J1815; J3370; J7042; J7050; J7060

== ENCOUNTER 2021-03-16 18:10 | Emergency (ER) | payer OTHER ==
[~2021-03-16] VITALS: Ht 147.3 cm; Wt 73.0 kg
[~2021-03-16 18:10] MED LIST changes: +ASCO-339 PO; +DOCU-138 PO; +MIDO5TAB4 PO
[2021-03-16 19:53] LABS: BASOPHILS % 0.6 % (0.0-2.0); EOSINOPHILS % 5.8 % (0.0-5.0); HEMATOCRIT. 23.8 % (36.0-48.0); HEMOGLOBIN. 7.8 g/dL (12.0-16.0); LYMPHOCYTES % 31.6 % (20.0-50.0); MEAN CORPUSCULAR HEMOGLOBIN 30.5 pg (28.0-32.0); MEAN CORPUSCULAR VOLUME 92.6 fL (81.0-99.0); MEAN PLATELET VOLUME 8.4 fl (7.4-10.4); MONOCYTES % 12.5 % (2.0-8.0); NEUTROPHILS % 49.5 % (40.0-76.0); PLATELET 259 x1000/uL (130-400); RED BLOOD CELL COUNT 2.57 mill/uL (4.2-5.4)
[2021-03-16 20:00] LABS: CHLORIDE 110 mEq/L (98-107)
[2021-03-16] MEDS ORDERED: ONDANSETRON HCL 4MG/2ML INJ IV STA (22:21)
[2021-03-16] MEDS ORDERED: MORPHINE SULFATE 4 MG/ML CPJ (NOT FOR IM USE) IV STA (22:21)
[2021-03-16 23:25] VITALS: BP 120/61
== END 2021-03-17 00:15 | disposition short-term general hospital (02) ==
LOC: ER 18:10 → CANBEDREQ 03-17 06:05
DX: T85.09XA Other mechanical complication of ventricular intracranial (communicating) shunt, initial encounter (principal); X58.XXXA Exposure to other specified factors, initial encounter; N18.6 End stage renal disease; E11.9 Type 2 diabetes mellitus without complications; I10 Essential (primary) hypertension; Z79.899 Other long term (current) drug therapy; Z88.2 Allergy status to sulfonamides; Z88.6 Allergy status to analgesic agent; Z20.822 Contact with and (suspected) exposure to COVID-19
CPT/HCPCS: 36415; 71045; 80053; 85025; 87426; 93005; 93970; 93971; 96374; 96375; 99285; J2270; J2405

== ENCOUNTER 2021-04-03 20:47 | Inpatient (IN) | payer MEDICAID, OTHER ==
[~2021-04-03] VITALS: Ht 162.6 cm; Wt 94.4 kg
[2021-04-03] MEDS ORDERED: MORPHINE SULFATE 4 MG/ML CPJ (NOT FOR IM USE) IV STA (21:10)
[2021-04-03 21:52] LABS: BASOPHILS % 0.7 % (0.0-2.0); EOSINOPHILS % 4.6 % (0.0-5.0); HEMATOCRIT. 21.3 % (36.0-48.0); HEMOGLOBIN. 7.2 g/dL (12.0-16.0); LYMPHOCYTES % 21.9 % (20.0-50.0); MEAN CORPUSCULAR HEMOGLOBIN 30.5 pg (28.0-32.0); MEAN CORPUSCULAR VOLUME 89.8 fL (81.0-99.0); MEAN PLATELET VOLUME 9.2 fl (7.4-10.4); MONOCYTES % 14.8 % (2.0-8.0); PLATELET 218 x1000/uL (130-400); RED BLOOD CELL COUNT 2.37 mill/uL (4.2-5.4); RED CELL DISTRIBUTION WIDTH 16.9 % (11.6-14.6)
[2021-04-03 22:00] LABS: CHLORIDE 106 mEq/L (98-107)
[2021-04-03] MEDS ORDERED: CALCIUM CHLORIDE 1GM/10ML SYR IV ONE (23:30)
[2021-04-03] MEDS ORDERED: DEXTROSE 50% WATER 50ML SYRINGE IV ONE (23:30)
[2021-04-03] MEDS ORDERED: INSULIN REGULAR (HUMULIN R) 300UNITS/3ML VIAL IV ONE (23:30)
[2021-04-04] MEDS ORDERED: MAGNESIUM/ALUMINUM HYDROXIDE/SIMETHICONE 30ML UDC PO PRN (06:15)
[2021-04-04] MEDS ORDERED: GUAIFENESIN 200MG/10ML SUGAR FREE UDC PO PRN (06:15)
[2021-04-04] MEDS ORDERED: CLONIDINE 0.1MG TABLET PO PRN (06:15)
[2021-04-04] MEDS ORDERED: HYDROCODONE/ACETAMINOPHEN 5/325MG TABLET PO PRN (06:15)
[2021-04-04] MEDS ORDERED: DOCUSATE SODIUM 100MG CAPSULE PO PRN (06:15)
[2021-04-04] MEDS ORDERED: IPRATROPIUM/ALBUTEROL 0.5-3(2.5)MG/3ML NEB NEB PRN (06:15)
[2021-04-04] MEDS ORDERED: ACETAMINOPHEN 325MG TABLET PO PRN (06:15)
[2021-04-04] MEDS ORDERED: ONDANSETRON HCL 4MG/2ML INJ IV PRN (06:15)
[2021-04-04] MEDS ORDERED: LORAZEPAM 2MG/ML CPJ IV PRN (06:15)
[2021-04-04] MEDS ORDERED: NA PHOS,M-B/NA PHOS,DI-BA ENEMA 118ML PR PRN (06:15)
[2021-04-04] MEDS ORDERED: NALOXONE HCL 0.4MG/ML VIAL IV PRN (06:45)
[2021-04-04] MEDS: MORPHINE SULFATE 2 MG/ML CPJ (NOT FOR IM USE) IV PRN ×4 (06:45→23:59)
[2021-04-04] MEDS: DIPHENHYDRAMINE 50MG/ML VIAL IV PRN ×2 (08:42→22:21)
[2021-04-04] MEDS: INSULIN LISPRO (HIGH DOSE) 100 UNITS/ML SUBCUT SCH ×4 (09:54→21:00)
[2021-04-04] MEDS: BLOOD SUGAR DIAGNOSTIC STRIP TEST SCH ×4 (10:00→21:08)
[2021-04-04] MEDS ORDERED: DEXTROSE 50% WATER 50ML SYRINGE IV PRN (10:00)
[2021-04-04 10:41] VITALS: BP 134/79
[2021-04-04 10:50] VITALS: BP 134/79
[2021-04-04 12:00] VITALS: BP 97/30
[2021-04-04 16:00] VITALS: BP 99/34
[2021-04-04 20:00] VITALS: BP 97/52
[2021-04-05] VITALS: BP 102/40
[2021-04-05 04:00] VITALS: BP 123/58
[2021-04-05] MEDS: MORPHINE SULFATE 2 MG/ML CPJ (NOT FOR IM USE) IV PRN ×4 (05:40→22:31)
[2021-04-05] MEDS: BLOOD SUGAR DIAGNOSTIC STRIP TEST SCH ×4 (06:10→21:45)
[2021-04-05] MEDS: INSULIN LISPRO (HIGH DOSE) 100 UNITS/ML SUBCUT SCH ×4 (07:39→21:00)
[2021-04-05 07:45] LABS: CHLORIDE 108 mEq/L (98-107)
[2021-04-05 07:52] LABS: HEMATOCRIT. 22.6 % (36.0-48.0); HEMOGLOBIN. 7.5 g/dL (12.0-16.0); MEAN CORPUSCULAR HEMOGLOBIN 30.5 pg (28.0-32.0); MEAN PLATELET VOLUME 9.5 fl (7.4-10.4); PLATELET 228 x1000/uL (130-400); RED BLOOD CELL COUNT 2.45 mill/uL (4.2-5.4); RED CELL DISTRIBUTION WIDTH 17.1 % (11.6-14.6)
[2021-04-05 07:55] LABS: LDL CHOLESTEROL 60 mg/dL (5-100)
[2021-04-05 07:56] LABS: HDL CHOLESTEROL 53 mg/dL (40-59)
[2021-04-05 08:00] VITALS: BP 166/94
[2021-04-05] MEDS: DIPHENHYDRAMINE 50MG/ML VIAL IV PRN ×2 (09:21→16:39)
[2021-04-05 12:00] VITALS: BP 152/62
[2021-04-05] MEDS ORDERED: SODIUM POLYSTYRENE SULFONATE 15 G/60 ML BOT PO SCH (12:00)
[2021-04-05 16:00] VITALS: BP 120/85
[2021-04-05 16:08] LABS: HEPATITIS B SURFACE ANTIGEN NEGATIVE
[2021-04-05 17:49] LABS: PLATELET ESTIMATE NORMAL
[2021-04-05 20:00] VITALS: BP 113/55
[2021-04-06] VITALS (27 sets, daily range): BP systolic 94–155; BP diastolic 43–75
[2021-04-06] MEDS: DIPHENHYDRAMINE 50MG/ML VIAL IV PRN ×3 (00:53→17:01)
[2021-04-06] MEDS: MORPHINE SULFATE 2 MG/ML CPJ (NOT FOR IM USE) IV PRN ×3 (05:44→22:12)
[2021-04-06] MEDS: BLOOD SUGAR DIAGNOSTIC STRIP TEST SCH ×4 (05:47→21:00)
[2021-04-06 06:41] LABS: PARTIAL THROMBOPLASTIN TIME 30.3 sec (23.4-31.0); PROTHROMBIN TIME 10.5 sec (9.6-11.0)
[2021-04-06 07:11] LABS: CHLORIDE 108 mEq/L (98-107)
[2021-04-06] MEDS: INSULIN LISPRO (HIGH DOSE) 100 UNITS/ML SUBCUT SCH ×4 (07:36→21:00)
[2021-04-06] MEDS ORDERED: SODIUM BICARBONATE 8.4% 1 MEQ/ML 50ML SYR IV NR (09:30)
[2021-04-06] MEDS ORDERED: SODIUM POLYSTYRENE SULFONATE 15 G/60 ML BOT PO NR (11:00)
[2021-04-06] MEDS ORDERED: LIDOCAINE HCL 1% 20ML VIAL (Pyxis) INJ ONE (13:42)
[2021-04-06] MEDS ORDERED: HEPARIN 1000 UNITS/ML 10ML ONE (13:42)
[2021-04-06] MEDS ORDERED: CLINDAMYCIN 600 MG in DEXTROSE 5% WATER 50 ML IV ONE (13:45)
[2021-04-06] MEDS ORDERED: CLINDAMYCIN 600MG PREMIX 50 ML IV NR (14:00)
[2021-04-06] MEDS ORDERED: FENTANYL CITRATE/PF 50MCG/ML 2ML VIAL ONE (14:18)
[2021-04-06] MEDS ORDERED: IOHEXOL-300 50 ML BOTTLE IV ONE (14:18)
[2021-04-06] MEDS ORDERED: FENTANYL CITRATE/PF 50MCG/ML 2ML VIAL IV NR (15:00)
[2021-04-06] MEDS: QUETIAPINE FUMARATE 50MG TABLET PO SCH (15:33)
[2021-04-06] MEDS ORDERED: HEPARIN SODIUM 1,000 UNIT/1ML VIAL IV SCH (18:00)
[2021-04-06] MEDS: EPOETIN ALFA-EPBX 10,000 UNIT/ML VIAL SUBCUT SCH (22:12)
[2021-04-07] VITALS (8 sets, daily range): BP systolic 100–151; BP diastolic 45–81
[2021-04-07] MEDS: MORPHINE SULFATE 2 MG/ML CPJ (NOT FOR IM USE) IV PRN ×4 (06:03→21:20)
[2021-04-07] MEDS: BLOOD SUGAR DIAGNOSTIC STRIP TEST SCH ×4 (06:04→21:04)
[2021-04-07] MEDS: INSULIN LISPRO (HIGH DOSE) 100 UNITS/ML SUBCUT SCH ×4 (06:04→21:00)
[2021-04-07 06:17] LABS: EOSINOPHILS % 7.5 % (0.0-5.0); HEMATOCRIT. 22.4 % (36.0-48.0); HEMOGLOBIN. 7.3 g/dL (12.0-16.0); LYMPHOCYTES % 19.8 % (20.0-50.0); MEAN CORPUSCULAR HEMOGLOBIN 30.2 pg (28.0-32.0); MEAN CORPUSCULAR VOLUME 93.1 fL (81.0-99.0); MEAN PLATELET VOLUME 9.8 fl (7.4-10.4); MONOCYTES % 12.6 % (2.0-8.0); NEUTROPHILS % 59.1 % (40.0-76.0); PLATELET 123 x1000/uL (130-400); RED BLOOD CELL COUNT 2.41 mill/uL (4.2-5.4); RED CELL DISTRIBUTION WIDTH 17.4 % (11.6-14.6)
[2021-04-07] MEDS: DIPHENHYDRAMINE 50MG/ML VIAL IV PRN ×3 (09:16→21:03)
[2021-04-07] MEDS: QUETIAPINE FUMARATE 50MG TABLET PO SCH (09:16)
[2021-04-08] VITALS (32 sets, daily range): BP systolic 94–170; BP diastolic 27–91
[2021-04-08] MEDS: DIPHENHYDRAMINE 50MG/ML VIAL IV PRN ×4 (03:57→21:15)
[2021-04-08] MEDS: MORPHINE SULFATE 2 MG/ML CPJ (NOT FOR IM USE) IV PRN ×4 (03:58→22:33)
[2021-04-08 06:02] LABS: BASOPHILS % 0.7 % (0.0-2.0); HEMATOCRIT. 25.6 % (36.0-48.0); HEMOGLOBIN. 8.6 g/dL (12.0-16.0); LYMPHOCYTES % 24.9 % (20.0-50.0); MEAN CORPUSCULAR HEMOGLOBIN 30.7 pg (28.0-32.0); MEAN CORPUSCULAR VOLUME 91.1 fL (81.0-99.0); MEAN PLATELET VOLUME 8.8 fl (7.4-10.4); MONOCYTES % 13.2 % (2.0-8.0); NEUTROPHILS % 51.2 % (40.0-76.0); PLATELET 219 x1000/uL (130-400); RED BLOOD CELL COUNT 2.81 mill/uL (4.2-5.4); RED CELL DISTRIBUTION WIDTH 17.2 % (11.6-14.6)
[2021-04-08] MEDS: BLOOD SUGAR DIAGNOSTIC STRIP TEST SCH ×4 (06:23→21:12)
[2021-04-08] MEDS: INSULIN LISPRO (HIGH DOSE) 100 UNITS/ML SUBCUT SCH ×4 (06:40→21:00)
[2021-04-08] MEDS ORDERED: HEPARIN 1000 UNITS/ML 10ML ONE (07:33)
[2021-04-08] MEDS ORDERED: IOHEXOL-300 100 ML BOTTLE ONE (07:33)
[2021-04-08] MEDS ORDERED: LIDOCAINE HCL 1% 20ML VIAL (Pyxis) INJ ONE (07:33)
[2021-04-08] MEDS ORDERED: CLINDAMYCIN 600 MG in DEXTROSE 5% WATER 50 ML IV ONE (08:15)
[2021-04-08] MEDS ORDERED: FENTANYL CITRATE/PF 50MCG/ML 2ML VIAL ONE (08:27)
[2021-04-08] MEDS ORDERED: CLINDAMYCIN 600MG PREMIX 50 ML IV ONE (08:30)
[2021-04-08] MEDS ORDERED: FENTANYL CITRATE/PF 50MCG/ML 2ML VIAL IV ONE ×2 (09:30→09:45)
[2021-04-08] MEDS: QUETIAPINE FUMARATE 50MG TABLET PO SCH (10:39)
[2021-04-08] MEDS: GABAPENTIN 300MG CAPSULE PO SCH (17:37)
[2021-04-08] MEDS: EPOETIN ALFA-EPBX 10,000 UNIT/ML VIAL SUBCUT SCH (21:15)
[2021-04-09] VITALS (11 sets, daily range): BP systolic 94–134; BP diastolic 47–81
[2021-04-09] MEDS: DIPHENHYDRAMINE 50MG/ML VIAL IV PRN ×4 (01:52→20:12)
[2021-04-09 06:18] LABS: BASOPHILS % 0.6 % (0.0-2.0); EOSINOPHILS % 7.9 % (0.0-5.0); LYMPHOCYTES % 21.8 % (20.0-50.0); MEAN CORPUSCULAR HEMOGLOBIN 30.3 pg (28.0-32.0); MEAN CORPUSCULAR VOLUME 90.1 fL (81.0-99.0); MEAN PLATELET VOLUME 9.5 fl (7.4-10.4); MONOCYTES % 12.1 % (2.0-8.0); NEUTROPHILS % 57.6 % (40.0-76.0); PLATELET 163 x1000/uL (130-400); RED BLOOD CELL COUNT 2.26 mill/uL (4.2-5.4)
[2021-04-09] MEDS: BLOOD SUGAR DIAGNOSTIC STRIP TEST SCH ×4 (07:39→21:41)
[2021-04-09] MEDS: INSULIN LISPRO (HIGH DOSE) 100 UNITS/ML SUBCUT SCH ×4 (07:39→21:00)
[2021-04-09 08:00] LABS: HEMOGLOBIN. 6.8 g/dL (12.0-16.0)
[2021-04-09 08:01] LABS: HEMATOCRIT. 20.4 % (36.0-48.0)
[2021-04-09] MEDS: QUETIAPINE FUMARATE 50MG TABLET PO SCH (09:13)
[2021-04-09] MEDS: GABAPENTIN 300MG CAPSULE PO SCH ×2 (09:13→16:01)
[2021-04-09] MEDS: HYDROCODONE/ACETAMINOPHEN 10/325MG TABLET PO PRN ×2 (12:23→20:12)
[2021-04-09 16:17] LABS: BASOPHILS % 0.7 % (0.0-2.0); EOSINOPHILS % 8.2 % (0.0-5.0); HEMATOCRIT. 21.9 % (36.0-48.0); HEMOGLOBIN. 7.3 g/dL (12.0-16.0); LYMPHOCYTES % 27.2 % (20.0-50.0); MEAN CORPUSCULAR HEMOGLOBIN 29.9 pg (28.0-32.0); MEAN CORPUSCULAR VOLUME 90.1 fL (81.0-99.0); MEAN PLATELET VOLUME 9.3 fl (7.4-10.4); MONOCYTES % 10.5 % (2.0-8.0); NEUTROPHILS % 53.4 % (40.0-76.0); PLATELET 166 x1000/uL (130-400); RED BLOOD CELL COUNT 2.43 mill/uL (4.2-5.4)
[2021-04-10] VITALS: BP 121/62
[2021-04-10] MEDS: HYDROCODONE/ACETAMINOPHEN 10/325MG TABLET PO PRN ×2 (02:42→12:53)
[2021-04-10] MEDS: DIPHENHYDRAMINE 50MG/ML VIAL IV PRN ×4 (02:55→18:51)
[2021-04-10 04:00] VITALS: BP 108/63
[2021-04-10] MEDS: BLOOD SUGAR DIAGNOSTIC STRIP TEST SCH ×4 (06:24→21:36)
[2021-04-10] MEDS: INSULIN LISPRO (HIGH DOSE) 100 UNITS/ML SUBCUT SCH ×4 (06:24→21:00)
[2021-04-10 08:00] VITALS: BP 133/63
[2021-04-10] MEDS: QUETIAPINE FUMARATE 50MG TABLET PO SCH (09:09)
[2021-04-10] MEDS: GABAPENTIN 300MG CAPSULE PO SCH ×2 (09:09→16:32)
[2021-04-10 12:00] VITALS: BP 157/78
[2021-04-10 16:00] VITALS: BP 146/68
[2021-04-10 18:04] LABS: BASOPHILS % 0.7 % (0.0-2.0); EOSINOPHILS % 7.1 % (0.0-5.0); HEMATOCRIT. 26.2 % (36.0-48.0); HEMOGLOBIN. 8.6 g/dL (12.0-16.0); LYMPHOCYTES % 20.9 % (20.0-50.0); MEAN CORPUSCULAR HEMOGLOBIN 29.4 pg (28.0-32.0); MEAN CORPUSCULAR VOLUME 89.3 fL (81.0-99.0); MEAN PLATELET VOLUME 8.8 fl (7.4-10.4); MONOCYTES % 9.2 % (2.0-8.0); NEUTROPHILS % 62.1 % (40.0-76.0); PLATELET 162 x1000/uL (130-400); RED BLOOD CELL COUNT 2.93 mill/uL (4.2-5.4); RED CELL DISTRIBUTION WIDTH 16.8 % (11.6-14.6)
[2021-04-10 18:45] LABS: HEPATITIS B SURFACE ANTIGEN NEGATIVE
[2021-04-10 20:00] VITALS: BP_SYST 118; BP_SYST 119; BP_DIAS 63; BP_DIAS 74
[2021-04-10] MEDS ORDERED: DIPHENHYDRAMINE 50MG/ML VIAL IV NR (21:45)
[2021-04-11] VITALS: BP 122/62
[2021-04-11] MEDS: EPOETIN ALFA-EPBX 10,000 UNIT/ML VIAL SUBCUT SCH (00:01)
[2021-04-11] MEDS: DIPHENHYDRAMINE 50MG/ML VIAL IV PRN ×5 (00:09→21:42)
[2021-04-11 04:00] VITALS: BP 115/60
[2021-04-11] MEDS: INSULIN LISPRO (HIGH DOSE) 100 UNITS/ML SUBCUT SCH ×4 (07:20→21:00)
[2021-04-11] MEDS: BLOOD SUGAR DIAGNOSTIC STRIP TEST SCH ×4 (07:20→21:00)
[2021-04-11 08:00] VITALS: BP 136/72
[2021-04-11 08:00] LABS: BASOPHILS % 1.2 % (0.0-2.0); EOSINOPHILS % 6.4 % (0.0-5.0); HEMATOCRIT. 28.9 % (36.0-48.0); HEMOGLOBIN. 9.7 g/dL (12.0-16.0); LYMPHOCYTES % 19.5 % (20.0-50.0); MEAN CORPUSCULAR HEMOGLOBIN 29.8 pg (28.0-32.0); MEAN CORPUSCULAR VOLUME 88.5 fL (81.0-99.0); MEAN PLATELET VOLUME 9.7 fl (7.4-10.4); MONOCYTES % 11.3 % (2.0-8.0); NEUTROPHILS % 61.6 % (40.0-76.0); PLATELET 182 x1000/uL (130-400); RED BLOOD CELL COUNT 3.26 mill/uL (4.2-5.4); RED CELL DISTRIBUTION WIDTH 16.3 % (11.6-14.6)
[2021-04-11] MEDS: QUETIAPINE FUMARATE 50MG TABLET PO SCH (08:48)
[2021-04-11] MEDS: GABAPENTIN 300MG CAPSULE PO SCH ×2 (08:48→17:23)
[2021-04-11] MEDS: HYDROCODONE/ACETAMINOPHEN 10/325MG TABLET PO PRN ×2 (08:54→21:44)
[2021-04-11 12:12] VITALS: BP 108/54
[2021-04-11 16:00] VITALS: BP 139/61
[2021-04-11 20:00] VITALS: BP 130/60
[2021-04-12] VITALS (7 sets, daily range): BP systolic 101–159; BP diastolic 42–78
[2021-04-12] MEDS: DIPHENHYDRAMINE 50MG/ML VIAL IV PRN ×4 (05:20→21:13)
[2021-04-12] MEDS: BLOOD SUGAR DIAGNOSTIC STRIP TEST SCH ×4 (06:21→21:14)
[2021-04-12] MEDS: INSULIN LISPRO (HIGH DOSE) 100 UNITS/ML SUBCUT SCH ×3 (06:21→16:47)
[2021-04-12] MEDS: QUETIAPINE FUMARATE 50MG TABLET PO SCH (08:27)
[2021-04-12] MEDS: GABAPENTIN 300MG CAPSULE PO SCH ×2 (08:27→16:58)
[2021-04-12] MEDS ORDERED: CALAMINE LOTION 120ML TOP PRN (19:45)
[2021-04-12] MEDS ORDERED: NYSTATIN POWDER 15GM TOP SCH (19:45)
[2021-04-12] MEDS: NYSTATIN POWDER 15GM TOP SCH (21:14)
[2021-04-12] MEDS: CETIRIZINE 10MG TABLET PO SCH (21:14)
[2021-04-12] MEDS: CALAMINE LOTION 120ML TOP PRN (21:15)
[2021-04-13] VITALS: BP 118/58
[2021-04-13] MEDS: DIPHENHYDRAMINE 50MG/ML VIAL IV PRN ×4 (01:28→13:40)
[2021-04-13 04:00] VITALS: BP 140/74
[2021-04-13 08:17] VITALS: BP 136/68
[2021-04-13] MEDS: QUETIAPINE FUMARATE 50MG TABLET PO SCH (09:21)
[2021-04-13] MEDS: GABAPENTIN 300MG CAPSULE PO SCH ×2 (09:21→16:34)
[2021-04-13] MEDS: CETIRIZINE 10MG TABLET PO SCH (09:30)
[2021-04-13] MEDS: CALAMINE LOTION 120ML TOP PRN ×2 (09:31→16:34)
[2021-04-13 11:52] VITALS: BP 160/73
[2021-04-13 12:37] VITALS: BP 140/73
[2021-04-13] MEDS: NYSTATIN POWDER 15GM TOP SCH (16:36)
== END 2021-04-13 17:45 | DRG 182 ==
LOC: ER 20:47 → ENRESERV 04-04 09:21 → 8WST 04-04 10:25
PROVIDERS: ADMIT Internal Medicine; ATTEND Internal Medicine
PROC: 5A1D70Z Performance of Urinary Filtration, Intermittent, Less than 6 Hours Per Day (ICD-10-PCS; 2021-04-05)
PROC: 02HV33Z Insertion of Infusion Device into Superior Vena Cava, Percutaneous Approach (ICD-10-PCS; principal; 2021-04-06)
PROC: B548ZZA Ultrasonography of Superior Vena Cava, Guidance (ICD-10-PCS; 2021-04-06)
PROC: 0JH63XZ Insertion of Tunneled Vascular Access Device into Chest Subcutaneous Tissue and Fascia, Percutaneous Approach (ICD-10-PCS; 2021-04-06)
PROC: 02HV33Z Insertion of Infusion Device into Superior Vena Cava, Percutaneous Approach (ICD-10-PCS; 2021-04-06)
PROC: B5181ZA Fluoroscopy of Superior Vena Cava using Low Osmolar Contrast, Guidance (ICD-10-PCS; 2021-04-06)
PROC: B548ZZA Ultrasonography of Superior Vena Cava, Guidance (ICD-10-PCS; 2021-04-06)
PROC: 5A1D70Z Performance of Urinary Filtration, Intermittent, Less than 6 Hours Per Day (ICD-10-PCS; 2021-04-06)
PROC: 03783ZZ Dilation of Left Brachial Artery, Percutaneous Approach (ICD-10-PCS; 2021-04-08)
PROC: 03C83ZZ Extirpation of Matter from Left Brachial Artery, Percutaneous Approach (ICD-10-PCS; 2021-04-08)
PROC: B51W1ZZ Fluoroscopy of Dialysis Shunt/Fistula using Low Osmolar Contrast (ICD-10-PCS; 2021-04-08)
PROC: B31N1ZZ Fluoroscopy of Other Upper Arteries using Low Osmolar Contrast (ICD-10-PCS; 2021-04-08)
PROC: 05CY3ZZ Extirpation of Matter from Upper Vein, Percutaneous Approach (ICD-10-PCS; 2021-04-08)
PROC: 5A1D70Z Performance of Urinary Filtration, Intermittent, Less than 6 Hours Per Day (ICD-10-PCS; 2021-04-08)
PROC: 30233N1 Transfusion of Nonautologous Red Blood Cells into Peripheral Vein, Percutaneous Approach (ICD-10-PCS; 2021-04-09)
PROC: 5A1D70Z Performance of Urinary Filtration, Intermittent, Less than 6 Hours Per Day (ICD-10-PCS; 2021-04-10)
PROC: 5A1D70Z Performance of Urinary Filtration, Intermittent, Less than 6 Hours Per Day (ICD-10-PCS; 2021-04-13)
DX: T82.41XA Breakdown (mechanical) of vascular dialysis catheter, initial encounter (principal); I13.2 Hypertensive heart and chronic kidney disease with heart failure and with stage 5 chronic kidney disease, or end stage renal disease; N18.6 End stage renal disease; L89.159 Pressure ulcer of sacral region, unspecified stage; E44.0 Moderate protein-calorie malnutrition; C50.911 Malignant neoplasm of unspecified site of right female breast; D63.1 Anemia in chronic kidney disease; E11.22 Type 2 diabetes mellitus with diabetic chronic kidney disease; Z89.611 Acquired absence of right leg above knee; I25.10 Atherosclerotic heart disease of native coronary artery without angina pectoris; M10.9 Gout, unspecified; I50.9 Heart failure, unspecified; E11.51 Type 2 diabetes mellitus with diabetic peripheral angiopathy without gangrene; E78.5 Hyperlipidemia, unspecified; E11.42 Type 2 diabetes mellitus with diabetic polyneuropathy; F32.A Depression, unspecified; G40.909 Epilepsy, unspecified, not intractable, without status epilepticus; E87.5 Hyperkalemia; J44.9 Chronic obstructive pulmonary disease, unspecified; T82.510A Breakdown (mechanical) of surgically created arteriovenous fistula, initial encounter; Z20.822 Contact with and (suspected) exposure to COVID-19; L29.9 Pruritus, unspecified; Z79.02 Long term (current) use of antithrombotics/antiplatelets; Z89.612 Acquired absence of left leg above knee; Z99.2 Dependence on renal dialysis; Z86.16 Personal history of COVID-19; Z88.2 Allergy status to sulfonamides; Z88.8 Allergy status to other drugs, medicaments and biological substances; Z91.018 Allergy to other foods; Z79.899 Other long term (current) drug therapy; Z87.891 Personal history of nicotine dependence; Z90.49 Acquired absence of other specified parts of digestive tract
CPT/HCPCS: 36415; 36905; 71045; 76937; 77001; 80048; 80053; 80061; 82962; 83880; 84132; 84484; 85025; 86705; 86709; 86803; 86850; 86900; 86920; 87340; 87426; 93005; 99152; 99153; 99285; C1725; C1766; C1769; C2630; J0885; J1200; J1644; J1815; J2270; J3010; J3490; J7040; P9016; Q9967; G0500

== ENCOUNTER 2021-10-22 14:54 | Emergency (ER) | payer OTHER ==
[~2021-10-22] VITALS: Ht 160 cm; Wt 100.0 kg
[~2021-10-22 14:54] MED LIST changes: +CYCL10TA21 PO; -CYCL10TA7 PO
[2021-10-22] MEDS ORDERED: HYDROCODONE/ACETAMINOPHEN 5/325MG TABLET PO STA (15:32)
[2021-10-22 22:30] VITALS: BP 99/57
== END 2021-10-23 00:24 | disposition home or self-care (01) ==
LOC: ER 14:54
DX: N64.4 Mastodynia (principal); E11.22 Type 2 diabetes mellitus with diabetic chronic kidney disease; I12.0 Hypertensive chronic kidney disease with stage 5 chronic kidney disease or end stage renal disease; N18.6 End stage renal disease; Z99.2 Dependence on renal dialysis; F31.9 Bipolar disorder, unspecified; J44.9 Chronic obstructive pulmonary disease, unspecified; K21.9 Gastro-esophageal reflux disease without esophagitis; E78.00 Pure hypercholesterolemia, unspecified; F20.9 Schizophrenia, unspecified; Z79.899 Other long term (current) drug therapy
CPT/HCPCS: 71045; 82962; 93971; 99284

== ENCOUNTER 2021-11-06 17:20 | Emergency (ER) | payer OTHER ==
[~2021-11-06] VITALS: Ht 162.6 cm; Wt 98.0 kg
[2021-11-06] MEDS ORDERED: PIPERACILLIN/TAZ 3.375G PREMIX 50 ML IV ONE (20:00)
[2021-11-06] MEDS ORDERED: VANCOMYCIN 1G PREMIX 200 ML IV ONE (20:00)
[2021-11-06] MEDS ORDERED: SODIUM CHLORIDE 0.9% 1000ML BAG (SEPSIS BOLUS) IV ONE (20:00)
[2021-11-06] MEDS ORDERED: VANCOMYCIN 1GM PMX (XELLIA) 200 ML IV NR (20:45)
[2021-11-06 20:48] LABS: CHLORIDE 93 mEq/L (98-107)
[2021-11-06 21:53] LABS: BASOPHILS % 0.8 % (0.0-2.0); EOSINOPHILS % 4.3 % (0.0-5.0); HEMATOCRIT. 31.7 % (36.0-48.0); HEMOGLOBIN. 10.1 g/dL (12.0-16.0); LYMPHOCYTES % 24.3 % (20.0-50.0); MEAN CORPUSCULAR HEMOGLOBIN 26.2 pg (28.0-32.0); MEAN CORPUSCULAR VOLUME 82.6 fL (81.0-99.0); MEAN PLATELET VOLUME 8.5 fl (7.4-10.4); MONOCYTES % 13.8 % (2.0-8.0); NEUTROPHILS % 56.8 % (40.0-76.0); PLATELET 243 x1000/uL (130-400); RED BLOOD CELL COUNT 3.84 mill/uL (4.2-5.4); RED CELL DISTRIBUTION WIDTH 18.4 % (11.6-14.6)
[2021-11-06] MEDS ORDERED: MORPHINE SULFATE 4 MG/ML CPJ (NOT FOR IM USE) IV ONE (22:45)
[2021-11-07] MEDS ORDERED: IOHEXOL-300 100 ML BOTTLE ONE (00:29)
[2021-11-07 01:15] VITALS: BP 105/67
== END 2021-11-07 01:30 | disposition short-term general hospital (02) ==
LOC: ER 17:20
DX: A41.9 Sepsis, unspecified organism (principal); N61.0 Mastitis without abscess; G45.8 Other transient cerebral ischemic attacks and related syndromes; I12.0 Hypertensive chronic kidney disease with stage 5 chronic kidney disease or end stage renal disease; E11.22 Type 2 diabetes mellitus with diabetic chronic kidney disease; N18.6 End stage renal disease; Z99.2 Dependence on renal dialysis; J44.9 Chronic obstructive pulmonary disease, unspecified; F32.9 Major depressive disorder, single episode, unspecified; K21.9 Gastro-esophageal reflux disease without esophagitis; E78.00 Pure hypercholesterolemia, unspecified; F20.9 Schizophrenia, unspecified; R56.9 Unspecified convulsions; Z85.3 Personal history of malignant neoplasm of breast; Z88.2 Allergy status to sulfonamides; Z88.6 Allergy status to analgesic agent; Z88.8 Allergy status to other drugs, medicaments and biological substances; Z86.718 Personal history of other venous thrombosis and embolism; Z89.611 Acquired absence of right leg above knee; Z89.612 Acquired absence of left leg above knee; Z91.018 Allergy to other foods
CPT/HCPCS: 36415; 71045; 71260; 80053; 83605; 83880; 84145; 84484; 85025; 87040; 87426; 93005; 96361; 96365; 96367; 96375; 99291; J2270; J2543; J3370; J7030; Q9967

== ENCOUNTER 2021-11-16 18:22 | Emergency (ER) | payer OTHER ==
[~2021-11-16] VITALS: Ht 162.6 cm; Wt 91.0 kg
[2021-11-16 18:36] VITALS: BP 154/92
[2021-11-16] MEDS ORDERED: OFLO5DRO3 EACHEYE (19:59)
[2021-11-17] MEDS ORDERED: ACETAMINOPHEN WITH CODEINE 300/30MG TABLET PO ONE
== END 2021-11-17 00:22 | disposition home or self-care (01) ==
LOC: ER 18:22
DX: H92.01 Otalgia, right ear (principal); F31.9 Bipolar disorder, unspecified; J44.9 Chronic obstructive pulmonary disease, unspecified; I12.0 Hypertensive chronic kidney disease with stage 5 chronic kidney disease or end stage renal disease; E11.22 Type 2 diabetes mellitus with diabetic chronic kidney disease; N18.6 End stage renal disease; Z99.2 Dependence on renal dialysis; Z87.891 Personal history of nicotine dependence; Z79.899 Other long term (current) drug therapy
CPT/HCPCS: 99283

== ENCOUNTER 2021-11-26 05:44 | Emergency (ER) | payer OTHER ==
[~2021-11-26] VITALS: Ht 152.4 cm; Wt 59.0 kg
[~2021-11-26 05:44] MED LIST changes: +OFLO5DRO3 EACHEYE
[2021-11-26] MEDS ORDERED: SODIUM CHLORIDE 0.9% 1,000 ML IV ONE (07:00)
[2021-11-26] MEDS ORDERED: METOCLOPRAMIDE HCL 10MG/2ML VIAL IV ONE (07:00)
[2021-11-26] MEDS ORDERED: SUMATRIPTAN SUCCINATE 6MG/0.5ML VIAL SUBCUT ONE (07:00)
[2021-11-26] MEDS ORDERED: KETOROLAC 30MG/ML VIAL IV ONE (09:45)
[2021-11-26 12:29] LABS: BASOPHILS % 0.3 % (0.0-2.0); EOSINOPHILS % 1.3 % (0.0-5.0); HEMATOCRIT. 32.2 % (36.0-48.0); HEMOGLOBIN. 10.5 g/dL (12.0-16.0); LYMPHOCYTES % 10.9 % (20.0-50.0); MEAN CORPUSCULAR HEMOGLOBIN 26.9 pg (28.0-32.0); MEAN CORPUSCULAR VOLUME 82.4 fL (81.0-99.0); MEAN PLATELET VOLUME 8.9 fl (7.4-10.4); MONOCYTES % 11.9 % (2.0-8.0); NEUTROPHILS % 75.6 % (40.0-76.0); PLATELET 274 x1000/uL (130-400); RED BLOOD CELL COUNT 3.91 mill/uL (4.2-5.4); RED CELL DISTRIBUTION WIDTH 18.9 % (11.6-14.6)
[2021-11-26 12:31] LABS: CHLORIDE 99 mEq/L (98-107)
[2021-11-26 13:50] VITALS: BP 114/63
== END 2021-11-26 13:54 | disposition short-term general hospital (02) ==
LOC: ER 05:44 → CANBEDREQ 11-27 01:38
DX: I63.9 Cerebral infarction, unspecified (principal); I12.0 Hypertensive chronic kidney disease with stage 5 chronic kidney disease or end stage renal disease; E11.22 Type 2 diabetes mellitus with diabetic chronic kidney disease; N18.6 End stage renal disease; Z99.2 Dependence on renal dialysis; J44.9 Chronic obstructive pulmonary disease, unspecified; F20.9 Schizophrenia, unspecified; E78.00 Pure hypercholesterolemia, unspecified; D64.9 Anemia, unspecified; I95.9 Hypotension, unspecified; R56.9 Unspecified convulsions; F32.9 Major depressive disorder, single episode, unspecified; K21.9 Gastro-esophageal reflux disease without esophagitis; Z88.2 Allergy status to sulfonamides; Z88.6 Allergy status to analgesic agent; Z89.9 Acquired absence of limb, unspecified; Z20.822 Contact with and (suspected) exposure to COVID-19; Z86.718 Personal history of other venous thrombosis and embolism; Z91.018 Allergy to other foods
CPT/HCPCS: 36415; 70450; 71045; 80053; 85025; 87426; 93005; 96372; 96374; 96375; 99285; C9803; J1885; J2765; J3030; J7030

== ENCOUNTER 2021-12-30 13:15 | Emergency (ER) | payer OTHER ==
[~2021-12-30] VITALS: Ht 160 cm; Wt 65.0 kg
[2021-12-30] MEDS ORDERED: PROPOFOL 10MG/ML 100ML 100 ML IV ONE (13:30)
[2021-12-30] MEDS ORDERED: ETOMIDATE 2MG/ML 10ML VIAL IV ONE (13:30)
[2021-12-30 14:22] VITALS: BP 0/0
== END 2021-12-30 14:22 ==
LOC: ER 13:15 → CANBEDREQ 14:58
DX: R41.82 Altered mental status, unspecified (principal); I12.0 Hypertensive chronic kidney disease with stage 5 chronic kidney disease or end stage renal disease; N18.6 End stage renal disease; F41.9 Anxiety disorder, unspecified; D64.9 Anemia, unspecified; M19.90 Unspecified osteoarthritis, unspecified site; I25.10 Atherosclerotic heart disease of native coronary artery without angina pectoris; E78.00 Pure hypercholesterolemia, unspecified; F31.9 Bipolar disorder, unspecified; Z88.2 Allergy status to sulfonamides; Z88.6 Allergy status to analgesic agent; Z89.9 Acquired absence of limb, unspecified; Z99.2 Dependence on renal dialysis; Z86.711 Personal history of pulmonary embolism; Z91.018 Allergy to other foods
CPT/HCPCS: 31500; 36415; 36556; 86900; 86901; 86920; 96374; 99291; Z7610; P9016